=== PATIENT | female | born 1960 | race Caucasian/White ===

== ENCOUNTER 2024-02-25 01:12 | Emergency (ER) | payer OTHER, SELFPAY ==
[2024-02-25 01:13] VITALS: BP 165/142; PULSE 88; RESP 20; TEMP 36.4; O2SAT 96; BMI 34.3
--- NOTE | 2024-02-25 01:37 | RAD_ITS ---
STUDY: X-RAY CHEST REASON FOR EXAM: Female, 63 years old patient with chest pain. TECHNIQUE: PA and lateral views of the chest. COMPARISON: Prior comparison studies are not available for review at this time. FINDINGS: Cardiac monitoring leads are present. The lungs are clear and expanded. There is no demonstrated pleural abnormality. Normal size heart. There is a masslike area within the middle mediastinum with air-fluid level consistent with hiatal hernia. Both hilar areas are within normal limits in appearance. Normal visualized pulmonary arteries. Normal visualized aortic arch and descending thoracic aorta. There is demineralization of the osseous structures. There appears to be mild compression fracture of a midthoracic vertebral body. Normal visualized ribs, clavicles, and shoulders. There is no demonstrated abnormality of the visualized soft tissue structures of the upper abdomen. RAD/Chest PA and Lateral IMPRESSION: 1. No radiographic evidence of acute cardiopulmonary disease. 2. Moderately large hiatal hernia. Electronically Signed: Dinorah Marie MD at 2:26 EST ,
--- NOTE | 2024-02-25 01:37 | EKG12_ITS ---
Test Reason : CP Blood Pressure : */* mmHG Vent. Rate : 85 BPM Atrial Rate : 85 BPM P-R Int : 146 ms QRS Dur : 80 ms QT Int : 370 ms P-R-T Axes : 50 19 22 degrees QTcB Int : 440 ms Normal sinus rhythm Normal ECG Confirmed by SHARYN TRONCOSO, TULIO ([id number]), editor & co founder MARTHA FARMER ([id number]) on 02/26/2024 9:41:38 AM Referred By: DON Confirmed By: TULIO COLES MD
[2024-02-25] MEDS: Ondansetron 4 MG/2 ML Vial IV (01:42)
[2024-02-25] MEDS: HYDROmorphone 0.5 MG/0.5 ML SYRINGE IV (01:42)
[2024-02-25 01:44] LABS: Absolute Lymphocyte Count 1.43 X10^3/uL (0.83-4.51); Absolute Neutrophil Count 5.6 X10^3/uL (2.0-7.7); Basophil# 0.12 X10^3/uL; Basophil% 1.4 % (0-1); Eosinophil# 0.29 X10^3/uL; Eosinophils% 3.5 % (0-5); Hematocrit 44.2 % (37-47); Hemoglobin 14.3 g/dL (12.0-15.0); Lymphocyte # 1.43 X10^3/ul (0.83-4.51); Lymphocyte % 17.2 % (19-41); Mean Corp Hgb Conc 32.4 g/dL (32-36); Mean Corpuscular Hgb 29.9 pg (27.0-32.0); Mean Corpuscular Volume 92.3 fL (81-99); Monocyte% 9.7 % (0-10); NRBC Flagged by Analyzer 0 % (0-5); Neutrophil # 5.58 X10^3/uL (2.7-7.7); Neutrophil % 67.4 % (47-70); Platelet Count 297 K/mm3 (150-450); RBC Distribution Width CV 13.4 % (11.6-14.6); Red Blood Count 4.79 M/mm3 (4.2-5.4); White Blood Count 8.3 K/mm3 (4.4-11.0)
[2024-02-25 02:05] LABS: D-Dimer Quantitative (DVT/PE) 0.37 FEU/ug/m (0.27-0.49)
[2024-02-25 02:06] LABS: AST(SGOT) 22 U/L (15-37); Alanine Aminotransfer ALT/SGPT 39 U/L (13-56); Albumin, Serum 3.6 g/dL (3.2-5.0); Alkaline Phosphatase 119 U/L (45-117); Anion Gap 4 (5-15); BUN 12 mg/dL (7-18); BUN/Creat Ratio 15.2 RATIO (10-20); Bilirubin, Direct 0.11 mg/dL (0.00-0.30); Calcium,Total 9.2 mg/dL (8.5-10.1); Chloride 105 mmol/L (98-107); Creatinine, Serum 0.79 mg/dL (0.55-1.02); EST Glomerular Filtration Rate 78 mL/min (>60); Est Glom Filt Rate - Afr Amer 94 mL/min (>60); Estimated Creatinine Clearance 78.52 ml/min; Globulin 3.3 g/dL (2.2-4.2); Glucose 113 mg/dL (74-106); Lipase 79 U/L (13-75); Magnesium 2.2 mg/dL (1.6-2.6); Potassium 3.9 mmol/L (3.5-5.1); Protein, Total 6.9 g/dL (6.4-8.2); Sodium Level 142 mmol/L (136-145); Troponin-I HS 5 pg/mL (3.0-54.0)
[2024-02-25 02:13] VITALS: BP 161/88; PULSE 85; RESP 16; O2SAT 98
--- NOTE | 2024-02-25 02:34 | CT_ITS ---
STUDY: CTA CHEST REASON FOR EXAM: Female, 63 years old patient with chest and back pain. RADIATION DOSAGE (If Supplied By Facility): CTDIvol = ( 15.42 ) mGy, DLP = ( 780.99 ) mGycm TECHNIQUE: The examination was performed with the intravenous administration of 100 mL of IV Isovue-370. Post-processing of the angiographic images was performed, with multiplanar reformation and 3D reconstruction. Individualized dose optimization techniques were used for this CT. COMPARISON: Prior comparison studies are not available for review at this time. FINDINGS: Normal enhancement of the main pulmonary artery and right and left pulmonary arteries. Normal enhancement of the bilateral peripheral pulmonary arteries. There is no demonstrated pulmonary embolism. Normal thoracic aorta and visualized great vessels. There is no demonstrated aortic dissection. Normal heart and pericardium. There is moderately large hiatal hernia. Normal hilar regions. Normal visualized trachea and bronchi. The lungs are well expanded. There is a minimal left basilar dependent atelectasis. There is patchy right lower lobe ground glass attenuation that could represent early pneumonia. Lungs are otherwise clear. Normal pleura. Normal chest wall structures. There are mild degenerative changes of thoracic spine. There is a curvature of the thoracic spine with convexity towards the right. There are gallstones. CT/CTA Chest W/WO Contrast IMPRESSION: 1. No CTA demonstrated pulmonary embolism or arterial dissection. 2. Right lower lobe airspace disease could represent early pneumonia. 3. Minimal left-sided dependent atelectasis. 4. Moderately large hiatal hernia. 5. Cholelithiasis. Electronically Signed: Dinorah Marie MD at 3:50 EST ,
--- NOTE | 2024-02-25 02:34 | CT_ITS ---
STUDY: CT ABDOMEN AND PELVIS WITH CONTRAST REASON FOR EXAM: Female, 63 years old patient with right upper quadrant (RUQ) abdominal pain. RADIATION DOSAGE (If Supplied By Facility): CTDIvol = ( 23.67 ) mGy, DLP = ( 1175.11 ) mGycm TECHNIQUE: Transaxial images were obtained from the dome of the diaphragm to the symphysis pubis without oral contrast. 100 mL of IV Isovue-370 was administered. Sagittal and coronal images were reconstructed. Individualized dose optimization techniques were used for this CT. COMPARISON: None. FINDINGS: The visualized lung bases are unremarkable. The visualized portions of the heart are within normal limits. There is decreased attenuation of the liver consistent with steatosis. There are multiple gallstones. There appears to some thickening of the gallbladder wall. Normal spleen. Normal pancreas. Normal bilateral adrenal glands. Normal right kidney. Normal left kidney. There is a moderately large hiatal hernia composed mostly of the fundus of the stomach. There is no obvious dilated bowel, ascites or pneumoperitoneum. There is some thickening of the moon of the proximal small bowel. Descending colon is nondistended with mild thickening of the moon. Distal gas is visible in the ascending and transverse colon. Scattered diverticula are visible. There is non-visualization of the appendix. Normal abdominal aorta. Normal inferior vena cava. Normal retroperitoneum. Normal urinary bladder. There are uterine calcifications that are probably secondary to leiomyomata. Normal abdominal wall. There are multilevel degenerative changes of the visualized lumbar spine. There is mild anterolisthesis at L5-S1. CT/Abdomen/Pelvis W IV Cont ONLY IMPRESSION: 1. Cholelithiasis with mild thickening of the gallbladder wall suggests possible cholecystitis. 2. Mild abnormal thickening of the moon of the proximal small bowel in the left upper quadrant suggests possible sequela of infectious or inflammatory enteritis. 3. Hepatic steatosis. 4. Hiatal hernia. Electronically Signed: Dinorah Marie MD at 4:04 EST ,
[2024-02-25 03:00] VITALS: BP 145/86; PULSE 85; RESP 16; O2SAT 98
[2024-02-25 04:00] VITALS: BP 141/88; PULSE 78; RESP 18; TEMP 36.6; O2SAT 94
[2024-02-25 04:15] LABS: Troponin-I HS 10 pg/mL (3.0-54.0)
--- NOTE | 2024-02-25 04:31 | EDS_ITS ---
HPI History of Present Illness Chief Complaint: Chest Pain Informant: patient and family Narrative Narrative: Patient is a 63-year-old female with history of migraine headache and GERD. She states that this evening she began developing both anterior chest pain and upper back pain. She states there was no trauma or excessive activity. She states there is been nausea associated with the pain but no vomiting. She denies any diaphoresis or shortness of breath. She denies any previous history of cardiac disease. She denies any recent travel surgery or history of DVT/PE. She reports that her blood pressure is typically low and she has been checking it because of her symptoms and it is now elevated. Therefore because of the new hypertension and symptoms of chest and back pain she had concerned this may be cardiac in nature and was brought to the hospital for evaluation [facility] Home Medications ?Medication ?Instructions ?Recorded ?Last Taken ?Type rizatriptan 5 mg tablet 5 mg PO PRN PRN Headache 02/28/17 02/27/17 History lansoprazole 30 mg capsule,delayed 30 mg PO DAILY 02/25/24 Unknown History release ondansetron 4 mg disintegrating 4 mg PO TID PRN nausea and 02/25/24 Unknown Rx tablet vomiting #21 tabs oxycodone-acetaminophen 5 mg-325 1 tab PO Q6H PRN pain 3 days #12 02/25/24 Unknown Rx mg tablet (Percocet) tabs Allergy/AdvReac Type Severity Reaction Status Date / Time topiramate (From Topamax) Allergy Intermediate Rash Verified 02/25/24 01:13 Social History Smoking Status: Never smoker [facility] ED Constitutional Constitutional ED: Denies chills or fever(s) Eyes Eyes: Denies change in vision ENT ENT ED: Denies sore throat Cardiovascular Cardiovascular: Reports chest pain; Denies palpitations or racing heartbeat Respiratory/Chest Respiratory/Chest: Denies cough or dyspnea Gastrointestinal Gastrointestinal: Reports nausea; Denies abdominal pain, diarrhea or vomiting Genitourinary Genitourinary ED: Denies dysuria Musculoskeletal Musculoskeletal: Reports back pain Integumentary Denies rash Neurologic Neurologic: Denies headache(s), paresthesias or weakness Hematologic/Lymphatic Hematologic/Lymphatic: Denies easy bleeding or easy bruising EXAM Physical Exam Const Vital Signs: 02/25/24 01:13 02/25/24 02:13 02/25/24 03:00 Temperature 97.5 F L Temperature Source Temporal Pulse Rate 88 85 85 Respiratory Rate 20 H 16 16 Blood Pressure 165/142 H 161/88 H 145/86 H Blood Pressure Mean 149 112 105 Pulse Ox 96 98 98 Oxygen Delivery Method Room Air Room Air Room Air 02/25/24 04:00 02/25/24 04:00 Temperature 97.8 F Temperature Source Pulse Rate 78 78 Respiratory Rate 18 18 Blood Pressure 141/88 H 141/88 H Blood Pressure Mean 105 105 Pulse Ox 94 94 Oxygen Delivery Method Positive well nourished, well developed and obese General Appearance ED: well developed; Negative for pallor Nutritional Appearance: obese HEENT HEENT Narrative: Normocephalic atraumatic Eyes PERRL and EOMs intact bilaterally General Eye ED: Negative for scleral icterus Neck supple and no JVD Neck Narrative: No nuchal rigidity or meningeal signs Chest Wall palpation of chest normal Chest Narrative: No bony deformity or crepitance noted Resp normal respiratory effort and clear to auscultation bilaterally Resp Narrative: No nasal flaring retractions tachypnea or accessory muscle use Cardio regular rate and regular rhythm Rate: other Other Details: Heart is regular rate and rhythm without murmurs rubs or gallops Radial and carotid pulses are equal and symmetric GI non-distended and no masses GI Narrative: Abdomen is soft and nondistended with normal active bowel sounds. Patient has mild pain with palpation in the right upper quadrant and midepigastric region without voluntary guarding or rigidity. Negative Miller sign No pulsatile mass or fluid wave Auscultation: normoactive bowel sounds Palpation: soft Back/Spine no CVA tenderness Extremity normal to inspection Extremity Narrative: No asymmetric edema no pitting edema negative Homans' sign bilaterally Neuro oriented x3, CN's II-XII intact bilaterally and no sensory deficits noted Sensorium / Orientation: alert Motor Exam: strength 5/5 throughout Psych mental status grossly normal Skin no rashes or lesions noted General Skin Exam: Negative for jaundice or pallor MDM MDM MDM Narrative Medical decision making narrative: Patient arrived to the ER hypertensive otherwise with stable vitals. She reported pain in the anterior chest and upper back but more along the midline of the sternum and thoracic spine. General diagnosis is for acute coronary syndrome versus cardiac dysrhythmia versus pneumonia versus pneumothorax versus GERD versus pancreatitis versus biliary colic or acute cholecystitis. There is also concern for potential dissection and/or PE. Secondary to this basic blood work was obtained as well as a chest x-ray. Chest x-ray revealed no pneumonia or pneumothorax or widening of the mediastinum. The patient's D-dimer is negative going against PE or dissection. Her EKG is sinus without ischemic changes and while on the monitor there is no cardiac dysrhythmia noted. After receiving medication the patient reported the chest discomfort has resolved but she still has some back pain. Therefore elected to perform a CTA of the chest but as my physical exam is more concerning for biliary colic a CT with IV contrast of the abdomen pelvis was obtained to check for gallbladder dysfunction. CTA revealed no PE or dissection. CT of the abdomen pelvis did show gallstones. The image questioned thickening and possibly cholecystitis. Secondary to this I discussed with patient the need to be evaluated in the hospital and have ultrasound to obtain a better image. The patient states she has not been completely pain-free for the last hour. She states that as I have ruled out a heart attack or blood clot or dissection and her symptoms have resolved she does not want to sit in the hospital for more hours in order to obtain a better study of her gallbladder. She understands that if infection is truly present that it could worsen over the next few hours to few days leading to systemic infection and more invasive surgery. Patient states she understands this but does not believe that will happen and she agrees to have an outpatient ultrasound and follow-up with general surgery for repeat evaluation. History & Record Review Discussion w/independent historian: Patient and Family Lab Data Attestation: I reviewed the patient's lab results. Labs: Laboratory Results - last 24 hr 02/25/24 02/25/24 01:27 03:48 WBC 8.3 RBC 4.79 Hgb 14.3 Hct 44.2 MCV 92.3 MCH 29.9 MCHC 32.4 RDW Std Deviation 46.0 H RDW Coeff of Wolf 13.4 Plt Count 297 MPV 10.0 Immature Gran % (Auto) 0.800 Neut % (Auto) 67.4 Lymph % (Auto) 17.2 L Mora % (Auto) 9.7 Eos % (Auto) 3.5 Baso % (Auto) 1.4 H Absolute Neuts (auto) 5.6 Absolute Lymphs (auto) 1.43 Nucleated RBC % 0 D-Dimer Quant (PE/DVT) 0.37 Sodium 142 Potassium 3.9 Chloride 105 Carbon Dioxide 32.0 Anion Gap 4 L BUN 12 Creatinine 0.79 Estim Creat Clear Calc 78.52 Est GFR (MDRD) Af Amer 94 Est GFR (MDRD) Non-Af 78 BUN/Creatinine Ratio 15.2 Glucose 113 H Calcium 9.2 Magnesium 2.2 Total Bilirubin 0.40 Direct Bilirubin 0.11 AST 22 ALT 39 Alkaline Phosphatase 119 H Troponin I High Sens 5 10 Total Protein 6.9 Albumin 3.6 Globulin 3.3 Lipase 79 H Radiography Diagnostic Testing: Clinical Impression(s) from Imaging Studies Chest X-Ray 02/25/24 01:37 IMPRESSION: 1. No radiographic evidence of acute cardiopulmonary disease. 2. Moderately large hiatal hernia. Electronically Signed: Dinorah Marie MD at 2:26 EST , Abdomen/Pelvis CT 02/25/24 02:34 IMPRESSION: 1. Cholelithiasis with mild thickening of the gallbladder wall suggests possible cholecystitis. 2. Mild abnormal thickening of the moon of the proximal small bowel in the left upper quadrant suggests possible sequela of infectious or inflammatory enteritis. 3. Hepatic steatosis. 4. Hiatal hernia. Electronically Signed: Dinorah Marie MD at 4:04 EST , Chest CTA 02/25/24 02:34 IMPRESSION: 1. No CTA demonstrated pulmonary embolism or arterial dissection. 2. Right lower lobe airspace disease could represent early pneumonia. 3. Minimal left-sided dependent atelectasis. 4. Moderately large hiatal hernia. 5. Cholelithiasis. Electronically Signed: Dinorah Marie MD at 3:50 EST , 2 view chest x-ray as interpreted by the emergency medicine physician reveals no acute infiltrate pneumothorax or pleural effusion or widening of the mediastinum Discharge Plan Triage Chief Complaint: Chest Pain ED Provider: Sean Garber Dx/Rx/DC Orders Clinical Impression: Cholelithiasis, Biliary colic, Hypertension, History of migraine headaches, GERD (gastroesophageal reflux disease) Instructions: Gallstones Dc, ED Gallstones with Biliary Colic Prescriptions: New ondansetron 4 mg tablet,disintegrating 4 mg PO TID PRN (Reason: nausea and vomiting) Qty: 21 0RF oxycodone-acetaminophen [Percocet] 5-325 mg tablet 1 tab PO Q6H PRN (Reason: pain) 3 Days Qty: 12 0RF No Action rizatriptan 5 MG tablet 5 mg PO PRN PRN (Reason: Headache) lansoprazole 30 mg capsule,delayed release(DR/EC) 30 mg PO DAILY Other Ambulatory Orders: Gallbladder (Routine) Facility: [facility] - Location: [facility] Ordered By: Dr. Sean Garber Primary Care Provider: Lee Chiang Referrals: Sunny Tan MD [Med Staff - Active Staff] - Lee Chiang MD [Primary Care Provider] - Activity Restrictions/Additional Instructions: Your workup today showed gallstones and your symptoms are most consistent with a gallbladder spasm. Obtain your outpatient ultrasound to better characterize you r gallbladder dysfunction. Follow-up with general surgery to discuss potential removal of your gallbladder. If you develop a fever or have intractable pain or any further concerns return to the ER for repeat evaluation Print Language: Thai Disposition Disposition: Home, Self Care Discharge Date/Time: 02/25/24 04:40
== END 2024-02-25 04:40 | disposition home or self-care (01) ==
PROVIDERS: Emergency Provider Emergency Medicine; PCP Family Medicine; Visit Provider Emergency Medicine
DX: K80.70 Calculus of gallbladder and bile duct without cholecystitis without obstruction (principal); M54.6 Pain in thoracic spine; I10 Essential (primary) hypertension; K21.9 Gastro-esophageal reflux disease without esophagitis
CPT/HCPCS: 71046; 71275; 74177; 80048; 80076; 83690; 83735; 84484; 85025; 85379; 93005; 96374; 96375; 99283; Q9967; A4216; J2405

== ENCOUNTER → 2024-03-01 | Outpatient (CLI) | payer OTHER, SELFPAY ==
--- NOTE | 2024-03-01 10:26 | US_ITS ---
STUDY: ULTRASOUND GALLBLADDER REASON FOR VISIT: Female, 63 years old. Abdominal pain TECHNIQUE: Ultrasound evaluation of the gallbladder was performed with real-time and static mitchell-scale imaging. TECHNICAL QUALITY: Adequate. COMPARISON: None. FINDINGS: Gallbladder: Normal distended gallbladder. The gallbladder wall measures 2 mm. There is a negative sonographic Miller''s sign. There is no pericholecystic fluid. There are multiple echogenic structures within the gallbladder, consistent with multiple gallstones. Common Bile Duct (C.B.D.): The common bile duct measures 4 mm. US/Gallbladder IMPRESSION: Cholelithiasis. Electronically Signed: Rafiq Downing MD at 23:49 EST ,
== END | disposition home or self-care (01) ==
PROVIDERS: PCP Family Medicine; Referring Provider Emergency Medicine; Visit Provider Emergency Medicine
DX: K80.20 Calculus of gallbladder without cholecystitis without obstruction (principal)
CPT/HCPCS: 76705

== ENCOUNTER 2024-10-28 14:34 | Inpatient (IN) | payer MEDICARE, BC, SELFPAY ==
[2024-10-28] VITALS (15 sets, daily range): BP systolic 120–146; BP diastolic 75–106; PULSE 63–84; RESP 13–20; TEMP 36.3–36.7; O2SAT 96–100; BMI 32.4; BMI 32.5
--- OUTSIDE RECORDS SUMMARY | 2024-10-28 07:24 | XMS RPT_ITS | CCD ---
Author Organization [facility] Care Team Providers Care Station Engineer Main Line Name Role Phone BALAJI, FARHAD Unavailable Unavailable EMANUEL, CLAUDIA Unavailable Unavailable EMANUEL, CLAUDIA Unavailable Unavailable BALAJI, FARHAD Unavailable Unavailable Tao Mahajan MD Primary Care Provider Tao Mahajan MD Primary Care Provider Erendira Chiang MD Primary Care Provider Erendira Chiang MD Primary Care Provider Erendira Chiang MD Primary Care Provider Tannhof EMT DRIVER.ALEMITE OPERATORDisha Unavailable Ankit EMT DRIVER.Derek ARAGONsse Unavailable ERENDIRA CHIANG Primary Care Unavailable ANKIT, JAN Referring Unavailable MALATHI LEONOR L Referring Unavailable ERENDIRA CHIANG Primary Care Unavailable MALATHI LEONOR L Referring Unavailable MALATHI LEONOR L Attending Unavailable ERENDIRA CHIANG Primary Care Unavailable ANKIT, JAN Attending Unavailable ERENDIRA CHIANG Primary Care Unavailable Ankit PECAN CLEANER, Jan Attending Unavailable Ankit PECAN CLEANER, Jan Referring Unavailable Erendira Chiang Primary Care Unavailable AndJonathan beyin Attending Unavailable Andsotero Sean Referring Unavailable Erendira Chiang Primary Care Unavailable AndesJonathanin Attending Unavailable Erendira Chiang Primary Care Unavailable Allergies Allergy Classification Reported Allergen(s) Allergy Type Date of Onset Reaction(s) Facility (20 sources) topiramate; Translations: [TOPIRAMATE] Drug Allergy 03-26-2006 Hives [facility] Other [facility] (14 sources) atorvastatin; Translations: [ATORVASTATIN] Drug Allergy 03-22-2022 Myalgia [facility] Work Phone: (14 sources) Simvastatin; Translations: [SIMVASTATIN] Drug Allergy 03-22-2022 Myalgia [facility] Work Phone: Medications Current Medications Medication Drug Class(es) Dates Sig (Normalized) Sig (Original) biotin 2.5 mg oral capsule (17 sources) Start: 02-03-2011 Biotin 2,500 mcg ORAL Cap Take by mouth. 0 02/03/2011 Active Comment on above: Take by mouth. CHOLECALCIFEROL, VITAMIN D3, (VITAMIN D3 ORAL) (17 sources) CHOLECALCIFEROL, VITAMIN D3, (VITAMIN D3 ORAL) Take by mouth. Active CHOLECALCIFEROL, VITAMIN D3, (VITAMIN D3 ORAL) Take by mouth. 0 Active Comment on above: Take by mouth. lansoprazole 30 mg delayed release oral capsule (20 sources) Proton Pump Inhibitor Start: End: take 1 capsule by mouth once daily lansoprazole (PREVACID) 30 mg capsule Indications: GERD without esophagitis Take 1 capsule by mouth once daily. 30 capsule 2 07/26/2024 10/24/2024 Active Start: 03-22-2022 End: 09-16-2022 take 1 capsule by mouth once daily lansoprazole (PREVACID) 30 mg capsule Indications: GERD without esophagitis Take 1 capsule by mouth once daily. 90 capsule 1 09/16/2022 Active Start: 12-31-2021 take 1 capsule by mo [facility] once daily lansoprazole (PREVACID) 30 mg capsule Indications: GERD without esophagitis Take 1 capsule by mouth once daily. 90 capsule 0 12/31/2021 Active Start: 01-21-2021 End: 12-28-2021 take 1 capsule by mouth once daily lansoprazole (PREVACID) 30 mg capsule Indications: GERD without esophagitis TAKE 1 CAPSULE BY MOUTH EVERY DAY 90 capsule 3 01/21/2021 12/28/2021 Discontinued Comment on above: TAKE 1 CAPSULE BY MO UT EVERY DAY Take 1 capsule by mo [facility] once daily. magnesium oxide 400 mg oral tablet (17 sources) Start: 09-20-2018 take 1 tablet by mouth once daily magnesium oxide 400 mg magnesium tab Take 1 tablet by mouth once daily. 09/20/2018 Active Comment on above: Take 1 tablet by heron th once daily. rizatriptan 10 mg oral tablet (19 sources) Serotonin-1b and Serotonin-1d Receptor Agonist Start: 03-28-2023 End: 10-24-2024 take 1 tablet by mouth every two hours as needed rizatriptan (MAXALT) 10 mg tablet Indications: Migraine without aura, not intractable, with status migrainosus Take 1 tablet by mouth as needed. May repeat in 2 hours if needed 12 tablet 3 04/27/2024 10/24/2024 Active Start: 10-25-2021 End: 09-16-2022 take 1 tablet by mouth every two hours as needed rizatriptan (MAXALT) 10 mg tablet Indications: Migraine without aura, not intractable, with status migrainosus Take 1 tablet by mouth as needed. May repeat in 2 hours if needed 12 tablet 5 09/16/2022 Active Start: 04-16-2020 End: 04-03-2021 take 1 tablet by mouth every two hours as needed rizatriptan (MAXALT) 10 mg tablet Indications: Migraine without aura, not intractable, with status migrainosus TAKE 1 TABLET BY MOUTH NEEDED. MAY REPEAT IN 2 HOURS IF NEEDED 12 tablet 5 04/16/2020 04/03/2021 Discontinued Comment on above: TAKE 1 TABLET BY HERON TH NEEDED. MAY REPEAT IN 2 HOURS IF NEEDED Take 1 tablet (10 mg ) by mouth as needed. May repeat in 2 hours if needed Problems Active Problems Problem Classification Problem Date Documented Date Episodic/Chronic Disorders of lipid metabolism (17 sources) Hyperlipidemia; Translations: [Hyperlipidemia, unspecified] Onset: 02-20-2011 05-13-2016 Chronic Esophageal disorders (20 sources) Gastroesophageal reflux disease; Translations: [Gastro-esophageal reflux disease without esophagitis] Onset: 10-06-2005 10-06-2005 Chronic Headache; including migraine (5 sources) Migraine without aura, not refractory ; Translations: [Migraine without aura, not intractable, with status migrainosus] Onset: 09-05-2024 Chronic Immunizations and screening for infectious disease (3 sources) Patient encounter status; Translations: [Encounter for screening for human papillomavirus (HPV)] 04-17-2023 Episodic Menopausal disorders (17 sources) Menopausal symptom; Translations: [Menopausal and female climacteric states] Onset: 04-16-2012 04-16-2012 Chronic Nonmalignant breast conditions (2 sources) Breast finding ; Translations: [Dense breast tissue] 04-17-2023 Episodic Nonspecific chest pain (4 sources) Chest discomfort; Translations: [Other chest pain] Onset: 03-20-2024 09-05-2024 Episodic Other injuries and conditions due to external causes (1 source) Unspecified foreign body in esophagus causing other injury, initial encounter; Translations: [Unspecified foreign body in esophagus causing other injury, initial encounter] Onset: 02-28-2017 Other lower respiratory disease (2 sources) Dyspnea on exertion; Translations: [Other forms of dyspnea] 09-05-2024 Episodic Other lower respiratory disease (1 source) Other forms of dyspnea; Translations: [TREVINO (dyspnea on exertion)] Onset: 09-05-2024 Episodic Other non-traumatic joint disorders (1 source) Pain in left shoulder; Translations: [Pain in joint, shoulder region] 02-06-2021 Episodic Other nutritional; endocrine; and metabolic disorders (13 sources) Obesity; Translations: [Obesity, unspecified] Onset: 03-22-2022 03-22-2022 Chronic Other upper respiratory disease (17 sources) Allergic rhinitis; Translations: [Allergic rhinitis, unspecified] Onset: 10-06-2005 10-06-2005 Chronic Residual codes; unclassified (17 sources) Obstructive sleep apnea syndrome; Translations: [Obstructive sleep apnea (adult) (pediatric)] Onset: 04-16-2012 04-16-2012 Chronic Screening and history of mental health and substance abuse codes (2 sources) Encounter for screening for depression; Translations: [Encounter for screening examination for other mental health and behavioral disorders] Onset: 09-05-2024 Episodic Unclassified (1 source) Unknown / UNK(Unknown) Onset: 02-28-2017 Unclassified (1 source) Dense breast tissue; Translations: [Dense breast tissue] Onset: 04-19-2024 Past or Other Problems Problem Classification Problem Date Documented Da te Episodic/Chronic Biliary tract disease (3 sources) Cholelithiasis without obstruction; Translations: [Calculus of gallbladder without cholecystitis without obstruction] Onset: 03-24-2024 09-05-2024 Episodic Diabetes mellitus without complication (9 sources) Impaired fasting glycemia; Translations: [Impaired fasting glucose] Onset: 02-20-2011 Resolved: 05-25-2017 05-25-2017 Episodic Gastritis and duodenitis (9 sources) Acute gastritis; Translations: [Acute gastritis without bleeding] Onset: 05-12-2008 Resolved: 05-20-2016 05-20-2016 Episodic Malaise and fatigue (9 sources) Fatigue; Translations: [Other fatigue] Onset: 05-27-2010 Resolved: 05-25-2017 05-25-2017 Episodic Other and unspecified benign neoplasm (17 sources) Benign neoplasm of stomach; Translations: [Benign neoplasm of stomach] Onset: 05-12-2008 05-12-2008 Episodic Other gastrointestinal disorders (2 sources) Dysphagia, unspecified; Translations: [Dysphagia, unspecified] Onset: 02-28-2017 Episodic Other gastrointestinal disorders (17 sources) Dysphagia; Translations: [Dysphagia, unspecified] Onset: 02-28-2017 02-28-2017 Episodic Other screening for suspected conditions (not mental disorders or infectious disease) (20 sources) Liver function tests abnormal; Translations: [Abnormal results of liver function studies] Onset: 03-26-2006 03-26-2006 Episodic Residual codes; unclassified (17 sources) Family history of osteoporosis; Translations: [Family history of osteoporosis] Onset: 06-09-2013 06-09-2013 Episodic Residual codes; unclassified (13 sources) Other specified health status; Translations: [Other drug allergy] Onset: 03-22-2022 03-22-2022 Episodic Unclassified (3 sources) Patient encounter status 04-19-2024 Unclassified (1 source) Breast finding 04-19-2024 Results Test Name Value Interpretation Reference Range Facility CBC W Auto Differential pane l (Bld)on 09-05-2024 Basophils (Bld) [#/Vol] 0.1 10*3/uL [facility] Basophils/100 WBC (Bld) 1.7 % [facility] Differential cell count method Nom (Bld) Auto [facility] Eosinophils (Bld) [#/Vol] 0.17 10*3/uL [facility] Eosinophils/100 WBC (Bld) 2.9 % [facility] Erythrocyte distribution width (RBC) [Ratio] 13.4 % 11.5 - 15.0 % [facility] Hematocrit (Bld) [Volume fraction] 46.3 % High 36.0 - 46.0 % [facility] Hemoglobin (Bld) [Mass/Vol] 14.9 g/dL 11.5 - 15.5 g/dL [facility] Immature granulocytes (Bld) [#/Vol] 0.03 10*3/uL [facility] Immature granulocytes/100 WBC (Bld) 0.5 % [facility] Interpretation and review of laboratory results Abnormal [facility] Lymphocytes (Bld) [#/Vol] 1.31 10*3/uL [facility] Lymphocytes/100 WBC (Bld) 22.7 % [facility] MCH (RBC) [Entitic mass] 29.7 pg 26.0 - 34.0 pg [facility] MCHC (RBC) [Mass/Vol] 32.2 g/dL 30.5 - 36.0 g/dL [facility] MCV (RBC) [Entitic vol] 92.2 fL 80.0 - 100.0 fL [facility] Monocytes (Bld) [#/Vol] 0.59 10*3/uL [facility] Monocytes/100 WBC (Bld) 10.2 % [facility] Neutrophils (Bld) [#/Vol] 3.58 10*3/uL [facility] Neutrophils/100 WBC (Bld) 62 % [facility] Nucleated RBC (Bld) [#/Vol] [facility] Nucleated RBC/100 WBC (Bld) [Ratio] 0 % /100 WBC [facility] Platelet mean volume (Bld) [Entitic vol] 10.9 fL 9.0 - 12.7 fL [facility] Platelets (Bld) [#/Vol] 327 10*3/uL [facility] RBC (Bld) [#/Vol] 5.02 10*6/uL 3.90 - 5.2 0 m/uL [facility] WBC (Bld) [#/Vol] 5.78 10*3/uL [facility] Basophils (Bld) [#/Vol] 0.10 10*3/uL Normal <0.11 [facility] Comment on above: Order Comment: Speci men Type: BLOOD SPECIMEN Ordering Facility: [facility] Address: [address] [place], [place] [address] Performed By: #### 5 7021-8 #### [facility] CLIA [id number] [address] [place] [address] [place] Basophils/100 WBC (Bld) 1.7 % Normal [facility] Comment on above: Order Comment: Speci men Type: BLOOD SPECIMEN Ordering Facility: [facility] Address: [address] [place] [address] Performed By: #### 5 7021-8 #### [facility] CLIA [id number] [address] [place] [address] [place] Differential cell count method Nom (Bld) Auto Normal [facility] Comment on above: Order Comment: Speci men Type: BLOOD SPECIMEN Ordering Facility: [facility] Address: [address] [place] [address] Performed By: #### 5 7021-8 #### [facility] CLIA [id number] [address] [place] [address] [place] Eosinophils (Bld) [#/Vol] 0.17 10*3/uL Normal <0.46 [facility] Comment on above: Order Comment: Speci men Type: BLOOD SPECIMEN Ordering Facility: [facility] Address: [address] [place] [address] Performed By: #### 5 7021-8 #### [facility] CLIA [id number] [address] [place] [address] [place] Eosinophils/100 WBC (Bld) 2.9 % Normal [facility] Comment on above: Order Comment: Speci men Type: BLOOD SPECIMEN Ordering Facility: [facility] Address: [address] [place] [address] Performed By: #### 5 7021-8 #### [facility] CLIA [id number] [address] [place] [address] [place] Erythrocyte distribution width (RBC) [Ratio] 13.4 % Normal 11.5-15.0 [facility] Comment on above: Order Comment: Speci men Type: BLOOD SPECIMEN Ordering Facility: [facility] Address: [address] [place], [place] [address] Performed By: #### 5 7021-8 #### [facility] CLIA [id number] [address] [place] [address] [place] Hematocrit (Bld) [Volume fraction] 46.3 % High 36.0-46.0 [facility] Comment on above: Order Comment: Speci men Type: BLOOD SPECIMEN Ordering Facility: [facility] Address: [address] [place] [address] Performed By: #### 5 7021-8 #### [facility] CLIA [id number] [address] [place] [address] [place] Hemoglobin (Bld) [Mass/Vol] 14.9 g/dL Normal 11.5-15.5 [facility] Comment on above: Order Comment: Speci men Type: BLOOD SPECIMEN Ordering Facility: [facility] Address: [address] [place] [address] Performed By: #### 5 7021-8 #### [facility] CLIA [id number] [address] [place] [address] [place] Immature granulocytes (Bld) [#/Vol] 0.03 10*3/uL Normal <0.10 [facility] Comment on above: Order Comment: Speci men Type: BLOOD SPECIMEN Ordering Facility: [facility] Address: [address] [place] [address] Performed By: #### 5 7021-8 #### [facility] CLIA [id number] [address] [place] [address] [place] Immature granulocytes/100 WBC (Bld) 0.5 % Normal [facility] Comment on above: Order Comment: Speci men Type: BLOOD SPECIMEN Ordering Facility: [facility] Address: [address] [place] [address] Performed By: #### 5 7021-8 #### [facility] CLIA [id number] [address] [place] [address] [place] Lymphocytes (Bld) [#/Vol] 1.31 10*3/uL Normal 1.00-4.00 [facility] Comment on above: Order Comment: Speci men Type: BLOOD SPECIMEN Ordering Facility: [facility] Address: [address] [place] [address] Performed By: #### 5 7021-8 #### [facility] CLIA [id number] [address] [place] [address] [place] Lymphocytes/100 WBC (Bld) 22.7 % Normal [facility] Comment on above: Order Comment: Speci men Type: BLOOD SPECIMEN Ordering Facility: [facility] Address: [address] [place] [address] Performed By: #### 5 7021-8 #### [facility] CLIA [id number] [address] [place] [address] [place] MCH (RBC) [Entitic mass] 29.7 pg Normal 26.0-34.0 [facility] Comment on above: Order Comment: Speci men Type: BLOOD SPECIMEN Ordering Facility: [facility] Address: [address] [place] [address] Performed By: #### 5 7021-8 #### [facility] CLIA [id number] [address] [place] [address] [place] MCHC (RBC) [Mass/Vol] 32.2 g/dL Normal 30.5-36.0 [facility] Comment on above: Order Comment: Speci men Type: BLOOD SPECIMEN Ordering Facility: [facility] Address: [address] [place] [address] Performed By: #### 5 7021-8 #### [facility] CLIA [id number] [address] [place] [address] [place] MCV (RBC) [Entitic vol] 92.2 fL Normal 80.0-100.0 [facility] Comment on above: Order Comment: Speci men Type: BLOOD SPECIMEN Ordering Facility: [facility] Address: [address] [place] [address] Performed By: #### 5 7021-8 #### [facility] CLIA [id number] [address] [place] [address] [place] Monocytes (Bld) [#/Vol] 0.59 10*3/uL Normal <0.87 [facility] Comment on above: Order Comment: Speci men Type: BLOOD SPECIMEN Ordering Facility: [facility] Address: [address] [place] [address] Performed By: #### 5 7021-8 #### [facility] CLIA [id number] [address] [place] [address] [place] Monocytes/100 WBC (Bld) 10.2 % Normal [facility] Comment on above: Order Comment: Speci men Type: BLOOD SPECIMEN Ordering Facility: [facility] Address: [address] [place] [address] Performed By: #### 5 7021-8 #### [facility] CLIA [id number] [address] [place] [address] [place] Neutrophils (Bld) [#/Vol] 3.58 10*3/uL Normal 1.45-7.50 [facility] Comment on above: Order Comment: Speci men Type: BLOOD SPECIMEN Ordering Facility: [facility] Address: [address] [place] [address] Performed By: #### 5 7021-8 #### [facility] CLIA [id number] [address] [place] [address] [place] Neutrophils/100 WBC (Bld) 62.0 % Normal [facility] Comment on above: Order Comment: Speci men Type: BLOOD SPECIMEN Ordering Facility: [facility] Address: [address] [place] [address] Performed By: #### 5 7021-8 #### [facility] CLIA [id number] [address] [place] [address] [place] Nucleated RBC (Bld) [#/Vol] 10*3/uL Normal <0.01 [facility] Comment on above: Order Comment: Speci men Type: BLOOD SPECIMEN Ordering Facility: [facility] Address: [address] [place] [address] Performed By: #### 5 7021-8 #### [facility] CLIA [id number] [address] [place] [address] [place] Nucleated RBC/100 WBC (Bld) [Ratio] 0.0 /100 WBC Normal [facility] Comment on above: Order Comment: Speci men Type: BLOOD SPECIMEN Ordering Facility: [facility] Address: [address] [place] [address] Performed By: #### 5 7021-8 #### [facility] CLIA [id number] [address] [place] [address] [place] Platelet mean volume (Bld) [Entitic vol] 10.9 fL Normal 9.0-12.7 [facility] Comment on above: Order Comment: Speci men Type: BLOOD SPECIMEN Ordering Facility: [facility] Address: [address] [place] [address] Performed By: #### 5 7021-8 #### [facility] CLIA [id number] [address] [place] [address] [place] Platelets (Bld) [#/Vol] 327 10*3/uL Normal 150-400 [facility] Comment on above: Order Comment: Speci men Type: BLOOD SPECIMEN Ordering Facility: [facility] Address: [address] [place] [address] Performed By: #### 5 7021-8 #### [facility] CLIA [id number] [address] [place] [address] [place] RBC (Bld) [#/Vol] 5.02 10*6/uL Normal 3.90-5.20 [facility] Comment on above: Order Comment: Speci men Type: BLOOD SPECIMEN Ordering Facility: [facility] Address: [address] [place] [address] Performed By: #### 5 7021-8 #### [facility] CLIA [id number] [address] [place] [address] [place] WBC (Bld) [#/Vol] 5.78 10*3/uL Normal 3.70-11.00 [facility] Comment on above: Order Comment: Speci men Type: BLOOD SPECIMEN Ordering Facility: [facility] Address: [address] [place] [address] Performed By: #### 5 7021-8 #### [facility] CLIA [id number] [address] [place] [address] OF [place] CNOVon 09-05-2024 CNOV Office Visit (FAMWS ) KAYLEE WONG ([id number]) 1960 F Date Time Provider Department 09/05/24 10:00 [facility] visit today, we recorded the following information about you: Pulse Blood pressure Weight Height 80/minute 124/72 87.1 kg 1.588 m Jan Pham APRN.CNP 09/05/2024 10:57 AM Signed Kaylee Daugherty Elijah is a 64 year old female here for a Medicare wellness visit. Medicare Health Risk Assessment General Health Excellent Exercise: Minutes/Day 60 min Exercise: Days/Week 7 days Alcohol: Daily Use 2-4 times a month Alcohol: Drinks/Day 1 or 2 Alcohol: 6 or more drinks Never Feel off balance No Concerns: Teeth/Dentures No Concerns: Sexual function No Troubled by feelings None of the above Frequency: Eating healthy diet Nearly every day ADLs requiring help None of the above Safety precautions in home/vehicle Yes Smoke, vape, chews tobacco No Difficulty hearing No Difficulty seeing No Current Providers Specialists: I have reviewed specialist-related care of the patient in the medical record. Medical/Family history review Reviewed and updated problem list, medical/surgical/family/socia l history, medications, and allergies. Opioid use review Opioid Medications (last 90 days) No data to display Anxiety/Depression screening PHQ-2 Score: 0 (Lower risk for depression) RADHA-2 Score: 0 (Lower risk for anxiety) Recommendation: no further intervention at this time Cognitive screening Mini Cog Score: 5 Cognitive screening reviewed and No further action needed (score 3-5). Functional Observation Was the patient's Timed Up AND Go test unsteady or >= 12 seconds? No Advance Care Planning Surrogate decision maker and/or advance care plan documented Measurements BP 124/72 Pulse 80 Ht 158.8 cm (5' 2.5) Wt 87.1 kg (192 lb) LMP 03/01/2014 SpO2 99% BMI 34.56 kg/m? Vision Screening: Follows with optometry/ophthalmology Assessment/Plan Medicare annual wellness visit, subsequent (Z00.00) - Counseled on healthy diet and regular exercise - Fall avoidance information provided - Personalized prevention plan provided Additional Concerns The following concerns were also discussed with the patient: Sharmin Wong is a 64-year-old female, with a history of gallstones, presenting for a checkup and evaluation of intermittent dyspnea. Sharmin reports a 3-week onset of intermittent dyspnea, described as a need to take a deep breath, occurring during physical activity such as walking or mowing the lawn. The episodes are brief, resolving by the time she walks a short distance, and are not present at rest. Occasional having mid-sternal discomfort. Stating that at her ER visit in January, she had more persistent mid-sternal chest pain that radiated to her back. She denies associated dizziness, palpitations, nausea, emesis, or changes in stool consistency. She remains very active, engaging in yard work and gardening regularly. Sharmin has a history of gallstones, with a significant episode on Lashay night that led to an ED visit. She experienced RUQ pain and a sensation similar to a contraction in her throat, which was alleviated by deep breathing. Imaging studies revealed gallstones and questionable thickening of the gallbladder wall. She was advised to consider cholecystectomy but has not had any further episodes since then. She has resumed a normal diet, including fatty foods, without recurrence of symptoms. Sharmin is currently taking medication for reflux, and Maxalt for migraines, which are well-controlled. She has a medical power of remnant sorter in place, designated to Leni Beal. PHYSICAL EXAM BP 124/72 Pulse 80 Ht 158.8 cm (5' 2.5) Wt 87.1 kg (192 lb) LMP 03/01/2014 SpO2 99% BMI 34.56 kg/m? GENERAL: well appearing, alert, in no acute distress CARDIOVASCULAR: regular rate and rhythm. No murmur, rubs or gallops. PULMONARY: clear to auscultation, no wheezing, rhonchi, or crackles ABDOMEN: soft, non-tender, non-distended, no masses or organomegaly EXTREMITY: no lower extremity edema. No skin discoloration. 1. Medicare annual wellness visit, initial (Z00.00) Initial Medicare wellness visit. - Reviewed health maintenance; mammogram scheduled for April, bone density scan postponed. - Discussed shingles vaccine; recommended two-dose series available at the pharmacy. - Ordered routine lab work. 2. Screening for depression (Z13.31) Patient denies increased stress or depressive symptoms. 3. Encounter for screening examination for other mental health and behavioral disorders (Z13.39) - denies any ongoing problem 4. Migraine without aura, not intractable, with status migrainosus (G43.001) Well-controlled with Maxalt and magnesium. 5. GERD without esophagitis (K21.9) Managed with current medication regimen. 6. TREVINO (dyspnea on ex (more content not included)... Normal [facility] Comprehensive metabolic 2000 panelon 09-05-2024 Albumin [Mass/Vol] 4.3 g/dL 3.9 - 4.9 g/dL [facility] ALP [Catalytic activity/Vol] 126 U/L High 34 - 123 U/L [facility] ALT [Catalytic activity/Vol] 20 U/L 7 - 38 U/L [facility] Anion gap [Moles/Vol] 10 mmol/L 8 - 15 mmol/L [facility] AST [Catalytic activity/Vol] 26 U/L 13 - 35 U/L [facility] Bilirubin [Mass/Vol] 0.8 mg/dL 0.2 - 1.3 mg/dL [facility] Calcium [Mass/Vol] 9.3 mg/dL 8.5 - 10. 2 mg/dL [facility] Chloride [Moles/Vol] 105 mmol/L 98 - 107 mmol/L [facility] CO2 [Moles/Vol] 25 mmol/L 22 - 30 mmol/L [facility] Creatinine [Mass/Vol] 0.68 mg/dL 0.58 - 0.96 mg/dL [facility] GFR/1.73 sq M.predicted among non-blacks MDRD (S/P/Bld) [Vol rate/Area] 97 mL/min/{1.73_m2} - PINF [facility] Comment on above: Estimated Glomerular Filtration Rate (eGFR) is calculated using the 2020 CKD-EPI creatinine equation. This equation utilizes serum creatinine, sex, and age as parameters. The creatinine assay has traceable calibration to isotope dilution-mass spectrometry. Refer to KDIGO guidelines for clinical interpretation. In patients with unstable renal function, e.g. those with acute kidney injury, the eGFR may not accurately reflect actual GFR. Glucose [Mass/Vol] 101 mg/dL High 74 - 99 mg/dL [facility] Comment on above: The [place] Diabete s Association (ADA) provides guidance for cutoff values for fasting glucose and random glucose. The ADA defines fasting as no caloric intake for at least 8 hours. Fasting plasma glucose results between 100 to 125 mg/dL indicate increased risk for diabetes (prediabetes). Fasting plasma glucose results greater than or equal to 126 mg/dL meet the criteria for diagnosis of diabetes. In the absence of unequivocal hyperglycemia, results should be confirmed by repeat testing. In a patient with classic symptoms of hyperglycemia or hyperglycemic crisis, random plasma glucose results greater than or equal to 200 mg/dL meet the criteria for diagnosis of diabetes. Reference: Standards of Medical Care in Diabetes 2016, [place] Diabetes Association. Diabetes Care. 2016.39(Suppl 1). Interpretation and review of laboratory results Abnormal [facility] Potassium [Moles/Vol] 4.2 mmol/L 3.7 - 5.1 mmol/L [facility] Protein [Mass/Vol] 7.1 g/dL 6.3 - 8.0 g/dL [facility] Sodium [Moles/Vol] 140 mmol/L 136 - 144 mmol/L [facility] Urea nitrogen [Mass/Vol] 7 mg/dL 7 - 21 mg/dL [facility] Albumin [Mass/Vol] 4.3 g/dL Normal 3.9-4.9 [facility] Comment on above: Order Comment: Speci men Type: BLOOD SPECIMEN Ordering Facility: [facility] Address: [address] [place] [address] Performed By: #### 2 4323-8, 3016-3 #### [facility] CLIA [id number] [address] [place] [address] [place] ALP [Catalytic activity/Vol] 126 U/L High 34-123 [facility] Comment on above: Order Comment: Speci men Type: BLOOD SPECIMEN Ordering Facility: [facility] Address: [address] [place] [address] Performed By: #### 2 4323-8, 3016-3 #### [facility] CLIA [id number] [address] [place] [address] [place] ALT [Catalytic activity/Vol] 20 U/L Normal 7-38 [facility] Comment on above: Order Comment: Speci men Type: BLOOD SPECIMEN Ordering Facility: [facility] Address: [address] [place] [address] Performed By: #### 2 4323-8, 3016-3 #### [facility] CLIA [id number] [address] [place] [address] [place] Anion gap [Moles/Vol] 10 mmol/L Normal 8-15 [facility] Comment on above: Order Comment: Speci men Type: BLOOD SPECIMEN Ordering Facility: [facility] Address: [address] [place] [address] Performed By: #### 2 4323-8, 3016-3 #### [facility] CLIA [id number] [address] [place], [place] [address] [place] AST [Catalytic activity/Vol] 26 U/L Normal 13-35 [facility] Comment on above: Order Comment: Speci men Type: BLOOD SPECIMEN Ordering Facility: [facility] Address: [address] [place], [place] [address] Performed By: #### 2 4323-8, 3016-3 #### [facility] CLIA [id number] [address] [place], [place] [id number] [place] Bilirubin [Mass/Vol] 0.8 mg/dL Normal 0.2-1.3 [facility] Comment on above: Order Comment: Speci men Type: BLOOD SPECIMEN Ordering Facility: [facility] Address: [address] [place], [place] [address] Performed By: #### 2 4323-8, 3015-3 #### [facility] CLIA [id number] [address] [place] [address] [place] Calcium [Mass/Vol] 9.3 mg/dL Normal 8.5-10.2 [facility] Comment on above: Order Comment: Speci men Type: BLOOD SPECIMEN Ordering Facility: [facility] Address: [address] [place], [place] [address] Performed By: #### 2 4323-8, 3015-3 #### [facility] CLIA [id number] [address] [place] [address] [place] Chloride [Moles/Vol] 105 mmol/L Normal 98-107 [facility] Comment on above: Order Comment: Speci men Type: BLOOD SPECIMEN Ordering Facility: [facility] Address: [address] [place], [place] [address] Performed By: #### 2 4323-8, 6-3 #### [facility] CLIA [id number] [address] [place], [place] [address] [place] CO2 [Moles/Vol] 25 mmol/L Normal 22-30 [facility] Comment on above: Order Comment: Speci men Type: BLOOD SPECIMEN Ordering Facility: [facility] Address: [address] [place], [place] [address] Performed By: #### 2 4323-8, 3016-3 #### [facility] CLIA [id number] [address] [place] [address] [place] Creatinine [Mass/Vol] 0.68 mg/dL Normal 0.58-0.96 [facility] Comment on above: Order Comment: David sears Type: BLOOD SPECIMEN Ordering Facility: [facility] Address: [address] [place] [address] Performed By: #### 2 4323-8, 3016-3 #### [facility] CLIA [id number] [address] [place] [address] [place] Creatinine and Glomerular filtration rate.predicted panel (S/P/Bld) 97 mL/min/1.73m??? Normal >=60 [facility] Comment on above: Order Comment: David sears Type: BLOOD SPECIMEN Ordering Facility: [facility] Address: [address] [place] [address] Result Comment: Nova mated Glomerular Filtration Rate (eGFR) is calculated using the 2020 CKD-EPI creatinine equation. This equation utilizes serum creatinine, sex, and age as parameters. The creatinine assay has traceable calibration to isotope dilution-mass spectrometry. Refer to KDIGO guidelines for clinical interpretation. In patients with unstable renal function, e.g. those with acute kidney injury, the eGFR may not accurately reflect actual GFR. Performed By: #### 2 4323-8, 6-3 #### [facility] CLIA [id number] [address] [place] [address] [place] Glucose [Mass/Vol] 101 mg/dL High 74-99 [facility] Comment on above: Order Comment: David sears Type: BLOOD SPECIMEN Ordering Facility: [facility] Address: [address] [place] [address] Result Comment: The [place] Diabetes Association (ADA) provides guidance for cutoff values for fasting glucose and random glucose. The ADA defines fasting as no caloric intake for at least 8 hours. Fasting plasma glucose results between 100 to 125 mg/dL indicate increased risk for diabetes (prediabetes). Fasting plasma glucose results greater than or equal to 126 mg/dL meet the criteria for diagnosis of diabetes. In the absence of unequivocal hyperglycemia, results should be confirmed by repeat testing. In a patient with classic symptoms of hyperglycemia or hyperglycemic crisis, random plasma glucose results greater than or equal to 200 mg/dL meet the criteria for diagnosis of diabetes. Reference: Standards of Medical Care in Diabetes 2016, [place] Diabetes Association. Diabetes Care. 2016.39(Suppl 1). Performed By: #### 2 4323-8, 6-3 #### [facility] CLIA [id number] [address] [place] [address] [place] Potassium [Moles/Vol] 4.2 mmol/L Normal 3.7-5.1 [facility] Comment on above: Order Comment: David sears Type: BLOOD SPECIMEN Ordering Facility: [facility] Address: [address] [place] [address] Performed By: #### 2 432-8, 3015-3 #### [facility] CLIA [id number] [address] [place] [address] [place] Protein [Mass/Vol] 7.1 g/dL Normal 6.3-8.0 [facility] Comment on above: Order Comment: David sears Type: BLOOD SPECIMEN Ordering Facility: [facility] Address: [address] [place] [address] Performed By: #### 2 4323-8, 3015-3 #### [facility] CLIA [id number] [address] [place], [place] [address] [place] Sodium [Moles/Vol] 140 mmol/L Normal 136-144 [facility] Comment on above: Order Comment: Apoloniai men Type: BLOOD SPECIMEN Ordering Facility: [facility] Address: [address] [place] [address] Performed By: #### 2 4323-8, 6-3 #### [facility] CLIA [id number] [address] [place], [place] [address] [place] Urea nitrogen [Mass/Vol] 7 mg/dL Normal 7-21 [facility] Comment on above: Order Comment: Speci men Type: BLOOD SPECIMEN Ordering Facility: [facility] Address: [address] [place] [address] Performed By: #### 2 4323-8, 3016-3 #### [facility] CLIA [id number] [address] [place] [address] OF [facility] [id number] 09-05-2024 ECG01 Ventricular Rate : 6 8 BPM Atrial Rate : 68 BPM P-R Interval : 156 ms QRS Duration : 82 ms Q-T Interval : 390 ms QTC Calculation(Bazett) : 414 ms Calculated P [place] : 11 degrees Calculated R [place] : 7 degrees Calculated T [place] : 14 degrees NORMAL SINUS RHYTHM NORMAL ECG Confirmed by MD MARINA QARAB ([id number]) on 09/07/2024 5:45:05 PM NAME : KAYLEE WONG PID : [id number] : 1960 Gender : Female Race : ORD : Procedure Date : Sep 05 2024 10:45:48 Edit Date : Sep 07 2024 17:45:07 Diagnosis: NORMAL SINUS RHYTHM NORMAL ECG Confirmed by MD MARINA QARAB ([id number]) on 09/07/2024 5:45:05 PM Test Reason : Location : 136 : [facility] Overread By : MD MARINA QARAB Edited By : MD MARINA QARAB Referred By : Jan Pham Acquired by : Minor thompson [facility] THYROID STIMULATING HORMONEo n 09-05-2024 TSH Qn 1.03 m[IU]/L [facility] TSH Qnon 09-05-2024 Interpretation and review of laboratory results Normal [facility] TSH SerPl-aCncon 09-05-2024 TSH Qn 1.030 m[IU]/L Normal 0.270-4.200 [facility] Comment on above: Order Comment: Speci men Type: BLOOD SPECIMEN Ordering Facility: [facility] Address: [address] [place] [address] Performed By: #### 2 4323-8, 3015-3 #### [facility] CLIA [id number] [address] [facility] [place] [address] [place] CNOVon 04-19-2024 CNOV Office Visit (OBGYWM ) KAYLEE WONG ([id number]) 1960 F Date Time Provider Department 04/19/24 9:00 AM LEONOR SERVIN OBGYWM During your visit today, we recorded the following information about you: Blood pressure Weight Height Last Period 126/82 87.1 kg 1.613 m 03/01/14 Leonor Servin MD 04/19/2024 9:29 AM Signed Sharmin is a 63 year old who presents for an annual gynecologic exam with complaints, feels tired often . Postmenopausal: yes HRT use: No. Still get period: No Menopause symptoms: None Number of lifetime partners: 2 control frequency: Never HPV vaccine: No; Last pap smear: 04/19/2023 History of abnormal pap: No, all prior PAP smears have been normal Bothersome pelvic pain: No Last mammogram: 2024 pending History of abnormal mammogram: No OB History Gravida1 Para1 Term1 Preterm0 AB0 Living1 SAB0 IAB0 Ectopic0 Multiple0 Live Births0 Virtual Reality Specialist History LMP: 03/01/2014, Postmenopausal Age at Menarche: 12 Age at First : Age at Menopause: Virtual Reality Specialist History Comments: Sexual Activity: Not Currently; Male; TUBAL LIGATION Contraception: Tubal Ligation PAST MEDICAL HISTORY Diagnosis Date Benign neoplasm of stomach EGD 2008 Dysphagia 2019 Required esophageal dilation at [facility] Esophageal reflux Hernia of other specified sites of abdominal cavity without mention of obstruction or gangrene HIATAL Hyperlipidemia LDL goal < 100 02/20/2011 Impaired fasting glucose 02/20/2011 Obesity Obstructive sleep apnea on CPAP 04/16/2012 Has not used CPAP since about 2014 Other and unspecified hyperlipidemia Other forms of migraine Statin intolerance PAST SURGICAL HISTORY Procedure Laterality Date COLONOSCOPY SCREENING 1982 EGD W/O [facility] SPEC VARICIES INJ 2019 ESOPHAGOGASTRODUODENOSCOPY TRANSORAL DIAGNOSTIC 05/12/2008 EGD LIG/TRNSXJ FLP TUBE ABDL/VAG APPR UNI/BI tubal ligation UNSPECIFIED ORAL SURGERY PROCEDURE, BY REPORT 05/12/2007 [place] teeth and cyst removed from jaw FAMILY HISTORY Problem Relation Age of Onset Osteoporosis Mother Lipids Mother Thyroid Mother Hypertension Mother Cancer Mother 73 pancreatic Stroke Father age 49 Lipids Father Hypertension Father Osteoporosis Maternal Grandmother Lipids Maternal Grandmother Emphysema Maternal Grandfather Cancer Paternal Grandmother Lung cancer other (ETOH) Paternal Grandfather Cancer Paternal Aunt Brain cancer - uterine cancer?? Cancer Paternal Uncle Great uncle - Colon cancer SOCIAL HISTORY Social History Tobacco Use Smoking status: Never Smokeless tobacco: Never Vaping Use Vaping status: Never Used Substance Use Topics Alcohol use: Yes Alcohol/week: 2.0 standard drinks of alcohol Types: 2 Glasses of wine per week Drug use: No REVIEW OF SYSTEMS Abdomen: No abdominal pain, nausea, vomiting, diarrhea, or constipation. No bloating, early satiety, indigestion, or increased flatulence. Bladder: No dysuria, gross hematuria, urinary frequency, urinary urgency, or incontinence Breast: No breast lumps, nipple d/c, overlying skin changes, redness or skin retraction Allergies and current medication updated:Yes SENSITIVE EXAM: The sensitive examination was discussed with the Patient or Patient's Authorized Motion Study Engineer. As applicable, any other physician, advance practice provider, medical student, or other health professional student that will be observing or involved in the sensitive examination for educational or training purposes was discussed with the Patient or Authorized Motion Study Engineer. The Patient or Authorized Motion Study Engineer has agreed to proceed with the sensitive examination. (Sensitive examination includes inspection and/or palpation of the breasts, pelvis, prostate and anorectal regions). EXAM: BP 126/82 Ht 5' 3.5 (1.61m) Wt 192 lb (87.1kg) LMP 03/01/2014 BMI 33.47 kg/(m2). GENERAL: pleasant, female in no apparent distress HEENT: Normocephalic, atraumatic, mucus membranes moist, and no lesions NECK: Supple, full range of motion, no adenopathy, and thyroid normal DERMATOLOGY: Normal, without lesions, non-icteric, and non-hirsute BREAST: soft, non-tender, symmetric, no dominant mass, normal nipple-areolar complex, no lymphadenopathy, and no nipple discharge CHEST: Normal inspiratory effort ABDOMEN: soft, non-tender, and no masses PELVIC: external genitalia normal, normal Bartholin's glands, urethra, Briar's glands, no vulvar lesions, no cervical lesions, good vaginal support, physiologic discharge present, normal appearing perineal body and perianal region BIMANUAL: uterus normal size, shape and consistency, no adnexal masses, and non-tender RECTOVAGINAL: deferred. NEURO: alert and oriented x3,exam grossly non-focal EXTREMITIES: normal ASSESSMENT/PLAN: 1) Health maintenance: Pap done with refl (more content not included)... Normal [facility] DBT Breast - bilateral scree tyler 04-19-2024 * * *Final Report* * * DATE OF EXAM: Apr 19 2024 8:29AM [id number] - ANGELI SCREENING W BOGDAN / PROCEDURE REASON: multiple diagnoses * * * * Physician Interpretation * * * * RESULT: [place] [address] #[id number] - ANGELI SCREENING W BOGDAN HISTORY: 63 year-old patient seen for screening and is asymptomatic in both breasts. Patient states no personal history of breast cancer. Patient states no personal history of ovarian cancer. COMPARISON STUDIES: The present examination has been compared to prior imaging studies dated 05/20/2016 (mammogram), 10/20/2017 (ultrasound), 10/20/2017 (mammogram), 04/27/2018 (mammogram), 04/27/2018 (ultrasound) and 04/17/2023 (mammogram). MAMMOGRAM TECHNIQUE: The study was acquired using full field digital technology and interpreted from soft copy. Digital Breast Tomosynthesis (DBT) images were obtained and used to assist in the interpretation of this examination. MAMMOGRAM FINDINGS: There are scattered areas of fibroglandular density. There is an asymmetry with associated architectural distortion in the lateral left breast. No suspicious masses, calcifications or other abnormalities are seen in the right breast. DIVISION OF RADIOLOGY Provider, [facility] - 04/19/2024 * * *Final Report* * * DATE OF EXAM: Apr 19 2024 8:29AM [id number] - ANGELI SCREENING W BOGDAN / PROCEDURE REASON: multiple diagnoses * * * * Physician Interpretation * * * * RESULT: [place] [id number] #[id number] - ANGELI SCREENING W BOGDAN HISTORY: 63 year-old patient seen for screening and is asymptomatic in both breasts. Patient states no personal history of breast cancer. Patient states no personal history of ovarian cancer. COMPARISON STUDIES: The present examination has been compared to prior imaging studies dated 05/20/2016 (mammogram), 10/20/2017 (ultrasound), 10/20/2017 (mammogram), 04/27/2018 (mammogram), 04/27/2018 (ultrasound) and 04/17/2023 (mammogram). MAMMOGRAM TECHNIQUE: The study was acquired using full field digital technology and interpreted from soft copy. Digital Breast Tomosynthesis (DBT) images were obtained and used to assist in the interpretation of this examination. MAMMOGRAM FINDINGS: There are scattered areas of fibroglandular density. There is an asymmetry with associated architectural distortion in the lateral left breast. No suspicious masses, calcifications or other abnormalities are seen in the right breast. IMPRESSION IMPRESSION: The asymmetry in the left breast requires additional evaluation. Diagnostic mammogram is recommended. BI-RADS Category 0: Incomplete: Needs Additional Imaging Evaluation RISK: Based on the Tyrer-Cuzick (TC) risk assessment model, this patient has a 4.4% lifetime risk of developing breast cancer, meaning they are at average risk for developing breast cancer. However, this is only an estimate based on available history provided on the patient's questionnaire. We encourage all patients to talk with their providers about these results, further recommendations for managing breast health, and appropriate supplemental screening options if the patient has dense breast tissue. Interpreting Radiologist: Bette Kelly M.D. Electronically signed on: 04/19/2024 After School Program Director: GEORGETTE Transcribelem Date/Time: Apr 19 2024 8:10A Dictated by: BETTE KELLY MD This examination was interpreted and the report reviewed and electronically signed by: BETTE KELLY MD on Apr 19 2024 12:42PM [facility] Radiology Study observation (narrative) [facility] DBT Breast - bilateral scree ningOrdered By: [facility] Provider on 04-19-2024 [facility] ANGELI SCREENING W TOMOon 04-19 ANGELI SCREENING W BOGDAN * * *Final Report* * * DATE OF EXAM: Apr 19 2024 8:29AM [id number] - ANGELI SCREENING W BOGDAN / PROCEDURE REASON: multiple diagnoses * * * * Physician Interpretation * * * * RESULT: [place] [address] [place] [address] #[id number] - ANGELI SCREENING W BOGDAN HISTORY: 63 year-old patient seen for screening and is asymptomatic in both breasts. Patient states no personal history of breast cancer. Patient states no personal history of ovarian cancer. COMPARISON STUDIES: The present examination has been compared to prior imaging studies dated 05/20/2016 (mammogram), 10/20/2017 (ultrasound), 10/20/2017 (mammogram), 04/27/2018 (mammogram), 04/27/2018 (ultrasound) and 04/17/2023 (mammogram). MAMMOGRAM TECHNIQUE: The study was acquired using full field digital technology and interpreted from soft copy. Digital Breast Tomosynthesis (DBT) images were obtained and used to assist in the interpretation of this examination. MAMMOGRAM FINDINGS: There are scattered areas of fibroglandular density. There is an asymmetry with associated architectural distortion in the lateral left breast. No suspicious masses, calcifications or other abnormalities are seen in the right breast. IMPRESSION: The asymmetry in the left breast requires additional evaluation. Diagnostic mammogram is recommended. BI-RADS Category 0: Incomplete: Needs Additional Imaging Evaluation RISK: Based on the Tyrer-Cuzick (TC) risk assessment model, this patient has a 4.4% lifetime risk of developing breast cancer, meaning they are at average risk for developing breast cancer. However, this is only an estimate based on available history provided on the patient's questionnaire. We encourage all patients to talk with their providers about these results, further recommendations for managing breast health, and appropriate supplemental screening options if the patient has dense breast tissue. Interpreting Radiologist: Bette Kelly M.D. Electronically signed on: 04/19/2024 After School Program Director: MAGVIW Transcribe Date/Time: Apr 19 2024 8:10A Dictated by: BETTE EKLLY MD This examination was interpreted and the report reviewed and electronically signed by: BETTE KELLY MD on Apr 19 2024 12:42PM EST [id number] Normal [facility] Gallbladderon 03-01-2024 Gallbladder [facility] Imaging Services [address] [place] [address] Gallbladder MR#: [id number] Acct: [id number] Name: KAYLEE WONG Rep #: [id number] : 1960 F 63 From: Rafiq Downing MD PCP: Dr. Erendira Chiang MD Status: REG CLI Study: Gallbladder Date of Exam: 03/01/24 Exam# [id number] Ordering Dr: Sean Garber DO [id number] STUDY: ULTRASOUND GALLBLADDER REASON FOR VISIT: Female, 63 years old. Abdominal pain TECHNIQUE: Ultrasound evaluation of the gallbladder was performed with real-time and static mitchell-scale imaging. TECHNICAL QUALITY: Adequate. COMPARISON: None. FINDINGS: Gallbladder: Normal distended gallbladder. The gallbladder wall measures 2 mm. There is a negative sonographic Miller''s sign. There is no pericholecystic fluid. There are multiple echogenic structures within the gallbladder, consistent with multiple gallstones. Common Bile Duct (C.B.D.): The common bile duct measures 4 mm. ____ US/Gallbladder IMPRESSION: Cholelithiasis. Electronically Signed: Rafiq Downing MD at 23:49 EST , CC: Dr. Erendira Chiang MD; Sean Garber DO After School Program Director: Signed Normal [facility] 12 Lead EKGon 02-25-2024 12 Lead EKG [facility] Cardiovascular Services [address] [address] 12 Lead EKG 02/25/24 0121 MR#: [id number] Acct: [id number] Name: KAYLEE WONG Rep #: [id number] : 1960 63 From: Jonathan Macario MD Attending Dr: Status: DEP ER Ordering Dr: Sean Garber DO Date: 02/25/24 Location: ED Sex: F C Admitted: Test Reason : CP Blood Pressure : */* mmHG Vent. Rate : 85 BPM Atrial Rate : 85 BPM P-R Int : 146 ms QRS Dur : 80 ms QT Int : 370 ms P-R-T Axes : 50 19 22 degrees QTcB Int : 440 ms Normal sinus rhythm Normal ECG Confirmed by SHARYN TRONCOSO, JONATHAN ([id number]), school photograph editor MARTHA FARMER ([id number]) on 02/26/2024 9:41:38 AM Referred By: DON Confirmed By: JONATHAN MACARIO MD 02/26/24 0941 Date Jonathan Macario MD CC: Dr. Erendira Chiang MD; Sean Garber DO Signed [facility] Abdomen/Pelvis W IV Cont ONL Yon 02-25-2024 Abdomen/Pelvis W IV Cont ONLY [facility] Imaging Services [address] [facility] [place] [address] Abdomen/Pelvis W IV Cont ONLY MR#: [id number] Acct: [id number] Name: KAYLEE WONG SHARMIN Rep #: [id number] : 1960 F 63 From: Dinorah Marie MD PCP: Dr. Erendira Chiang MD Status: REG ER Study: Abdomen/Pelvis W IV Cont ONLY Date of Exam: Exam# [id number] Ordering Dr: Sean Garber DO [id number] STUDY: CT ABDOMEN AND PELVIS WITH CONTRAST REASON FOR EXAM: Female, 63 years old patient with right upper quadrant (RUQ) abdominal pain. RADIATION DOSAGE (If Supplied By Facility): CTDIvol = ( 23.67 ) mGy, DLP = ( 1175.11 ) mGycm TECHNIQUE: Transaxial images were obtained from the dome of the diaphragm to the symphysis pubis without oral contrast. 100 mL of IV Isovue-370 was administered. Sagittal and coronal images were reconstructed. Individualized dose optimization techniques were used for this CT. COMPARISON: None. FINDINGS: The visualized lung bases are unremarkable. The visualized portions of the heart are within normal limits. There is decreased attenuation of the liver consistent with steatosis. There are multiple gallstones. There appears to some thickening of the gallbladder wall. Normal spleen. Normal pancreas. Normal bilateral adrenal glands. Normal right kidney. Normal left kidney. There is a moderately large hiatal hernia composed mostly of the fundus of the stomach. There is no obvious dilated bowel, ascites or pneumoperitoneum. There is some thickening of the moon of the proximal small bowel. Descending colon is nondistended with mild thickening of the moon. Distal gas is visible in the ascending and transverse colon. Scattered diverticula are visible. There is non-visualization of the appendix. Normal abdominal aorta. Normal inferior vena cava. Normal retroperitoneum. Normal urinary bladder. There are uterine calcifications that are probably secondary to leiomyomata. Normal abdominal wall. There are multilevel degenerative changes of the visualized lumbar spine. There is mild anterolisthesis at L5-S1. CT/Abdomen/Pelvis W IV Cont ONLY IMPRESSION: 1. Cholelithiasis with mild thickening of the gallbladder wall suggests possible cholecystitis. 2. Mild abnormal thickening of the moon of the proximal small bowel in the left upper quadrant suggests possible sequela of infectious or inflammatory enteritis. 3. Hepatic steatosis. 4. Hiatal hernia. Electronically Signed: Dinorah Marie MD at 4:04 EST Reading Location ID and State: [facility] , Service support , CC: Dr. Erendira Chiang MD; Sean Garber DO After School Program Director: Signed Normal [facility] Basic Metabolic Profile (BMP )on 02-25-2024 BUN/CRE 15.2 RATIO Normal 10-20 [facility] Comment on above: Order Comment: 'TROP ' Serial specimen #1, #2 or #3: 1 Performed By: #### L 501.4020, L501.5200, L100.0100, L500.3400, L500.2500, L501.2450, L300.8000 #### [facility] Laboratory [address] [place], [address] CA,Total 9.2 mg/dL Normal 8.5-10.1 [facility] Comment on above: Order Comment: 'TROP ' Serial specimen #1, #2 or #3: 1 Performed By: #### L 501.4020, L501.5200, L100.0100, L500.3400, L500.2500, L501.2450, L300.8000 #### [facility] [address] [place], [address] Chloride [Moles/Vol] 105 mmol/L Normal 98-107 [facility] Comment on above: Order Comment: 'TROP ' Serial specimen #1, #2 or #3: 1 Performed By: #### L 501.4020, L501.5200, L100.0100, L500.3400, L500.2500, L501.2450, L300.8000 #### [facility] [address] [place], [address] CO2 [Moles/Vol] 32.0 mmol/L Normal 21.0-32.0 [facility] Comment on above: Order Comment: 'TROP ' Serial specimen #1, #2 or #3: 1 Performed By: #### L 501.4020, L501.5200, L100.0100, L500.3400, L500.2500, L501.2450, L300.8000 #### [facility] [address], [address] Creatinine [Mass/Vol] 0.79 mg/dL Normal 0.55-1.02 [facility] Comment on above: Order Comment: 'TROP ' Serial specimen #1, #2 or #3: 1 Result Comment: The validity of the calculated GFR GFRAA in patients over 70 years has not been determined. Clinical correlation is essential. Performed By: #### L 501.4020, L501.5200, L100.0100, L500.3400, L500.2500, L501.2450, L300.8000 #### [facility] [address] [place], [address] ECRCL 78.52 ml/min Normal [facility] Comment on above: Order Comment: 'TROP ' Serial specimen #1, #2 or #3: 1 Performed By: #### L 501.4020, L501.5200, L100.0100, L500.3400, L500.2500, L501.2450, L300.8000 #### [facility] [address] [place], [address] EST GFR - AA 94 mL/min Normal >60 [facility] Comment on above: Order Comment: 'TROP ' Serial specimen #1, #2 or #3: 1 Result Comment: Afri can Citizen Of [place] GFR Calc Performed By: #### L 501.4020, L501.5200, L100.0100, L500.3400, L500.2500, L501.2450, L300.8000 #### [facility] [address] [place], [address] GAP 4 Low 5-15 [facility] Comment on above: Order Comment: 'TROP ' Serial specimen #1, #2 or #3: 1 Performed By: #### L 501.4020, L501.5200, L100.0100, L500.3400, L500.2500, L501.2450, L300.8000 #### [facility] [address] [place], [address] GFR/1.73 sq M.predicted among non-blacks MDRD (S/P/Bld) [Vol rate/Area] 78 mL/min/{1.73_m2} Normal >60 [facility] Comment on above: Order Comment: 'TROP ' Serial specimen #1, #2 or #3: 1 Result Comment: Non- GFR Calc Performed By: #### L 501.4020, L501.5200, L100.0100, L500.3400, L500.2500, L501.2450, L300.8000 #### [facility] [address] [place], [address] Glucose [Mass/Vol] 113 mg/dL High 74-106 [facility] Comment on above: Order Comment: 'TROP ' Serial specimen #1, #2 or #3: 1 Result Comment: Fast ing Glucose result from 100 to 125 mg/dL suggests IMPAIRED HOMEOSTASIS per A.D.A. criteria. Performed By: #### L 501.4020, L501.5200, L100.0100, L500.3400, L500.2500, L501.2450, L300.8000 #### [facility] [address] [place], [address] Potassium [Moles/Vol] 3.9 mmol/L Normal 3.5-5.1 [facility] Comment on above: Order Comment: 'TROP ' Serial specimen #1, #2 or #3: 1 Performed By: #### L 501.4020, L501.5200, L100.0100, L500.3400, L500.2500, L501.2450, L300.8000 #### [facility] [address] [place], [address] Sodium [Moles/Vol] 142 mmol/L Normal 136-145 [facility] Comment on above: Order Comment: 'TROP ' Serial specimen #1, #2 or #3: 1 Performed By: #### L 501.4020, L501.5200, L100.0100, L500.3400, L500.2500, L501.2450, L300.8000 #### [facility] [address] [place], [address] Urea nitrogen [Mass/Vol] 12 mg/dL Normal 7-18 [facility] Comment on above: Order Comment: 'TROP ' Serial specimen #1, #2 or #3: 1 Performed By: #### L 501.4020, L501.5200, L100.0100, L500.3400, L500.2500, L501.2450, L300.8000 #### [facility] [address] [place], [address] CBC W/Diff, Automatedon 12-2 Absolute Lymph 1.43 X10 3/uL Normal 0.83-4.51 [facility] Comment on above: Performed By: #### L 501.4020, L501.5200, L100.0100, L500.3400, L500.2500, L501.2450, L300.8000 #### [facility] [address] [place], [address] Absolute Neut 5.6 X10 3/uL Normal 2.0-7.7 [facility] Comment on above: Performed By: #### L 501.4020, L501.5200, L100.0100, L500.3400, L500.2500, L501.2450, L300.8000 #### [facility] [address] [place], [address] Basophils/100 WBC (Bld) 1.4 % High 0-1 [facility] Comment on above: Performed By: #### L 501.4020, L501.5200, L100.0100, L500.3400, L500.2500, L501.2450, L300.8000 #### [facility] [address] [facility] [place], [address] Eosinophils/100 WBC (Bld) 3.5 % Normal 0-5 [facility] Comment on above: Performed By: #### L 501.4020, L501.5200, L100.0100, L500.3400, L500.2500, L501.2450, L300.8000 #### [facility] [address] [place], [address] Erythrocyte distribution width (RBC) [Ratio] 13.4 % Normal 11.6-14.6 [facility] Comment on above: Performed By: #### L 501.4020, L501.5200, L100.0100, L500.3400, L500.2500, L501.2450, L300.8000 #### [facility] [address] [place], [address] Hematocrit (Bld) [Volume fraction] 44.2 % Normal 37-47 [facility] Comment on above: Performed By: #### L 501.4020, L501.5200, L100.0100, L500.3400, L500.2500, L501.2450, L300.8000 #### [facility] [address] [place], [address] Hemoglobin (Bld) [Mass/Vol] 14.3 g/dL Normal 12.0-15.0 [facility] Comment on above: Performed By: #### L 501.4020, L501.5200, L100.0100, L500.3400, L500.2500, L501.2450, L300.8000 #### [facility] [address] [place], [address] IG% 0.800 Normal 0.0-0.9 [facility] Comment on above: Result Comment: IG% - Immature Granulocytes (promyelocytes, myelocytes and metamyelocytes) > 1% indicates that a LEFT SHIFT is Present. Performed By: #### L 501.4020, L501.5200, L100.0100, L500.3400, L500.2500, L501.2450, L300.8000 #### [facility] [address] [place], [address] Lymphocytes/100 WBC (Bld) 17.2 % Low 19-41 [facility] Comment on above: Performed By: #### L 501.4020, L501.5200, L100.0100, L500.3400, L500.2500, L501.2450, L300.8000 #### [facility] [address] [place], [address] MCH (RBC) [Entitic mass] 29.9 pg Normal 27.0-32.0 [facility] Comment on above: Performed By: #### L 501.4020, L501.5200, L100.0100, L500.3400, L500.2500, L501.2450, L300.8000 #### [facility] [address] [place], [address] MCHC (RBC) [Mass/Vol] 32.4 g/dL Normal 32-36 [facility] Comment on above: Performed By: #### L 501.4020, L501.5200, L100.0100, L500.3400, L500.2500, L501.2450, L300.8000 #### [facility] [address] [place], [address] MCV (RBC) [Entitic vol] 92.3 fL Normal 81-99 [facility] Comment on above: Performed By: #### L 501.4020, L501.5200, L100.0100, L500.3400, L500.2500, L501.2450, L300.8000 #### [facility] [address] [place], [address] Monocytes/100 WBC (Bld) 9.7 % Normal 0-10 [facility] Comment on above: Performed By: #### L 501.4020, L501.5200, L100.0100, L500.3400, L500.2500, L501.2450, L300.8000 #### [facility] [address] [place], [address] Neutrophils/100 WBC (Bld) 67.4 % Normal 47-70 [facility] Comment on above: Performed By: #### L 501.4020, L501.5200, L100.0100, L500.3400, L500.2500, L501.2450, L300.8000 #### [facility] [address] [place], [address] Nucleated RBC (Bld) [#/Vol] 0 10*3/uL Normal 0-5 [facility] Comment on above: Performed By: #### L 501.4020, L501.5200, L100.0100, L500.3400, L500.2500, L501.2450, L300.8000 #### [facility] [address] [place], [address] Platelet mean volume (Bld) [Entitic vol] 10.0 fL Normal 6.2-12.0 [facility] Comment on above: Performed By: #### L 501.4020, L501.5200, L100.0100, L500.3400, L500.2500, L501.2450, L300.8000 #### [facility] [address] [place], [address] Platelets (Bld) [#/Vol] 297 10*3/uL Normal 150-450 [facility] Comment on above: Performed By: #### L 501.4020, L501.5200, L100.0100, L500.3400, L500.2500, L501.2450, L300.8000 #### [facility] [address], [address] RBC (Bld) [#/Vol] 4.79 10*6/uL Normal 4.2-5.4 [facility] Comment on above: Performed By: #### L 501.4020, L501.5200, L100.0100, L500.3400, L500.2500, L501.2450, L300.8000 #### [facility] [address] [place], [address] RDW SD 46.0 fl High 35.1-43.9 [facility] Comment on above: Performed By: #### L 501.4020, L501.5200, L100.0100, L500.3400, L500.2500, L501.2450, L300.8000 #### [facility] [address] [place], [address] WBC (Bld) [#/Vol] 8.3 10*3/uL Normal 4.4-11.0 [facility] Comment on above: Performed By: #### L 501.4020, L501.5200, L100.0100, L500.3400, L500.2500, L501.2450, L300.8000 #### [facility] [address] [place], [address] CTA Chest W/WO Contraston CTA Chest W/WO Contrast [facility] Imaging Services [address] [place] [address] CTA Chest W/WO Contrast MR#: [id number] Acct: [id number] Name: KAYLEE WONG Rep #: [id number] : 1960 F 63 From: Dinorah Marie MD PCP: Dr. Erendira Chiang MD Status: [facility] ER Study: CTA Chest W/WO Contrast Date of Exam: 02/25/24 Exam# [id number] Ordering Dr: Sean Garber DO [id number] STUDY: CTA CHEST REASON FOR EXAM: Female, 63 years old patient with chest and back pain. RADIATION DOSAGE (If Supplied By Facility): CTDIvol = ( 15.42 ) mGy, DLP = ( 780.99 ) mGycm TECHNIQUE: The examination was performed with the intravenous administration of 100 mL of IV Isovue-370. Post-processing of the angiographic images was performed, with multiplanar reformation and 3D reconstruction. Individualized dose optimization techniques were used for this CT. COMPARISON: Prior comparison studies are not available for review at this time. FINDINGS: Normal enhancement of the main pulmonary artery and right and left pulmonary arteries. Normal enhancement of the bilateral peripheral pulmonary arteries. There is no demonstrated pulmonary embolism. Normal thoracic aorta and visualized great vessels. There is no demonstrated aortic dissection. Normal heart and pericardium. There is moderately large hiatal hernia. Normal hilar regions. Normal visualized trachea and bronchi. The lungs are well expanded. There is a minimal left basilar dependent atelectasis. There is patchy right lower lobe ground glass attenuation that could represent early pneumonia. Lungs are otherwise clear. Normal pleura. Normal chest wall structures. There are mild degenerative changes of thoracic spine. There is a curvature of the thoracic spine with convexity towards the right. There are gallstones. CT/CTA Chest W/WO Contrast IMPRESSION: 1. No CTA demonstrated pulmonary embolism or arterial dissection. 2. Right lower lobe airspace disease could represent early pneumonia. 3. Minimal left-sided dependent atelectasis. 4. Moderately large hiatal hernia. 5. Cholelithiasis. Electronically Signed: Dinorah Marie MD at 3:50 EST Reading Location ID and State: [address] [facility] , Service support , CC: Dr. Erendira Chiang MD; Sean Garber DO After School Program Director: Signed Normal [facility] Chest PA and Lateralon 02-24 Chest PA and Lateral [facility] Imaging [place] [address] Chest PA and Lateral MR#: [id number] Acct: [id number] Name: KAYLEE WONG Rep #: [id number] : 1960 F 63 From: Dinorah Marie MD PCP: Dr. Erendira Chiang MD Status: REG ER Study: Chest PA and Lateral Date of Exam: 02/25/24 Exam# [id number] Ordering Dr: Sean Garber DO [id number] STUDY: X-RAY CHEST REASON FOR EXAM: Female, 63 years old patient with chest pain. TECHNIQUE: PA and lateral views of the chest. COMPARISON: Prior comparison studies are not available for review at this time. FINDINGS: Cardiac monitoring leads are present. The lungs are clear and expanded. There is no demonstrated pleural abnormality. Normal size heart. There is a masslike area within the middle mediastinum with air-fluid level consistent with hiatal hernia. Both hilar areas are within normal limits in appearance. Normal visualized pulmonary arteries. Normal visualized aortic arch and descending thoracic aorta. There is demineralization of the osseous structures. There appears to be mild compression fracture of a midthoracic vertebral body. Normal visualized ribs, clavicles, and shoulders. There is no demonstrated abnormality of the visualized soft tissue structures of the upper abdomen. RAD/Chest PA and Lateral IMPRESSION: 1. No radiographic evidence of acute cardiopulmonary disease. 2. Moderately large hiatal hernia. Electronically Signed: Dinorah Marie MD at 2:26 EST Reading Location ID and State: [facility] / [place] , Service support , CC: Dr. Erendira Chiang MD; Sean Garber DO After School Program Director: Signed Normal [facility] D-Dimer Quantitative (DVT/PE )on 02-25-2024 D-DIMER QUANT 0.37 FEU/ug/m Normal 0.27-0.49 [facility] Comment on above: Result Comment: NORM AL D-Dimer level (<0.50) indicates no DVT or PE. Performed By: #### L 501.4020, L501.5200, L100.0100, L500.3400, L500.2500, L501.2450, L300.8000 #### [facility] [address] [facility] [place], [address] Emergency Department Summary on 02-25-2024 Emergency Department Summary [facility] Medical Records Department [address] [facility] [place] [address] Emergency Department Summary 02/25/24 MR#: [id number] Acct: [id number] Name: KAYLEE WONG Rep #: [id number] : 1960 63 From: Sean Garber DO PCP: Dr. Erendira Chiang MD Status:DEP ER Location: ED HPI History of Present Illness Chief Complaint: Chest Pain Informant: patient and family Narrative Narrative: Patient is a 63-year-old female with history of migraine headache and GERD. She states that this evening she began developing both anterior chest pain and upper back pain. She states there was no trauma or excessive activity. She states there is been nausea associated with the pain but no vomiting. She denies any diaphoresis or shortness of breath. She denies any previous history of cardiac disease. She denies any recent travel surgery or history of DVT/PE. She reports that her blood pressure is typically low and she has been checking it because of her symptoms and it is now elevated. Therefore because of the new hypertension and symptoms of chest and back pain she had concerned this may be cardiac in nature and was brought to the hospital for evaluation [facility] Home Medications ???Medication ???Instructions ???Recorded ???Last Taken ???Type rizatriptan 5 mg tablet 5 mg PO PRN PRN Headache 02/28/17 02/27/17 History lansoprazole 30 mg capsule,delayed 30 mg PO DAILY 02/25/24 Unknown History release ondansetron 4 mg disintegrating 4 mg PO TID PRN nausea and 02/25/24 Unknown Rx tablet vomiting #21 tabs oxycodone-acetaminophen 5 mg-325 1 tab PO Q6H PRN pain 3 days #12 02/25/24 Unknown Rx mg tablet (Percocet) tabs Allergy/AdvReac Type Severity Reaction Status Date / Time topiramate (From Topamax) Allergy Intermediate Rash Verified 02/25/24 01:13 Social History Smoking Status: Never smoker ROS ROS ED Constitutional Constitutional ED: Denies chills or fever(s) Eyes Eyes: Denies change in vision ENT ENT ED: Denies sore throat Cardiovascular Cardiovascular: Reports chest pain; Denies palpitations or racing heartbeat Respiratory/Chest Respiratory/Chest: Denies cough or dyspnea Gastrointestinal Gastrointestinal: Reports nausea; Denies abdominal pain, diarrhea or vomiting Genitourinary Genitourinary ED: Denies dysuria Musculoskeletal Musculoskeletal: Reports back pain Integumentary Denies rash Neurologic Neurologic: Denies headache(s), paresthesias or weakness Hematologic/Lymphatic Hematologic/Lymphatic: Denies easy bleeding or easy bruising EXAM Physical Exam Const Vital Signs: 02/25/24 01:13 02/25/24 02:13 02/25/24 03:00 Temperature 97.5 F L Temperature Source Temporal Pulse Rate 88 85 85 Respiratory Rate 20 H 16 16 Blood Pressure 165/142 H 161/88 H 145/86 H Blood Pressure Mean 149 112 105 Pulse Ox 96 98 98 Oxygen Delivery Method Room Air Room Air Room Air 02/25/24 04:00 02/25/24 04:00 Temperature 97.8 F Temperature Source Pulse Rate 78 78 Respiratory Rate 18 18 Blood Pressure 141/88 H 141/88 H Blood Pressure Mean 105 105 Pulse Ox 94 94 Oxygen Delivery Method Positive well nourished, well developed and obese General Appearance ED: well developed; Negative for pallor Nutritional Appearance: obese HEENT HEENT Narrative: Normocephalic atraumatic Eyes PERRL and EOMs intact bilaterally General Eye ED: Negative for scleral icterus Neck supple and no JVD Neck Narrative: No nuchal rigidity or meningeal signs Chest Wall palpation of chest normal Chest Narrative: No bony deformity or crepitance noted Resp normal respiratory effort and clear to auscultation bilaterally Resp Narrative: No nasal flaring retractions tachypnea or accessory muscle use Cardio regular rate and regular rhythm Rate: other Other Details: Heart is regular rate and rhythm without murmurs rubs or gallops Radial and carotid pulses are equal and symmetric GI non-distended and no masses GI Narrative: Abdomen is soft and nondistended with normal active bowel sounds. Patient has mild pain with palpation in the right upper quadrant and midepigastric region without voluntary guarding or rigidity. Negative Miller sign No pulsatile mass or fluid wave Auscultation: normoactive bowel sounds Palpation: soft Back/Spine no CVA tenderness Extremity normal to inspection Extremity Narrative: No asymmetric edema no pitting edema negative Homans' sign bilaterally Neuro oriented x3, CN's II-XII intact bilaterally and no sensory deficits noted Sensorium / Orientation: alert Motor Exam: strength 5/5 throughout Psych mental status grossly normal Skin no rashes or lesions noted General Skin Exam: Negative for jaundice or pallor MDM MDM MDM Narrative Medical (more content not included)... Normal [facility] L501.4020on 02-25-2024 TROPONIN-I HS 10 pg/mL Normal 3.0-54.0 [facility] Comment on above: Order Comment: 'TROP ' Serial specimen #1, #2 or #3: 2 Result Comment: Plea se Note: New Test Units and Gender Specific Reference Ranges. For more information see Policy Stat Procedure Healy High Sensitivity Troponin (TNIH) and attachments. Performed By: #### L 501.4020, L501.5200, L100.0100, L500.3400, L500.2500, L501.2450, L300.8000 #### [facility] [address] [place], [place], [address] TROPONIN-I HS 5 pg/mL Normal 3.0-54.0 [facility] Comment on above: Order Comment: 'TROP ' Serial specimen #1, #2 or #3: 1 Result Comment: Plea se Note: New Test Units and Gender Specific Reference Ranges. For more information see Policy Stat Procedure Healy High Sensitivity Troponin (TNIH) and attachments. Performed By: #### L 501.4020, L501.5200, L100.0100, L500.3400, L500.2500, L501.2450, L300.8000 #### [facility] [address] [place], [address] Lipaseon 02-25-2024 Lipase [Catalytic activity/Vol] 79 U/L High 13-75 [facility] Comment on above: Order Comment: 'TROP ' Serial specimen #1, #2 or #3: 1 Result Comment: Kerrie gtz note: LIPASE revised reference range effective 22. New Lipase methodology. Expected to produce lower values than the previous assay method. NEW Reference Range: 13 - 75 U/L Performed By: #### L 501.4020, L501.5200, L100.0100, L500.3400, L500.2500, L501.2450, L300.8000 #### [facility] [address] [place], [address] Liver Profileon 02-25-2024 Albumin [Mass/Vol] 3.6 g/dL Normal 3.2-5.0 [facility] Comment on above: Order Comment: 'TROP ' Serial specimen #1, #2 or #3: 1 Performed By: #### L 501.4020, L501.5200, L100.0100, L500.3400, L500.2500, L501.2450, L300.8000 #### [facility] [address] [place], [address] ALK P 119 U/L High 45-117 [facility] Comment on above: Order Comment: 'TROP ' Serial specimen #1, #2 or #3: 1 Performed By: #### L 501.4020, L501.5200, L100.0100, L500.3400, L500.2500, L501.2450, L300.8000 #### [facility] [address] [place], [address] ALT [Catalytic activity/Vol] 39 U/L Normal 13-56 [facility] Comment on above: Order Comment: 'TROP ' Serial specimen #1, #2 or #3: 1 Performed By: #### L 501.4020, L501.5200, L100.0100, L500.3400, L500.2500, L501.2450, L300.8000 #### [facility] [address] [place], [address] AST [Catalytic activity/Vol] 22 U/L Normal 15-37 [facility] Comment on above: Order Comment: 'TROP ' Serial specimen #1, #2 or #3: 1 Performed By: #### L 501.4020, L501.5200, L100.0100, L500.3400, L500.2500, L501.2450, L300.8000 #### [facility] [address] [place], [address] Bilirubin [Mass/Vol] 0.40 mg/dL Normal 0.20-1.00 [facility] Comment on above: Order Comment: 'TROP ' Serial specimen #1, #2 or #3: 1 Result Comment: For patients on eltrombopag therapy, use of Dimension Healy TBIL is not recommended. Performed By: #### L 501.4020, L501.5200, L100.0100, L500.3400, L500.2500, L501.2450, L300.8000 #### [facility] [address] [place], [address] Bilirubin.direct [Mass/Vol] 0.11 mg/dL Normal 0.00-0.30 [facility] Comment on above: Order Comment: 'TROP ' Serial specimen #1, #2 or #3: 1 Performed By: #### L 501.4020, L501.5200, L100.0100, L500.3400, L500.2500, L501.2450, L300.8000 #### [facility] [address] [place], [address] Globulin (S) [Mass/Vol] 3.3 g/dL Normal 2.2-4.2 [facility] Comment on above: Order Comment: 'TROP ' Serial specimen #1, #2 or #3: 1 Performed By: #### L 501.4020, L501.5200, L100.0100, L500.3400, L500.2500, L501.2450, L300.8000 #### [facility] [address] [place], [address] T PROT 6.9 g/dL Normal 6.4-8.2 [facility] Comment on above: Order Comment: 'TROP ' Serial specimen #1, #2 or #3: 1 Performed By: #### L 501.4020, L501.5200, L100.0100, L500.3400, L500.2500, L501.2450, L300.8000 #### [facility] [address] [place], [address] Magnesiumon 02-25-2024 Magnesium [Mass/Vol] 2.2 mg/dL Normal 1.6-2.6 [facility] Comment on above: Order Comment: 'TROP ' Serial specimen #1, #2 or #3: 1 Performed By: #### L 501.4020, L501.5200, L100.0100, L500.3400, L500.2500, L501.2450, L300.8000 #### [facility] [address] [place], [address] XR Shoulder - left 3 Viewson 02-06-2021 IMPRESSION: Acromioclavicular osteoarthrosis. After [facility] Transcribe Date/Time: Feb 06 2021 6:36P Dictated by : JUAN PLAZA MD This examination was interpreted and the report reviewed and electronically signed by: JUAN PLAZA MD on Feb 06 2021 6:38PM [facility] DIVISION OF RADIOLOGY * * *Final Report* * * DATE OF EXAM: Feb 06 2021 6:30PM WOX 5252 - XR SHLDR >/=3V AP/JANETTE AP/OTHR LT / PROCEDURE REASON: Acute pain of left shoulder * * * * Physician Interpretation * * * * Left shoulder radiographs HISTORY: 60 years old Clinical information: Acute pain of left shoulder Pt. states top of Lt shoulder pain for a couple of weeks. Pain now radiating down Lt arm. No injuay. TECHNIQUE: Images: XR SHLDR >/=3V AP/JANETTE AP/OTHR LT Comparison: None. RESULT: Findings: Glenohumeral and acromioclavicular joint spaces are maintained. Osteophyte formation subjacent to the acromioclavicular joint. No fracture or dislocation. No soft tissue abnormality identified. DIVISION OF RADIOLOGY Provider, [facility] - 02/06/2021 * * *Final Report* * * DATE OF EXAM: Feb 06 2021 6:30PM WOX 5252 - XR SHLDR >/=3V AP/JANETTE AP/OTHR LT / PROCEDURE REASON: Acute pain of left shoulder * * * * Physician Interpretation * * * * Left shoulder radiographs HISTORY: 60 years old Clinical information: Acute pain of left shoulder Pt. states top of Lt shoulder pain for a couple of weeks. Pain now radiating down Lt arm. No injuay. TECHNIQUE: Images: XR SHLDR >/=3V AP/JANETTE AP/OTHR LT Comparison: None. RESULT: Findings: Glenohumeral and acromioclavicular joint spaces are maintained. Osteophyte formation subjacent to the acromioclavicular joint. No fracture or dislocation. No soft tissue abnormality identified. IMPRESSION IMPRESSION: Acromioclavicular osteoarthrosis. After School Program Director: [facility] Transcribe Date/Time: Feb 06 2021 6:36P Dictated by : JUAN PLAZA MD This examination was interpreted and the report reviewed and electronically signed by: JUAN PLAZA MD on Feb 06 2021 6:38PM EST [facility] Radiology Study observation (narrative) [facility] XR Shoulder - left 3 ViewsOr dered By: [facility] Provider on 02-06-2021 [facility] ED NOTEon 03-01-2017 ED NOTE HNO ID: [id number] Author: Leonor (Rn) VEE Damon Service: Emergency Medicine Author Type: Registered Nurse Type: ED Notes Filed: 02/28/2017 10:11 PM Note Text: Also see Sedation record Normal [facility] CHEST 2 VIEWSon 02-28-2017 CHEST 2 VIEWS Performed at [facility] APPROVED BY: Raghavendra Chavez MD EXAMINATION: CHEST RADIOGRAPH (2 VIEW FRONTAL & LATERAL) Clinical History: Foreign body aspiration.M: XC2_3Comparison: Prior available. RESULT: Lines, tubes, and devices: None. Lungs and pleura: No consolidation. No lung mass. No pleural effusion or pneumothorax. Cardiomediastinal silhouette: Normal cardiomediastinal silhouette. Other: No evidence retained radiopaque foreign body in the visualized airway or lungs. No evidence of acute osseous abnormality. IMPRESSION: No acute radiographic abnormality. Normal [facility] ED NOTEon 02-28-2017 ED NOTE HNO ID: [id number] Author: Gale Melgar) VEE Andrea Service: Emergency Medicine Author Type: Registered Nurse Type: ED Notes Filed: 02/28/2017 9:56 PM Note Text: See moderate sedation record. Dr. Carpio from GI here to endoscope pt. Normal [facility] ED NOTE HNO ID: [id number] thor: Gale Melgar) SUZY Andreaervice: Emergency MedicineAuthor Type: Registered NurseType: ED NotesFiled: 02/28/2017 8:20 PMNote Text: Dr. Russell to BS to talk to pt about risks related to sedation and GIscope procedure. Pt states understanding. Family at BS. [facility] ED NOTE HNO ID: [id number] Author: Gale Melgar) VEE Andrea Service: Emergency Medicine Author Type: Registered Nurse Type: ED Notes Filed: 02/28/2017 8:16 PM Note Text: Pt states no change in FB feeling in throat. Pt states she just wants something done. [facility] ED NOTE HNO ID: [id number] Author: Leonor Damon RN Service: Emergency Medicine Author Type: Registered Nurse Type: ED Notes Filed: 02/28/2017 7:35 PM Note Text: Pt stated still unable to keep down PO fluids; Normal [facility] ED NOTE HNO ID: [id number] thor: Leonor LomeliRn) USZY Damonervice: Emergency MedicineAuthor Type: Registered NurseType: ED NotesFiled: 02/28/2017 7:35 PMNote Text: Pt stated still no change following 3rd nitro; Dr. Russell notified andat bedside to give pt PO challenge; Normal [facility] ED NOTE HNO ID: [id number] Author: Leonor LomeliRn) VEE Damon Service: Emergency Medicine Author Type: Registered Nurse Type: ED Notes Filed: 02/28/2017 7:30 PM Note Text: BP 117/ 68; Pt stated no change after 2nd nitro; Pt given 3rd nitro tab Normal [facility] ED NOTE HNO ID: [id number] Author: Leonor LomeliRn) VEE Damon Service: Emergency Medicine Author Type: Registered Nurse Type: ED Notes Filed: 02/28/2017 7:26 PM Note Text: BP 126/77; Pt stated still feels the same, 2nd nitro given [facility] ED NOTE HNO ID: [id number] Author: Leonor LomeliRn) VEE Damon Service: Emergency Medicine Author Type: Registered Nurse Type: ED Notes Filed: 02/28/2017 7:20 PM Note Text: IVF started; Pt to x-ray and back; No acute distress noted; BP 124/77, 1st nitro tab given; Normal [facility] ED NOTE HNO ID: [id number] thor: Nighat (Medic) Arpan, MedicSer: (none)Author Type: Science Intern and TechnicianType: ED NotesFiled: 02/28/2017 5:33 PMNote Text:Bed: ED-02Expected date: 02/28/17Expected time: 5:24 PMMeans of arrival: Samaritian CareComments:fb Normal [facility] ED NOTE HNO ID: [id number] thor: Leonor Melgar) SUZY Damonervice: Emergency MedicineAuthor Type: Registered NurseType: ED NotesFiled: 02/28/2017 5:33 PMNote Text:Pt stated was eating soup with roast beef yesterday around noon whennoticed roast beef had become lodged in throat; Pt went to [place] [facility] andsent here for GI consult; Pt speaking full sentences upon ED Arrival;Stated majority of secretions come back out; Has had this happen in pastbut was able to get it out before; Normal [facility] ED PROV NOTEon 02-28-2017 ED PROV NOTE HNO ID: [id number] thor: Abdias Alford: Emergency MedicineAuthor Type: PhysicianType: ED Provider NotesFiled: 02/28/2017 7:48 PMNote Text:56-year-old female who was transferred up to our emergency departmentbecause of an esophageal foreign body. The patient went to [facility] emergency Department after she had a piece of meat stuck in herthroat starting yesterday afternoon. 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 Patient was givenglucagon IV there and when she arrived here she was given nitroglycerinsublingual. She was also given Ativan at the previous hospital. Nothingis helping. We have spoken to gastric urology and they will be coming into help remove this foreign body.This patient had a normal cardiac exam.The patient has a normal S1-S2, a regular rate and rhythm, and nomurmurs, rubs or gallops. Lungs were clear bilaterally, no rales, rhonchi,crackles, or wheezes.Abdomen is soft. Nondistended. No abdominaltenderness to palpation. Normal bowel sounds in all 4 quadrants. Norebound tenderness or guarding. No hepatosplenomegaly appreciated ormasses, or pulsatile masses.Claudia Mccloud MD02/28/171947 Normal [facility] ED PROV NOTE HNO ID: [id number] thor: Abdias Landeros Res: Emergency MedicineAuthor Type: ResidentType: ED Provider NotesFiled: 02/28/2017 11:06 PMNote Text: At testation signed by Claudia Mccloud MD at 03/01/2017 12:39 AMAttending NoteI evaluated the patient and personally participated in the lawler components. Iagree with the resident's findings and plan as documented and have discussedthe case and management of the patient's care with the resident. I was presentfor the lawler portions of the procedure.SHU Alfordignature: Claudia Mccloud, MDDate: 03/01/2017Time: 12:37 AM ED Provider NotePatient Name: Kaylee AhumadaRN: [id number] DATE: 02/28/17HistoryPatient presents with:Body, ForeignHPI Comments: Patient is a 56 year old female with a past medical historysignificant for esophageal reflux and hyperlipidemia Obstructive Sleepapnea who presents with a 30 hour history of esophageal foreign bodysensation. Round 1300 yesterday patient was eating beets today when shefelt so one of her pieces of food is lodged in the upper esophagus.Patient states that since that time has not been able to drink fluids orsolid foods. Patient has complained of an ability to handle secretions.She states that she had an esophageal stricture noted by GI specialist 4-5years prior. Patient denies chest pain. Patient has had priorexperience with these symptoms, noting esophageal foreign body 4- 5 yearsprior. Patient given 1 mg glucagon at a hospital today and thentransferred here for GI consult.History provided by: PatientPAST MEDICAL HISTORYDiagnosis Date- Benign neoplasm of stomach- Esophageal reflux- Hernia of other specified sites of abdominal cavity without mention ofobstruction or gangrene HIATAL- Hyperlipidemia LDL goal < 100 02/20/2011- Impaired fasting glucose 02/20/2011- Obstructive sleep apnea on CPAP 04/16/2012- Other and unspecified hyperlipidemia- Other forms of migrainePAST SURGICAL HISTORYProcedure Laterality Date- EGD W/O OR W/BRUSH/WASH 05/12/2008 EGD- LIGATE FALLOPIAN TUBE- ORAL SURGERY PROCEDURE 05/12/2007 [place] teeth and cyst removed from jawFAMILY HISTORYProblem Relation Age of Onset- Osteoporosis Mother- Lipids Mother- Thyroid Mother- Hypertension Mother- Cancer Mother 73 pancreatic- Stroke Father age 49- Lipids Father- Hypertension Father- Osteoporosis Maternal Grandmother- Lipids Maternal Grandmother- Cancer Paternal Grandmother Lung cancer- Cancer Paternal Aunt Brain cancer - uterine cancer??- Cancer Paternal Uncle Great uncle - Colon cancerSocial HistorySocial History Main Topics- Smoking status: Never Smoker- Smokeless tobacco: Never Used- Alcohol use Yes Comment: Occasionally- Drug use: No- Sexual activity: Yes Partners: Male control/ protection: Surgical Comment: TUBAL LIGATIONALLERGIESAllergen Reactions- Topamax [Topiramate] HivesReview of SystemsConstitutional: Negative for chills and fever.HENT: Positive for trouble swallowing. Negative for congestion, rhinorrheaand sore throat.Eyes: Negative for visual disturbance.Respiratory: Positive for cough and choking. Negative for shortness ofbreath.Cardiovascular: Negative for chest pain.Gastrointestinal: Negative for abdominal pain, constipation, diarrhea,nausea and vomiting.Endocrine: Negative for polyuria.Genitourinary: Negative for dysuria and hematuria.Musculoskeletal: Negative for arthralgias and myalgias.Skin: Negative for rash.Neurological: Negative for weakness and numbness.Psychiatric/Behavior al: Negative for suicidal ideas.All other systems reviewed and are negative.Physical ExamBP 124/77 Pulse 79 Temp (Src) 97.7 (Temporal Artery) Resp 18 Ht 5'4 (1.63m) Wt 193 lb (87.5kg) SpO2 96% LMP 02/11/2010 BMI 33.11kg/(m2).Physical ExamConstitutional: She is oriented to person, place, and time. She appearswell-developed and well-nourished.HENT:Head: Normocephalic and atraumatic.Eyes: Conjunctivae and EOM are normal. Pupils are equal, round, andreactive to light. Right eye exhibits no discharge. Left eye exhibits nodischarge.Neck: Normal range of motion. No tracheal deviation present.Cardiovascular: Normal rate and regular rhythm. Exam reveals no frictionrub.No murmur heard.Pulmonary/Chest: Effort normal and breath sounds normal. No respiratorydistress. She has no wheezes. She has no rales.Abdominal: Soft. She exhibits no distension and no mass. There is notenderness. There is no rebound and no guarding.Musculoskeletal: Normal range of motion.Neurological: She is alert and oriented to person, place, and time.Skin: Skin is warm and dry. No rash noted.Psychiatric: She has a normal mood and affect. Judgment normal.Nursing note and vitals reviewed.Diagnostic TestingED Labs Ordered and Reviewed - No data to displayResults for orders placed or performed during the hospital encounter of02/28/17XR CHEST 2V FRONTAL/LATResult Value Ref Range Resource Recovery Engineer EXAMINATION: CHEST RADIOGRAPH (2 VIEW FRONTAL AND LATERAL)Clinical History: Foreign body aspiration.M: XC2_3Comparison: Prior available.RESULT:Lines, tubes, and devices: None.Lungs and pleura: No consolidation. No lung mass. No pleural effusion orpneumothorax.Cardiomediasti nal silhouette: Normal cardiomediastinal silhouette.Other: No evidence retained radiopaque foreign body in the visualizedairway orlungs. No evidence of acute osseous abnormality.IMPRESSION:No acute radiographic abnormality.XR NECK SOFT TISSUE 2V AP/LATResult Value Ref Range Resource Recovery Engineer EXAM TITLE: SOFT TISSUE NECK 2 VIEWSDATE: 02/28/2017 19:04COMPARISON: No prior available.CLINICAL INDICATION/HISTORY: Foreign body aspiration, initial encounter.TECHNIQUE: AP and lateral views were obtained of the soft tissue neck.FINDINGS:Visualized airways patent. Epiglottis is normal thickness. No definitiveretained radiopaque foreign body in the visualized airway. Moderatedegenerativedisc disease of the cervical spine at the C5-C6 and C6-C7 levels.Multilevelcervical facet joint cirrhosis is noted.IMPRESSION:No evidence of retained radiopaque foreign body in the visualized airway.Multilevel degenerative changes of the cervical spine.SEDATIONDate/Time: 02/28/2017 9:47 PMPerformed by: GEENA RUSSELL (RES)Authorized by: Vadim MCCLOUD: Consent obtained: Written Consent given by: Patient Risks discussed: Allergic reaction, prolonged hypoxia resulting inorgan damage, prolonged sedation necessitating reversal, respiratorycompromise necessitating ventilatory assistance and intubation, vomiting,nausea, inadequate sedation and dysrhythmia Alternatives discussed: Analgesia without sedation and anxiolysisUniversal protocol: Procedure explained and questions answered to patient or proxy'ssatisfaction: yes Relevant documents present and verified: yes Test results available and properly labeled: yes Imaging studies available: yes Required blood products, implants, devices, and special equipmentavailable: yes Site/side marked: yes Immediately prior to procedure a time out was called: yes Patient identity confirmation method: Verbally with patient and armbandIndications: Procedure performed: Endoscopy Procedure necessitating sedation performed by: Different physician Intended level of sedation: Moderate (conscious sedation)Pre-sedation assessment: NPO status caution: unable to specify NPO status ASA classification: class 1 - normal, healthy patient Neck mobility: normal Mouth openin or more finger widths Thyromental distance: 3 finger widths Mallampati score: I - soft palate, uvula, fauces, pillars visible Pre-sedation assessments completed and reviewed: airway patency,cardiovascular function, hydration status, mental status, nausea/vomiting,pain level, respiratory function and temperature History of difficult intubation: noProcedure details (see MAR for exact dosages): Preoxygenation: Nasal cannula Sedation: Midazolam Analgesia: Fentanyl Intra-procedure monitoring: Continuous capnometry, blood pressuremonitoring, site monitor, frequent LOC assessments, frequent vital signchecks and continuous pulse oximetry Intra-procedure events: hypoxia Intra-procedure management: BVM ventilationPost-procedure details: Attendance: Constant attendance by certified staff until patientrecovered Recovery: Patient returned to pre-procedure baseline Estimated blood loss (see I/O flowsheets): no Complications: None Post-sedation assessments completed and reviewed: airway patency,cardiovascular function, hydration status, mental status, nausea/vomiting,pain level, respiratory function and temperature Specimens recovered: None Patient is stable for discharge or admission: yes Patient tolerance: Tolerated well, no immediate complicationsMedical Decision Making / ED CourseED CoursePatient is a 56 year old female with a past medical history significantfor dysphagia with esophageal foreign body food bolus, who presents with a29 hour history of esophageal foreign body. Patient describes symptoms asdifficulties swallowing solid foods as well as liquids as well aspatient's saliva . Patient denies chest pain difficult to breathing.Physical exam significant for no obvious foreign body or lesion in theupper airway with known putting of 1, lower lung hussein clear with nostridor. Differential diagnosis includes esophageal stricture, foreignbody with esophageal rupture . Initial work up will include a chest x-rayincluding lateral films to evaluate these possible etiologies. Initialtherapeutic interventions to include 1 mg IV glucagon, 0.4 mg sublingualnitroglycerin glycerin ?3, IV fluids. GI consulted for evaluation patientwas unable to swallow soda after 1 mg IV glucagon. Patient givenadditional 1 mg IV glucagon. After 20 minutes GI consults in and statedthey would be in to evaluate patient and performing EGD under conscioussedation. EGD performed under conscious sedation with your physician atbedside noting slight desaturation after 150 mg fentanyl and 5 mg Versedgiven, bag valve mask applied the patient's saturations increased. DuringEGD Dr. Carpio noted patient with esophageal stricture and no obviousforeign body noted hypothesis is that patient's past esophageal foreignbody sometime to initial and subsequent symptoms and now . Dr. Quijanoommended follow-up within 2 weeks with GI as an outpatient anddischarge after 45 minutes 1 hour post-conscious sedation. Dispositionpatient to be discharged to follow up with GI.Encounter Diagnosis ICD-10-CM1. Esophageal foreign body, initial encounter T18.108A2. Dysphagia R13.10 Added automatically from request for surgery [id number] Patient was dischargedCondition at time of disposition: stableSIGNATURE: YFN Landerosrocedural SedationPerformed by: SHU Landerosupervised by: Kenia Alfordpose/Procedure being performed: Esophageal FBMedications used: fentanyl and lorazepamI was present for and supervised the procedure detailed above.Negra Alford (Res) Sirisha Russellt1 2306Pajohn Mccloud MD03/01/17 0039 [facility] HOSPon 02-28-2017 HOSP Patient:Kaylee Wong CMRN: Height:5' 4(1.626 m)Weight:193 lb (87.544 kg)Outpatient Medications as of 02/28/17:amoxicillin-clavulan ic acid (AUGMENTIN) 875-125 mg per tabletrizatriptan (MAXALT) 10 mg tabletfluticasone (FLONASE) 50 mcg/actuation nasal spraycodeine-guaiFENesin (ROBITUSSIN AC) 10-100 mg/5 mL syrupEstradiol-Norethindrone Acet (MIMVEY) 1-0.5 mg per tabletlansoprazole (PREVACID) 30 mg capsuleCHOLECALCIFEROL, VITAMIN D3, (VITAMIN D3 ORAL)Biotin 2,500 mcg ORAL CapOmega-3 Fatty Acids (FISH OIL) 500 mg ORAL CapAdmission/Clinic Administered Medications as of 02/28/17:nitroglycerin sublingual 0.4 mg tab(s) (NITROQUICK)fentaNYL 50 mcg/mL 200 mcg injection (SUBLIMAZE)midazolam (PF) 6 mg injection (VERSED)NaCl 0.9% 1,000 mL iv bolusProblem List:Esophageal reflux [K21.9]Allergic rhinitis, cause unspecified [J30.9]Nonspecific abnormal results of liver function study [R94.5]Other and unspecified hyperlipidemia [E78.5]Benign neoplasm of stomach [D13.1]Fatigue [R53.83]Impaired fasting glucose [R73.01]Hyperlipidemia with target low density lipoprotein (LDL) cholesterol less lbkd170 mg/dL [E78.5]Obstructive sleep apnea on CPAP [G47.33, Z99.89]Symptomatic menopausal or female climacteric states [N95.1]Family history of osteoporosis [Z82.62]Dysphagia [R13.10]Allergies:Topamax [Topiramate]Date Verified: 02/28/17Lab ValuesNo results within the last 30 days for the following basenames: K,HCTProgress Notes ():Leonor Damon RN, RN 02/28/2017 5:33 PM SignedPt stated was eating soup with roast beef yesterday around noon when noticedroast beef had become lodged in throat; [place] [facility] and sent here forGI consult; Pt speaking full sentences upon ED Arrival; Stated majority ofsecretions come back out; Has had this happen in past but was able to get it outbefore;Nighat Antony Medic, Medic 02/28/2017 5:33 PM SignedBed: ED-02Expected date: 02/28/17Expected time: 5:24 PMMeans of arrival: [facility] CareComments:Minda Damon RN, RN 02/28/2017 7:20 PM Signed IVF started; Pt to x-ray and back; No acute distress noted; BP 124/77, 1stnitro tab given;Leonor Damon RN, RN 02/28/2017 7:26 PM Signed BP 126/77; Pt stated still feels the same, 2nd nitro givenLeonor Damon RN, RN 02/28/2017 7:30 PM Signed BP 117/ 68; Pt stated no change after 2nd nitro; Pt given 3rd nitro tabLeonor Damon RN, RN 02/28/2017 7:35 PM Signed Pt stated still no change following 3rd nitro; Dr. Russell notified and atbedside to give pt PO challenge;Leonor Damon RN, RN 02/28/2017 7:35 PM Signed Pt stated still unable to keep down PO fluids;Claudia Mccloud MD, 02/28/2017 7:48 PM [id number] female who was transferred up to our emergency department because ofan esophageal foreign body. [facility] after she had a piece of meat stuck in her throat starting yesterdayafternoon. The patient was transferred to us because they do not have agastroenterologist on-call. Patient was given glucagon IV there and when shearrived here she was given nitroglycerin sublingual. She was also given Ativanat the previous hospital. Nothing is helping. We have spoken to gastricurology and they will be coming in to help remove this foreign body.This patienthad a normal cardiac exam. The patient has a normal S1-S2, a regular rate andrhythm, and no murmurs, rubs or gallops. Lungs were clear bilaterally, no rales,rhonchi, crackles, or wheezes.Abdomen is soft. Nondistended. No abdominaltenderness to palpation. Normal bowel sounds in all 4 quadrants. No reboundtenderness or guarding. No hepatosplenomegaly appreciated or masses, orpulsatile masses.Claudia Mccloud MD02/28/17 194Clmarily Andrea, VEE, RN 02/28/2017 8:16 PM Signed Pt states no change in FB feeling in throat. Pt states she just wants somethingdone.Gale Andrea, RN, RN 02/28/2017 8:[address] Russell to to talk to pt about risks related to sedation and GI scopeprocedure. Pt states understanding. Family at BS.Gale Andrea, RN, RN 02/28/2017 9:56 PM Signed See moderate sedation record. Dr. Carpio from GI here to endoscope pt.Farhad Carpio MD 02/28/2017 9:15 PM SignedHISTORY AND PHYSICAL Kaylee Wong, 56 year old femaleCurrent history and physical on file: NoIs a new History and Physical required for today's visit? YesIndication for procedure: DysphagiaPROCEDURE(S) SCHEDULED FOR: EGD (Esophagogastroduodenoscopy) with or without biopsies, removal of polypsor lesions, dilation ( any means), treatment of bleeding ( any means), Barrxtreatment of López's Esophagus, image tube placement or cryo therapy treatmentbased on clinical findings.BASELINE BEHAVIOR: CalmBASELINE ORIENTATION: A AND O x3All medications and allergies reviewed: YesSkin Assessment: Warm dry muscus membranes pinkAirway/Respiratory Assessment:Airway: visualization of the uvula- YesMouth: opening greater than 2 fingerbreadths- YesNeck: full range of motion- YesBreath sounds clear/equal- YesCardiac Assessment: Regular rate and rhythm without murmurAbdominal Assessment: Abdomen soft, non-tender, no masses or organomegaly.Sedation Plan: MACAdditional Comments: Alanna Pittman MD 02/28/2017 9:45 PM SignedBRIEF OP NOTELOG ID: [id number]/Procedure Date: 02/28/2017Incision/Procedure Start Time:Incision Close/Procedure End Time:Surgeon(s)/Proceduralist (s) and Forensic Examiner(s):Surgeon(s) and Role: * Farhad Carpio - PrimaryProcedure(s): EGD for FB removalAnesthesia: Monitored Anesthesia CareFindings: Stricture GE junction, hiatal hernia, gastric polyplsEstimated Blood Loss: 0 mlSpecimens: NoneComplications: NonePre-Op/Pre-Procedure Diagnosis: Esophageal Meat impactionPost-Op/Post-Procedu re Diagnosis: see findingsContinue Prevacid 30 mg dailyFU GI 3-4 weeks for EGD with dilationSIGNATURE: Farhad Carpio MD PATIENT NAME: Kaylee WongDATE: February 28, 2017 : 9:42 PM PAGER/CONTACT #: [phone] Notes ([facility]):Mariama Sorto PA-C 02/28/2017 9:30 AM [id number]/28/2017Patient presents with:Nasal Congestion: X 2 weeksSUBJECTIVE: This is a 56 year old that is here today for Complaint(s) of sinuspain and pressure x 2 weeks, overall worsening. + purulent drainage. + cough.Intermittent wheezing per patient. Denies fever/chills.She also mentions that she has a piece of roast beef stuck in her throat xyesterday. Unable to keep any liquids or solids down. Unable to vomit. Thishas happened previously.Feels like it is effecting her breathing some and her swallowing at noted above.PAST MEDICAL HISTORYDiagnosis Date- Benign neoplasm of stomach- Esophageal reflux- Hernia of other specified sites of abdominal cavity without mention ofobstruction or gangrene HIATAL- Hyperlipidemia LDL goal < 100 02/20/2011- Impaired fasting glucose 02/20/2011- Obstructive sleep apnea on CPAP 04/16/2012- Other and unspecified hyperlipidemia- Other forms of migraineALLERGIES Topamax [Topiramate]MEDICATIONSCurren t Outpatient Prescriptions:rizatriptan (MAXALT) 10 mg tablet TAKE 1 TABLET BY MOUTH AT ONSET OF HEADACHEMAY REPEAT AFTER 2 HOURS DO NOT EXCEED 3/DAYfluticasone (FLONASE) 50 mcg/actuation nasal spray Use 2 Sprays in each nostrilonce daily. Rinse mouth after use.codeine-guaiFENesin (ROBITUSSIN AC) 10-100 mg/5 mL syrup Take 5-10 mL by mouthfour times daily as needed for Cough. 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 TMs normal BILNOSE/SINUS Nares normal. Septum midline. Mucosa erythematous. + purulentdrainage. + OXANA maxillary sinus tenderness.THROAT normal, no erythemaNECK Supple, no adenopathy;HEART RRR with normal S1 and S2LUNG clear to auscultation, No wheezing, rhonchi, rales.ASSESSMENT/PLAN:1. Maxillary sinusitis, unspecified chronicity - ICD9: 473.0, ICD10: J32.0(primary diagnosis)- Will begin treatment with as per antibiotic as written, see orders- The patient should also be given OTC cough and cold meds as needed, behind thecounter Pseudoephedrine, warm salt water gargles, throat lozenges and/or OTCthroat spray as needed and nasal saline gtts and suction prn for the first 5-7days of treatment.- Supportive care with plenty of fluids, rest, and analgesia prn.- Follow up in 3-5 days if symptoms persist or worsen.- AMOXICILLIN 875 MG-POTASSIUM CLAVULANATE 125 MG TABLET2. Foreign body in esophagus, initial encounter - ICD9: 935.1, E915, ICD10:T18.108AReferral to ER as GI/gen surg are not available today.The patient indicates understanding of these issues and agrees with the plan.Mariama Sorto PA-C Normal [facility] NECK SOFT TISSUE STUDYon NECK SOFT TISSUE STUDY Performed at [facility] APPROVED BY: Raghavendra Chavez MD EXAM TITLE: SOFT TISSUE NECK 2 VIEWS DATE: 02/28/2017 19:04 COMPARISON: No prior available. CLINICAL INDICATION/HISTORY: Foreign body aspiration, initial encounter. TECHNIQUE: AP and lateral views were obtained of the soft tissue neck. FINDINGS: Visualized airways patent. Epiglottis is normal thickness. No definitive retained radiopaque foreign body in the visualized airway. Moderate degenerative disc disease of the cervical spine at the C5-C6 and C6-C7 levels. Multilevel cervical facet joint cirrhosis is noted. IMPRESSION: No evidence of retained radiopaque foreign body in the visualized airway.Multilevel degenerative changes of the cervical spine. Normal [facility] OPERATIVE NOon 02-28-2017 OPERATIVE NO HNO ID: [id number] thor: Farhad Mcgowanervice: GastroenterologyAuthor Type: PhysicianType: Operative ReportFiled: 03/02/2017 9:29 AMNote Text:[facility] - Operative ReportSURGEON: YFN ClaytonATIENT NAME: KAYLEE WONG CMRN: [id number] CSN: [id number] OF SURGERY: 02/28/2017DATE OF : 1960 SEX/AGE: F/56PATIENT TYPE: E HOSP SVC: [facility]ISON LOCATION: [id number] OF SURGERY: 02/28/2017SURGEON: YFN ClaytonROCEDURE: Esophagogastroduodenoscopy for removal of foreign body fromtheesophagus.PREOPERATIVE DIAGNOSIS: Meat impaction of the esophagus.POSTOPERATIVE DIAGNOSES:1. 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 Hiatal hernia.3. Benign looking gastric polyps.MEDICATIONS: Medication used, fentanyl 150 mcg intravenous, Versed 5 mgintravenous were given.PROCEDURE AND FINDINGS: The patient was laid in the left lateraldecubitusposition. A standard Olympus video endoscope passed through the oralcavity into the esophagus and through the GE junction into the stomachand through the pyloric opening into the second portion of duodenum.Distal esophagus was tortuous. It seems like meat, which was likelyimpacted at the GE junction where a stricture was seen. Had alreadypassed into the stomach. Partially digested food was noted in thegastric fundus. The stricture at the GE junction has friable margins vitor small single tear about 4-5 millimeter in length, which was likelyrelated to recent meat impaction. Not much bleeding was noted from thestricture at this point. Stricture was not dilated. It already showssigns of dilation of the recent meat impaction. A moderate-sized hiatalhernia was noted between 38 and 40 cm. Multiple small benign lookinggastric polyps were noted in the body of the fundus of the stomach.These were not biopsied at this time. These are likely to be benignfundic gland polyps related to her Prevacid use. Duodenum part 1 and 2are unremarkable. The patient tolerated the procedure well and there wereno complications.PLAN:1. Advance diet.2. EGD with dilation will be done as outpatient.Farhad Carpio MDGastroenterologyMQ:modlD: 02/28/2017 21:49:41T: 02/28/2017 22:57:49Job #: [id number]:* Lamont So MD [facility] PROGRESSon 02-28-2017 PROGRESS HNO ID: [id number] thor: Farhad Mcgowanervice: GastroenterologyAuthor Type: PhysicianType: Progress NotesFiled: 02/28/2017 9:45 PMNote Text:BRIEF OP NOTELOG ID: [id number]/Procedure Date: 02/28/2017Incision/Procedure Start Time:Incision Close/Procedure End Time:Surgeon(s)/Proceduralist (s) and Forensic Examiner(s):Surgeon(s) and Role: * Farhad Carpio - PrimaryProcedure(s): EGD for FB removalAnesthesia: Monitored Anesthesia CareFindings: Stricture GE junction, hiatal hernia, gastric polyplsEstimated Blood Loss: 0 mlSpecimens: NoneComplications: NonePre-Op/Pre-Procedure Diagnosis: Esophageal Meat impactionPost-Op/Post-Procedu re Diagnosis: see findingsContinue Prevacid 30 mg dailyFU GI 3-4 weeks for EGD with dilationSIGNATURE: Farhad Carpio MD PATIENT NAME: Kaylee AdamsonerDATE: February 28, 2017 : 9:42 PM PAGER/CONTACT #: [phone] [facility] PROGRESS HNO ID: [id number] thor: Farhad Eppsice: GastroenterologyAuthor Type: PhysicianType: Progress NotesFiled: 02/28/2017 9:15 PMNote Text:HISTORY AND PHYSICAL Kaylee Wong, 56 year old femaleCurrent history and physical on file: NoIs a new History and Physical required for today's visit? YesIndication for procedure: DysphagiaPROCEDURE(S) SCHEDULED FOR: EGD (Esophagogastroduodenoscopy) with or without biopsies, removal ofpolyps or lesions, dilation ( any means), treatment of bleeding ( anymeans), Barrx treatment of López's Esophagus, image tube placement orcryo therapy treatment based on clinical findings.BASELINE BEHAVIOR: CalmBASELINE ORIENTATION: A AND O x3All medications and allergies reviewed: YesSkin Assessment: Warm dry muscus membranes pinkAirway/Respiratory Assessment:Airway: visualization of the uvula- YesMouth: opening greater than 2 fingerbreadths- YesNeck: full range of motion- YesBreath sounds clear/equal- YesCardiac Assessment: Regular rate and rhythm without murmurAbdominal Assessment: Abdomen soft, non-tender, no masses or organomegaly.Sedation Plan: MACAdditional Comments: Kirsty Carpio MD [facility] Vital Signs Date Time Vital Sign Value Performing Clinician Indy patrick 09-05-2024 09:58-0400 Body height 158.8 cm Jan Pham APRN.CNP Work Phone: [facility] 09-05-2024 09:58-0400 Body mass index (BMI) [Ratio] 34.56 kg/m2 Jan Pham APRN.CNP Work Phone: [facility] 09-05-2024 09:58-0400 Body weight 87.09 kg Jan Pham APRN.CNP Work Phone: [facility] 09-05-2024 09:58-0400 Diastolic blood pressure 72 mm[Hg] Jan Pham APRN.CNP Work Phone: [facility] 09-05-2024 09:58-0400 Heart rate 80 /min Jan Pham EMT DRIVER.ALEMITE OPERATOR Work Phone: [facility] 09-05-2024 09:58-0400 SaO2% (BldA) [Mass fraction] 99 % Jan Pham EMT DRIVER.ALEMITE OPERATOR Work Phone: [facility] 09-05-2024 09:58-0400 Systolic blood pressure 124 mm[Hg] Jan Pham EMT DRIVER.ALEMITE OPERATOR Work Phone: [facility] 04-19-2024 09:09-0500 Body height 161.3 cm Leonor Servin MD Work Phone: [facility] 04-19-2024 09:09-0500 Body mass index (BMI) [Ratio] 33.48 kg/m2 Leonor Servin MD Work Phone: [facility] 04-19-2024 09:09-0500 Body weight 87.09 kg Leonor Servin MD Work Phone: [facility] 04-19-2024 09:09-0500 Diastolic blood pressure 82 mm[Hg] Leonor Servin MD Work Phone: [facility] 04-19-2024 09:09-0500 Systolic blood pressure 126 mm[Hg] Leonor Servin MD Work Phone: [facility] 04-17-2023 09:17-0500 Body height 160.9 cm Leonor Servin MD Work Phone: [facility] 04-17-2023 09:17-0500 Body weight 88.45 kg Leonor Servin MD Work Phone: [facility] 04-17-2023 09:17-0500 Diastolic blood pressure 76 mm[Hg] Leonor Servin MD Work Phone: [facility] 04-17-2023 09:17-0500 Systolic blood pressure 128 mm[Hg] Leonor Servin MD Work Phone: [facility] Encounters Encounter Date Encounter Type Care Provider Facility Start: 10-28-2024 ambulatory Jan Pham NP Facility :[facility] Start: 09-06-2024 End: 09-06-2024 Follow-up encounter Jan Pham APRN.ALEMITE OPERATOR Work Phone: [facility] Start: 09-05-2024 End: 09-05-2024 ambulatory ERENDIRA CHIANG Facility:[facility] Start: 09-05-2024 End: 09-05-2024 Patient encounter procedure Jan Pham APRN.ALEMITE OPERATOR Work Phone: [facility] Comment on above: Medicare annual well ness visit, initial (Primary Dx); Screening for depression; Encounter for screening examination for other mental health and behavioral disorders; Migraine without aura, not intractable, with status migrainosus; GERD without esophagitis; TREVINO (dyspnea on exertion); Chest discomfort; Calculus of gallbladder without cholecystitis without obstruction Start: 09-05-2024 End: 09-05-2024 ambulatory JAN PHAM Facility:[facility] Start: 07-26-2024 End: 07-26-2024 Refill Erendira Chiang MD Work Phone: [address] [place] [address] Comment on above: Refill Request Start: 04-27-2024 End: 04-27-2024 Refill Jan Pham APRN.ALEMITE OPERATOR Work Phone: [facility] Comment on above: Refill Request Start: 04-19-2024 End: 04-19-2024 Patient encounter procedure Leonor Servin MD Work Phone: OB/Gynecology Comment on above: Encounter for gyneco logical examination (general) (routine) without abnormal findings (Primary Dx); Encounter for screening mammogram for breast cancer Start: 04-19-2024 End: 04-19-2024 Patient encounter status Leonor Servin MD Work Phone: [facility] Start: 04-19-2024 End: 04-19-2024 ambulatory LEONOR SERVIN Facility:[facility] Start: 04-19-2024 End: 04-19-2024 Subsequent hospital visit by physician Screen Mammo [facility] Comment on above: Encounter for screen ing mammogram for breast cancer [Z12.31] Start: 03-01-2024 End: 03-01-2024 ambulatory [facility] Facility:[facility] Start: 02-25-2024 End: 02-25-2024 Emergency department patient visit [facility] Facility:[facility] Start: 08-25-2023 Refill rEendira villalobos MD Work Phone: [facility] Comment on above: Refill Request Start: 04-20-2023 Documentation procedure Mammog melita Coordinator [facility] Start: 04-20-2023 Letter encounter Mammography Coordinator [facility] Department Start: 04-17-2023 End: 04-17-2023 Patient encounter procedure Leonor Servin MD Work Phone: OB/Gynecology Comment on above: Encounter for gyneco logical examination (general) (routine) without abnormal findings (Primary Dx); Encounter for screening for human papillomavirus (HPV); Pap smear for cervical cancer screening; Encounter for screening mammogram for breast cancer; Dense breast tissue Start: 04-17-2023 End: 04-17-2023 Patient encounter status Leonor Servin MD Work Phone: [facility] Work Phone: Start: 04-17-2023 End: 04-17-2023 Subsequent hospital visit by physician Screen Mammo [facility] Start: 12-24-2022 ambulatory Tao Mahajan MD Work Phone: Internal [facility] Start: 09-16-2022 Refill Tao Mahajan MD Work Phone: [facility] Comment on above: Refill Request Start: 01-08-2022 ambulatory Tao Mahajan MD Work Phone: Internal [facility] Start: 12-28-2021 Refill Charly CLEARY RN.ALEMITE OPERATOR, DNP Work Phone: [facility] Comment on above: Refill Request Start: 12-18-2021 Refill Jan CLEARY RN.ALEMITE OPERATOR Work Phone: [facility] Comment on above: Refill Request Start: 02-06-2021 End: 02-06-2021 Subsequent hospital visit by physician Xr [facility] Work Phone: Radiology Comment on above: Acute pain of left s lindaulder [M25.512] Start: 02-28-2017 End: 03-01-2017 Emergency department patient visit FARHAD CARPIO [facility] Procedures Date Procedure Procedure Detail Performing Clinician Start: 09-05-2024 Ecg routine ecg w/le ast 12 lds i&r only [facility] Provider Start: 09-05-2024 Adult depression scr eening assessment Jan Pham EMT DRIVER.ALEMITE OPERATOR Work Phone: Start: 04-19-2024 Screening digital br [place] tomos[facility] bi Leonor Servin MD Work Phone: Start: 03-28-2023 Lipid 1996 panel - S nolan or Plasma Leonor Servin MD Work Phone: Start: 02-06-2021 Radex shoulder compl ete minimum 2 views Lisette Podlogar EMT DRIVER.ALEMITE OPERATOR Work Phone: Start: 01-08-2019 Lipid 1996 panel - S nolan or Plasma Tao Mahajan MD Work Phone: Start: 05-20-2016 Mammography Jan craven EMT DRIVER.ALEMITE OPERATOR Work Phone: Plan of Treatment Date Care Activity Detail Author Start: 06-29-2034 RSV Vaccine (1 - 1-d ose 75+ series) RSV Vaccine (1 - 1-dose 75+ series) [facility] Start: 04-17-2028 Screening for malign ant neoplasm of cervix Cervical Cancer Screening [facility] Start: 03-28-2028 Lipid panel Lipid Screening [facility] Start: 09-06-2027 Diabetes Screening Diabetes Screenin g [facility] Start: 03-28-2026 Diabetes Screening Diabetes Screenin g [facility] Start: 09-05-2025 Anxiety Screening Anxiety Screening [facility] Start: 09-05-2025 Covid-19 Vaccine () Covid-19 Vaccine () [facility] Comment on above: Postponed from 10/31 (Declined at this time) Start: 09-05-2025 Depression Screening Depression Scre ening [facility] Start: 09-05-2025 HIV screening HIV Screening [facility] Comment on above: Postponed from 06/29 (Declined at this time) Start: 09-05-2025 Pneumococcal Vaccine : 50+ (1 of 1 - PCV) Pneumococcal Vaccine: 50+ (1 of 1 - PCV) [facility] Comment on above: Postponed from 06/29 (Declined at this time) Start: 09-05-2025 Screening for osteoporosis Bone Density Screening [facility] Comment on above: Postponed from 06/29 (Declined at this time) Start: 04-20-2025 End: 04-20-2025 Patient encounter procedure Mammogram Comment on above: ANGELI SCREENING W BOGDAN annual/mammo Start: 04-19-2025 Screening for malign ant neoplasm of breast Mammogram Screening [facility] Start: 10-31-2024 Influenza vaccination [facility] Start: 10-06-2024 Screening for malign ant neoplasm of colon Colorectal Cancer Screening [facility] Comment on above: Postponed from 06/29 (Declined at this time) Start: 09-05-2024 End: 09-05-2024 Patient encounter procedure 09/05/2024 10:00 AM EDT Office Visit [facility] [address] [place], [place] [id number] Jan Pham, EMT DRIVER.ALEMITE OPERATOR [address] [place], [place] [id number] physical [facility] [place] Comment on above: physical Start: 06-29-2024 Advance Directive Discussion Advance Directive Discussion [facility] Start: 06-29-2024 Screening for osteoporosis Bone Density Screening [facility] Start: 04-19-2024 End: 04-19-2024 Patient encounter procedure Mammogram Comment on above: Encounter for screen ing mammogram for breast cancer [Z12.31]; Dense breast tissue [R92.30] Annual- mamm w/ bogdan Start: 04-17-2024 End: 05-16-2024 DBT Breast - bilateral screening ANGELI SCREENING W [facility] Radiology Routine Encounter for screening mammogram for breast cancer Dense breast tissue Expected: 04/17/2024, Expires: 05/16/2024 [facility] Work Phone: Comment on above: Expected: 04/17/2024 , Expires: 05/16/2024 Start: 04-17-2024 Screening for malign ant neoplasm of breast Mammogram Screening [facility] Start: 03-30-2024 Urine microalbumin profile [facility] Start: 03-28-2024 Covid-19 Vaccine (#1) Covid-19 Vacci ne (#1) [facility] Comment on above: Postponed from 12/29 (Declined at this time) Start: 03-28-2024 Covid-19 Vaccine ( season) Covid-19 Vaccine ( season) [facility] Comment on above: Postponed from 10/31 (Declined at this time) Start: 01-09-2024 Lipid 1996 panel - Serum or Plasma Lipid Screening [facility] Start: 01-09-2024 LIPID SCREEN LIPID SCREEN [facility] Start: 11-01-2023 Covid-19 Vaccine ( season) Covid-19 Vaccine ( season) [facility] Start: 11-01-2023 Influenza vaccination C [facility] Start: 08-30-2023 Influenza vaccination Influenza Vacc ine (#1) [facility] Comment on above: Postponed from 10/31 (Declined at this time) Start: 03-22-2023 COVID-19 VACCINE (#1) COVID-19 VACCI NE (#1) [facility] Comment on above: Postponed from 12/29 (Declined at this time) Start: 03-22-2023 HIV SCREENING HIV SCREENING [facility] Comment on above: Postponed from 06/29 (Declined at this time) Start: 03-22-2023 HPV TESTING HPV TESTING [facility] Comment on above: Postponed from 05/20 (Declined at this time) Start: 03-22-2023 PAP TESTING PAP TESTING [facility] Comment on above: Postponed from 05/20 (Declined at this time) Start: 03-22-2023 SHINGRIX VACCINE (1 of 2) SHINGRIX VACCINE (1 of 2) [facility] Comment on above: Postponed from 06/29 (Declined at this time) Start: 03-02-2023 Behavioral Health Screening Behavioral Health Screening [facility] Start: 10-31-2022 Influenza vaccination C [facility] Start: 02-06-2022 COVID-19 VACCINE (#1) COVID-19 VACCI NE (#1) [facility] Comment on above: Postponed from 12/29 (Declined at this time) Start: 01-08-2022 DIABETES SCREEN DIABETES SCREEN [facility] Start: 01-08-2022 Diabetes Screening Diabetes Screenin g [facility] Start: 10-31-2021 Influenza vaccination INFLUENZA (#1) [facility] Start: 05-20-2021 HPV TESTING HPV TESTING [facility] Start: 05-20-2021 PAP TESTING PAP TESTING [facility] Start: 05-20-2021 Screening for malign ant neoplasm of cervix [facility] Start: 03-02-2021 DEPRESSION ASSESSMENT DEPRESSION ASS ESSMENT [facility] Start: 2019 RSV Vaccine (1 - 1-d ose 60+ series) RSV Vaccine (1 - 1-dose 60+ series) [facility] Start: 05-20-2017 Mammography [facility] Start: 05-20-2017 Screening for malign ant neoplasm of breast Mammogram Screening [facility] Start: 06-29-2009 Pneumococcal Vaccine : 50+ (1 of 1 - PCV) Pneumococcal Vaccine: 50+ (1 of 1 - PCV) [facility] Start: 06-29-2009 SHINGRIX VACCINE (1 of 2) SHINGRIX VACCINE (1 of 2) [facility] Start: 06-29-2004 COLOGUARD (FIT-DNA) COLOGUARD (FIT-D NA) [facility] Start: 06-29-2004 Colonoscopy COLONOSCOPY [facility] Start: 06-29-2004 COLORECTAL CANCER SCREENING COLORECTAL CANCER SCREENING [facility] Start: 06-29-[address] COLONOGRAPHY [facility] Start: 06-29-2004 FECAL OCCULT BLOOD FECAL OCCULT BLOO D [facility] Start: 06-29-2004 Screening for malign ant neoplasm of colon [facility] Start: 06-29-2004 SIGMOIDOSCOPY SIGMOIDOSCOPY [facility] Start: 06-29-1977 Anxiety Screening Anxiety Screening [facility] Start: 06-29-1977 Depression Screening Depression Scre ening [facility] Start: 06-29-1977 HIV SCREENING HIV SCREENING [facility] Start: 06-29-1977 HIV screening HIV Screening [facility] End: 04-17-2023 DBT Breast - bilateral screening [facility] Work Phone: Comment on above: ONCE for 1 Occurrenc es starting 04/17/2023 until 04/17/2023 End: 05-19-2025 DBT Breast - bilateral screening ANGELI SCREENING [facility] Radiology Routine Encounter for gynecological examination (general) (routine) without abnormal findings Encounter for screening mammogram for breast cancer 1 Occurrences starting 04/19/2024 until 05/19/2025 [facility] Work Phone: Comment on above: 1 Occurrences starti ng 04/19/2024 until 05/19/2025 ECG COMPLETE [facility] Work Phone: Comment on above: Ordered: 09/05/2024 End: 01-23-2024 ANGELI SCREENING ANGELI SCREENING Radiology Routine Encounter for screening mammogram for breast cancer 1 Occurrences starting 12/24/2022 until 01/23/2024 [facility] Work Phone: Comment on above: 1 Occurrences starti ng 12/24/2022 until 01/23/2024 PAP TEST PAP TEST Lab Rou jennifer Encounter for screening for human papillomavirus (HPV) Pap smear for cervical cancer screening 04/17/2023 9:53 AM EST [facility] Work Phone: End: 02-07-2023 Screening mammography bi 2-view breast inc cad ANGELI SCREENING Radiology Routine Encounter for screening mammogram for breast cancer 1 Occurrences starting 01/08/2022 until 02/07/2023 [facility] Work Phone: Comment on above: 1 Occurrences starti ng 01/08/2022 until 02/07/2023 [facility] Immunizations Immunization Date Immunization Notes Care Provider Jacquie vegas 03-13-2018 influenza virus vaccine, unspecified formulation Tao Mahajan MD Work Phone: [facility] 03-30-2014 tetanus toxoid, redu stella diphtheria toxoid, and acellular pertussis vaccine, adsorbed Jan Ankit EMT DRIVER.ALEMITE OPERATOR Work Phone: [facility] Payers Date Payer Category Payer Medicare MEDICARE [id number] 2024 Medicare [id number] 2024 [facility] PPO [id number] 2024 Unknown [id number] 2024 Self-pay 2022 Private Health Insurance [id number] 2022 Private Health Insurance [id number] 2018 Unknown [id number] Unknown [id number] Unknown [id number] Unknown [id number] Unknown [id number] Social History Date Type Detail Facility Start: 02-03-2011 Tobacco smoking stat us NHIS Never smoked tobacco [facility] Work Phone: Start: 02-03-2011 Tobacco use and exposure Smoke less tobacco non-user [facility] Work Phone: Start: 02-06-2021 End: 09-05-2024 Alcohol intake Current drinker of alcohol (finding) [facility] Start: 1960 Sex Assigned At Not on file C [facility] Start: 02-04-2020 End: 03-22-2022 Alcohol intake [facility] Start: 02-04-2020 End: 03-21-2022 Social connection and isolation panel [facility] Start: 01-07-2021 End: 02-06-2021 Do you belong to any clubs or organizations such as mu-ism groups, unions, fraternal or athletic groups, or school groups? Yes [facility] Are you now , , , , never or living with a partner? [facility] How often to you hav e a drink containing alcohol? 2-4 times a month [facility] How many standard dr inks containing alcohol do you have on a typical day? 1 or 2 [facility] How often do you hav e 6 or more drinks on 1 occasion? Never [facility] How hard is it for y ou to pay for the very basics like food, housing, medical care, and heating Not hard at all [facility] Do you feel stress - tense, restless, nervous, or anxious, or unable to sleep at night because your mind is troubled all the time - these days [OSQ] Not at all [facility] (I/We) worried lorie er (my/our) food would run out before (I/we) got money to buy more. Never true [facility] In the past 12 month s, was there a time when you were not able to pay the mortgage or rent on time? No [facility] How often to you hav e a drink containing alcohol? Monthly or less [facility] How often do you hav e 6 or more drinks on 1 occasion? Less than monthly [facility] Functional Status Date Assessment Result Facility 09-05-2024 Total score [AUDIT-C] 2 09/06/19 25 10:01 AM EDT Kalee Subramanian MA [facility] 09-26-2014 Are you deaf, or do you have serious difficulty hearing No 09/26/2014 9:07 AM EDT Angelito ParkHarleen [facility] 09-26-2014 Are you blind, or do you have serious difficulty seeing, even when wearing glasses No 09/26/2014 9:07 AM EDT Harleen Eaton Ma [facility] 09-26-2014 Do you have serious difficulty walking or climbing stairs No 09/26/2014 9:07 AM EDT Harleen Eaton Ma [facility] 09-26-2014 Do you have difficul ty dressing or bathing No 09/26/2014 9:07 AM EDT Harleen Eaton Ma [facility] 09-26-2014 Because of a physica l, mental, or emotional condition, do you have difficulty doing errands alone such as visiting a physician's office or shopping No 09/26/2014 9:07 AM EDT [place] Park Harleen Myriam [facility] Mental Status Date Assessment Result Facility 09-26-2014 Because of a physica l, mental, or emotional condition, do you have serious difficulty concentrating, remembering, or making decisions No 09/26/2014 9:07 AM DIPAKT [place] Park Harleen [facility] Clinical Notes 02-20-2011 to 09-05-2024 Patient InstructionsJan Pham APRN.[facility] - 09/05/2024 10:04 AM EDTTelephone Encounter - Jan Pham APRN.[facility] - 07/26/2024 12:36 PM EDTTelephone Encounter - Harleen Echevarria - 07/26/2024 12:16 PM EDT Note Date & Type Note Facility 09-05-2024 Instructions Jan Pham APRN.[facility] - 09/05/2024 10:06 AM EDT We discussed your shortness of breath: - You described experiencing shortness of breath during physical activity, such as walking or mowing the lawn, but not at rest. These episodes are brief and resolve on their own. - I do not believe your symptoms are related to your gallbladder, as you have not had any significant gallbladder-related symptoms since your episode in January. - To further evaluate your shortness of breath, I recommend: - Completing an updated EKG today in the office. - Scheduling a stress test to assess for any underlying cardiac issues. This will involve walking on a treadmill while monitoring your heart activity. - Routine lab work will also be done today to check for any abnormalities. - If you experience shortness of breath that does not resolve on its own, chest pain, or other concerning symptoms, please go to the emergency room immediately. We discussed your gallbladder: - You have a history of gallstones and a prior episode of gallbladder-related pain in January, but you have not had any significant symptoms since then. - At this time, I do not believe your current symptoms are related to your gallbladder. However, if you develop nausea, vomiting, changes in your stools (such as pale or floating stools), or right upper abdominal pain, please let us know. We discussed your health maintenance: - You have a mammogram scheduled for April. - You have postponed your bone density scan for now, which is fine. - The shingles vaccine is recommended for you. It is a two-dose series available at your pharmacy. The second dose is given 2-6 months after the first, and the vaccine provides over 90% protection against shingles. Please consider scheduling this at your convenience. We discussed your current medications: - Continue taking your current medications, including your reflux medication and Maxalt for migraines, as they are well-controlled. - You also take magnesium as a supplement, which is fine to continue. Follow-up: - We will schedule a stress test for you. Please complete the EKG and lab work today. - If you have a copy of your medical power of remnant sorter, please bring it to your next visit so we can scan it into your chart. - If you have any new or worsening symptoms, please contact our office or seek immediate medical attention. Screening schedule The following prevention plan is recommended: Shingrix Vaccine(1 of 2) Never done DTaP,Tdap,Td Vaccine(2 - Td or Tdap) due on 03/30/2024 WHAT YOU CAN DO TO PREVENT FALLS Many falls can be prevented. By making some changes, you can lower your chances of falling. Four things YOU can do to prevent falls for you* and your caregiver 1. Begin a regular exercise program Exercise is one of the most important ways to lower your chances of falling. It makes you stronger and helps you feel better. Exercises that improve balance and coordination (like Polo Chi) are the most helpful. Lack of exercise leads to weakness and increases your chances of falling. Ask your doctor or health care provider about the best type of exercise program for you. 2. Have your health care provider review your medicines Have your doctor or pharmacist review all the medicines you take, even umga-vkk-[id number] medicines. As you get older, the way medicines work in your body can change. Some medicines, or combinations of medicines, can make you sleepy or dizzy and can cause you to fall. 3. Have your vision checked Have your eyes checked by an eye doctor at least once a year. You may be wearing the wrong glasses or have a condition like glaucoma or cataracts that limits your vision. Poor vision can increase your chances of falling. 4. Make your home safer About half of all falls happen at home. To make your home safer: Remove things you can trip over (like papers, books, clothes, and shoes) from stairs and places where you walk. Remove small throw rugs or use double-sided tape to keep the rugs from slipping. Keep items you use often in cabinets you can reach easily without using a step stool. Have grab bars put in next to your toilet and in the tub or shower. Use non-slip mats in the bathtub and on shower floors. Improve the lighting in your home. As you get older, you need brighter lights to see well. Hang light-weight curtains or shades to reduce glare. Have handrails and lights put in on all staircases. Wear shoes both inside and outside the house. Avoid going barefoot or wearing slippers. For more information, contact: Centers for Disease Control and Prevention www.cdc.gov/injury * This information may not apply if you have certain medical conditions. documented in this encounter [facility] 09-05-2024 Note HNO ID: [id number] Author: JAN PHAM APRN.MAHESH Service: ? Author Type: Nurse Practitioner Type: Progress Notes Filed: 09/05/2024 10:57 Note Text: Kayele Wong is a 64 year old female here for a Medicare wellness visit. Medicare Health Risk Assessment General Health Excellent Exercise: Minutes/Day 60 min Exercise: Days/Week 7 days Alcohol: Daily Use 2-4 times a month Alcohol: Drinks/Day 1 or 2 Alcohol: 6 or more drinks Never Feel off balance No Concerns: Teeth/Dentures No Concerns: Sexual function No Troubled by feelings None of the above Frequency: Eating healthy diet Nearly every day ADLs requiring help None of the above Safety precautions in home/vehicle Yes Smoke, vape, chews tobacco No Difficulty hearing No Difficulty seeing No Current Providers Specialists: I have reviewed specialist-related care of the patient in the medical record. Medical/Family history review Reviewed and updated problem list, medical/surgical/family/social history, medications, and allergies. Opioid use review Opioid Medications (last 90 days) No data to display Anxiety/Depression screening PHQ-2 Score: 0 (Lower risk for depression) RADHA-2 Score: 0 (Lower risk for anxiety) Recommendation: no further intervention at this time Cognitive screening Mini Cog Score: 5 Cognitive screening reviewed and No further action needed (score 3-5). Functional Observation Was the patient's Timed Up AND Go test unsteady or >= 12 seconds? No Advance Care Planning Surrogate decision maker and/or advance care plan documented Measurements BP 124/72 Pulse 80 Ht 158.8 cm (5' 2.5) Wt 87.1 kg (192 lb) LMP 03/01/2014 SpO2 99% BMI 34.56 kg/m? Vision Screening: Follows with optometry/ophthalmology Assessment/Plan Medicare annual wellness visit, subsequent (Z00.00) - Counseled on healthy diet and regular exercise - Fall avoidance information provided - Personalized prevention plan provided Additional Concerns The following concerns were also discussed with the patient: Sharmin Wong is a 64-year-old female, with a history of gallstones, presenting for a checkup and evaluation of intermittent dyspnea. Sharmin reports a 3-week onset of intermittent dyspnea, described as a need to take a deep breath, occurring during physical activity such as walking or mowing the lawn. The episodes are brief, resolving by the time she walks a short distance, and are not present at rest. Occasional having mid-sternal discomfort. Stating that at her ER visit in January, she had more persistent mid-sternal chest pain that radiated to her back. She denies associated dizziness, palpitations, nausea, emesis, or changes in stool consistency. She remains very active, engaging in yard work and gardening regularly. Sharmin has a history of gallstones, with a significant episode on night that led to an ED visit. She experienced RUQ pain and a sensation similar to a contraction in her throat, which was alleviated by deep breathing. Imaging studies revealed gallstones and questionable thickening of the gallbladder wall. She was advised to consider cholecystectomy but has not had any further episodes since then. She has resumed a normal diet, including fatty foods, without recurrence of symptoms. Sharmin is currently taking medication for reflux, and Maxalt for migraines, which are well-controlled. She has a medical power of remnant sorter in place, designated to Leni Beal. PHYSICAL EXAM BP 124/72 Pulse 80 Ht 158.8 cm (5' 2.5) Wt 87.1 kg (192 lb) LMP 03/01/2014 SpO2 99% BMI 34.56 kg/m? GENERAL: well appearing, alert, in no acute distress CARDIOVASCULAR: regular rate and rhythm. No murmur, rubs or gallops. PULMONARY: clear to auscultation, no wheezing, rhonchi, or crackles ABDOMEN: soft, non-tender, non-distended, no masses or organomegaly EXTREMITY: no lower extremity edema. No skin discoloration. 1. Medicare annual wellness visit, initial (Z00.00) Initial Medicare wellness visit. - Reviewed health maintenance; mammogram scheduled for April, bone density scan postponed. - Discussed shingles vaccine; recommended two-dose series available at the pharmacy. - Ordered routine lab work. 2. Screening for depression (Z13.31) Patient denies increased stress or depressive symptoms. 3. Encounter for screening examination for other mental health and behavioral disorders (Z13.39) - denies any ongoing problem 4. Migraine without aura, not intractable, with status migrainosus (G43.001) Well-controlled with Maxalt and magnesium. 5. GERD without esophagitis (K21.9) Managed with current medication regimen. 6. TREVINO (dyspnea on exertion) (R06.09) Chest discomfort (R07.89) Intermittent dyspnea on exertion and chest discomfort, not present at rest. Symptoms began approximately three weeks ago, following an episode of right upper quadrant pain in January. Previous ER visi (more content not included)... [facility] 09-05-2024 History of Presen t illness Narrative Images from the original note were not included. Kaylee Wong is a 64 year old female here for a Medicare wellness visit. Medicare Health Risk Assessment General Health Excellent Exercise: Minutes/Day 60 min Exercise: Days/Week 7 days Alcohol: Daily Use 2-4 times a month Alcohol: Drinks/Day 1 or 2 Alcohol: 6 or more drinks Never Feel off balance No Concerns: Teeth/Dentures No Concerns: Sexual function No Troubled by feelings None of the above Frequency: Eating healthy diet Nearly every day ADLs requiring help None of the above Safety precautions in home/vehicle Yes Smoke, vape, chews tobacco No Difficulty hearing No Difficulty seeing No Current Providers Specialists: I have reviewed specialist-related care of the patient in the medical record. Medical/Family history review Reviewed and updated problem list, medical/surgical/family/social history, medications, and allergies. Opioid use review Opioid Medications (last 90 days) No data to display Anxiety/Depression screening PHQ-2 Score: 0 (Lower risk for depression) RADHA-2 Score: 0 (Lower risk for anxiety) Recommendation: no further intervention at this time Cognitive screening Mini Cog Score: 5 Cognitive screening reviewed and No further action needed (score 3-5). Functional Observation Was the patient's Timed Up & Go test unsteady or >= 12 seconds? No Advance Care Planning Surrogate decision maker and/or advance care plan documented Measurements BP 124/72 Pulse 80 Ht 158.8 cm (5' 2.5) Wt 87.1 kg (192 lb) LMP 03/01/2014 SpO2 99% BMI 34.56 kg/m Vision Screening: Follows with optometry/ophthalmology Assessment/Plan Medicare annual wellness visit, subsequent (Z00.00) - Counseled on healthy diet and regular exercise - Fall avoidance information provided - Personalized prevention plan provided Additional Concerns The following concerns were also discussed with the patient: Sharmin Wong is a 64-year-old female, with a history of gallstones, presenting for a checkup and evaluation of intermittent dyspnea. Sharmin reports a 3-week onset of intermittent dyspnea, described as a need to take a deep breath, occurring during physical activity such as walking or mowing the lawn. The episodes are brief, resolving by the time she walks a short distance, and are not present at rest. Occasional having mid-sternal discomfort. Stating that at her ER visit in January, she had more persistent mid-sternal chest pain that radiated to her back. She denies associated dizziness, palpitations, nausea, emesis, or changes in stool consistency. She remains very active, engaging in yard work and gardening regularly. Sharmin has a history of gallstones, with a significant episode on night that led to an ED visit. She experienced RUQ pain and a sensation similar to a contraction in her throat, which was alleviated by deep breathing. Imaging studies revealed gallstones and questionable thickening of the gallbladder wall. She was advised to consider cholecystectomy but has not had any further episodes since then. She has resumed a normal diet, including fatty foods, without recurrence of symptoms. Sharmin is currently taking medication for reflux, and Maxalt for migraines, which are well-controlled. She has a medical power of remnant sorter in place, designated to Leni Beal. PHYSICAL EXAM BP 124/72 Pulse 80 Ht 158.8 cm (5' 2.5) Wt 87.1 kg (192 lb) LMP 03/01/2014 SpO2 99% BMI 34.56 kg/m GENERAL: well appearing, alert, in no acute distress CARDIOVASCULAR: regular rate and rhythm. No murmur, rubs or gallops. PULMONARY: clear to auscultation, no wheezing, rhonchi, or crackles ABDOMEN: soft, non-tender, non-distended, no masses or organomegaly EXTREMITY: no lower extremity edema. No skin discoloration. 1. Medicare annual wellness visit, initial (Z00.00) Initial Medicare wellness visit. - Reviewed health maintenance; mammogram scheduled for April, bone density scan postponed. - Discussed shingles vaccine; recommended two-dose series available at the pharmacy. - Ordered routine lab work. 2. Screening for depression (Z13.31) Patient denies increased stress or depressive symptoms. 3. Encounter for screening examination for other mental health and behavioral disorders (Z13.39) - denies any ongoing problem 4. Migraine without aura, not intractable, with status migrainosus (G43.001) Well-controlled with Maxalt and magnesium. 5. GERD without esophagitis (K21.9) Managed with current medication regimen. 6. TREVINO (dyspnea on exertion) (R06.09) Chest discomfort (R07.89) Intermittent dyspnea on exertion and chest discomfort, not present at rest. Symptoms began approximately three weeks ago, following an episode of right upper quadrant pain in January. Previous ER visit included normal chest X-ray and D-dimer; CTA showed gallstones and questionable thickening. Differential diagnosis includes coronary artery disease. Less likely gallbladder with normal exam. - Performed EKG in office. ECG shows NSR, 68 bpm, no ectopy, No ST changes. AK interval normal. No ECG to compare - Ordered stress test to evaluate for coronary artery disease. - Advised patient to seek immediate medical attention if experiencing persistent dyspnea or chest pain. 7. Calculus of gallbladder without cholecystitis without obstruction (K80.20) Gallstones identified on CTA; no current symptoms of nausea, vomiting, or steatorrhea. Patient has been consuming a regular diet without issues. - Referral to general surgery for evaluation of potential cholecystectomy if stress testing is normal Follow up based on results of testing. Stress testing sent to [facility]. Jan Pham APRN.CNP documented in this encounter [facility] 07-26-2024 Telephone encounter Note Upcoming appt 09/05/24 The following approved medication requests have been transmitted electronically. Requested Prescriptions Pending Prescriptions Disp Refills lansoprazole (PREVACID) 30 mg capsule 30 capsule 2 Sig: Take 1 capsule by mouth once daily. Jan Pham APRN.CNP [facility] 07-26-2024 Miscellaneous Notes Upcoming appt 09/05/24 The following approved medication requests have been transmitted electronically. Requested Prescriptions Pending Prescriptions Disp Refills lansoprazole (PREVACID) 30 mg capsule 30 capsule 2 Sig: Take 1 capsule by mouth once daily. Jan Pham APRN.CNP Prescription Refill Information The patient has been identified by name and date of : Yes Caregiver verified no other encounters exist for this prescription request: Yes Caregiver confirmed with patient/requestor that no other refills are due, in the near future, with this provider at this time: Yes The last office visit in the department: 03/28/23 Does the patient have a future office visit with this provider/department: Yes Requested Prescriptions Pending Prescriptions Disp Refills lansoprazole (PREVACID) 30 mg capsule 30 capsule 0 Sig: Take 1 capsule by mouth once daily. Harleen Echevarria July 26, 2024 12:17 PM documented in this encounter [facility] 07-26-2024 Telephone encounter Note Prescription Refill Information The patient has been identified by name and date of : Yes Caregiver verified no other encounters exist for this prescription request: Yes Caregiver confirmed with patient/requestor that no other refills are due, in the near future, with this provider at this time: Yes The last office visit in the department: 03/28/23 Does the patient have a future office visit with this provider/department: Yes Requested Prescriptions Pending Prescriptions Disp Refills lansoprazole (PREVACID) 30 mg capsule 30 capsule 0 Sig: Take 1 capsule by mouth once daily. Harleen Echevarria July 26, 2024 12:17 PM [facility] 04-27-2024 Telephone encounter Note Prescription Refill Information The patient has been identified by name and date of : Yes Caregiver verified no other encounters exist for this prescription request: Yes Caregiver confirmed with patient/requestor that no other refills are due, in the near future, with this provider at this time: Yes The last office visit in the department: 03/28/23 Does the patient have a future office visit with this provider/department: No, pt is overdue for Annual appt. See previous rx request, pt notified of need for appt. Requested Prescriptions Pending Prescriptions Disp Refills lansoprazole (PREVACID) 30 mg capsule 90 capsule 3 Sig: Take 1 capsule by mouth once daily. Guzman Francis LPN April 27, 2024 2:41 PM [facility] 04-27-2024 Miscellaneous Notes Prescription Refill Information The patient has been identified by name and date of : Yes Caregiver verified no other encounters exist for this prescription request: Yes Caregiver confirmed with patient/requestor that no other refills are due, in the near future, with this provider at this time: Yes The last office visit in the department: 03/28/23 Does the patient have a future office visit with this provider/department: No, pt is overdue for Annual appt. See previous rx request, pt notified of need for appt. Requested Prescriptions Pending Prescriptions Disp Refills lansoprazole (PREVACID) 30 mg capsule 90 capsule 3 Sig: Take 1 capsule by mouth once daily. Guzman Francis LPN April 27, 2024 2:41 PM documented in this encounter [facility] 04-27-2024 Telephone encounter Note Prescription Refill Information The patient has been identified by name and date of : Yes Caregiver verified no other encounters exist for this prescription request: Yes Caregiver confirmed with patient/requestor that no other refills are due, in the near future, with this provider at this time: Yes The last office visit in the department: 03/28/23 Does the patient have a future office visit with this provider/department: No, pt is due for Annual appt. message to pt advising of the same. Requested Prescriptions Pending Prescriptions Disp Refills rizatriptan (MAXALT) 10 mg tablet 12 tablet 11 Sig: Take 1 tablet by mouth as needed. May repeat in 2 hours if needed Guzman Francis LPN April 27, 2024 2:38 PM [facility] 04-27-2024 Miscellaneous Notes Prescription Refill Information The patient has been identified by name and date of : Yes Caregiver verified no other encounters exist for this prescription request: Yes Caregiver confirmed with patient/requestor that no other refills are due, in the near future, with this provider at this time: Yes The last office visit in the department: 03/28/23 Does the patient have a future office visit with this provider/department: No, pt is due for Annual appt. message to pt advising of the same. Requested Prescriptions Pending Prescriptions Disp Refills rizatriptan (MAXALT) 10 mg tablet 12 tablet 11 Sig: Take 1 tablet by mouth as needed. May repeat in 2 hours if needed Guzman Francis LPN April 27, 2024 2:38 PM documented in this encounter [facility] 04-19-2024 Note IMPRESSION: The asymmetry in the left breast requires additional evaluation. Diagnostic mammogram is recommended. BI-RADS Category 0: Incomplete: Needs Additional Imaging Evaluation RISK: Based on the Tyrer-Cuzick (TC) risk assessment model, this patient has a 4.4% lifetime risk of developing breast cancer, meaning they are at average risk for developing breast cancer. However, this is only an estimate based on available history provided on the patient's questionnaire. We encourage all patients to talk with their providers about these results, further recommendations for managing breast health, and appropriate supplemental screening options if the patient has dense breast tissue. Interpreting Radiologist: Bette Kelly M.D. Electronically signed on: 04/19/2024 After School Program Director: GEORGETTE Transcribe Date/Time: Apr 19 2024 8:10A Dictated by: BETTE KELLY MD This examination was interpreted and the report reviewed and electronically signed by: BETTE KELLY MD on Apr 19 2024 12:42PM EST DIVISION OF RADIOLOGY 04-19-2024 History of Presen t illness Narrative Radiology Service Progress Note PATIENT NAME: Kaylee Wong DATE OF SERVICE: April 19, 2024 TIME: 8:37 AM PATIENT IDENTITY VERIFICATION COMPLETED USING TWO (2) IDENTIFIERS: Name and Date of confirmed by patient verbally. FALL SCREENING: Has the patient had 2 falls in the last year or 1 fall with injury or currently using an Ambulatory Assistive Device (Walker, Cane, Wheelchair, Crutches, etc.)? No PATIENT GENDER DATA: Assigned female at . status: : No status: NO. PATIENT RELEVANT IMPLANT DATA REVIEWED: Not Applicable PATIENT PRESENTS WITH AN IMPLANTABLE OR ATTACHED ZANJERO: No RADIOLOGY DEPARTMENT: Mammography PERIPHERAL IV DATA: Not applicable SIGNED BY: RT Caetrina(R) April 19, 2024 8:37 AM documented in this encounter [facility] 04-19-2024 Note HNO ID: [id number] Author: ROSALINA DE JESUS RT(R) Service: ? Author Type: Technologist Type: Progress Notes Filed: 04/19/2024 08:38 Note Text: Radiology Service Progress Note PATIENT NAME: Kaylee Wong DATE OF SERVICE: April 19, 2024 TIME: 8:37 AM PATIENT IDENTITY VERIFICATION COMPLETED USING TWO (2) IDENTIFIERS: Name and Date of confirmed by patient verbally. FALL SCREENING: Has the patient had 2 falls in the last year or 1 fall with injury or currently using an Ambulatory Assistive Device (Walker, Cane, Wheelchair, Crutches, etc.)? No PATIENT GENDER DATA: Assigned female at . status: : No status: NO. PATIENT RELEVANT IMPLANT DATA REVIEWED: Not Applicable PATIENT PRESENTS WITH AN IMPLANTABLE OR ATTACHED ZANJERO: No RADIOLOGY DEPARTMENT: Mammography PERIPHERAL IV DATA: Not applicable SIGNED BY: RT Caterina(R) April 19, 2024 8:37 AM [facility] 04-19-2024 Note HNO ID: [id number] Author: LEONOR SERVIN MD Service: ? Author Type: Physician Type: Progress Notes Filed: 04/19/2024 09:29 Note Text: Sharmin is a 63 year old who presents for an annual gynecologic exam with complaints, feels tired often . Postmenopausal: yes HRT use: No. Still get period: No Menopause symptoms: None Number of lifetime partners: 2 control frequency: Never HPV vaccine: No; Last pap smear: 04/19/2023 History of abnormal pap: No, all prior PAP smears have been normal Bothersome pelvic pain: No Last mammogram: 2024 pending History of abnormal mammogram: No OB History Gravida1 Para1 Term1 Preterm0 AB0 Living1 SAB0 IAB0 Ectopic0 Multiple0 Live Births0 Virtual Reality Specialist History LMP: 03/01/2014, Postmenopausal Age at Menarche: 12 Age at First : Age at Menopause: Virtual Reality Specialist History Comments: Sexual Activity: Not Currently; Male; TUBAL LIGATION Contraception: Tubal Ligation PAST MEDICAL HISTORY Diagnosis Date Benign neoplasm of stomach EGD 2008 Dysphagia 2019 Required esophageal dilation at [facility] Esophageal reflux Hernia of other specified sites of abdominal cavity without mention of obstruction or gangrene HIATAL Hyperlipidemia LDL goal < 100 02/20/2011 Impaired fasting glucose 02/20/2011 Obesity Obstructive sleep apnea on CPAP 04/16/2012 Has not used CPAP since about 2014 Other and unspecified hyperlipidemia Other forms of migraine Statin intolerance PAST SURGICAL HISTORY Procedure Laterality Date COLONOSCOPY SCREENING 1982 EGD W/O [facility] SPEC VARICIES INJ 2019 ESOPHAGOGASTRODUODENOSCOPY TRANSORAL DIAGNOSTIC 05/12/2008 EGD LIG/TRNSXJ FLP TUBE ABDL/VAG APPR UNI/BI tubal ligation UNSPECIFIED ORAL SURGERY PROCEDURE, BY REPORT 05/12/2007 [place] teeth and cyst removed from jaw FAMILY HISTORY Problem Relation Age of Onset Osteoporosis Mother Lipids Mother Thyroid Mother Hypertension Mother Cancer Mother 73 pancreatic Stroke Father age 49 Lipids Father Hypertension Father Osteoporosis Maternal Grandmother Lipids Maternal Grandmother Emphysema Maternal Grandfather Cancer Paternal Grandmother Lung cancer other (ETOH) Paternal Grandfather Cancer Paternal Aunt Brain cancer - uterine cancer?? Cancer Paternal Uncle Great uncle - Colon cancer SOCIAL HISTORY Social History Tobacco Use Smoking status: Never Smokeless tobacco: Never Vaping Use Vaping status: Never Used Substance Use Topics Alcohol use: Yes Alcohol/week: 2.0 standard drinks of alcohol Types: 2 Glasses of wine per week Drug use: No REVIEW OF SYSTEMS Abdomen: No abdominal pain, nausea, vomiting, diarrhea, or constipation. No bloating, early satiety, indigestion, or increased flatulence. Bladder: No dysuria, gross hematuria, urinary frequency, urinary urgency, or incontinence Breast: No breast lumps, nipple d/c, overlying skin changes, redness or skin retraction Allergies and current medication updated:Yes SENSITIVE EXAM: The sensitive examination was discussed with the Patient or Patient's Authorized Motion Study Engineer. As applicable, any other physician, advance practice provider, medical student, or other health professional student that will be observing or involved in the sensitive examination for educational or training purposes was discussed with the Patient or Authorized Motion Study Engineer. The Patient or Authorized Motion Study Engineer has agreed to proceed with the sensitive examination. (Sensitive examination includes inspection and/or palpation of the breasts, pelvis, prostate and anorectal regions). EXAM: BP 126/82 Ht 5' 3.5 (1.61m) Wt 192 lb (87.1kg) LMP 03/01/2014 BMI 33.47 kg/(m2). GENERAL: pleasant, female in no apparent distress HEENT: Normocephalic, atraumatic, mucus membranes moist, and no lesions NECK: Supple, full range of motion, no adenopathy, and thyroid normal DERMATOLOGY: Normal, without lesions, non-icteric, and non-hirsute BREAST: soft, non-tender, symmetric, no dominant mass, normal nipple-areolar complex, no lymphadenopathy, and no nipple discharge CHEST: Normal inspiratory effort ABDOMEN: soft, non-tender, and no masses PELVIC: external genitalia normal, normal Bartholin's glands, urethra, Briar's glands, no vulvar lesions, no cervical lesions, good vaginal support, physiologic discharge present, normal appearing perineal body and perianal region BIMANUAL: uterus normal size, shape and consistency, no adnexal masses, and non-tender RECTOVAGINAL: deferred. NEURO: alert and oriented x3,exam grossly non-focal EXTREMITIES: normal ASSESSMENT/PLAN: 1) Health maintenance: Pap done with reflex HPV Mammogram ordered 2) Follow up one year or sooner as needed Leonor Servin MD [facility] 04-19-2024 History of Presen t illness Narrative Sharmin is a 63 year old who presents for an annual gynecologic exam with complaints, feels tired often . Postmenopausal: yes HRT use: No. Still get period: No Menopause symptoms: None Number of lifetime partners: 2 control frequency: Never HPV vaccine: No; Last pap smear: 04/19/2023 History of abnormal pap: No, all prior PAP smears have been normal Bothersome pelvic pain: No Last mammogram: 2024 pending History of abnormal mammogram: No OB History Gravida1 Para1 Term1 Preterm0 AB0 Living1 SAB0 IAB0 Ectopic0 Multiple0 Live Births0 Virtual Reality Specialist History LMP: 03/01/2014, Postmenopausal Age at Menarche: 12 Age at First : Age at Menopause: Virtual Reality Specialist History Comments: Sexual Activity: Not Currently; Male; TUBAL LIGATION Contraception: Tubal Ligation PAST MEDICAL HISTORY Diagnosis Date Benign neoplasm of stomach EGD 2008 Dysphagia 2019 Required esophageal dilation at [facility] Esophageal reflux Hernia of other specified sites of abdominal cavity without mention of obstruction or gangrene HIATAL Hyperlipidemia LDL goal < 100 02/20/2011 Impaired fasting glucose 02/20/2011 Obesity Obstructive sleep apnea on CPAP 04/16/2012 Has not used CPAP since about 2014 Other and unspecified hyperlipidemia Other forms of migraine Statin intolerance PAST SURGICAL HISTORY Procedure Laterality Date COLONOSCOPY SCREENING 1982 EGD W/O [facility] SPEC VARICIES INJ 2019 ESOPHAGOGASTRODUODENOSCOPY TRANSORAL DIAGNOSTIC 05/12/2008 EGD LIG/TRNSXJ FLP TUBE ABDL/VAG APPR UNI/BI tubal ligation UNSPECIFIED ORAL SURGERY PROCEDURE, BY REPORT 05/12/2007 [place] teeth and cyst removed from jaw FAMILY HISTORY Problem Relation Age of Onset Osteoporosis Mother Lipids Mother Thyroid Mother Hypertension Mother Cancer Mother 73 pancreatic Stroke Father age 49 Lipids Father Hypertension Father Osteoporosis Maternal Grandmother Lipids Maternal Grandmother Emphysema Maternal Grandfather Cancer Paternal Grandmother Lung cancer other (ETOH) Paternal Grandfather Cancer Paternal Aunt Brain cancer - uterine cancer?? Cancer Paternal Uncle Great uncle - Colon cancer SOCIAL HISTORY Social History Tobacco Use Smoking status: Never Smokeless tobacco: Never Vaping Use Vaping status: Never Used Substance Use Topics Alcohol use: Yes Alcohol/week: 2.0 standard drinks of alcohol Types: 2 Glasses of wine per week Drug use: No REVIEW OF SYSTEMS Abdomen: No abdominal pain, nausea, vomiting, diarrhea, or constipation. No bloating, early satiety, indigestion, or increased flatulence. Bladder: No dysuria, gross hematuria, urinary frequency, urinary urgency, or incontinence Breast: No breast lumps, nipple d/c, overlying skin changes, redness or skin retraction Allergies and current medication updated:Yes SENSITIVE EXAM: The sensitive examination was discussed with the Patient or Patient's Authorized Motion Study Engineer. As applicable, any other physician, advance practice provider, medical student, or other health professional student that will be observing or involved in the sensitive examination for educational or training purposes was discussed with the Patient or Authorized Motion Study Engineer. The Patient or Authorized Motion Study Engineer has agreed to proceed with the sensitive examination. (Sensitive examination includes inspection and/or palpation of the breasts, pelvis, prostate and anorectal regions). EXAM: BP 126/82 Ht 5' 3.5 (1.61m) Wt 192 lb (87.1kg) LMP 03/01/2014 BMI 33.47 kg/(m^2). GENERAL: pleasant, female in no apparent distress HEENT: Normocephalic, atraumatic, mucus membranes moist, and no lesions NECK: Supple, full range of motion, no adenopathy, and thyroid normal DERMATOLOGY: Normal, without lesions, non-icteric, and non-hirsute BREAST: soft, non-tender, symmetric, no dominant mass, normal nipple-areolar complex, no lymphadenopathy, and no nipple discharge CHEST: Normal inspiratory effort ABDOMEN: soft, non-tender, and no masses PELVIC: external genitalia normal, normal Bartholin's glands, urethra, Briar's glands, no vulvar lesions, no cervical lesions, good vaginal support, physiologic discharge present, normal appearing perineal body and perianal region BIMANUAL: uterus normal size, shape and consistency, no adnexal masses, and non-tender RECTOVAGINAL: deferred. NEURO: alert and oriented x3,exam grossly non-focal EXTREMITIES: normal ASSESSMENT/PLAN: 1) Health maintenance: Pap done with reflex HPV Mammogram ordered 2) Follow up one year or sooner as needed Leonor Servin MD documented in this encounter [facility] 08-25-2023 Telephone encounter Note The following approved medication requests have been transmitted electronically. Requested Prescriptions Pending Prescriptions Disp Refills lansoprazole (PREVACID) 30 mg capsule 90 capsule 3 Sig: Take 1 capsule by mouth once daily. Jan Pham APRN.CNP [facility] 08-25-2023 Miscellaneous Notes The following approved medication requests have been transmitted electronically. Requested Prescriptions Pending Prescriptions Disp Refills lansoprazole (PREVACID) 30 mg capsule 90 capsule 3 Sig: Take 1 capsule by mouth once daily. Jan Pham APRN.CNP Patient has been identified by name and date of : Patient phones for refill(s): Requested Prescriptions Pending Prescriptions Disp Refills lansoprazole (PREVACID) 30 mg capsule 90 capsule 1 Sig: Take 1 capsule by mouth once daily. Date of last office visit in primary care: 03/28/2023 Date of next office visit in primary care: Visit date not found Please advise. Thank you. Thelam Root. documented in this encounter [facility] 08-25-2023 Telephone encounter Note Patient has been identified by name and date of : Patient phones for refill(s): Requested Prescriptions Pending Prescriptions Disp Refills lansoprazole (PREVACID) 30 mg capsule 90 capsule 1 Sig: Take 1 capsule by mouth once daily. Date of last office visit in primary care: 03/28/2023 Date of next office visit in primary care: Visit date not found Please advise. Thank you. Thelma Root. [facility] 04-20-2023 Miscellaneous Notes April 20, 2023 PID: [id number] Kaylee Wong [address] [place] [address] Dear Ms. Wong, We are pleased to inform you that the results of your recent breast imaging exam on 04/17/2023 are normal. Early detection of cancer is very important. We also understand recommendations regarding breast cancer screening are controversial. Please discuss with your primary care provider which strategy is best for you and whether a mammogram is right for you. Your imaging studies and report will be kept on file at [facility] as part of your permanent medical record and are available for your continuing care. Thank you for allowing us to help in meeting your health care needs. Sincerely, Dr. Galindo Interpreting Radiologist [facility] (Normal over 40) documented in this encounter [facility] 04-17-2023 History of Presen t illness Narrative Consulting Manager offered: Patient declines. Sharmin is a 62 year old who presents for an annual gynecologic exam without complaints. Has been off estrogen. Postmenopausal: yes, no vaginal bleeding HRT use: No. Last Pap: 05/27/2016 normal HPV: 05/24/2016 negative History of abnormal pap: No Last mammogram: 2023 pending OB History T1 L1 SAB0 IAB0 Ectopic0 Multiple0 Live Births0 Virtual Reality Specialist History LMP: 02/11/2010, Postmenopausal Age at Menarche: Age at First : Age at Menopause: Virtual Reality Specialist History Comments: Sexual Activity: Yes; Male; TUBAL LIGATION Contraception: Surgical PAST MEDICAL HISTORY Diagnosis Date Benign neoplasm of stomach EGD 2008 Dysphagia 2019 Required esophageal dilation at [facility] Esophageal reflux Hernia of other specified sites of abdominal cavity without mention of obstruction or gangrene HIATAL Hyperlipidemia LDL goal < 100 02/20/2011 Impaired fasting glucose 02/20/2011 Obesity Obstructive sleep apnea on CPAP 04/16/2012 Has not used CPAP since about 2014 Other and unspecified hyperlipidemia Other forms of migraine Statin intolerance PAST SURGICAL HISTORY Procedure Laterality Date COLONOSCOPY SCREENING 1982 EGD W/O [facility] SPEC VARICIES INJ 2019 ESOPHAGOGASTRODUODENOSCOPY TRANSORAL DIAGNOSTIC 05/12/2008 EGD LIG/TRNSXJ FLP TUBE ABDL/VAG APPR UNI/BI tubal ligation UNSPECIFIED ORAL SURGERY PROCEDURE, BY REPORT 05/12/2007 [place] teeth and cyst removed from jaw FAMILY HISTORY Problem Relation Age of Onset Osteoporosis Mother Lipids Mother Thyroid Mother Hypertension Mother Cancer Mother 73 pancreatic Stroke Father age 49 Lipids Father Hypertension Father Osteoporosis Maternal Grandmother Lipids Maternal Grandmother Emphysema Maternal Grandfather Cancer Paternal Grandmother Lung cancer other (ETOH) Paternal Grandfather Cancer Paternal Aunt Brain cancer - uterine cancer?? Cancer Paternal Uncle Great uncle - Colon cancer SOCIAL HISTORY Social History Tobacco Use Smoking status: Never Smokeless tobacco: Never Vaping Use Vaping Use: Never used Substance Use Topics Alcohol use: Yes Alcohol/week: 2.0 standard drinks of alcohol Types: 2 Glasses of wine per week Drug use: No REVIEW OF SYSTEMS Abdomen: No abdominal pain, nausea, vomiting, diarrhea, or constipation. No bloating, early satiety, indigestion, or increased flatulence. Bladder: No dysuria, gross hematuria, urinary frequency, urinary urgency, or incontinence Breast: No breast lumps, nipple d/c, overlying skin changes, redness or skin retraction Allergies and current medication updated:Yes EXAM: LMP 02/11/2010 GENERAL: pleasant, female in no apparent distress HEENT: Normocephalic, atraumatic, mucus membranes moist, and no lesions NECK: Supple, full range of motion, no adenopathy, and thyroid normal DERMATOLOGY: Normal, without lesions, non-icteric, and non-hirsute BREAST: soft, non-tender, symmetric, no dominant mass, normal nipple-areolar complex, no lymphadenopathy, and no nipple discharge CHEST: Normal inspiratory effort ABDOMEN: soft, non-tender, and no masses PELVIC: external genitalia normal, normal Bartholin's glands, urethra, Briar's glands, no vulvar lesions, no cervical lesions, physiologic discharge present, normal appearing perineal body and perianal region, cystocele 1st degree, rectocele 1st degree BIMANUAL: uterus normal size, shape and consistency, no adnexal masses, and non-tender RECTOVAGINAL: deferred. NEURO: alert and oriented x3,exam grossly non-focal EXTREMITIES: normal ASSESSMENT/PLAN: 1) Health maintenance: Pap done with HPV. Mammogram ordered Colon cancer screening: ordered by PCP 2) Follow up one year or sooner as needed Leonor Servin MD documented in this encounter [facility] 04-17-2023 History of Presen t illness Narrative Radiology Service Progress Note PATIENT NAME: Kaylee Wnog DATE OF SERVICE: April 17, 2023 TIME: 10:10 AM PATIENT IDENTITY VERIFICATION COMPLETED USING TWO (2) IDENTIFIERS: Name and Date of confirmed by patient verbally. FALL SCREENING: Has the patient had 2 falls in the last year or 1 fall with injury or currently using an Ambulatory Assistive Device (Walker, Cane, Wheelchair, Crutches, etc.)? No PATIENT GENDER DATA: Female. status: : No status: NO. PATIENT RELEVANT IMPLANT DATA REVIEWED: Not Applicable PATIENT PRESENTS WITH AN IMPLANTABLE OR ATTACHED ZANJERO: No RADIOLOGY DEPARTMENT: Mammography PERIPHERAL IV DATA: Not applicable SIGNED BY: Nat RodgersStream Yaya April 17, 2023 10:10 AM documented in this encounter [facility] 09-16-2022 Miscellaneous Notes Due for six month follow-up. Please assist in scheduling. Lisette Verdugo APRN.CNP NOV none scheduled Rocio Colon MA Patient has been identified by name and date of : Yes, Provider Zaina Date 09-16-2022 Time 10:50 am Last office visit in this department: 03/22/2022 RX INSTRUCTIONS: Patient aware RX will be sent to pharmacy. No need to notify patient. Patient phones requesting refills as follows: Requested Prescriptions Pending Prescriptions Disp Refills lansoprazole (PREVACID) 30 mg capsule 90 capsule 1 Sig: Take 1 capsule by mouth once daily. rizatriptan (MAXALT) 10 mg tablet 12 tablet 5 Sig: Take 1 tablet by mouth as needed. May repeat in 2 hours if needed Please review and advise. Melba Araya documented in this encounter [facility] 12-31-2021 Miscellaneous Notes Patient is due for yearly follow-up in January, please assist is scheduling. Lisette Verdugo APRN.ALEMITE OPERATOR Patient phones requesting refills as follows: Requested Prescriptions Pending Prescriptions Disp Refills lansoprazole (PREVACID) 30 mg capsule 90 capsule 3 Sig: Take 1 capsule by mouth once daily. GERMAN 02/06/21 No upcoming appointment scheduled. Please review and advise. Geovanna Leon LPN Patient Sharmin called checking on status of prescriptions Lansoprazole 30 mg caps, she is completely out since 12/27. Please advise when ready, . documented in this encounter [facility] 12-18-2021 Miscellaneous Notes Patient has been identified by name and date of : Yes Pharmacy phones for refill(s): Requested Prescriptions Pending Prescriptions Disp Refills rizatriptan (MAXALT) 10 mg tablet [Pharmacy Med Name: RIZATRIPTAN 10 MG TABLET] 12 tablet 5 Sig: TAKE 1 TABLET BY MOUTH NEEDED. MAY REPEAT IN 2 HOURS IF NEEDED Date of last office visit in primary care: [facility] 02/06/2021 No appointment scheduled Last 2 Encounter Wt Readings: Date: Wt: 02/06/2021 87.6 kg (193 lb 1.9 oz) 02/04/2020 90.3 kg (199 lb) Please advise. Thank you. DIMITRI Wilkerson documented in this encounter [facility] 02-06-2021 History of Presen t illness Narrative Radiology Service Progress Note PATIENT NAME: Kaylee Wong DATE OF SERVICE: February 06, 2021 TIME: 6:21 PM PATIENT IDENTITY VERIFICATION COMPLETED USING TWO (2) IDENTIFIERS: Name and Date of confirmed by patient verbally. FALL SCREENING: Has the patient had 2 falls in the last year or 1 fall with injury or currently using an Ambulatory Assistive Device (Walker, Cane, Wheelchair, Crutches, etc.)? No PATIENT GENDER DATA: Female. status: : No status: NO. PATIENT RELEVANT IMPLANT DATA REVIEWED: Not Applicable RADIOLOGY DEPARTMENT: General X-ray: Exam(s) Completed: Upper Extremity X-Ray(s): Shoulder, AP / TRUE AP / AXILLARY left PERIPHERAL IV DATA: Not applicable SIGNED BY: RT Jaqueline(R) February 06, 2021 6:21 PM documented in this encounter [facility] 02-20-2011 History of Past i llness Narrative Problem Noted Date Resolved Date Impaired fasting glucose 02/20/2011 018 Fatigue 05/27/2010 05/25/2017 Acute gastritis without mention of hemorrhage 05/20/2016 documented as of this encounter (statuses as of 12/18/2021) [facility] History of Past illness Narrative* Problem Noted Date Resolved Date Impaired fasting glucose 02/20/2011 018 Fatigue 05/27/2010 05/25/2017 Acute gastritis without mention of hemorrhage 05/20/2016 documented as of this encounter (statuses as of 12/31/2021) [facility] History of Past illness Narrative* Problem Noted Date Resolved Date Impaired fasting glucose 02/20/2011 018 Fatigue 05/27/2010 05/25/2017 Acute gastritis without mention of hemorrhage 05/20/2016 documented as of this encounter (statuses as of 01/13/2022) [facility] History of Past illness Narrative* Problem Noted Date Diagnosed Date Resolved Date Impaired fasting glucose 02/20/2011 Fatigue 05/27/2010 05/25/2017 Acute gastritis without mention of hemorrhage 05/13/1905/20/2016 documented as of this encounter (statuses as of 09/16/2022) [facility] History of Past illness Narrative* Problem Noted Date Diagnosed Date Resolved Date Impaired fasting glucose 02/20/2011 Fatigue 05/27/2010 05/25/2017 Acute gastritis without mention of hemorrhage 05/13/19 09 05/20/2016 documented as of this encounter (statuses as of 12/29/2022) [facility] of Past illness Narrative* Problem Noted Date Diagnosed Date Resolved Date Impaired fasting glucose 02/20/2011 Fatigue 05/27/2010 05/25/2017 Acute gastritis without mention of hemorrhage 05/13/19 09 05/20/2016 documented as of this encounter (statuses as of 04/17/2023) [facility] of Past illness Narrative* Problem Noted Date Diagnosed Date Resolved Date Impaired fasting glucose 02/20/2011 Fatigue 05/27/2010 05/25/2017 Acute gastritis without mention of hemorrhage 05/13/19 09 05/20/2016 documented as of this encounter (statuses as of 04/18/2023) [facility] History of Past illness Narrative* Problem Noted Date Diagnosed Date Resolved Date Impaired fasting glucose 02/20/2011 Fatigue 05/27/2010 05/25/2017 Acute gastritis without mention of hemorrhage 05/13/19 09 05/20/2016 documented as of this encounter (statuses as of 04/22/2023) [facility] Diagnosis Migraine without aura, not intractable, with status migrainosus [facility] GERD without esophagitis Esophageal reflux [facility] Diagnosis Encounter for screening mammogram for breast cancer [facility] Diagnosis GERD without esophagitis Esophageal reflux Migraine without aura, not intractable, with status migrainosus [facility] Diagnosis Encounter for screening [facility] for breast cancer [facility] Diagnosis Encounter for gynecological examination (general) (routine) without abnormal findings- Primary Encounter for screening for human papillomavirus (HPV) Special screening examination for human papillomavirus (HPV) Pap smear for cervical cancer screening Screening for malignant neoplasm of the cervix Encounter for screening mammogram for breast cancer Dense breast tissue [facility] Diagnosis Encounter for screening [facility]ogram for [facility] cancer [facility] Diagnosis GERD without esophagitis Esophageal reflux [facility] Diagnosis Acute pain of left shoulder documented in this encounter [facility] note* Diagnosis Encounter for gynecological examination (general) (routine) without abnormal findings- Primary Encounter for screening mammogram for breast cancer documented in this encounter [facility] note* Diagnosis Encounter for screening mammogram for breast cancer Dense breast tissue documented in this encounter [facility] note* Diagnosis GERD without esophagitis Esophageal reflux documented in this encounter [facility] note* Diagnosis Migraine without aura, not intractable, with status migrainosus documented in this encounter [facility] note* Diagnosis GERD without esophagitis Esophageal reflux documented in this encounter [facility] note* Diagnosis Medicare annual wellness visit, initial- Primary Routine general medical examination at a health care facility Screening for depression Encounter for screening examination for other mental health and behavioral disorders Migraine without aura, not intractable, with status migrainosus GERD without esophagitis Esophageal reflux TREVINO (dyspnea on exertion) Other dyspnea and respiratory abnormality Chest discomfort Other chest pain Calculus of gallbladder without cholecystitis without obstruction Calculus of gallbladder without mention of cholecystitis or obstruction [facility] Diagnostic Procedure Only (Routine) - Pending Review Specialty Diagnoses / Procedures Referred By Beni blanca Referred To Contact [facility] Diagnoses Encounter for screening mammogram for breast cancer Procedures ANGELI SCREENING SCREENING MAMMOGRAPHY BI 2-VIEW BREAST INC Tao Choi MD [facility] [place] [address] [facility] [address] [place] [address] Referral ID Status Reason Start Date Expiration Date Visits Requested Visits Authorized [id number] Pending Review Auto-Generat ed Referral 01/08/2022 02/07/2023 1 1 [facility] (n[facility]ative)* Diagnostic Procedure Only (Routine) - Pending Review Specialty Diagnoses / Procedures Referred By Beni blanca Referred To Contact [facility] Diagnoses Encounter for screening mammogram for breast cancer Procedures ANGELI SCREENING SCREENING MAMMOGRAPHY BI 2-VIEW BREAST INC Tao Choi MD [address] [place] [address] [facility] [address] [place] [address] Referral ID Status Reason Start Date Expiration Date Visits Requested Visits Authorized [id number] Pending Review Auto-Generat ed Referral 3 01/23/2024 1 1 [facility] for referral (narrative)* Diagnostic Procedure Only (Routine) - Authorized Specialty Diagnoses / Procedures Referred By Contac t Referred To Contact [facility] Diagnoses Encounter for screening mammogram for breast cancer Dense breast tissue Procedures ANGELI SCREENING W BOGDAN SCREENING DIGITAL BREAST TOMOSYNTHESIS BI SCREENING MAMMOGRAPHY BI 2-VIEW BREAST INC Leonor Ayala MD [facility] [place] [address] [facility] [address] [place] [address] Referral ID Status Reason Start Date Expiration Date Visits Requested Visits Authorized [id number] Authorized Auto-Generat ed Referral 04/17/2024 05/16/2024 1 1 [facility] for referral (narrative)* Diagnostic Procedure Only (Routine) - Closed Specialty Diagnoses / Procedures Referred By Migdaliaac t Referred To Contact [facility] Diagnoses Acute pain of left shoulder Procedures XR SHOULDER GENERAL 3V OR MORE AP/TRUE AP/OTHER LEFT X-RAY SHOULDER COMPLET MIN 2 VIEWS Lisette Verdugo APRN.CNP [address] [place] [address] [place] [id number] Referral ID Status Reason Start Date Expiration Date V isits Requested Visits Authorized [id number] Closed Auto-Generate d Referral 02/06/2021 03/01/2021 1 1 [facility] for visit Narrative* Diagnostic Procedure Only (Routine) - Closed Specialty Diagnoses / Procedures Referred By Contannmarie t Referred To Contact [facility] Diagnoses Encounter for screening mammogram for breast cancer Procedures ANGELI SCREENING SCREENING MAMMOGRAPHY BI 2-VIEW BREAST INC Tao Choi MD [address] [place] [address] [facility] [address] [place] [address] Referral ID Status Reason Start Date Expiration Date V isits Requested Visits Authorized [id number] Closed Auto-Generate d Referral 12/24/2022 01/23/2024 1 1 [facility] for visit Narrative* Diagnostic Procedure Only (Routine) - Closed Specialty Diagnoses / Procedures Referred By Contac t Referred To Contact X[facility] IMAGING Diagnoses Acute pain of left shoulder Procedures XR SHOULDER GENERAL 3V OR MORE AP/TRUE AP/OTHER LEFT X-RAY SHOULDER COMPLET MIN 2 VIEWS PodlogarLisette APRN.CNP [address] [place] [address] [place] [id number] Referral ID Status Reason Start Date Expiration Date V isits Requested Visits Authorized [id number] Closed Auto-Generate d Referral 02/06/2021 03/01/2021 1 1 [facility] for visit Narrative* Diagnostic Procedure Only (Routine) - Closed Specialty Diagnoses / Procedures Referred By Beni t Referred To Contact [facility] Diagnoses Encounter for screening mammogram for breast cancer Dense breast tissue Procedures ANGELI SCREENING W BOGDAN SCREENING DIGITAL BREAST TOMOSYNTHESIS BI SCREENING MAMMOGRAPHY BI 2-VIEW BREAST INC Leonor Ayala MD [address] [place] [address] Phone: tel: fax: [facility] [address] [place] [address] Referral ID Status Reason Start Date Expiration Date V isits Requested Visits Authorized [id number] Closed Auto-Generate d Referral 04/17/2024 05/16/2024 1 1 [facility] Summary Purpose Family History No Family History Records FoundNo Family History Records FoundNo Family History Records FoundNo Family History Records Found Advance Directives No Advanced Directives Records FoundNo Advanced Directives Records FoundNo Advanced Directives Records FoundNo Advanced Directives Records Found Additional Source Comments INFORMATION SOURCE (unrecogn ized section and content) DATE CREATED AUTHOR 08/25/2017 [facility] DATE CREATED AUTHOR AUTHOR'S ORGANIZ ATION 08/25/2017 [facility] DATE CREATED AUTHOR AUTHOR'S ORGANIZ ATION 09/08/2024 [facility] DATE CREATED AUTHOR AUTHOR'S ORGANIZ ATION 10/18/2024 [facility] Source Comments (unrecognize d section and content) In the event this informatio n is protected by the Federal Confidentiality of Alcohol and Drug Abuse Patient Records regulations: The Federal rules restrict any use of the information to criminally investigate or prosecute any alcohol or drug abuse patient.[facility] the event this information is protected by the Federal Confidentiality of Alcohol and Drug Abuse Patient Records regulations: The Federal rules restrict any use of the information to criminally investigate or prosecute any alcohol or drug abuse patient.[facility] the event this information is protected by the Federal Confidentiality of Alcohol and Drug Abuse Patient Records regulations: The Federal rules restrict any use of the information to criminally investigate or prosecute any alcohol or drug abuse patient.[facility] the event this information is protected by the Federal Confidentiality of Alcohol and Drug Abuse Patient Records regulations: The Federal rules restrict any use of the information to criminally investigate or prosecute any alcohol or drug abuse patient.[facility] the event this information is protected by the Federal Confidentiality of Alcohol and Drug Abuse Patient Records regulations: The Federal rules restrict any use of the information to criminally investigate or prosecute any alcohol or drug abuse patient.[facility] the event this information is protected by the Federal Confidentiality of Alcohol and Drug Abuse Patient Records regulations: The Federal rules restrict any use of the information to criminally investigate or prosecute any alcohol or drug abuse patient.[facility] the event this information is protected by the Federal Confidentiality of Alcohol and Drug Abuse Patient Records regulations: The Federal rules restrict any use of the information to criminally investigate or prosecute any alcohol or drug abuse patient.[facility] the event this information is protected by the Federal Confidentiality of Alcohol and Drug Abuse Patient Records regulations: The Federal rules restrict any use of the information to criminally investigate or prosecute any alcohol or drug abuse patient.[facility] the event this information is protected by the Federal Confidentiality of Alcohol and Drug Abuse Patient Records regulations: The Federal rules restrict any use of the information to criminally investigate or prosecute any alcohol or drug abuse patient.[facility] the event this information is protected by the Federal Confidentiality of Alcohol and Drug Abuse Patient Records regulations: The Federal rules restrict any use of the information to criminally investigate or prosecute any alcohol or drug abuse patient.[facility] the event this information is protected by the Federal Confidentiality of Alcohol and Drug Abuse Patient Records regulations: The Federal rules restrict any use of the information to criminally investigate or prosecute any alcohol or drug abuse patient.[facility] the event this information is protected by the Federal Confidentiality of Alcohol and Drug Abuse Patient Records regulations: The Federal rules restrict any use of the information to criminally investigate or prosecute any alcohol or drug abuse patient.[facility] the event this information is protected by the Federal Confidentiality of Alcohol and Drug Abuse Patient Records regulations: The Federal rules restrict any use of the information to criminally investigate or prosecute any alcohol or drug abuse patient.[facility] the event this information is protected by the Federal Confidentiality of Alcohol and Drug Abuse Patient Records regulations: The Federal rules restrict any use of the information to criminally investigate or prosecute any alcohol or drug abuse patient.[facility] the event this information is protected by the Federal Confidentiality of Alcohol and Drug Abuse Patient Records regulations: The Federal rules restrict any use of the information to criminally investigate or prosecute any alcohol or drug abuse patient.[facility] the event this information is protected by the Federal Confidentiality of Alcohol and Drug Abuse Patient Records regulations: The Federal rules restrict any use of the information to criminally investigate or prosecute any alcohol or drug abuse patient.[facility] the event this information is protected by the Federal Confidentiality of Alcohol and Drug Abuse Patient Records regulations: The Federal rules restrict any use of the information to criminally investigate or prosecute any alcohol or drug abuse patient.[facility] Reason for Visit (unrecogniz ed section and content) Reason Comments Refill Request Reason Onset Date Comments Refill Request 12/28/2021 Reason Onset Date Comments Refill Request 09/16/2022 Reason Comments Yearly Exam Reason Onset Date Comments Refill Request 08/25/2023 Reason Comments Yearly Exam With Mammogram Reason Onset Date Comments Refill Request 04/27/2024 Reason Onset Date Comments Refill Request 07/26/2024 Reason Comments Medicare Wellness Exam Care Teams (unrecognized sec tion and content) Station Engineer Main Line Relationship Specialty Start Date End Date Tao Mahajan MD [address] [place] [address] PCP - General Family Medicine 10/25/21 Station Engineer Main Line Relationship Specialty Start Date End Date Tao Mahajan MD [address] [place] [address] PCP - General Family Medicine 10/25/21 Station Engineer Main Line Relationship Specialty Start Date End Date Tao Mahajan MD [address] [place] [address] PCP - General Family Medicine 10/25/21 Station Engineer Main Line Relationship Specialty Start Date End Date Tao Mahajan MD [address] [place] [address] PCP - General Family Medicine 10/25/21 Station Engineer Main Line Relationship Specialty Start Date End Date Tao Mahajan MD [address] [place] [address] PCP - General Family Medicine 10/25/21 Station Engineer Main Line Relationship Specialty Start Date End Date Erendira Chiang MD [address] [place] [address] PCP - General Family Medicine 03/28/23 Station Engineer Main Line Relationship Specialty Start Date End Date Erendira Chiang MD [address] [place] [address] PCP - General Family Medicine 03/28/23 Station Engineer Main Line Relationship Specialty Start Date End Date Erendira Chiang MD [address] [place] [address] PCP - General Family Medicine 03/28/23 Station Engineer Main Line Relationship Specialty Start Date End Date Erendira Chiang MD [address] [place] [address] PCP - General Family Medicine 03/28/23 Station Engineer Main Line Relationship Specialty Start Date End Date Erendira Chiang MD [address] [place] [address] PCP - General Family Medicine 01/19/21 10/24/21 Station Engineer Main Line Relationship Specialty Start Date End Date Erendira Chiang MD [address] [place] [address] PCP - General Family Medicine 03/28/23 Disha Estrella APRN.ALEMITE OPERATOR [address] [place] [address] [facility] Room Associate Family Medicine 02/07/24 Jan Pham APRN.ALEMITE OPERATOR [address] [place] [address] [facility] Family Medicine 02/16/24 Station Engineer Main Line Relationship Specialty Start Date End Date Erendira Chiang MD [address] [place] [address] PCP - General Family Medicine 03/28/23 Disha Estrella APRN.ALEMITE OPERATOR [address] [place] [address] [facility] Room Associate Family Medicine 02/07/24 Jan Pham APRN.ALEMITE OPERATOR [address] [place] [address] [facility] Room Associate Family Medicine 02/16/24 Station Engineer Main Line Relationship Specialty Start Date End Date Erendira Chiang MD [address] [place] [address] PCP - General Family Medicine 03/28/23 Disha Estrella APRN.ALEMITE OPERATOR [address] [place] [address] [facility] Room [facility] Family Medicine 02/07/24 Jan Pham APRN.ALEMITE OPERATOR [address] [place] [address] [facility] Room Associate Family Medicine 02/16/24 Station Engineer Main Line Relationship Specialty Start Date End Date Erendira Chiang MD [address] [place] [address] PCP - General Family Medicine 03/28/23 Disha Estrella APRN.ALEMITE OPERATOR [address] [place] [address] [facility] Room [facility] Family Medicine 02/07/24 Jan Pham APRN.ALEMITE OPERATOR [address] [place] [address] [facility] 02/16/24 Station Engineer Main Line Relationship Specialty Start Date End Date Erendira Chiang MD [address] [place] [address] PCP - General Family Medicine 03/28/23 Jan Pham APRN.ALEMITE OPERATOR [address] [place] [address] Parts Room Associate Family Medicine 02/16/24 Station Engineer Main Line Relationship Specialty Start Date End Date Erendira Chiang MD [address] [place] [address] PCP - General Family Medicine 03/28/23 Jan Pham APRN.ALEMITE OPERATOR [address] [place] [address] [employer] Room Associate Family Medicine 02/16/24 Station Engineer Main Line Relationship Specialty Start Date End Date Erendira Chiang MD [address] [place], [place] [address] PCP - General Family Medicine 03/28/23 Jan Pham APRN.MAHESH [address] [place], [place] [id number] Parts Room Associate Family [facility] 02/16/24 FOR RECORDS PERTAINING TO PATIENTS WHO ARE OR HAVE BEEN ENROLLED IN A CHEMICAL DEPENDENCY/SUBSTANCEABUSE PROGRAM, SOME INFORMATION MAY BE OMITTED. This clinical summary was aggregated from multiple sources. Caution should be exercised in using it in the provision of clinical care. This summary normalizes information from multiple sources, and as a consequence, information in this document may materially change the coding, format and clinical context of patient data. In addition, data may be omitted in some cases. CLINICAL DECISIONS SHOULD BE BASED ON THE PRIMARY CLINICAL RECORDS. [facility] [employer] provides no warranty or guarantee of the accuracy or completeness of information in this document.
[2024-10-28 11:00] LABS: Hematocrit 45.6 % (37-47); Hemoglobin 15.0 g/dL (12.0-15.0); Mean Corp Hgb Conc 32.9 g/dL (32-36); Mean Corpuscular Volume 89.4 fL (81-99); Mean Platelet Vol. 10.1 fl (6.2-12.0); Platelet Count 285 K/mm3 (150-450); RBC Distribution Width CV 13.1 % (11.6-14.6); RBC Distribution Width SD 43.2 fl (35.1-43.9); Red Blood Count 5.10 M/mm3 (4.2-5.4); White Blood Count 7.3 K/mm3 (4.4-11.0)
--- NOTE | 2024-10-28 11:11 | PCM.HP.CAR ---
HPI - General HPI Narrative KAYLEE WONG, is a 64 F who presents here today for an abnormal stress test. Patient had a stress test due to occasionally having sudden feelings of shortness of breath. This would not be brought on by anything particular. It could be at rest or could be with activity. It would last a few seconds. She did not have any lightheadedness or dizziness. She did undergo a stress test today. EKG did demonstrate nonsustained ventricular tachycardia. She was symptomatic with this with shortness of breath and lightheadedness. At home she has never had any syncopal episodes. She does not have any chest pain, tightness or heaviness. She does have issues with reflux in which she finds it is always attributed to food and is under control if she takes her Prevacid. [facility] Medical History (Updated 10/28/24 @ 11:13 by Geovanna Dial PA, PA) Migraine Heartburn NSVT (nonsustained ventricular tachycardia) Home Medications ?Medication ?Instructions ?Recorded ?Last Taken ?Type rizatriptan 5 mg tablet 5 mg PO PRN PRN Headache 02/28/17 02/27/17 History lansoprazole 30 mg capsule,delayed 30 mg PO DAILY 02/25/24 Unknown History release ondansetron 4 mg disintegrating 4 mg PO TID PRN nausea and 02/25/24 Unknown Rx tablet vomiting #21 tabs oxycodone-acetaminophen 5 mg-325 1 tab PO Q6H PRN pain 3 days #12 02/25/24 Unknown Rx mg tablet (Percocet) tabs Allergy/AdvReac Type Severity Reaction Status Date / Time topiramate (From Topamax) Allergy Intermediate Rash Verified 02/25/24 01:13 Family History (Updated 10/28/24 @ 11:13 by Geovanna ZULETA, PA) Other Cancer Social History Smoking Status: Never smoker ROS Constitutional Constitutional: Denies change in weight, chills, fatigue, frequent falls, headache(s) or lethargy Eyes Eyes: Denies acute decrease in peripheral vision, blurry vision or change in vision ENT HEENT: Denies dizziness, dry mouth, epistaxis, headache(s), tinnitus or vertigo Cardiovascular Cardiovascular: Denies chest pain at rest, chest pain with activity, claudication, dyspnea at rest, dyspnea on exertion, edema, irregular heart rhythm, lightheadedness, orthopnea, orthostatic symptoms, palpitations or pedal edema Respiratory/Chest Respiratory/Chest: Reports dyspnea on exertion; Denies cough, dyspnea, tachypnea or wheezing Gastrointestinal Gastrointestinal: Denies abdominal pain, bloating, coffee ground emesis, diarrhea, heartburn, hematemesis, hematochezia, melena or nausea Genitourinary Genitourinary: Denies hematuria Musculoskeletal Musculoskeletal: Denies myalgias, numbness or tingling Neurologic Neurologic: Denies abnormal gait, abnormal speech, memory loss, paresthesias or weakness Vital Signs Vital Signs Vital Signs: Weight Weight: 190 lb Body Mass Index (BMI) 32.4 Physical Exam Const alert, oriented x3, no apparent distress and healthy appearing HEENT normocephalic, head/scalp atraumatic, hearing grossly normal bilaterally, external ears normal, external nose normal and moist oral mucous membranes Eyes PERRL, EOMs intact bilaterally, conjunctivae normal and no scleral icterus Neck no lymphadenopathy, supple and no JVD Cardio regular rate, regular rhythm, S1 normal heart sound, S2 normal heart sound, no murmurs, no rub, no gallops, no clicks, no JVD and peripheral pulses 2+ throughout GI normal to inspection, nondistended, normoactive bowel sounds, soft to palpation, non-tender and non-distended Extremity normal to inspection, normal capillary refill, no clubbing, cyanosis or edema and no pedal edema Neuro oriented x3, CN's II-XII intact bilaterally, moves all extremities and no focal motor deficits Psych cooperative and affect normal Cardiology Labs/Tests Cardiology Labs/Tests: 10/28/24 10:54: WBC 7.3, RBC 5.10, Hgb 15.0, Hct 45.6, MCV 89.4, MCH 29.4, MCHC 32.9, Plt Count 285, MPV 10.1 Rhythm: EKG: ECHO: Stress Test: Cardiac Cath: PCI: CT Surgery: Holter monitor: EPS: PPM: CXR: Chest CT Scan: Assessment & Plan Assessment/Plan (1) NSVT (nonsustained ventricular tachycardia): PLAN: With patient's nonsustained ventricular tachycardia that was noted on her stress test she will undergo a diagnostic heart catheterization today. Follow-up will be based upon findings.
--- NOTE | 2024-10-28 11:19 | STRESSREP ---
Stress Test Report Pharmacologic myocardial perfusion stress test. Indication; 64-year-old patient with symptoms of shortness of breath on exertion Was referred for outpatient regular stress test And also had symptoms of chest pain with massive RI at home Abnormal EKG portion of nuclear stress test with nonsustained V. tach and frequent PVC. Stress protocol: Resting EKG demonstrates. Normal sinus rhythm. 0.4 mg of regadenoson was infused per usual protocol followed by rapid intravenous saline flush injection continuous EKG monitoring was performed. The maximum heart rate attained was 137 bpm which was 88% of maximum predicted heart . Stress EKG showed[, no significant change from the resting EKG, with maximum heart rate of 137 bpm. Arrhythmia: Patient has nonsustained V. tach with frequent PVCs Symptoms: Patient has symptoms of lightheadedness dizziness and shortness of breath. Blood pressure at rest: [122/78 blood pressure at the end of stress: 124/82] Myocardial perfusion protocol. [12 mCi ]of Technetium 99m Sestamibi was injected at rest. [ 0.4 mg ]of Regadenoson was infused per usual protocol peak infusion[36 mCi ]of Technetium 99m sestamibi was injected. Stress images were obtained stress and rest images were reconstructed and compared in the short axis vertical and horizontal long axis. Gated images were also obtained Perfusion SPECT analysis: Review of the images demonstrate reversible myocardial ischemia involving the anterior and septal region Gated SPECT analysis: The gated ejection fraction is 79% LV wall motion showed hyperdynamic left ventricle. Conclusion: Abnormal Lexiscan sestamibi with reversible myocardial ischemia in the LAD distribution/anterior and septal Episodes of nonsustained ventricular tachycardia with frequent PVCs Patient symptomatic with shortness of breath lightheadedness and dizziness Recommendation; Left heart cath Faustino Torres MD,FACC,[facility] [employer] french teacher
[2024-10-28 11:22] LABS: Anion Gap 11 (5-15); BUN 10 mg/dL (4-19); BUN/Creat Ratio 15.3 RATIO (10-20); Calcium,Total 9.5 mg/dL (7.6-11.0); Carbon Dioxide 24.3 mmol/L (21.0-32.0); Chloride 104 mmol/L (98-108); Estimated Creatinine Clearance 74.48 ml/min (50-250); Glucose 110 mg/dL (70-99); Potassium 4.3 mmol/L (3.3-5.1)
[2024-10-28 12:44] LABS: ACT Activated Clotting Time 262 sec (74-137)
--- NOTE | 2024-10-28 12:54 | CRPHASE1_ITS ---
Patient Communication Patient Information Former Patient:: Phase I PHII Cardiac Rehab Discussed with Patient:: Yes Guide to Cardiac Rehab Given to Patient:: Yes Cardiac Rehab Facility Choice List Given to Patient:: Yes Communication to Cardiac Rehab Choice Program [facility] CR PHII:: Communication Given to CR Choice Program Other:: Communication Given to CR Cardiopulmonary Technician And Eeg Tech:: Faustino Torres Sessions:: 36 sessions - 3 days/wk, 12 weeks Cardiac Rehabilitation Info Program Information Cardiac Rehabilitation Program Information: Cardiac Rehab The cardiac rehab team at [facility] consists of highly skilled exercise physiologists, nurses, respiratory therapists and physicians working together with you. Our purpose is to help you have a full recovery and achieve the goals you set for yourself. Over the years many of our patients have returned to activities they assumed they would never do again! We can help restore your confidence and motivation to make lifestyle changes that can have a significant impact on your health and quality of life! We can help answer questions and concerns you may have about exercise, lifestyle, medications, diet, stress and anxiety which are common following a hospitalization. WE monitor ECG and vital signs during exercise and discuss your progress with you and report to your physician(s). Cardiac Rehab is proven to help reduce readmissions, improve functional capacity and lower recurrence of problems with your heart. Our Cardiac Rehab program is Certified by the [place] [employer]io-Vascular and Pulmonary Rehabilitation (AACVPR) and Accredited by the [place] [employer] through our [facility]. You can contact us at . We invite you to call us with your questions or to get started in our program. If you have other questions or concerns be sure to ask your physician/provider during your follow-up visit. WE look forward to seeing you!
--- NOTE | 2024-10-28 12:57 | CRPH1.INSTRU ---
General Education Discussed with Patient CAD and cardiac anatomy and function:: Patient communicates acknowledgment Explanation of diagnoses and procedures:: Patient communicates acknowledgment Sign/Symptoms of AL:: Patient communicates acknowledgment Antiplatelet therapy: Patient communicates acknowledgment Proper use of NTG-SL: Patient communicates acknowledgment Emergency procedures and activation of EMS: Patient communicates acknowledgment Compliance of all prescribed medications: Patient communicates acknowledgment Smoking Recommendations Recommendations Include:: Second-hand smoke recommendation Response Code Nicotine/Smoking Response Code:: Patient communicates acknowledgment Dyslipidemia Risk Factors Patient Dyslipidemia Risk Factors Are:: Total Cholesterol, Triglycerides, HDL and LDL Recommendations Recommendations Include:: Lipid profile not available, Reviewed NCEP/ATP guidelines and Therapeutic Lifestyle Change dietary guidelines Response Code Dyslipidemia Response Code:: Patient communicates acknowledgment Overweight/Obesity Risk Factors Patient Overweight/Obesity Risk Factors Are:: BMI Normal [24-29 & > 65 years old], Overweight = 26-29 and Obesity - > or = 30 Recommendations Recommendations Include:: Weight loss of 5-10%, Reduced calorie diet and Exercise 5-7 times/week Response Code Overweight/Obesity:: Patient communicates acknowledgment Hypertension Recommendations Recommendations Include:: Maintain BP <130/85, BP <130/80 if diabetic, DASH dietary guidelines, Decrease/maintain normal body weight and Moderation of ETOH Response Code Hypertension:: Patient communicates acknowledgment Heart Disease Risk Factors Patient Heart Disease Risk Factors Are:: Family history of heart disease < 65 years old Recommendations Recommendations Include:: Educated family members of their risk and Educated family members of importance of prevention of heart disease Response Code Heart Disease Response Code:: Patient communicates acknowledgment Diabetes Risk Factors Patient Diabetes Risk Factors Are:: No documented hx of diabetes, Elevated blood sugars and Post-op hyperglycemia Recommendations Recommendations Include:: Maintain fasting blood sugars 70-110 md/dL, Maintain HgbA1c of 6% or less, Monitor blood sugar as prescribed, Diabetic dietary guidelines and Decrease/maintain body weight Response Code Diabetes:: Patient communicates acknowledgment Metabolic Syndrome Risk Factors Patient Metabolic Syndrome Risk Factors Are [3 of 5]:: Fasting blood sugar > 100 mg/dL, Waist circumference > 35 [female] or 40 [male], High triglyceride >150, Hypertension and Low HDL <40 [male] or < 50 [female] Recommendations Recommendations Include:: Reinforce compliance to risk factor modifications and Encouraged follow-up with Primary Care Physician Response Code Metabolic Syndrome Response Code:: Patient communicates acknowledgment Sedentary Risk Factors Patient Sedentary Risk Factors Are:: Lack of regular exercise Recommendations Recommendations Include:: Aerobic exercise 5-7 times/week for 20-30 minutes continuously, Benefits of regular exercise, Discussed home walking program and Monitored Outpatient Cardiac Rehab Response Code Sedentary Response Code:: Patient communicates acknowledgment Stress Risk Factors Patient Stress Risk Factors Are:: Patient denies stress as a risk factor Recommendations Recommendations Include:: Identification of stressors, and assessment of coping skills and Stress management techniques Response Code Stress Response Code:: Patient communicates acknowledgment
--- NOTE | 2024-10-28 14:35 | PCI.CARDCATH ---
PCI Cardiac Cath Report PCI Report: PCI cardiac cath report 1. Moderate sedation 2. 6 Albanian sheath in right radial artery 3. Successful PCI of high-grade 90% stenosis of mid LAD, with predilatation using 2 x 12 mm balloon Followed by placement of drug-eluting stent 3.5 x 18 mm, with reduction of stenosis to 0% Preprocedure LEILA-3 flow postprocedure LEILA-3 flow. 4. Placement of TR band to close the right radial artery arteriotomy site. Consent; Risks and benefits of procedure explained detail patient reacted to proceed informed consent obtained. Preprocedure diagnosis 64-year-old patient seen and evaluated in the stress lab Patient was referred by primary care physician for stress test Noted patient has symptoms of shortness of breath lightheaded and dizziness in addition had the significant abnormality in the EKG with With nonsustained V. tach. And the nuclear images showed evidence of reversible myocardial ischemia overall LV systolic function is preserved Ejection fraction within normal 79%/hyperdynamic left ventricle. Her with massive ID at home. Patient has been on pantoprazole for GERD. Diagnostic and interventional catheter used; 1. 5 Albanian JL 3.5 2. 5 Albanian JR4. #3 6 Albanian JL 3.5 guide catheter 4. 2 x 12 mm balloon 5. 3.5 x 80 mm [place] frontier drug-eluting stent 6. 0.14 180 cm run-through extra floppy straight guidewire. Medication used in the Communications Systems Engineer; 1. Heparin with ACT level acceptable more than 250 2. Brilinta 180 mg in the Communications Systems Engineer 3. Patient was given 325 mg of aspirin. Procedure in detail. Patient brought from the stress lab to the cardiac Communications Systems Engineer Right radial artery area prepped and draped in the usual sterile fashion. Access obtained from the right radial artery and 6 Albanian sheath placed. Proceed with a 6 Albanian sheath placed in the right radial artery then we will proceed with a diagnostic catheter 5 Albanian JL 3.5 advancing the quarter cannulated the left main without difficulty Following this catheter exchanged for 5 Albanian JR4 catheter advanced to the ascending aorta and selective angiographic view of the RCA obtained. Following this we proceeded with interventional plan after reviewing all the angiographic findings and identifying the culprit lesion at the mid LAD high-grade lesion 90%. We proceeded with the guidewire run-through crossed the lesion followed by balloon dilatation using 2 x 12 mm up to 12 SWEETIE this is followed by placement of drug-eluting stent 3.5 x 18 mm Up to 16 SWEETIE and achieved an excellent result. Patient tolerated procedure very well with no complication. Coronary angiography; 1. Left main coronary arteries normal angiographically bifurcating into LAD and left circumflex 2. Left anterior descending artery has a mid 90% stenosis Following the PCI we reduce the stenosis to 0% and achieve LEILA pre and post 3 3. The left circumflex artery is moderate to large in size and angiographically had no significant atherosclerosis 4. RCA small nondominant. Conclusion recommendation; This patient has significantly abnormal nuclear stress test as well as the EKG showing nonsustained ventricular tachycardia. She had symptoms with shortness of breath and her with massive ID. Based on the clinical presentation and abnormal stress test she underwent cardiac catheterization identified the lesion as a high-grade lesion 90% involving the mid LAD with successful PCI Patient will require #1 dual antiplatelet therapy with Brilinta 90 mg twice daily in addition to low-dose aspirin for 1 year. And low-dose aspirin indefinitely 2. Patient will be scheduled to follow-up with the cardiology team here at [facility] 3. Will schedule for cardiac rehab/post PCI Patient tolerated procedure very well with no complication in the Communications Systems Engineer. Faustino Torres MD,[facility] administrative library assistant
--- NOTE | 2024-10-28 15:06 | ECHOCS_ITS ---
Reason For Study Reason For Study: ARRYTHMIA Procedure This was a 2D Doppler, Color Flow transthoracic echocardiogram. The study was technically difficult. Limited views were obtained. Exam performed portable in patient room. Left Ventricle Normal left ventricle. The estimated ejection fraction is 55-60 %. Right Ventricle Normal right ventricle. Normal systolic function. Atria Normal left atrium. Normal right atrium. Mitral Valve The mitral valve is structurally normal. No prolapse or stenosis seen. Tricuspid Valve Normal tricuspid valve. Aortic Valve Trisinus/trileaflet aortic valve. Pulmonic Valve The pulmonic valve is not well visualized. Great Vessels The aortic root is not well visualized. Pericardium/Pleural No pericardial effusion. Medication Diluted definity 1ml given slow IV push to enhance endocardial definition. MMode/2D Measurements & Calculations LVIDd: 4.9 cm IVSd: 0.99 cm CO(Teich): 5.4 l/min LVIDs: 3.3 cm LVPWd: 1.2 cm FS: 32.7 % Ao root diam: 2.9 cm LAV(MOD-bp): 43.3 ml LVAd ap4: 31.6 cm2 LAV(MOD-bp) Indexed: 22.7 ml/m2 LVLd ap4: 8.0 cm LAV(MOD-sp2): 37.4 ml EDV(MOD-sp4): 101.4 ml LAV(MOD-sp4): 45.7 ml EDV(sp4-el): 105.1 ml LVAs ap4: 16.1 cm2 LVLs ap4: 6.8 cm ESV(MOD-sp4): 33.0 ml ESV(sp4-el): 32.3 ml EF(MOD-sp4): 67.4 % EF(sp4-el): 69.3 % CO(MOD-sp4): 5.3 l/min SV(sp4-el): 72.8 ml LA A4 area: 17.6 cm2 SV(MOD-sp4): 68.4 ml SI(MOD-sp4): 35.8 ml/m2 LA dimension(2D): 3.9 cm RA A4 area: 13.0 cm2 Time Measurements MV dec time: 0.22 sec Doppler Measurements & Calculations MV E max jeff: 77.2 cm/sec Lat Peak E' Jeff: 9.1 cm/sec Med Peak E' Jeff: 8.2 cm/sec MV A max jeff: 90.6 cm/sec E/E' lat: 8.5 E/E' med: 9.4 MV E/A: 0.85 MV V2 max: 86.5 cm/sec MV dec slope: 361.3 cm/sec2 Ao V2 max: 161.4 cm/sec MV max P.0 mmHg Ao max P.4 mmHg MV V2 mean: 54.9 cm/sec Ao V2 mean: 107.3 cm/sec MV mean P.3 mmHg Ao mean P.3 mmHg MV V2 VTI: 30.5 cm Ao V2 VTI: 31.5 cm AV (velocity ratio): 0.89 LV V1 max: 135.5 cm/sec PA V2 max: 124.7 cm/sec LV V1 max P.3 mmHg PA V2 mean: 84.5 cm/sec LV V1 mean P.4 mmHg LV V1 mean: 99.7 cm/sec LV V1 VTI: 28.1 cm ECHO/Echo Complete W/ Contrast Interpretation Summary The estimated ejection fraction is 55-60 %. Normal LV systolic function No previous echo to compare Ordering Physician: Puma Morrison Referring Physician: Faustino Torres Performed By: eLeann Paniagua RCS
--- NOTE | 2024-10-28 15:16 | EKG12_ITS ---
Test Reason : AM Blood Pressure : */* mmHG Vent. Rate : 62 BPM Atrial Rate : 62 BPM P-R Int : 184 ms QRS Dur : 82 ms QT Int : 414 ms P-R-T Axes : 47 16 33 degrees QTcB Int : 420 ms Normal sinus rhythm Normal ECG When compared with ECG of 28-Oct-2024 15:20, MANUAL COMPARISON REQUIRED DATA IS UNCONFIRMED Confirmed by Donnie Hall ([id number]), multimedia editor MARTHA FARMER ([id number]) on 11/01/2024 11:13:50 AM Referred By: Faustino Torres Confirmed By: Donnie Hall
--- NOTE | 2024-10-28 15:31 | PCM.HP.STD ---
[facility] - General General Date of Admission: 10/28/24 Date of Service: 10/28/24 Chief Complaint: Abnormal stress test HPI Narrative KAYLEE WONG, is a 64 F with no cardiac history is directly admitted after abnormal stress diabetes and then subsequent cardiac cath which found high-grade 90% stenosis of mid LAD which required PCI. Patient denies persistent cardiac symptoms prior to stress test but she had occasional about 2-3 times shortness of breath on mild activities/house chores. Denies chest pain/pressure. Resting EKG was NSR before the stress test. While undergoing stress test today, patient was mildly dizzy, shortness of breath lightheadedness. 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 Cardiac cath showed above findings as mentioned. Twelve-lead EKG after catheter showed NSR 76 bpm, QTc 425 ms, normal EKG. [facility] Medical History (Updated 10/28/24 @ 15:[address] Puma Morrison MD) Migraine Heartburn NSVT (nonsustained ventricular tachycardia) Home Medications ?Medication ?Instructions ?Recorded ?Last Taken ?Type rizatriptan 5 mg tablet 5 mg PO Q2H PRN Headache 02/28/17 10/24/24 History lansoprazole 30 mg capsule,delayed 30 mg PO DAILY 02/25/24 10/27/24 History release Allergy/AdvReac Type Severity Reaction Status Date / Time topiramate (From Topamax) Allergy Intermediate Rash Verified 02/25/24 01:13 Family History (Updated 10/28/24 @ 13:31 by Ana Luisa Grimes) Grandmother Cancer Mother Cancer Aunt Cancer Aunt Cancer Surgical History (Updated 10/28/24 @ 15:43 by Geovanna ZULETA, PA) H/O heart artery stent History of tubal ligation [place] teeth extracted Social History Smoking Status: Never smoker ROS ROS Narrative Constitutional: Denies acute onset of fatigue and weakness. No fever. HEENT: Reports systems reviewed and no addt'l complaints, except as documented Respiratory/Chest: As described in HPI. No chronic lung disease CVS: As described in HPI Gastrointestinal: Mild heartburn on PPI. Denies coffee ground emesis, hematemesis or vomiting Genitourinary: Denies burning urination or new urinary tract symptoms Musculoskeletal: Denies acute joint pain or limited range of motion. No acute injury Neurologic: History of chronic migraine on Maxalt. Follows neurologist. Denies seizure-like symptoms. skin: No ulcer. No rash Endocrinology: Reports systems reviewed and no addt'l complaints, except as documented Hematologic/Lymphatic: Reports systems reviewed and no addt'l complaints, except as documented Rest 14 ROS are negative except as mentioned in HPI Vital Signs Vital Signs Vital Signs: 10/28/24 13:13 Respiratory Effort Normal Non-Labored Respiratory Depth Normal Respiratory Pattern Normal Oxygen Delivery Method Room Air Weight Weight: 190 lb Body Mass Index (BMI) 32.5 Physical Exam Narrative General: Alert, Oriented x3, Cooperative. BMI 32.6 kg/m?, mild obesity grade 1. HEENT: Atraumatic, PERRLA, EOMI, Normocephalic. Oral: No Gingival or Mucosal Lesions/ Ulcerations Neck: Supple, No JVD, Negative Carotid Bruits Chest wall/Lungs: Air entry diminished in bilateral lung bases. No crepitation/rhonchi Cardiovascular: Regular rate and rhythm, Normal S1,S2, No M/G/R Abdomen: Bowel Sounds Present, Soft, Non Tender, Non-Distended : No dysuria. No renal angle tenderness. No suprapubic tenderness. Extremities: No edema, Capillary Refill Less than 3 Seconds Skin: Mild bruise over right radial artery wristband after cath. No appreciable hematoma. Musculoskeletal: No Tenderness to Palpation of Joints or Extremities. ROM full and intact Neurological: Cranial nerves II-XII grossly intact, DTR 2+/4. No acute focal neurological deficit. Psych/Mental Status: Normal Affect, Appropriate. Results Lab / Micro Data 10/28/24 10:54 10/28/24 10:54 Labs: Laboratory Results - last 24 hr 10/28/24 10:54: WBC 7.3, RBC 5.10, Hgb 15.0, Hct 45.6, MCV 89.4, MCH 29.4, MCHC 32.9, RDW Std Deviation 43.2, RDW Coeff of Wolf 13.1, Plt Count 285, MPV 10.1, Sodium 140, Potassium 4.3, Chloride 104, Carbon Dioxide 24.3, Anion Gap 11, BUN 10, Creatinine 0.63 L, Estim Creat Clear Calc 74.48, Est GFR (MDRD) Non-Af 98, BUN/Creatinine Ratio 15.3, Glucose 110 H, Calcium 9.5 10/28/24 11:22: Activated Clotting Time 262 H Assessment & Plan Assessment/Plan (1) NSVT (nonsustained ventricular tachycardia): (2) Unstable angina: PLAN: Plan This is a 64-year-old female had abnormal outpatient elective stress test and then found high-grade single-vessel disease 1. Abnormal stress test, high-grade 90% mid LAD, single CAD: Patient is being admitted in PCU. Repeat EKG NSR after PCI. Discussed with receiver and no indication of troponin as patient is symptomatic and already had cardiac cath. Cardiac cath showed high-grade 90% stenosis mid LAD, ANNIE and postprocedure LEILA-3 flow. Patient on baby aspirin, Brilinta, low-dose metoprolol succinate, and high intensity statin. 2D echo is ordered. LEILA risk is not applicable as patient cardiac catheter abnormal stress test but calculated 1 (troponin, NA). Identity Management Developer consulted and discussed with him. Fasting profile and TSH tomorrow a.m. 2. Arrhythmia: Patient had NSVT and frequent PVCs during stress test: Most likely due to high-grade LAD lesion. 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 3. Mild GERD: On PPI continued 4. Chronic migraine: Patient follows outside neurologist in [place]. On Maxalt as needed. Tylenol as needed. 5. Obesity grade 1: Weight loss reduction advised. Automobile Mechanic Helper consult. 6. DVT prophylaxis: Lovenox 40 mg subcu daily from tomorrow a.m. after 24 hours of cardiac cath Living will/advanced directive/end of life care: Patient does have living will or advanced directive. Her daughter is POA of her health. After discussion of benefits/risks procedures involved with full code, DNR CC arrest and DNR CC, the patient opted for full code. Patient does want artificial life support including intubation, tube feed, ventilator and/chest compression, central venous catheter, vasopressor and DC shock if needed Total time spent in [id number] encounter in discussion of advanced directive 17 minutes. Charges/Coding Visit Charges Inpatient E&M: 73880 Init Hosp L3 Procedures Hospitalists Procedures: 89245 Advncd Care Plan 30 Min LEILA Risk Score for UA/STEMI Assesmment (YES = 1) Age > or = 65: Yes > or = 3 CAD risk factors (HTN, Hypercholesterolemia, Diabetes, family hx, current smoker): No Known CAD (Stenosis > or = 50%): No ASA used in past 7 days: No Severe angina (> or = 2 episodes in 24 hrs): No EKG ST change > or = 0.5mm: No Positive cardiac markers: No Score LEILA Risk Score of mortality/ recurrent ischemic event over the next 14 days: 0-1 = 4.7% - Low Risk
[2024-10-28] MEDS: 0.9% Normal Saline (1000mL) 1,000 ML 50 ML IV (15:51)
[2024-10-28] MEDS: Metoprolol(XL)Succ 25 MG Tablet 12.5 MG PO (15:51)
--- NOTE | 2024-10-29 00:53 | NURSING ---
Verbal report received from Saúl Kunz RN. This RN assuming care at this time.
[2024-10-29 03:45] VITALS: BP 111/72; PULSE 60; RESP 18; TEMP 35.8; O2SAT 95
[2024-10-29 05:53] LABS: Hematocrit 39.1 % (37-47); Hemoglobin 13.3 g/dL (12.0-15.0); Immature Granulocytes Count 0.040 X10^3/uL (0.0-0.0); Mean Corp Hgb Conc 34.0 g/dL (32-36); Mean Corpuscular Volume 89.3 fL (81-99); Mean Platelet Vol. 10.2 fl (6.2-12.0); NRBC Flagged by Analyzer 0 % (0-5); Platelet Count 243 K/mm3 (150-450); RBC Distribution Width CV 13.3 % (11.6-14.6); RBC Distribution Width SD 43.8 fl (35.1-43.9); Red Blood Count 4.38 M/mm3 (4.2-5.4); White Blood Count 7.3 K/mm3 (4.4-11.0)
[2024-10-29 07:02] LABS: Anion Gap 8 (5-15); BUN 9 mg/dL (4-19); BUN/Creat Ratio 14.9 RATIO (10-20); Calcium,Total 8.7 mg/dL (7.6-11.0); Carbon Dioxide 23.1 mmol/L (21.0-32.0); Chloride 108 mmol/L (98-108); Estimated Creatinine Clearance 74.48 ml/min (50-250); Glucose 100 mg/dL (70-99); Potassium 3.9 mmol/L (3.3-5.1)
[2024-10-29 07:29] LABS: Cholesterol 254 mg/dL (<=200); Low Density Lipoprotein Calc. 168 mg/dL; Triglycerides 139 mg/dL; Very Low Density Lipoprotein 28 mg/dL (5-40); cholesterol:hdl ratio screen 4.39
--- NOTE | 2024-10-29 09:50 | DS.PCM_ITS ---
Providers Date of Admission: 10/28/24 Date of Discharge: 10/29/24 Primary Care Physician: Dr. Lee Chiang MD Consultations 10/28/24 14:28 Consult: Cardiology Routine Consulting Provider: Faustino Torres Reason for Consult: cardiac cath/stents EMERGENT Consult: No MD Notified: Yes Date Notified: 10/28/24 Time Notified: 14:28 Method of Notification: Verbal Reason For Visit: CHEST PAIN ABN STRESS Diagnosis Discharge Diagnosis (1) NSVT (nonsustained ventricular tachycardia): Status: Acute Code(s): I47.29 - Other ventricular tachycardia (2) Unstable angina: Status: Acute Code(s): I20.0 - Unstable angina Medications at Discharge Home Medications rizatriptan 5 mg tablet 5 mg PO Q2H PRN Headache 02/28/17 lansoprazole 30 mg capsule,delayed release 30 mg PO DAILY 02/25/24 aspirin 81 mg tablet,delayed release 81 mg PO BREAKFAST 90 days #90 tabs 10/29/24 atorvastatin 40 mg tablet 40 mg PO QHS 90 days #90 tabs 10/29/24 metoprolol succinate 25 mg tablet,extended release 24 hr 12.5 mg (1/2 x 25 mg) PO DAILY 90 days #45 tabs 10/29/24 ticagrelor 90 mg tablet (Brilinta) 90 mg PO BID 90 days #180 tabs 10/29/24 Hospital Course Operations None Procedures Cardiac catheterization, EKG and Transthoracic echo Summary of Care Provided Minutes Spent on Discharge: 35 Hospital Course: Patient is a 64-year-old female who presented to [facility] on 10/28/2024 per cardiology after an abnormal stress test. Short hospital course as noted below. Patient discharged home in stable condition on 10/29. 1. CAD s/p stenting, nonsustained SVT with frequent PVCs ? Cardiology followed. Admitted after abnormal stress test on the morning of 10/28; had abnormal EKG with nonsustained VT and frequent PVCs. Left heart cath on afternoon of 10/28 showed 90% lesion in the mid LAD s/p drug-eluting stent placement x 1; left circumflex and RCA with no significant atherosclerosis noted. Telemetry post cath with no episodes of SVT and few PVCs noted. EKG on 10/29 with normal sinus rhythm and no PVCs noted. Lipid panel with total cholesterol 254, LDL 168, HDL 58. Per cardiology, stable for discharge home on 10/29. Will start aspirin, Brilinta, high intensity statin and low-dose Toprol on discharge. Will plan for close outpatient follow-up with cardiology. 2. GERD ? Continue home PPI. 3. Chronic migraines ? Continue rizatriptan as needed on discharge and continue outpatient follow-up with neurology. 4. Class I obesity ? BMI 32 on admit. Complicated hospital course and care. *Patient notably was admitted under inpatient status but improved more quickly than anticipated and was able to be discharged home on hospital day 2. Total clinical time spent by myself addressing the patient's medical issues, reviewing all the data, and collaborating with patient's care team: 35 minutes. Physical Exam Const alert, oriented x3 and no apparent distress Constitutional Narrative: Pleasant upper middle-aged female, class I obesity, sitting back comfortably in bed, conversing normally, in no acute distress. General Appearance: cooperative and comfortable HEENT normocephalic, head/scalp atraumatic, hearing grossly normal bilaterally, nasal mucous membranes and turbinates normal and moist oral mucous membranes Eyes PERRL, EOMs intact bilaterally and conjunctivae normal Neck full ROM Chest inspection of chest normal Resp normal respiratory effort, normal air movement, no use of accessory muscles and clear to auscultation bilaterally Cardio regular rate, regular rhythm, no murmurs and peripheral pulses 2+ throughout GI normal to inspection, nondistended, normoactive bowel sounds, soft to palpation, non-tender and non-distended Back/Spine normal ROM Extremity normal to inspection, full ROM and no pedal edema Skin no rashes or lesions noted Psych mental status grossly normal Weight / BMI Weight Weight: 86.183 kg Body Mass Index (BMI) 32.5 ABG / Lab / Microbiology Data 10/29/24 05:33 10/29/24 05:33 Laboratory: Laboratory Results - last 24 hr 10/29/24 05:33: WBC 7.3, RBC 4.38, Hgb 13.3, Hct 39.1, MCV 89.3, MCH 30.4, MCHC 34.0, RDW Std Deviation 43.8, RDW Coeff of Wolf 13.3, Plt Count 243, MPV 10.2, Immature Gran % (Auto) 0.600, Neut % (Auto) 70.2 H, Lymph % (Auto) 14.3 L, Lyon % (Auto) 10.3 H, Eos % (Auto) 3.6, Baso % (Auto) 1.0, Absolute Neuts (auto) 5.1, Absolute Lymphs (auto) 1.04, Nucleated RBC % 0, Sodium 139, Potassium 3.9, Chloride 108, Carbon Dioxide 23.1, Anion Gap 8, BUN 9, Creatinine 0.64 L, Estim Creat Clear Calc 74.48, Est GFR (MDRD) Non-Af 98, BUN/Creatinine Ratio 14.9, G lucose 100 H, Calcium 8.7, Triglycerides 139, Cholesterol 254 H, LDL Cholesterol, Calc 168, VLDL Cholesterol 28, HDL Cholesterol 58, Cholesterol/HDL Ratio 4.39, TSH 1.770 Radiography Diagnostic Testing: Radiology Impression Echocardiogram 10/28/24 15:06 Interpretation Summary The estimated ejection fraction is 55-60 %. Normal LV systolic function No previous echo to compare Ordering Physician: Puma Morrison Referring Physician: Faustino Torres Performed By: Leeann Paniagua RCS D/C Instructions DC O2, CPAP, BIPAP Needs Home O2 Discharge instructions: No Meaningful Use Info Meaningful Use Meaningful Use Diagnoses (Choose all that apply): None applicable Discharge Plan Admission Admit Date/Time: 10/28/24 14:34 Primary Reason for Your Visit: shortness of breath Attending Provider: Mathieu Santos Primary Care Provider: Lee Chiang Consulting Providers: Jan Velázquez NP; Faustino Torres; Puma Morrison Instructions Additional Instructions / Restrictions: Start taking your 4 new medications as noted below. Please call the cardiology office on Thursday to schedule a follow-up appointment in the next 1 to 2 weeks. Discharge Orders/Prescriptions Prescriptions: New atorvastatin 40 mg Tablet 40 mg PO QHS 90 Days Qty: 90 0RF aspirin 81 mg Tablet,Delayed Release (Dr/Ec) 81 mg PO BREAKFAST 90 Days Qty: 90 0RF metoprolol succinate 25 mg Tablet Extended Release 24 Hr 12.5 mg PO DAILY 90 Days Qty: 45 0RF ticagrelor [Brilinta] 90 mg Tablet 90 mg PO BID 90 Days Qty: 180 0RF Continued rizatriptan 5 MG tablet 5 mg PO Q2H PRN (Reason: Headache) Rx Instructions: up to 3 tablets per day lansoprazole 30 mg capsule,delayed release(DR/EC) 30 mg PO DAILY Referrals / Follow Up: Faustino Torres MD [Med Staff - Active Staff] - Lee Chiang MD [Primary Care Provider] - Disposition Disposition (needs filled in before D/C Order can be placed): Home, Self Care Charges/Coding Visit Charges Inpatient E&M: 08407 Disch Hosp >30min
--- NOTE | 2024-10-29 09:50 | DCINST_ITS ---
Discharge Instructions DC O2, CPAP, BIPAP needs Home O2 Discharge instructions: No Dressing / Incision Lifting Restrictions: Avoid lifting more than 5 to 10 pounds with your right arm for 5 to 7 days Follow Up Care Please Follow Up With: Donnie Hall MD Test Results: Test results from this visit will be discussed in further detail at your follow- up appointment, if applicable. Discharge Plan Admission Admit Date/Time: 10/28/24 14:34 Primary Reason for Your Visit: shortness of breath Attending Provider: Mathieu Santos Primary Care Provider: Lee Chiang Consulting Providers: Jan Velázquez NP; Faustino Torres; Puma Morrison Instructions Additional Instructions / Restrictions: Start taking your 4 new medications as noted below. Please call the cardiology office on Thursday to schedule a follow-up appointment in the next 1 to 2 weeks. Discharge Orders/Prescriptions Prescriptions: New atorvastatin 40 mg Tablet 40 mg PO QHS 90 Days Qty: 90 0RF aspirin 81 mg Tablet,Delayed Release (Dr/Ec) 81 mg PO BREAKFAST 90 Days Qty: 90 0RF metoprolol succinate 25 mg Tablet Extended Release 24 Hr 12.5 mg PO DAILY 90 Days Qty: 45 0RF ticagrelor [Brilinta] 90 mg Tablet 90 mg PO BID 90 Days Qty: 180 0RF Continued rizatriptan 5 MG tablet 5 mg PO Q2H PRN (Reason: Headache) Rx Instructions: up to 3 tablets per day lansoprazole 30 mg capsule,delayed release(DR/EC) 30 mg PO DAILY Referrals / Follow Up: Faustino Torres MD [Med Staff - Active Staff] - Lee Chiang MD [Primary Care Provider] - Disposition Disposition (needs filled in before D/C Order can be placed): Home, Self Care
--- NOTE | 2024-10-29 10:00 | EKG12_ITS ---
Test Reason : POST-PCI Blood Pressure : */* mmHG Vent. Rate : 76 BPM Atrial Rate : 76 BPM P-R Int : 188 ms QRS Dur : 84 ms QT Int : 378 ms P-R-T Axes : 37 7 11 degrees QTcB Int : 425 ms Normal sinus rhythm Normal ECG When compared with ECG of 25-Feb-2024 01:21, Nonspecific T wave abnormality, worse in Anterior leads Confirmed by Donnie Hall ([id number]), visual effects editor MARTHA FARMER ([id number]) on 11/01/2024 11:13:58 AM Referred By: Faustino Torres Confirmed By: Donnie Hall
[2024-10-29 10:40] VITALS: BP 128/83; PULSE 70; RESP 16; TEMP 36.7; O2SAT 96
[2024-10-29 10:48] VITALS: PULSE 70
[2024-10-29] MEDS: Metoprolol(XL)Succ 25 MG Tablet 12.5 MG PO (10:48)
[2024-10-29] MEDS: Aspirin E.C. 81 MG Tablet PO (10:48)
[2024-10-29] MEDS: TICAGRELOR 90 MG TABLET PO (10:48)
--- NOTE | 2024-10-29 10:48 | CASEMGMT ---
Dx:CP abn stress test LACE:1 6-Clicks:24 Medical record reviewed and patient evaluated for identification of discharge planning needs. Based on this review, at this time criteria are not present to indicate a need for discharge planning. Will remain available to assist with discharge planning needs as identified or requested. TC to [facility], spoke with Philip, cost of Brilinta is $20.35.
== END 2024-10-29 12:08 | disposition home or self-care (01) | DRG 322 ==
LOC: CVS 14:41 → PCU 14:42
PROVIDERS: Admitting Provider Internal Medicine; PCP Family Medicine; Referring Provider Internal Medicine Interventional Cardiology; Visit Provider Hospitalist
DX: I47.29 Other ventricular tachycardia (principal); I25.110 Atherosclerotic heart disease of native coronary artery with unstable angina pectoris; Z66 Do not resuscitate; E66.811 Obesity, class 1; G43.709 Chronic migraine without aura, not intractable, without status migrainosus; K21.9 Gastro-esophageal reflux disease without esophagitis; Z68.32 Body mass index [BMI] 32.0-32.9, adult; I49.3 Ventricular premature depolarization; R94.39 Abnormal result of other cardiovascular function study
CPT/HCPCS: 36415; 78452; 80048; 80061; 84443; 85025; 85027; 85347; 92928; 93005; 93017; 93225; 93226; 93306; 93454; 99152; 99153; A9500; Q9957; Q9967; A4216; C1725; C1769; C1874; C1887; C1894; C8929; C9600; J2785

== ENCOUNTER → 2025-02-18 | Outpatient (CLI) | payer MEDICARE, BC, SELFPAY ==
--- OUTSIDE RECORDS SUMMARY | 2025-02-18 08:41 | XMS RPT_ITS | CCD ---
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 Erendira Chiang MD Primary Care Provider [phone] Ankit SPED TEACHER-C, Jan Other Provider Dr. Faustino Torres MD Referring Provider Dr. Faustino Torres MD Other Provider Geovanna Mueller Attending Provider Dr. Puma Morrison MD Admit Provider Prince TRONCOSO, Dr. Bartholomew Other Provider Dr. Mathieu Santos DO Attending Provider Dr. Faustino Torres MD Attending Provider Dr. Puma Morrison MD Attending Provider Dr. Mathieu Santos DO Other Provider MALATHI, LEONOR L Referring Unavailable ELDERBROCK, ERENDIRA D Primary Care Unavailable ANKIT, JAN Attending Unavailable ELDERBROCK, ERENDIRA D Primary Care Unavailable ANKIT, JAN Referring Unavailable ELDERBROCK, ERENDIRA D Primary Care Unavailable ANKIT, JAN Attending Unavailable ELDERBROCK, ERENDIRA D Primary Care Unavailable MALATHI, LEONOR L Referring Unavailable MALATHIYENNYCA L Attending Unavailable ELDERBROCK, ERENDIRA D Primary Care Unavailable Donnie Hall Attending Unavailable Belal, Farouk Referring Unavailable Elderbrock, Erendira Primary Care Unavailable Belal, Farouk Attending Unavailable Elderbrock, Erendira Primary Care Unavailable Mathieu Santos Attending Unavailable Ankit SPED TEACHER, Jan Consulting Unavailable Belal, Farouk Referring Unavailable Elderbrock, Erendira Primary Care Unavailable Prince, Puma Admitting Unavailable Prince, Puma Consulting Unavailable Belal, Farouk Consulting Unavailable Mathieu Santos Consulting Unavailable Ankit SPED TEACHER, Jan Consulting Unavailable Belal, Farouk Referring Unavailable Elderbrock, Erendira Primary Care Unavailable Geovanna Mueller Attending Unavail able Belal, Farouk Consulting Unavailable Prince, Puma Attending Unavailable Geovanna Mueller Attending Unavail able Elderbrock, Erendira Primary Care Unavailable Elderbrock, Erendira Referring Unavailable Belal, Farouk Attending Unavailable Elderbrock, Erendira Primary Care Unavailable Mathieu Santos Attending Unavailable Ankit SPED TEACHER, Jan Consulting Unavailable Belal, Farouk Referring Unavailable Elderbrock, Erendira Primary Care Unavailable Prince, Puma Admitting Unavailable Pirnce, Puma Consulting Unavailable Belal, Farouk Consulting Unavailable Elderbrock, Erendira Primary Care Unavailable Sean Garber Attending Unavailable Elderbrock, Erendira Primary Care Unavailable Sean Garber Referring Unavailable Sean Garber Attending Unavailable Mariia TRONCOSO, Dr. Howard Primary Care Physician Ankit SPED TEACHER-C, Jan Nurse Practitioner Melissa TRONCOSO, Dr. Harmon Nurse Practitioner Geovanna Mueller Attending Physician Dr. Puma Morrison MD Admitting Physician Dr. Puma Morrison MD Nurse Practitioner Dr. Mathieu Santos DO Attending Physician Melissa TRONCOSO, Dr. Harmon Attending Physician Dr. Puma Morrison MD Attending Physician Dr. Donnie Hall MD Attending Physician Dr. Mathieu Santos DO Nurse Practitioner Mariia TRONCOSO, Dr. Howard Referring Provider Allergies Allergy Classification Reported Allergen(s) Allergy Type Date of Onset Reaction(s) Facility (20 sources) topiramate; Translations: [TOPIRAMATE] Drug Allergy 03-26-2006 Hives [facility] Other [place] [facility] (16 sources) atorvastatin; Translations: [ATORVASTATIN] Drug Allergy 03-22-2022 Myalgia [facility] Work Phone: (16 sources) Simvastatin; Translations: [SIMVASTATIN] Drug Allergy 03-22-2022 Myalgia [facility] Work Phone: Medications Current Medications Medication Drug Class(es) Dates Sig (Normalized) Sig (Original) aspirin 81 mg delayed release oral tablet (6 sources) Platelet Aggregation Inhibitor, Nonsteroidal Anti-inflammatory Drug Start: 10-29-2024 End: 11-18-2024 take 1 tablet by mouth at breakfast Aspirin 81 mg tablet,delayed release (DR/EC) Active 81 mg PO WITH BREAKFAST 90 3 November 18, 2024 1:25pm Complies with drug therapy biotin 2.5 mg oral capsule (19 sources) Start: 02-03-2011 Biotin 2,500 mcg ORAL Cap Take by mouth. 0 02/03/2011 Active Comment on above: Take by mouth. CHOLECALCIFEROL, VITAMIN D3, (VITAMIN D3 ORAL) (19 sources) CHOLECALCIFEROL, VITAMIN D3, (VITAMIN D3 ORAL) Take by mouth. Active CHOLECALCIFEROL, VITAMIN D3, (VITAMIN D3 ORAL) Take by mouth. 0 Active Comment on above: Take by mouth. lansoprazole 30 mg delayed release oral capsule (20 sources) Proton Pump Inhibitor Start: 4 End: 6 take 1 capsule by mouth once daily Lansoprazole 30 mg capsule,delayed release(DR/EC) Active 30 mg PO DAILY February 25, 2024 1:00am Complies with drug therapy Start: 03-22-2022 End: 09-16-2022 take 1 capsule by mouth once daily lansoprazole (PREVACID) 30 mg capsule Indications: GERD without esophagitis Take 1 capsule by mouth once daily. 90 capsule 1 09/16/2022 Active Start: 12-31-2021 take 1 capsule by mo uth once daily lansoprazole (PREVACID) 30 mg capsule [...] on above: TAKE 1 CAPSULE BY MO UTH EVERY DAY Take 1 capsule by mo [facility] once daily. magnesium oxide 400 mg oral tablet (19 sources) Start: 09-20-2018 take 1 tablet by mouth once daily magnesium oxide 400 mg magnesium tab Take 1 tablet by mouth once daily. 09/20/2018 Active Comment on above: Take 1 tablet by [facility] once daily. 24 hr metoprolol succinate 25 mg extended release oral tablet (6 sources) beta-Adrenergic Demarcus Start: 11-18-2024 take 2 tablets by mouth once daily Metoprolol Succinate 25 mg tablet extended release 24 hr Active 12.5 mg PO DAILY 45 3 November 18, 2024 1:24pm Complies with drug therapy Start: 10-29-2024 End: 11-18-2024 take 0.5 tablet by mouth once daily metoprolol succinate ER (TOPROL XL) 25 mg 24 hr tablet Take 0.5 tablets by mouth once daily. 45 tablet 11/07/2024 Active Start: 10-28-2024 End: 11-07-2024 take 1 tablet by mouth once daily metoprolol succinate ER (TOPROL XL) 25 mg 24 hr tablet Take 12.5 mg by mouth once daily. 10/28/2024 11/07/2024 Discontinued rizatriptan 5 mg oral tablet (20 sources) Serotonin-1b and Serotonin-1d Receptor Agonist Start: [...] NEEDED 12 tablet 5 04/16/2020 04/03/2021 Discontinued Start: 02-28-2017 End: 11-07-2024 rizatriptan (MAXALT) 5 mg ta blet Indications: Migraine without aura, not intractable, with status migrainosus Take 1 tablet by mouth as needed. 12 tablet 5 11/07/2024 Active Start: 02-28-2017 take 3 tablets by mo uth every two hours as needed for headache Rizatriptan 5 MG tablet Active 5 mg PO Q2H as needed for Headache February 28, 2017 1:00am up to 3 tablets per day Complies with drug therapy Comment on above: TAKE 1 TABLET BY HERON TH NEEDED. MAY REPEAT IN 2 HOURS IF NEEDED Take 1 tablet (10 mg ) by mouth as needed. May repeat in 2 hours if needed rosuvastatin calcium 10 mg oral tablet (1 source) HMG-CoA Reductase Inhibitor Start: take 1 tablet by mouth once daily Rosuvastatin 10 mg tablet Active 10 mg PO daily 30 November 18, 2024 12:00am Complies with drug therapy ticagrelor 90 mg oral tablet (6 sources) Start: End: 5 take 1 tablet by mouth twice daily Ticagrelor (Brilinta) 90 mg tablet Active 90 mg PO TWICE A DAY November 18, 2024 1:24pm Complies with drug therapy Completed/Discontinued Medications Medication Drug Class(es) Dates Sig (Normalized) Sig (Original) acetaminophen 325 mg / oxyCODONE hydrochloride 5 mg oral tablet (3 sources) Opioid Agonist Start: 02-25-2024 End: 10-28-2024 Oxycodone-Acetamino phen (Percocet) 5-325 mg tablet Discontinued 1 {tbl} PO EVERY 6 HOURS as needed for pain 12 3 0 February 25, 2024 October 28, 2024 1:28pm Biliary colic Calculus of bile duct without cholangitis or cholecystitis without obstruction atorvastatin 40 mg oral tablet (5 sources) HMG-CoA Reductase Inhibitor Start: 10-29-2024 End: 11-18-2024 take 1 tablet by mouth at bedtime Atorvastatin 40 mg Tablet Discontinued 40 mg PO AT BEDTIME 90 90 0 October 29, 2024 12:00am November 18, 2024 1:23pm omeprazole 20 mg delayed release oral capsule (3 sources) Proton Pump Inhibitor Start: 02-28-2017 End: 02-25-2024 take 1 capsule by mouth once daily Omeprazole 20 MG capsule Discontinued 20 mg PO DAILY February 28, 2017 1:00am February 25, 2024 2:45am ondansetron 4 mg disintegrating oral tablet (3 sources) Serotonin-3 Receptor Antagonist Start: 02-25-2024 End: 10-28-2024 take 1 tablet by mouth three times daily as needed for nausea and vomiting Ondansetron 4 mg tablet,disintegrati ng Discontinued 4 mg PO THREE TIMES A DAY as needed for nausea and vomiting 21 0 February 25, 2024 5:33am October 28, 2024 1:29pm Problems Active Problems Problem Classification Problem Date Documented Da te Episodic/Chronic Cardiac dysrhythmias (10 sources) Nonsustained ventricular tachycardia ; Translations: [Nonsustained ventricular tachycardia] Onset: 5 10-28-2024 Chronic Coronary atherosclerosis and other heart disease (14 sources) Coronary arteriosclerosis; Translations: [Atherosclerotic heart disease of [place] coronary artery without angina pectoris] Onset: 5 10-28-2024 Chronic Coronary atherosclerosis and other heart disease (1 source) Presence of coronary angioplasty implant and graft; Translations: [History of heart artery stent] Onset: Episodic Disorders of lipid metabolism (20 sources) Hyperlipidemia; Translations: [Hyperlipidemia, unspecified] Onset: 1 05-13-2016 Chronic Esophageal disorders (20 sources) Gastroesophageal reflux disease; Translations: [Gastro-esophageal reflux disease without esophagitis] Onset: 6 10-06-2005 Chronic Essential hypertension (3 sources) Hypertensive disorder; Translations: [Essential (primary) hypertension] 03-04-2024 Chronic Headache; including migraine (6 sources) Migraine without aura, not refractory ; Translations: [Migraine without aura, not intractable, with status migrainosus] Onset: Chronic Immunizations and screening for infectious disease (3 sources) Patient encounter status; Translations: [Encounter for screening for human papillomavirus (HPV)] 04-17-2023 Episodic Menopausal disorders (19 sources) Menopausal symptom; Translations: [Menopausal and female climacteric states] Onset: 3 04-16-2012 Chronic Nonmalignant breast conditions (2 sources) Breast finding ; Translations: [Dense breast tissue] 04-17-2023 Episodic Nonspecific chest pain (4 sources) Chest discomfort; Translations: [Other chest pain] Onset: 5 09-05-2024 Episodic Other circulatory disease (2 sources) Elevated blood-pressure reading without diagnosis of hypertension; Translations: [Elevated blood-pressure reading, without diagnosis of hypertension] 11-18-2024 Episodic Other gastrointestinal disorders (3 sources) Heartburn; Translations: [Heartburn] 10-28-2024 Episodic Other injuries and conditions due to external causes (1 source) Unspecified foreign body in esophagus causing other injury, initial encounter; Translations: [Unspecified foreign body in esophagus causing other injury, initial encounter] Onset: 7 Other lower respiratory disease (2 sources) Dyspnea on exertion; Translations: [Other forms of dyspnea] 09-05-2024 Episodic Other lower respiratory disease (1 source) Other forms of dyspnea; Translations: [TREVINO (dyspnea on exertion)] Onset: 5 Episodic Other nervous system disorders (3 sources) H/O: migraine; Translations: [Personal history of other diseases of the nervous system and sense organs] 03-04-2024 Episodic Other non-traumatic joint disorders (1 source) Pain in left shoulder; Translations: [Pain in joint, shoulder region] 02-06-2021 Episodic Other nutritional; endocrine; and metabolic disorders (15 sources) Obesity; Translations: [Obesity, unspecified] Onset: 3 03-22-2022 Chronic Other screening for suspected conditions (not mental disorders or infectious disease) (20 sources) Liver function tests abnormal; Translations: [Abnormal results of liver function studies] Onset: 7 03-26-2006 Episodic Other upper respiratory disease (19 sources) Allergic rhinitis; Translations: [Allergic rhinitis, unspecified] Onset: 6 10-06-2005 Chronic Otitis media and related conditions (2 sources) Disorder of left Eustachian tube; Translations: [Unspecified Eustachian tube disorder, left ear] Onset: 5 11-07-2024 Episodic Residual codes; unclassified (19 sources) Obstructive sleep apnea syndrome; Translations: [Obstructive sleep apnea (adult) (pediatric)] Onset: 3 04-16-2012 Chronic Screening and history of mental health and substance abuse codes (2 sources) Encounter for screening for depression; Translations: [Encounter for screening examination for other mental health and behavioral disorders] Onset: 5 Episodic Unclassified (1 source) Unknown / UNK(Unknown) Onset: 7 Unclassified (1 source) History of coronary artery stent placement Unclassified (2 sources) Z95.5 - Presence of coronary angioplasty implant and graft,I25.10 - Atherosclerotic heart disease of [place] coronary artery without angina pectoris,I47.29 - Other ventricular tachycardia Unclassified (1 source) Dense breast tissue; Translations: [Dense breast tissue] Onset: 5 Unclassified (1 source) Other ventricular tachycardia; Translations: [Other ventricular tachycardia] Onset: 5 Past or Other Problems Problem Classification Problem Date Documented Da te Episodic/Chronic Biliary tract disease (9 sources) Cholelithiasis without obstruction; Translations: [Calculus of gallbladder without cholecystitis without obstruction] Onset: 03-24-2024 09-05-2024 Episodic Diabetes mellitus without complication (11 sources) Impaired fasting glycemia; Translations: [Impaired fasting glucose] Onset: 02-20-2011 Resolved: 05-25-2017 05-25-2017 Episodic Gastritis and duodenitis (11 sources) Acute gastritis; Translations: [Acute gastritis without bleeding] Onset: 05-12-2008 Resolved: 05-20-2016 05-20-2016 Episodic Malaise and fatigue (11 sources) Fatigue; Translations: [Other fatigue] Onset: 05-27-2010 Resolved: 05-25-2017 05-25-2017 Episodic Other and unspecified benign neoplasm (19 sources) Benign neoplasm of stomach; Translations: [Benign neoplasm of stomach] Onset: 05-12-2008 05-12-2008 Episodic Other gastrointestinal disorders (2 sources) Dysphagia, unspecified; Translations: [Dysphagia, unspecified] Onset: 02-28-2017 Episodic Other gastrointestinal disorders (19 sources) Dysphagia; Translations: [Dysphagia, unspecified] Onset: 02-28-2017 02-28-2017 Episodic Residual codes; unclassified (19 sources) Family history of osteoporosis; Translations: [Family history of osteoporosis] Onset: 06-09-2013 06-09-2013 Episodic Residual codes; unclassified (15 sources) Other specified health status; Translations: [Other drug allergy] Onset: 03-22-2022 03-22-2022 Episodic Unclassified (3 sources) Patient encounter status 04-19-2024 Unclassified (1 source) Breast finding 04-19-2024 Results Test Name Value Interpretation Reference Range Facility Cardiology Visit Reporton Cardiology Visit Report [facility] [address] [place] [address] OFFICE VISIT Date of Service: 11/18/24 MR#: [id number] Acct: [id number] Name: KAYLEE WONG Rep #: [id number] 2 : 1960 Provider: SONG Ortega Age/Sex: 64/F Location: [facility] Status: Signed HPI HPI History of Present Illness Details: KAYLEE WONG, is a 64 F who presented to [facility] for a stress test on 10/28/24. Stress test was abnormal. She had NSVT and images r demonstrated reversible myocardial ischemia in the LAD distribution/anterior and septal area. She did under a subsequent cardiac cath which found high- grade 90% stenosis of mid LAD which required PCI. She was d/c h ome on . Symptoms that lead to a stress test were: occasionally having sudden feelings of shortness of breath. This would not be brought on by anything particular. It could be at rest or could be with activity. It would last a few seconds. She did not have any lightheadedness or dizziness. During her stress test she was also shortness of breath and lightheadedness. At home she has never had any syncopal episodes. She does not have any chest pain, tightness or heaviness. She does have issues with reflux in which she finds it is always attributed to food and is under control if she takes her Prevacid. Pt has not had any symptoms since having her PCI. She is not interested in cardiac rehab. She is trying to work out more at home. 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 Prior to her stenting she did not have high BP. It was typically on the low side. In the past she has not tolerated some statins. Intake Vital Signs 10/28/24 13:23 11/18/24 12:58 11/18/24 13:00 Height 5 ft 4 in 5 ft 4 in 5 ft 4 in Weight: 190 lb BMI 32.5 BP 129/83 H Blood Pressure Location Lt brachial Position Sitting Respiration 18 Pulse 66 Pulse Source Monitor Pulse Oximetry (%) 94 Intake Visit Reasons: S/P [facility] 11/29 PER MMM Clothes Ironer Required: No Is patient in pain?: No Allergies topiramate (From Topamax) Allergy (Intermediate, Verified 11/18/24 12:57) Rash Medications ???Medication ???Instructions ???Recorded ???Confirmed ???Type rizatriptan 5 mg tablet 5 mg PO Q2H PRN Headache 02/28/17 11/18/24 History lansoprazole 30 mg capsule,delayed 30 mg PO DAILY 02/25/24 11/18/24 History release aspirin 81 mg tablet,delayed 81 mg PO BREAKFAST #90 tabs 11/18/24 Rx release metoprolol succinate 25 mg 12.5 mg (1/2 x 25 mg) PO DAILY #45 11/18/24 11/18/24 Rx tablet,extended release 24 hr tabs rosuvastatin 10 mg tablet 10 mg PO QDAY #30 tabs 11/18/24 Rx ticagrelor 90 mg tablet (Brilinta) 90 mg PO BID #180 tabs 11/18/24 11/18/24 Rx Have you fallen in the past year?: No PFSH Medical History (Updated 11/18/24 @ 13:28 by Geovanna ZULETA, PA) NSVT (nonsustained ventricular tachycardia) Hyperlipidemia Migraine Heartburn Surgical History (Updated 11/06/24 @ 00:01 by Cherelle Valladares) H/O heart artery stent (10/28/24) History of tubal ligation [place] teeth extracted Family History (Updated 10/28/24 @ 13:31 by Ana Luisa Grimes) Grandmother Cancer Mother Cancer Aunt Cancer Aunt Cancer Social History Smoking Status: Never smoker ROS Const Const: Positive for fatigue; Negative for weakness, headache(s) or frequent falls Eyes Eyes: Negative for blurry vision ENT ENT: Negative for headache(s), dizziness or Nosebleed/epistaxis Cardio Chest Pain: No Palpitations: No Edema: None Muscle aches with walking: None Resp Respiratory: Negative for SOB with activity, SOB at rest or SOB orthopnea SOB lying down GI GI: Negative nausea, vomiting, heartburn, bright, red blood in stools or black,tarry stools : Negative for hematuria Neuro Neuro: Negative for dizziness, lightheadedness, near syncope, syncope, frequent falls, headache(s), weakness or blurry vision Endo Endo: Positive for fatigue Cardiology Exam Const Appearance: cooperative, no acute distress and well developed Orientation: alert, awake and oriented x3 Head Head: normocephalic and atraumatic Mouth: moist mucous membranes Eyes General: appearance normal, both eyes and all related structures Conjunctivae: conjunctivae normal Pupils: PERRL EOM: EOM intact bilaterally Neck Neck: normal visual inspection, no lymphadenopathy and no JVD Carotids: Negative bruit Neck Mass: Negative Neck mass Chest Chest inspection: normal inspection of the chest and symmetric chest movement Auscultation: Bilateral: Clear to Auscultation Cardio Palpation: normal PMI Rate: regular rate Rhythm: regular rhythm Heart sounds: S1 normal and S2 normal; Negative rub, gallop or murmur GI GI: normal to inspection, soft, n (more content not included)... Normal [facility] CNOVon 11-07-2024 CNOV Office Visit (FAMPWS ) KAYLEE WONG ([id number]) 1960 F Date Time Provider Department 11/07/24 9:00 AM JAN PHAM During your visit today, we recorded the following information about you: Pulse Respiration Blood pressure Weight 75/minute 16/minute 112/71 87 kg Jan Pham APRN.BINGO CLERK 11/07/2024 9:29 AM Signed Chief Complaint Patient presents with: Hospital F/U Ear Problem: Left ear-plugged HPI Kaylee Wong is a 64 year old female who presents here today for above reason. Sharmin Wong is a 64-year-old female with a history of CAD, presenting for follow-up after a recent stress test and subsequent stent placement. Sharmin underwent a stress test on 10/28, during which she experienced severe lightheadedness and dizziness. The test revealed sustained ventricular tachycardia, leading to an immediate cardiac catheterization. During the procedure, a 90-95% mild LAD coronary artery blockage was identified, and a drug-eluting stent was placed. She is currently under the care of [facility]. Since the procedure, Sharmin reports feeling slightly better but continues to experience fatigue. She notes a reduction in dyspnea compared to before the stent placement. She is currently taking Lipitor, aspirin, metoprolol, and Brilinta. She inquires about potential interactions between these medications and her current supplements, which include vitamin D, biotin, and magnesium. She also requests refills for Prevacid and Maxalt. Additionally, Sharmin reports a sensation of her left ear feeling plugged without associated otalgia. Past medical history, appointments, medications, allergies reviewed. EXAM: BP 112/71 Pulse 75 Resp 16 Wt 87 kg (191 lb 12.8 oz) LMP 03/01/2014 SpO2 95% BMI 34.52 kg/m? General Appearance: Well appearing, alert, in no acute distress, well-hydrated, well nourished.. Head: Normocephalic, no masses, lesions, tenderness or abnormalities. Eyes: Anicteric sclera. Pupils are equally round and reactive to light. Extraocular movements are intact. . Ears: External ears normal, canals clear. Lungs: Lungs clear to auscultation. No wheezing, rhonchi, rales.. Heart: RRR without murmur, gallop, or rubs. No ectopy. Assessment and Plan 1. Coronary artery disease involving [place] coronary artery of [place] heart with angina pectoris (I25.119) 2. History of heart artery stent (Z95.5) Recent stress test revealed sustained ventricular tachycardia and severe coronary artery stenosis (90-95%) requiring urgent cardiac catheterization and placement of a drug-eluting stent. Patient is under ongoing management with [facility] and is currently on Lipitor, aspirin, metoprolol, and Brilinta. - Continue current medications as prescribed by cardiology. - Educated patient on increased bleeding risk due to dual antiplatelet therapy (aspirin and Brilinta). - Advised patient to discuss any medication side effects or concerns with cardiology, including potential switch to Crestor if statin intolerance persists. - Follow-up with cardiology as scheduled. - Return to clinic in 6 months. 3. GERD without esophagitis (K21.9) Patient requests refill of Prevacid. - Refill Prevacid 90 tablets. 4. Migraine without aura, not intractable, with status migrainosus (G43.001) Patient requests refill of Maxalt. - Refill Maxalt 12 tablets. 5. Eustachian tube disorder, left (H69.92) Left ear fullness without pain or infection, likely due to Eustachian tube dysfunction. - Recommended 2 puffs of generic Flonase in each nostril daily to reduce inflammation and promote drainage. Jan Pham APRN.BINGO CLERK RTO in 6 months, sooner if needed. This note was partly generated using [employer] voice recognition dictation and may contain some misspelled or inaccurate words missed on review. Recording using [employer] software for draft documentation of the visit was discussed with the patient/authorized call center support representative; all questions welcomed and answered. Patient/authorized call center support representative agreed to proceed Jan Pham APRN.CNP 11/07/2024 9:24 AM Signed We discussed your recent cardiac care and follow-up: - You underwent a stress test on October 28, which revealed an abnormal heart rhythm (sustained ventricular tachycardia). This led to a heart catheterization, where a 90-95% blockage was identified, and a drug-eluting stent was placed to restore blood flow. - You are now following up with [facility] for ongoing cardiac care. Please continue to follow their recommendations regarding your medications and any additional testing or monitoring. - You are currently taking Lipitor (atorvastatin), aspirin, metoprolol, and Brilinta (ticagrelor). These medications are important for maintaining your heart health and preventing further blockages. - Brilinta helps keep the stent open by (more content not included)... Normal [facility] 12 Lead EKGon 10-29-2024 12 Lead EKG [facility] [address] [place] [address] 12 Lead EKG 10/28/24 1520 MR#: [id number] Acct: [id number] Name: KAYLEE WONG Rep #: [id number] : 1960 64 From: Donnie Hall MD Attending Dr: Dr. Mathieu Santos DO Status : DIS IN Ordering Dr: Faustino Torres MD Date: 10/29/24 Location: [facility] Sex: F C Admitted: 10/28/24 Test Reason : POST-PCI Blood Pressure : */* mmHG Vent. Rate : 76 BPM Atrial Rate : 76 BPM P-R Int : 188 ms QRS Dur : 84 ms QT Int : 378 ms P-R-T Axes : 37 7 11 degrees QTcB Int : 425 ms Normal sinus rhythm Normal ECG When compared with ECG of 25-Feb-2024 01:21, Nonspecific T wave abnormality, worse in Anterior leads Confirmed by Donnie Hall ([id number]), web editor MARTHA FARMER ([id number]) on 11/01/2024 11:13:58 AM Referred By: Faustino Torres Confirmed By: Donnie Hall 11/01/24 1113 Date Donnie Hall MD CC: Dr. Mathieu Santos DO; Dr. Faustino Torres MD; Dr. Erendira Chiang MD Signed Normal [facility] Absolute lymphocyte countOrd ered By: Puma Morrison on 10-29-2024 Lymphocytes Auto (Unsp spec) [#/Vol] 1.04 10*3/uL 0.83-4.51 [facility] Absolute neutrophil countOrd ered By: Pumatanesha Morrison on 10-29-2024 Neutrophils (Bld) [#/Vol] 5.1 10*3/uL 2.0-7.7 [facility] Anion gap in Serum or Plasma Ordered By: Puma Morrison on 10-29-2024 Anion gap [Moles/Vol] 8 mmol/L 07-14 [facility] Automated lymphocyte count a s percentage of total leukocytesOrdered By: Puma Morrison on 10-29-2024 Lymphocytes/100 WBC Auto (Unsp spec) 14.3 % Low [facility] BUN/creatinine ratioOrdered By: Pumatanesha Morrison on 10-29-2024 Urea nitrogen/Creatinine [Mass ratio] 14.9 mg/mg 12-19 [facility] Basic Metabolic Profile (BMP )on 10-29-2024 BUN/CRE 14.9 RATIO Normal 12-19 [facility] Comment on above: Performed By: #### L 100.0100, L500.4100, L501.9520, L500.2500 ####[facility] [address] [place], [address] Calcium [Mass/Vol] 8.7 mg/dL Normal 7.6-11.0 [facility] Comment on above: Performed By: #### L 100.0100, L500.4100, L501.9520, L500.2500 ####[facility] [address] [place], [address] Chloride [Moles/Vol] 108 mmol/L Normal 98-108 [facility] Comment on above: Performed By: #### L 100.0100, L500.4100, L501.9520, L500.2500 ####[facility] [address] [place], [address] CO2 [Moles/Vol] 23.1 mmol/L Normal 21.0-32.0 [facility] Comment on above: Performed By: #### L 100.0100, L500.4100, L501.9520, L500.2500 ####[facility] [address] [place], [address] Creatinine [Mass/Vol] 0.64 mg/dL Low 0.70-1.20 [facility] Comment on above: Performed By: #### L 100.0100, L500.4100, L501.9520, L500.2500 ####[facility] [address] [place], [address] ECRCL 74.48 ml/min Normal 50-250 [facility] Comment on above: Performed By: #### L 100.0100, L500.4100, L501.9520, L500.2500 ####[facility] [address] [place], [address] GAP 8 Normal 5-15 [facility] Comment on above: Performed By: #### L 100.0100, L500.4100, L501.9520, L500.2500 ####[facility] [address] [place], [address] GFR/1.73 sq M.predicted among non-blacks MDRD (S/P/Bld) [Vol rate/Area] 98 mL/min/{1.73_m2} Normal >60 [facility] Comment on above: Result Comment: mL/m in/1.73m2 CKD-EPI Creatinine Equation (2020) Performed By: #### L 100.0100, L500.4100, L501.9520, L500.2500 ####[facility] [address] [place], [address] Glucose [Mass/Vol] 100 mg/dL High 70-99 [facility] Comment on above: Performed By: #### L 100.0100, L500.4100, L501.9520, L500.2500 ####[facility] [address] [place], [address] Potassium [Moles/Vol] 3.9 mmol/L Normal 3.3-5.1 [facility] Comment on above: Performed By: #### L 100.0100, L500.4100, L501.9520, L500.2500 ####[facility] [address] [place], [address] Sodium [Moles/Vol] 139 mmol/L Normal 133-145 [facility] Comment on above: Performed By: #### L 100.0100, L500.4100, L501.9520, L500.2500 ####[facility] [address] [place], [address] Urea nitrogen [Mass/Vol] 9 mg/dL Normal 4-19 [facility] Comment on above: Performed By: #### L 100.0100, L500.4100, L501.9520, L500.2500 ####[facility] [address] [place], [address] Basophil percentageOrdered B y: Puma Morrison on 10-29-2024 Basophils/100 WBC (Bld) 1.0 % 0-1 [facility] CBC W/Diff, Automatedon 10-02 Absolute Lymph 1.04 X10 3/uL Normal 0.83-4.51 [facility] Comment on above: Performed By: #### L 100.0100, L500.4100, L501.9520, L500.2500 #### [facility] [address] [place], [address] Absolute Neut 5.1 X10 3/uL Normal 2.0-7.7 [facility] Comment on above: Performed By: #### L 100.0100, L500.4100, L501.9520, L500.2500 #### [facility] [address] [place], [address] Basophils/100 WBC (Bld) 1.0 % Normal 0-1 [facility] Comment on above: Performed By: #### L 100.0100, L500.4100, L501.9520, L500.2500 #### [facility] [address] [place], [address] Eosinophils/100 WBC (Bld) 3.6 % Normal 0-5 [facility] Comment on above: Performed By: #### L 100.0100, L500.4100, L501.9520, L500.2500 #### [facility] [address] [place], [address] Erythrocyte distribution width (RBC) [Ratio] 13.3 % Normal 11.6-14.6 [facility] Comment on above: Performed By: #### L 100.0100, L500.4100, L501.9520, L500.2500 #### [facility] [address] [place], [address] Hematocrit (Bld) [Volume fraction] 39.1 % Normal 37-47 [facility] Comment on above: Performed By: #### L 100.0100, L500.4100, L501.9520, L500.2500 #### [facility] [address] [place], [address] Hemoglobin (Bld) [Mass/Vol] 13.3 g/dL Normal 12.0-15.0 [facility] Comment on above: Performed By: #### L 100.0100, L500.4100, L501.9520, L500.2500 #### [facility] [address] [place], [address] IG% 0.600 Normal 0.0-0.9 [facility] Comment on above: Result Comment: IG% - Immature Granulocytes (promyelocytes, myelocytes and metamyelocytes) > 1% indicates that a LEFT SHIFT is Present. Performed By: #### L 100.0100, L500.4100, L501.9520, L500.2500 #### [facility] [address] [place], [address] Lymphocytes/100 WBC (Bld) 14.3 % Low 19-41 [facility] Comment on above: Performed By: #### L 100.0100, L500.4100, L501.9520, L500.2500 #### [facility] [address] [place], [address] MCH (RBC) [Entitic mass] 30.4 pg Normal 27.0-32.0 [facility] Comment on above: Performed By: #### L 100.0100, L500.4100, L501.9520, L500.2500 #### [facility] [address] [place], [address] MCHC (RBC) [Mass/Vol] 34.0 g/dL Normal 32-36 [facility] Comment on above: Performed By: #### L 100.0100, L500.4100, L501.9520, L500.2500 #### [facility] [address] [place], [address] MCV (RBC) [Entitic vol] 89.3 fL Normal 81-99 [facility] Comment on above: Performed By: #### L 100.0100, L500.4100, L501.9520, L500.2500 #### [facility] [address] [place], [address] Monocytes/100 WBC (Bld) 10.3 % High 0-10 [facility] Comment on above: Performed By: #### L 100.0100, L500.4100, L501.9520, L500.2500 #### [facility] [address] [place], [address] Neutrophils/100 WBC (Bld) 70.2 % High 47-70 [facility] Comment on above: Performed By: #### L 100.0100, L500.4100, L501.9520, L500.2500 #### [facility] [address] [place], [address] Nucleated RBC (Bld) [#/Vol] 0 10*3/uL Normal 0-5 [facility] Comment on above: Performed By: #### L 100.0100, L500.4100, L501.9520, L500.2500 #### [facility] [address] [place], [address] Platelet mean volume (Bld) [Entitic vol] 10.2 fL Normal 6.2-12.0 [facility] Comment on above: Performed By: #### L 100.0100, L500.4100, L501.9520, L500.2500 #### [facility] [address] [place], [address] Platelets (Bld) [#/Vol] 243 10*3/uL Normal 150-450 [facility] Comment on above: Performed By: #### L 100.0100, L500.4100, L501.9520, L500.2500 #### [facility] [address] [place], [address] RBC (Bld) [#/Vol] 4.38 10*6/uL Normal 4.2-5.4 [facility] Comment on above: Performed By: #### L 100.0100, L500.4100, L501.9520, L500.2500 #### [facility] [address] [place], [address] RDW SD 43.8 fl Normal 35.1-43.9 [facility] Comment on above: Performed By: #### L 100.0100, L500.4100, L501.9520, L500.2500 #### [facility] [address] [place], [address] WBC (Bld) [#/Vol] 7.3 10*3/uL Normal 4.4-11.0 [facility] Comment on above: Performed By: #### L 100.0100, L500.4100, L501.9520, L500.2500 #### [facility] [address] [facility] [place], [address] Calculated very low density lipoprotein (VLDL) cholesterol measurementOrdered By: Puma Morrison on 10-29-2024 Calculated very low density lipoprotein (VLDL) cholesterol measurement 28 mg/dL 5-40 [facility] Carbon dioxide, total [Moles /volume] in Central venous bloodOrdered By: Puma Morrison on 10-29-2024 CO2 [Moles/Vol] 23.1 mmol/L 21.0-32.0 [facility] Chloride assayOrdered By: Quinn Morrison on 10-29-2024 Chloride [Moles/Vol] 108 mmol/L 98-108 [facility] Discharge Instructionon 08 Discharge Instruction [facility] Medical Records Department [address] [place] [address] Instructions for Home/Discharge Instructions 10/29/24 0950 MR#: [id number] Acct: [id number] Name: KAYLEE WONG Rep #: [id number] : 1960 64 From: Mathieu Santos DO PCP: Dr. Erendira Chiang MD Status:ADM IN Discharge Instructions DC O2, CPAP, BIPAP needs Home O2 Discharge instructions: No Dressing / Incision Lifting Restrictions: Avoid lifting more than 5 to 10 pounds with your right arm for 5 to 7 days Follow Up Care Please Follow Up With: Donnie Hall MD Test Results: Test results from this visit will be discussed in further detail at your follow-up appointment, if applicable. Discharge Plan Admission Admit Date/Time: 10/28/24 14:34 Primary Reason for Your Visit: shortness of breath Attending Provider: Mathieu Santos Primary Care Provider: Erendira Chiang Consulting Providers: Jan Pham NP; Faustino Torres; Puma Morrison Instructions Additional Instructions / Restrictions: Start taking your 4 new medications as noted below. Please call the cardiology office on Thursday to schedule a follow-up appointment in the next 1 to 2 weeks. Discharge Orders/Prescriptions Prescriptions: New atorvastatin 40 mg Tablet 40 mg PO QHS 90 Days Qty: 90 0RF aspirin 81 mg Tablet,Delayed Release (Dr/Ec) 81 mg PO BREAKFAST 90 Days Qty: 90 0RF metoprolol succinate 25 mg Tablet Extended Release 24 Hr 12.5 mg PO DAILY 90 Days Qty: 45 0RF ticagrelor [Brilinta] 90 mg Tablet 90 mg PO BID 90 Days Qty: 180 0RF Continued rizatriptan 5 MG tablet 5 mg PO Q2H PRN (Reason: Headache) Rx Instructions: up to 3 tablets per day lansoprazole 30 mg capsule,delayed release(DR/EC) 30 mg PO DAILY Referrals / Follow Up: Faustino Torres MD [Med Staff - Active Staff] - Erendira Chiang MD [Primary Care Provider] - Disposition Disposition (needs filled in before D/C Order can be placed): Home, Self Care 10/29/24 0957 Mathieu Santos DO CC: SPED TEACHER-Willow Pham; Dr. Faustino Torres MD; Dr. rEendira Chiang MD; Dr. Puma Morrison MD Signed Normal [facility] Echocardiogram study reportO rdered By: Faustino Torres on 10-29-2024 Study report [facility] Cardiovascular Services [address] [place] [address] Echo Complete W/ Contrast 10/28/24 1520 MR#: [id number] Acct: [id number] Name: KAYLEE WONG Rep #:[id number] : 1960 64 From: Faustino Torres MD Attending Dr: Dr. Mathieu Santos, Status: ADM IN Ordering Dr: Puma Morrison MD Date: 0 10/28/24 Location: [facility] Sex: F C Admitted: 10/28/24 Reason For Study Reason For Study: ARRYTHMIA Procedure This was a 2D Doppler, Color Flow transthoracic echocardiogram. The study was technically difficult. Limited views were obtained. Exam performed portable in patient room. Left Ventricle Normal left ventricle. The estimated ejection fraction is 55-60 %. Right Ventricle Normal right ventricle. Normal systolic function. Atria Normal left atrium. Normal right atrium. Mitral Valve The mitral valve is structurally normal. No prolapse or stenosis seen. Tricuspid Valve Normal tricuspid valve. Aortic Valve Trisinus/trileaflet aortic valve. Pulmonic Valve The pulmonic valve is not well visualized. Great Vessels The aortic root is not well visualized. Pericardium/Pleural No pericardial effusion. Medication Diluted definity 1ml given slow IV push to enhance endocardial definition. MMode/2D Measurements & Calculations LVIDd: 4.9 cm IVSd: 0.99 cm CO(Teich): 5.4 l/min LVIDs: 3.3 cm LVPWd: 1.2 cm FS: 32.7 % Ao root diam: 2.9 cm LAV(MOD-bp): 43.3 ml LVAd ap4: 31.6 cm2 LAV(MOD-bp) Indexed: 22.7 ml/m2 LVLd ap4: 8.0 cm LAV(MOD-sp2): 37.4 ml EDV(MOD-sp4): 101.4 ml LAV(MOD-sp4): 45.7 ml EDV(sp4-el): 105.1 ml LVAs ap4: 16.1 cm2 LVLs ap4: 6.8 cm ESV(MOD-sp4): 33.0 ml ESV(sp4-el): 32.3 ml EF(MOD-sp4): 67.4 % EF(sp4-el): 69.3 % CO(MOD-sp4): 5.3 l/min SV(sp4-el): 72.8 ml LA A4 area: 17.6 cm2 SV(MOD-sp4): 68.4 ml SI(MOD-sp4): 35.8 ml/m2 LA dimension(2D): 3.9 cm RA A4 area: 13.0 cm2 Time Measurements MV dec time: 0.22 sec Doppler Measurements & Calculations MV E max leila: 77.2 cm/sec Lat Peak E' Leila: 9.1 cm/sec Med Peak E' Leila: 8.2 cm/sec MV A max leila: 90.6 cm/sec E/E' lat: 8.5 E/E' med: 9.4 MV E/A: 0.85 MV V2 max: 86.5 cm/sec MV dec slope: 361.3 cm/sec2 Ao V2 max: 161.4 cm/sec MV max P.0 mmHg Ao max P.4 mmHg MV V2 mean: 54.9 cm/sec Ao V2 mean: 107.3 cm/sec MV mean P.3 mmHg Ao mean P.3 mmHg MV V2 VTI: 30.5 cm Ao V2 VTI: 31.5 cm AV (velocity ratio): 0.89 LV V1 max: 135.5 cm/sec PA V2 max: 124.7 cm/sec LV V1 max P.3 mmHg PA V2 mean: 84.5 cm/sec LV V1 mean P.4 mmHg LV V1 mean: 99.7 cm/sec LV V1 VTI: 28.1 cm ECHO/Echo Complete W/ Contrast Interpretation Summary The estimated ejection fraction is 55-60 %. Normal LV systolic function No previous echo to compare Ordering Physician: Puma Morrison Referring Physician: Faustino Torres Performed By: Leeann Paniagua RCS 10/29/24 1129 Date _ Faustino Torres MD CC: Dr. Mathieu Santos DO; Dr. Faustino Torres MD; Dr. Erendira Chiang MD;Dr. Puma Morrison MD ~ Date Dictated: 10/28/24 1520 Date Transcribed: 10/29/24 1129 Cancer Researcher: Signed [facility] Work Phone: Eosinophil percentageOrdered By: Puma Morrison on 10-29-2024 Eosinophils/100 WBC (Bld) 3.6 % 0-5 [facility] Erythrocyte distribution wid th ratioOrdered By: Puma Morrison on 10-29-2024 Erythrocyte distribution width (RBC) [Ratio] 13.3 % 11.6-14.6 [facility] Erythrocyte distribution wid th standard deviationOrdered By: Puma Morrison on 10-29-2024 Erythrocyte distribution width (RBC) [Ratio] 43.8 fl 35.1-43.9 [facility] Glomerular filtration rate ( GFR) estimation/1.73 sq m using serum, plasma, or whole bOrdered By: Puma Morrison on 10-29-2024 GFR/1.73 sq M.predicted among non-blacks MDRD (S/P/Bld) [Vol rate/Area] 98 mL/min/{1.73_m2} >60 [facility] Comment on above: mL/min/1.73m2 CKD-EP I Creatinine Equation (2020) Hematocrit Auto (Bld) [Volum e fraction]Ordered By: Puma Morrison on 10-29-2024 Hematocrit (Bld) [Volume fraction] 39.1 % 37-47 [facility] Hemoglobin measurementOrdere d By: Puma Morrison on 10-29-2024 Hemoglobin (Bld) [Mass/Vol] 13.3 g/dL 12.0-15.0 [facility] Immature granulocytes/100 WB C Auto (Bld)Ordered By: Puma Morrison on 10-29-2024 Immature granulocytes/100 WBC (Bld) 0.600 % 0.0-0.9 [facility] Comment on above: IG% - Immature Granu locytes (promyelocytes, myelocytes and metamyelocytes) > 1% indicates that a LEFT SHIFT is Present. LDL calc ser/plasOrdered By: Puma Morrison on 10-29-2024 Cholesterol in LDL [Mass/Vol] 168 mg/dL [facility] Comment on above: Aazxuofkbf=709-986 m g/dL & Higher Xamy=018 mg/dL or greaterFriedwald Equation for LDL-C Lipid Profileon 10-29-2024 CHOL:HDL 4.39 Normal [facility] Comment on above: Performed By: #### L 100.0100, L500.4100, L501.9520, L500.2500 ####[facility] [address] [place], [address] Cholesterol [Mass/Vol] 254 mg/dL High <=200 [facility] Comment on above: Result Comment: Chol esterol level, Desirable <200 mg/dL Borderline high cholesterol 200-239 mg/dL High cholesterol >=240 mg/dL Recommendations of the NCEP Adult Treatment Panel for the following risk-cutoff thresholds for the [place] population. Performed By: #### L 100.0100, L500.4100, L501.9520, L500.2500 ####[facility] [address] [place], [address] Cholesterol in HDL [Mass/Vol] 58 mg/dL Normal [facility] Comment on above: Result Comment: Rachelle onal Cholesterol Education Program (NCEP) guidelines: <40 mg/dL: Low HDL-cholesterol (major risk factor for CHD) >= 60 mg/dL: High HDL-cholesterol (negative risk factor for CHD) HDL-cholesterol is affected by a number of factors, e.g. smoking, exercise, hormones, sex and age. Performed By: #### L 100.0100, L500.4100, L501.9520, L500.2500 ####[facility] [address] [place], [address] Cholesterol in LDL [Mass/Vol] 168 mg/dL Normal [facility] Comment on above: Result Comment: Bord ejcigd=936-938 mg/dL Higher Gueo=787 mg/dL or greater Friedwald Equation for LDL-C Performed By: #### L 100.0100, L500.4100, L501.9520, L500.2500 ####[facility] [address] [place], [address] Cholesterol in VLDL [Mass/Vol] 28 mg/dL Normal 5-40 [facility] Comment on above: Performed By: #### L 100.0100, L500.4100, L501.9520, L500.2500 ####[facility] [address] [place], [address] Triglyceride [Mass/Vol] 139 mg/dL Normal [facility] Comment on above: Result Comment: The drugs N-Acetylcysteine and Metamizole may falsely depress this assay. Normal range: <150 mg/dL Borderline High: 150-199 mg/dL High: 200-499 mg/dL Very High: >500 mg/dL Performed By: #### L 100.0100, L500.4100, L501.9520, L500.2500 ####[facility] [address] [place], [address] MCV (mean corpuscular volume ) determinationOrdered By: Puma Morrison on 10-29-2024 MCV (RBC) [Entitic vol] 89.3 fL 81-99 [facility] Mean corpuscular hemoglobin (MCH) determinationOrdered By: Puma Morrison on 10-29-2024 MCH (RBC) [Entitic mass] 30.4 pg 27.0-32.0 [facility] Mean corpuscular hemoglobin concentration (MCHC) determinationOrdered By: Puma Morrison on 10-29-2024 MCHC (RBC) [Mass/Vol] 34.0 g/dL 32-36 [facility] Mean platelet volume determi nationOrdered By: Puma Morrison on 10-29-2024 Platelet mean volume (Bld) [Entitic vol] 10.2 fL 6.2-12.0 [facility] Monocyte percentageOrdered B y: Puma Morrison on 10-29-2024 Monocytes/100 WBC (Bld) 10.3 % High 0-10 [facility] Neutrophil percentageOrdered By: Puma Morrison on 10-29-2024 Neutrophils/100 WBC (Bld) 70.2 % High 47-70 [facility] Nucleated red blood cell per centageOrdered By: Puma Morrison on 10-29-2024 Nucleated RBC/100 WBC (Bld) [Ratio] 0 % 0-5 [facility] Platelet countOrdered By: Quinn Morrison on 10-29-2024 Platelets (Bld) [#/Vol] 243 10*3/uL 150-450 [facility] Potassium measurement (mass/ volume)Ordered By: Puma Morrison on 10-29-2024 Potassium (Unsp spec) [Mass/Vol] 3.9 mmol/L 3.3-5.1 [facility] RBC Auto (Bld) [#/Vol]Ordere d By: Puma Morrison on 10-29-2024 RBC (Bld) [#/Vol] 4.38 10*6/uL 4.2-5.4 [facility] Screening total cholesterol/ high density lipoprotein (HDL) cholesterol ratioOrdered By: Puma Morrison on 10-29-2024 Cholesterol.total/Chol esterol in HDL [Mass ratio] 4.39 {ratio} [facility] Serum creatinine measurement (mass/volume)Ordered By: Puma Morrison on 10-29-2024 Creatinine [Mass/Vol] 0.64 mg/dL Low 0.70-1.20 [facility] Serum glucose measurement (m ass/volume)Ordered By: Puma Morrison on 10-29-2024 Glucose [Mass/Vol] 100 mg/dL High 70-99 [facility] Serum or plasma calcium cuco urement (mass/volume)Ordered By: Puma Morrison on 10-29-2024 Calcium [Mass/Vol] 8.7 mg/dL 7.6-11.0 [facility] Serum or plasma cholesterol in HDL measurement (mass/volume)Ordered By: Puma Morrison on 10-29-2024 Cholesterol in HDL [Mass/Vol] 58 mg/dL >40 [facility] Comment on above: National Cholesterol Education Program (NCEP) guidelines:<40 mg/dL: Low HDL-cholesterol (major risk factor for CHD)>= 60 mg/dL: High HDL-cholesterol (negative risk factor for CHD)HDL-cholesterol is affected by a number of factors, e.g. smoking, exercise, hormones, sex and age. Serum or plasma cholesterol measurement (mass/volume)Ordered By: Puma Morrison on 10-29-2024 Cholesterol [Mass/Vol] 254 mg/dL High <201 [facility] Comment on above: Cholesterol level, D esirable <200 mg/dLBorderline high cholesterol 200-239 mg/dLHigh cholesterol >=240 mg/dLRecommendations of the NCEP Adult Treatment Panel for the following risk-cutoff thresholds for the [place] population. Serum or plasma urea nitroge n measurement (mass/volume)Ordered By: Puma Morrison on 10-29-2024 Urea nitrogen [Mass/Vol] 9 mg/dL 4-19 [facility] Sodium levelOrdered By: Domingo Morrison on 10-29-2024 Sodium [Moles/Vol] 139 mmol/L 133-145 [facility] TSH DL <= 0.005 mIU/L QnOrde red By: Puma Morrison on 10-29-2024 TSH Qn 1.770 uIU/mL 0.300-4.20 0 [facility] Thyroid Stim Hormone (TSH)on 10-29-2024 TSH 1.770 uIU/mL Normal 0.300-4.20 0 [facility] Comment on above: Performed By: #### L 100.0100, L500.4100, L501.9520, L500.2500 ####[facility] [address] [place], [place], [address] Triglycerides measurementOrd ered By: Puma Morrison on 10-29-2024 Triglyceride [Mass/Vol] 139 mg/dL <199 [facility] Comment on above: The drugs N-Acetylcy steine and Metamizole may falsely depress this assay. Normal range: <150 mg/dLBorderline High: 150-199 mg/dLHigh: 200-499 mg/dLVery High: >500 mg/dL White blood cell (WBC) count Ordered By: Puma oMrrison on 10-29-2024 WBC (Bld) [#/Vol] 7.3 10*3/uL 4.4-11.0 [facility] 12 Lead EKGon 10-28-2024 12 Lead EKG [facility] [address] [place] [address] 12 Lead EKG 10/29/24 0543 MR#: [id number] Acct: [id number] Name: KAYLEE WONG Rep #: [id number] : 1960 64 From: Donnie Hall MD Attending Dr: Dr. Mathieu Santos, DO Status : DIS IN Ordering Dr: Puma Morrison MD Date: 10/28/24 Location: [facility] Sex: F C Admitted: 10/28/24 Test Reason : AM Blood Pressure : */* mmHG Vent. Rate : 62 BPM Atrial Rate : 62 BPM P-R Int : 184 ms QRS Dur : 82 ms QT Int : 414 ms P-R-T Axes : 47 16 33 degrees QTcB Int : 420 ms Normal sinus rhythm Normal ECG When compared with ECG of 28-Oct-2024 15:20, MANUAL COMPARISON REQUIRED DATA IS UNCONFIRMED Confirmed by Donnie Hall ([id number]), web editor MARTHA FARMER ([id number]) on 11/01/2024 11:13:50 AM Referred By: Faustino Torres Confirmed By: Donnie Hall 11/01/24 1113 Date Donnie Hall MD CC: Dr. Mathieu Santos DO; Dr. Faustino Torres MD; Dr. Erendira Chiang MD; Dr. Puma Morrison MD Signed Normal [facility] ACT Activated Clotting Timeo n 10-28-2024 ACTk CLOT TIME 262 sec High 74-137 [facility] Comment on above: Performed By: #### L 9100.0100 #### [facility] Laboratory [address] [place], [address] Basic Metabolic Profile (BMP )on 10-28-2024 BUN/CRE 15.3 RATIO Normal 10-20 [facility] Comment on above: Performed By: #### L 500.2500, L100.0500 ####[facility] [address] [place], [address] Calcium [Mass/Vol] 9.5 mg/dL Normal 7.6-11.0 [facility] Comment on above: Performed By: #### L 500.2500, L100.0500 ####[facility] [address] [place], [address] Chloride [Moles/Vol] 104 mmol/L Normal 98-108 [facility] Comment on above: Performed By: #### L 500.2500, L100.0500 ####[facility] [address] [place], [address] CO2 [Moles/Vol] 24.3 mmol/L Normal 21.0-32.0 [facility] Comment on above: Performed By: #### L 500.2500, L100.0500 ####[facility] [address] [place], [address] Creatinine [Mass/Vol] 0.63 mg/dL Low 0.70-1.20 [facility] Comment on above: Performed By: #### L 500.2500, L100.0500 ####[facility] [address] [place], [address] ECRCL 74.48 ml/min Normal 50-250 [facility] Comment on above: Performed By: #### L 500.2500, L100.0500 ####[facility] [address] [place], [address] GAP 11 Normal 5-15 [facility] Comment on above: Performed By: #### L 500.2500, L100.0500 ####[facility] [address] [place], [address] GFR/1.73 sq M.predicted among non-blacks MDRD (S/P/Bld) [Vol rate/Area] 98 mL/min/{1.73_m2} Normal >60 [facility] Comment on above: Result Comment: mL/m in/1.73m2 CKD-EPI Creatinine Equation (2020) Performed By: #### L 500.2500, L100.0500 ####[facility] [address] [place], [address] Glucose [Mass/Vol] 110 mg/dL High 70-99 [facility] Comment on above: Performed By: #### L 500.2500, L100.0500 ####[facility] [address] [place], [address] Potassium [Moles/Vol] 4.3 mmol/L Normal 3.3-5.1 [facility] Comment on above: Performed By: #### L 500.2500, L100.0500 ####[facility] [address] [place], [address] Sodium [Moles/Vol] 140 mmol/L Normal 133-145 [facility] Comment on above: Performed By: #### L 500.2500, L100.0500 ####[facility] [address] [place], [address] Urea nitrogen [Mass/Vol] 10 mg/dL Normal 4-19 [facility] Comment on above: Performed By: #### L 500.2500, L100.0500 ####[facility] [address] [place], [address] CBC-Complete Blood Cnt No Di ffon 10-28-2024 Erythrocyte distribution width (RBC) [Ratio] 13.1 % Normal 11.6-14.6 [facility] Comment on above: Performed By: #### L 500.2500, L100.0500 ####[facility] [address] [place], [address] Hematocrit (Bld) [Volume fraction] 45.6 % Normal 37-47 [facility] Comment on above: Performed By: #### L 500.2500, L100.0500 ####[facility] [address] [place], [address] Hemoglobin (Bld) [Mass/Vol] 15.0 g/dL Normal 12.0-15.0 [facility] Comment on above: Performed By: #### L 500.2500, L100.0500 ####[facility] [address] [place], [address] MCH (RBC) [Entitic mass] 29.4 pg Normal 27.0-32.0 [facility] Comment on above: Performed By: #### L 500.2500, L100.0500 ####[facility] [address] [place], [address] MCHC (RBC) [Mass/Vol] 32.9 g/dL Normal 32-36 [facility] Comment on above: Performed By: #### L 500.2500, L100.0500 ####[facility] [address] [place], [address] MCV (RBC) [Entitic vol] 89.4 fL Normal 81-99 [facility] Comment on above: Performed By: #### L 500.2500, L100.0500 ####[facility] [address] [place], [address] Platelet mean volume (Bld) [Entitic vol] 10.1 fL Normal 6.2-12.0 [facility] Comment on above: Performed By: #### L 500.2500, L100.0500 ####[facility] [address] [place], [address] Platelets (Bld) [#/Vol] 285 10*3/uL Normal 150-450 [facility] Comment on above: Performed By: #### L 500.2500, L100.0500 ####[facility] [address] [place], [address] RBC (Bld) [#/Vol] 5.10 10*6/uL Normal 4.2-5.4 [facility] Comment on above: Performed By: #### L 500.2500, L100.0500 ####[facility] [address] [place], [address] RDW SD 43.2 fl Normal 35.1-43.9 [facility] Comment on above: Performed By: #### L 500.2500, L100.0500 ####[facility] [address] [place], [place], [address] WBC (Bld) [#/Vol] 7.3 10*3/uL Normal 4.4-11.0 [facility] Comment on above: Performed By: #### L 500.2500, L100.0500 ####[facility] [address] [place], [address] CNPNon 10-28-2024 [facility]AYLE[facility] WONG ([id number]) 1960 F Date Time Provider Department 10/28/24 ERENDIRA CHIANG [facility] During your visit today, we recorded the following information about you: Weston Mckinley, RN 10/28/2024 8:57 AM Signed Laverne- [facility]- reports pt just did a stress test that showed V-tach during the test. Pt also had severe lightheadedness and dizzy. Laverne would like to put a Holter Monitor on patient before sending her home. Cardiology is not available right now, so reaching out to pcp for verbal order to place Holter Monitor. Please phone Laverne with vo: [phone] Can also fax order to Erendira Chiang MD 10/28/2024 9:07 AM Signed OK for verbal order to place Holter Monitor as requested MD Porsche Macario Kim E, LPN 10/28/2024 9:32 AM Signed Laverne phoned and notified of verbal order per . Holter monitor will be placed for 48 hours. TIGIST Alarcon Mark D, MD 10/28/2024 10:03 AM Signed Noted and agree Erendira Chiang MD Allergies As of Date: 10/28/2024 Noted Allergy Reaction ATORVASTATIN 03/22/2022 17 - Myalgia SIMVASTATIN 03/22/2022 17 - Myalgia TOPAMAX (TOPIRAMATE) 03/26/2006 4 - Hives Date Reviewed: 09/05/2024 Reviewed by: Kalee Subramanian MA - Fully Assessed Reason for Visit: Verbal order needed for Holter Monitor [Other] Prescriptions as of 10/28/2024 - lansoprazole (PREVACID) 30 mg capsule Take 1 capsule by mouth once daily. - magnesium oxide 400 mg magnesium tab Take 1 tablet by mouth once daily. - CHOLECALCIFEROL, VITAMIN D3, (VITAMIN D3 ORAL) Take by mouth. - Biotin 2,500 mcg ORAL Cap Take by mouth. Problem List As Of Date 10/28/2024 Noted Resolved ESOPHAGEAL REFLUX [K21.9] 10/06/2005 ALLERGIC RHINITIS NOS [J30.9] 10/06/2005 ABNORMAL LIVER FUNCTION STUDY [R94.5] 03/26/2006 Acute gastritis without mention of hemorrhage [*05/12/2008 05/20/2016 BENIGN NEOPLASM STOMACH [D13.1] 05/12/2008 Fatigue [R53.83] 05/27/2010 05/25/2017 Impaired fasting glucose [R73.01] 02/20/2011 05/25/2017 Hyperlipidemia with target low density lipoprot*02/20/2011 Obstructive sleep apnea on CPAP [G47.33] 04/16/2012 Symptomatic menopausal or female climacteric st*04/16/2012 Family history of osteoporosis [Z82.62] 06/09/2013 Dysphagia [R13.10] 02/28/2017 Obesity [E66.9] 03/22/2022 Statin intolerance [Z78.9] 03/22/2022 Encounter Status:Closed by ERENDIRA CHIANG on 10/28/24 [facility] CVS/PCIREPORTon 10-28-2024 CVS/PCIREPORT [facility] Cardiovascular Services [address] [place] [address] MR#: [id number] Acct: [id number] Name: KAYLEE WONG Rep #: [id number] : 1960 64 From: Faustino Torres MD Primary Care: Dr. Erendira Chiang MD Status: ADM IN Referring Dr: Faustino Torres MD Sex: F C PCI Cardiac Cath Report PCI Report: PCI cardiac cath report 1. Moderate sedation 2. 6 Wallisian sheath in right radial artery 3. Successful PCI of high-grade 90% stenosis of mid LAD, with predilatation using 2 x 12 mm balloon Followed by placement of drug-eluting stent 3.5 x 18 mm, with reduction of stenosis to 0% Preprocedure LEILA-3 flow postprocedure LEILA-3 flow. 4. Placement of TR band to close the right radial artery arteriotomy site. Consent; Risks and benefits of procedure explained detail patient reacted to proceed informed consent obtained. Preprocedure diagnosis 64-year-old patient seen and evaluated in the stress lab Patient was referred by primary care physician for stress test Noted patient has symptoms of shortness of breath lightheaded and dizziness in addition had the significant abnormality in the EKG with With nonsustained V. tach. And the nuclear images showed evidence of reversible myocardial ischemia overall LV systolic function is preserved Ejection fraction within normal 79%/hyperdynamic left ventricle. Her with massive WA at home. Patient has been on pantoprazole for GERD. Diagnostic and interventional catheter used; 1. 5 Wallisian JL 3.5 2. 5 Wallisian JR4. #3 6 Wallisian JL 3.5 guide catheter 4. 2 x 12 mm balloon 5. 3.5 x 80 mm [place] frontier drug-eluting stent 6. 0.14 180 cm run-through extra floppy straight guidewire. Medication used in the [place]; 1. Heparin with ACT level acceptable more than 250 2. Brilinta 180 mg in the [place] 3. Patient was given 325 mg of aspirin. Procedure in detail. Patient brought from the stress lab to the cardiac [place] Right radial artery area prepped and draped in the usual sterile fashion. Access obtained from the right radial artery and 6 Wallisian sheath placed. Proceed with a 6 Wallisian sheath placed in the right radial artery then we will proceed with a diagnostic catheter 5 Wallisian JL 3.5 advancing the quarter cannulated the left main without difficulty Following this catheter exchanged for 5 Wallisian JR4 catheter advanced to the ascending aorta and selective angiographic view of the RCA obtained. Following this we proceeded with interventional plan after reviewing all the angiographic findings and identifying the culprit lesion at the mid LAD high-grade lesion 90%. We proceeded with the guidewire run-through crossed the lesion followed by balloon dilatation using 2 x 12 mm up to 12 SWEETIE this is followed by placement of drug-eluting stent 3.5 x 18 mm Up to 16 SWEETIE and achieved an excellent result. Patient tolerated procedure very well with no complication. Coronary angiography; 1. Left main coronary arteries normal angiographically bifurcating into LAD and left circumflex 2. Left anterior descending artery has a mid 90% stenosis Following the PCI we reduce the stenosis to 0% and achieve LEILA pre and post 3 3. The left circumflex artery is moderate to large in size and angiographically had no significant atherosclerosis 4. RCA small nondominant. Conclusion recommendation; This patient has significantly abnormal nuclear stress test as well as the EKG showing nonsustained ventricular tachycardia. She had symptoms with shortness of breath and her with massive WA. Based on the clinical presentation and abnormal stress test she underwent cardiac catheterization identified the lesion as a high-grade lesion 90% involving the mid LAD with successful PCI Patient will require #1 dual antiplatelet therapy with Brilinta 90 mg twice daily in addition to low-dose aspirin for 1 year. And low-dose aspirin indefinitely 2. Patient will be scheduled to follow-up with the cardiology team here at [facility] 3. Will schedule for cardiac rehab/post PCI Patient tolerated procedure very well with no complication in the [place]. Faustino Torres MD,[facility] plant machinist 10/28/24 1449 Date Faustino Torres MD CC: Dr. Faustino Torres MD; Dr. Erendira Chiang MD; Dr. Puma Morrison MD Date Dictated: 10/28/24 143 Date Transcribed: 10/28/24 143 Cancer Researcher: MALIK Signed Normal [facility] Cardiac catheterization repo rtOrdered By: Faustino Torres on 10-28-2024 Cardiac catheterization study [facility] Cardiovascular Services [address] [place] [address] MR#: [id number] Acct: [id number] Name: KAYLEE WONG SHARMIN Rep #: [id number] : 1960 64 From: Faustino Torres MD Primary Care: Dr. Erendira Chiang MD Sta tus: ADM IN Referring Dr: Faustino Torres MD Sex: F C PCI Cardiac Cath Report PCI Report: PCI cardiac cath report 1. Moderate sedation 2. 6 Wallisian sheath in right radial artery 3. Successful PCI of high-grade 90% stenosis of mid LAD, with predilatation using 2 x 12 mm balloon Followed by placement of drug-eluting stent 3.5 x 18 mm, with reduction of stenosis to 0% Preprocedure LEILA-3 flow postprocedure LEILA-3 flow. 4. Placement of TR band to close the right radial artery arteriotomy site. Consent; Risks and benefits of procedure explained detail patient reacted to proceed informed consent obtained. Preprocedure diagnosis 64-year-old patient seen and evaluated in the stress lab Patient was referred by primary care physician for stress test Noted patient has symptoms of shortness of breath lightheaded and dizziness in addition had the significant abnormality in the EKG with With nonsustained V. tach. And the nuclear images showed evidence of reversible myocardial ischemia overallLV systolic function is preserved Ejection fraction within normal 79%/hyperdynamic left ventricle. Her with massive WA at home. Patient has been on pantoprazole for GERD. Diagnostic and interventional catheter used; 1. 5 Wallisian JL 3.5 2. 5 Wallisian JR4. #3 6 Wallisian JL 3.5 guide catheter 4. 2 x 12 mm balloon 5. 3.5 x 80 mm [place] frontier drug-eluting stent 6. 0.14 180 cm run-through extra floppy straight guidewire. Medication used in the [place]; 1. Heparin with ACT level acceptable more than 250 2. Brilinta 180 mg in the [place] 3. Patient was given 325 mg of aspirin. Procedure in detail. Patient brought from the stress lab to the cardiac [place] Right radial artery area prepped and draped in the usual sterile fashion. Access obtained from the right radial artery and 6 Wallisian sheath placed. Proceed with a 6 Wallisian sheath placed in the right radial artery then we will proceed with a diagnostic catheter 5 Wallisian JL 3.5 advancing the quarter cannulated the left main without difficulty Following this catheter exchanged for 5 Wallisian JR4 catheter advanced to the ascending aorta and selective angiographic view of the RCA obtained. Following this we proceeded with interventional plan after reviewing all the angiographic findings and identifying the culprit lesion at the mid LAD high-grade lesion 90%. We proceeded with the guidewire run-through crossed the lesion followed by balloon dilatation using 2 x 12 mm up to 12 SWEETIE this is followed by placement ofdrug-eluting stent 3.5 x 18 mm Up to 16 SWEETIE and achieved an excellent result. Patient tolerated procedure very well with no complication. Coronary angiography; 1. Left main coronary arteries normal angiographically bifurcating into LAD andleft circumflex 2. Left anterior descending artery has a mid 90% stenosis Following the PCI we reduce the stenosis to 0% and achieve LEILA pre and post 3 3. The left circumflex artery is moderate to large in size and angiographicallyhad no significant atherosclerosis 4. RCA small nondominant. Conclusion recommendation; This patient has significantly abnormal nuclear stress test as well as the EKG showing nonsustained ventricular tachycardia. She had symptoms with shortness of breath and her with massive WA. Based on the clinical presentation and abnormal stress test she underwent cardiac catheterization identified the lesion as a high-grade lesion 90% involving the mid LAD with successful PCI Patient will require #1 dual antiplatelet therapy with Brilinta 90 mg twice daily in addition to low-dose aspirin for 1 year. And low-dose aspirin indefinitely 2. Patient will be scheduled to follow-up with the cardiology team here at [facility] 3. Will schedule for cardiac rehab/post PCI Patient tolerated procedure very well with no complication in the [place]. Faustino Torres MD,[facility] plant machinist 10/28/24 1449 Date _ Faustino Torres MD CC: Dr. Faustino Torres MD; Dr. Erendira Chiang MD; Dr. Puma Morrison MD ~ Date Dictated: 10/28/241434 Date Transcribed: 10/28/241434 Cancer Researcher: MALIK Signed [facility] Work Phone: Cardiovascular stress test r eportOrdered By: Faustino Torres on 10-28-2024 Study report [facility] Cardiovascular Services [address] [place] [address] MR#: [id number] Acct: [id number] Name: KAYLEE WONG Rep #: [id number] : 1960 64 From: Faustino Torres MD Primary Care: Dr. Erendira Chiang MD Sta tus: ADM IN Referring Dr: Faustino Torres MD Sex: F C Stress Test Report Pharmacologic myocardial perfusion stress test. Indication; 64-year-old patient with symptoms of shortness of breath on exertion Was referred for outpatient regular stress test And also had symptoms of chest pain with massive WA at home Abnormal EKG portion of nuclear stress test with nonsustained V. tach and frequent PVC. Stress protocol: Resting EKG demonstrates. Normal sinus rhythm. 0.4 mg of regadenoson was infused per usual protocol followed by rapid intravenous saline flush injection continuous EKG monitoring was performed. The maximum heart rate attained was 137 bpm which was 88% of maximum predicted heart. Stress EKG showed[, no significant change from the resting EKG, with maximum heart rate of 137 bpm. Arrhythmia: Patient has nonsustained V. tach with frequent PVCs Symptoms: Patient has symptoms of lightheadedness dizziness and shortness of breath. Blood pressure at rest: [122/78 blood pressure at the end of stress: 124/82] Myocardial perfusion protocol. [12 mCi ]of Technetium 99m Sestamibi was injected at rest. [ 0.4 mg ]of Regadenoson was infused per usual protocol peak infusion[36 mCi ]of Technetium 99m sestamibi was injected. Stress images were obtained stress and rest images were reconstructed and compared in the short axis vertical and horizontal long axis. Gated images were also obtained Perfusion SPECT analysis: Review of the images demonstrate reversible myocardial ischemia involving the anterior and septal region Gated SPECT analysis: The gated ejection fraction is 79% LV wall motion showed hyperdynamic left ventricle. Conclusion: Abnormal Lexiscan sestamibi with reversible myocardial ischemia in the LAD distribution/anterior and septal Episodes of nonsustained ventricular tachycardia with frequent PVCs Patient symptomatic with shortness of breath lightheadedness and dizziness Recommendation; Left heart cath Faustino Torres MD,[facility] plant machinist 10/28/24 1500 Date _ Faustino Torres MD CC: BRUCE Pham; Dr. Faustino Torres MD; Dr. Erendira Chiang MD; Dr. Puma Morrison MD ~ Date Dictated: 10/28/24 111 Date Transcribed: 10/28/241118 Cancer Researcher: FB Signed [facility] Work Phone: Echo Complete W/ Contraston 10-28-2024 Echo Complete W/ Contrast [facility] Cardi[facility] Services [address] [place] [address] Echo Complete W/ Contrast 10/28/24 1520 MR#: [id number] Acct: [id number] Name: KAYLEE WONG Rep #: [id number] : 1960 64 From: Faustino Torres MD Attending Dr: Dr. Mathieu Santos, DO Status : ADM IN Ordering Dr: Puma Morrison MD Date: 10/28/24 Location: [facility] Sex: F C Admitted: 10/28/24 Reason For Study Reason For Study: ARRYTHMIA Procedure This was a 2D Doppler, Color Flow transthoracic echocardiogram. The study was technically difficult. Limited views were obtained. Exam performed portable in patient room. Left Ventricle Normal left ventricle. The estimated ejection fraction is 55-60 %. Right Ventricle Normal right ventricle. Normal systolic function. Atria Normal left atrium. Normal right atrium. Mitral Valve The mitral valve is structurally normal. No prolapse or stenosis seen. Tricuspid Valve Normal tricuspid valve. Aortic Valve Trisinus/trileaflet aortic valve. Pulmonic Valve The pulmonic valve is not well visualized. Great Vessels The aortic root is not well visualized. Pericardium/Pleural No pericardial effusion. Medication Diluted definity 1ml given slow IV push to enhance endocardial definition. MMode/2D Measurements Calculations LVIDd: 4.9 cm IVSd: 0.99 cm CO(Teich): 5.4 l/min LVIDs: 3.3 cm LVPWd: 1.2 cm FS: 32.7 % Ao root diam: 2.9 cm LAV(MOD-bp): 43.3 ml LVAd ap4: 31.6 cm2 LAV(MOD-bp) Indexed: 22.7 ml/m2 LVLd ap4: 8.0 cm LAV(MOD-sp2): 37.4 ml EDV(MOD-sp4): 101.4 ml LAV(MOD-sp4): 45.7 ml EDV(sp4-el): 105.1 ml LVAs ap4: 16.1 cm2 LVLs ap4: 6.8 cm ESV(MOD-sp4): 33.0 ml ESV(sp4-el): 32.3 ml EF(MOD-sp4): 67.4 % EF(sp4-el): 69.3 % CO(MOD-sp4): 5.3 l/min SV(sp4-el): 72.8 ml LA A4 area: 17.6 cm2 SV(MOD-sp4): 68.4 ml SI(MOD-sp4): 35.8 ml/m2 LA dimension(2D): 3.9 cm RA A4 area: 13.0 cm2 Time Measurements MV dec time: 0.22 sec Doppler Measurements Calculations MV E max leila: 77.2 cm/sec Lat Peak E' Leila: 9.1 cm/sec Med Peak E' Leila: 8.2 cm/sec MV A max leila: 90.6 cm/sec E/E' lat: 8.5 E/E' med: 9.4 MV E/A: 0.85 MV V2 max: 86.5 cm/sec MV dec slope: 361.3 cm/sec2 Ao V2 max: 161.4 cm/sec MV max P.0 mmHg Ao max P.4 mmHg MV V2 mean: 54.9 cm/sec Ao V2 mean: 107.3 cm/sec MV mean P.3 mmHg Ao mean P.3 mmHg MV V2 VTI: 30.5 cm Ao V2 VTI: 31.5 cm AV (velocity ratio): 0.89 LV V1 max: 135.5 cm/sec PA V2 max: 124.7 cm/sec LV V1 max P.3 mmHg PA V2 mean: 84.5 cm/sec LV V1 mean P.4 mmHg LV V1 mean: 99.7 cm/sec LV V1 VTI: 28.1 cm ECHO/Echo Complete W/ Contrast Interpretation Summary The estimated ejection fraction is 55-60 %. Normal LV systolic function No previous echo to compare Ordering Physician: Puma Morrison Referring Physician: Faustino Torres Performed By: Leeann Paniagua RCS 10/29/24 1129 Date Faustino Torres MD CC: Dr. Mathieu Santos DO; Dr. Faustino Torres MD; Dr. Erendira Chiang MD; Dr. Puma Morrison MD Date Dictated: 10/28/24 1520 Date Transcribed: 10/29/24 1129 Cancer Researcher: Signed Normal [facility] H AND P Exam - Cardiologyon 10-28-2024 H&P Exam - Cardiology [facility] Medical Records Department [address] [place] [address] H P Exam - Cardiology 10/28/24 1111 MR#: [id number] Acct: [id number] Name: KAYLEE WONG Rep #: [id number] : 1960 64 From: Geovanna ZULETA PA PCP: Dr. Erendira Chiang MD Status:REG CLI Location: [facility] HPI - General HPI Narrative KAYLEE WONG, is a 64 F who presents here today for an abnormal stress test. Patient had a stress test due to occasionally having sudden feelings of shortness of breath. This would not be brought on by anything particular. It could be at rest or could be with activity. It would last a few seconds. She did not have any lightheadedness or dizziness. She did undergo a stress test today. EKG did demonstrate nonsustained ventricular tachycardia. She was symptomatic with this with shortness of breath and lightheadedness. At home she has never had any syncopal episodes. She does not have any chest pain, tightness or heaviness. She does have issues with reflux in which she finds it is always attributed to food and is under control if she takes her Prevacid. [facility] Medical History (Updated 10/28/24 @ 11:13 by Geovanna ZULETA, PA) Migraine Heartburn NSVT (nonsustained ventricular tachycardia) Home Medications ???Medication ???Instructions ???Recorded ???Last Taken ???Type rizatriptan 5 mg tablet 5 mg PO PRN PRN Headache 02/28/17 02/27/17 History lansoprazole 30 mg capsule,delayed 30 mg PO DAILY 02/25/24 Unknown History release ondansetron 4 mg disintegrating 4 mg PO TID PRN nausea and 4 Unknown Rx tablet vomiting #21 tabs oxycodone-acetaminophen 5 mg-325 1 tab PO Q6H PRN pain 3 days #12 1 04/27/23 Unknown Rx mg tablet (Percocet) tabs Allergy/AdvReac Type Severity Reaction Status Date / Time topiramate (From Topamax) Allergy Intermediate Rash Verified 02/25/24 01:13 Family History (Updated 10/28/24 @ 11:13 by Geovanna ZULETA, PA) Other Cancer Social History Smoking Status: Never smoker ROS Constitutional Constitutional: Denies change in weight, chills, fatigue, frequent falls, headache(s) or lethargy Eyes Eyes: Denies acute decrease in peripheral vision, blurry vision or change in vision ENT HEENT: Denies dizziness, dry mouth, epistaxis, headache(s), tinnitus or vertigo Cardiovascular Cardiovascular: Denies chest pain at rest, chest pain with activity, claudication, dyspnea at rest, dyspnea on exertion, edema, irregular heart rhythm, lightheadedness, orthopnea, orthostatic symptoms, palpitations or pedal edema Respiratory/Chest Respiratory/Chest: Reports dyspnea on exertion; Denies cough, dyspnea, tachypnea or wheezing Gastrointestinal Gastrointestinal: Denies abdominal pain, bloating, coffee ground emesis, diarrhea, heartburn, hematemesis, hematochezia, melena or nausea Genitourinary Genitourinary: Denies hematuria Musculoskeletal Musculoskeletal: Denies myalgias, numbness or tingling Neurologic Neurologic: Denies abnormal gait, abnormal speech, memory loss, paresthesias or weakness Vital Signs Vital Signs Vital Signs: Weight Weight: 190 lb Body Mass Index (BMI) 32.4 Physical Exam Const alert, oriented x3, no apparent distress and healthy appearing HEENT normocephalic, head/scalp atraumatic, hearing grossly normal bilaterally, external ears normal, external nose normal and moist oral mucous membranes Eyes PERRL, EOMs intact bilaterally, conjunctivae normal and no scleral icterus Neck no lymphadenopathy, supple and no JVD Cardio regular rate, regular rhythm, S1 normal heart sound, S2 normal heart sound, no murmurs, no rub, no gallops, no clicks, no JVD and peripheral pulses 2+ throughout GI normal to inspection, nondistended, normoactive bowel sounds, soft to palpation, non-tender and non- distended Extremity normal to inspection, normal capillary refill, no clubbing, cyanosis or edema and no pedal edema Neuro oriented x3, CN's II-XII intact bilaterally, moves all extremities and no focal motor deficits Psych cooperative and affect normal Cardiology Labs/Tests Cardiology Labs/Tests: 10/28/24 10:54: WBC 7.3, RBC 5.10, Hgb 15.0, Hct 45.6, MCV 89.4, MCH 29.4, MCHC 32.9, Plt Count 285, MPV 10.1 Rhythm: EKG: ECHO: Stress Test: Cardiac Cath: PCI: CT Surgery: Holter monitor: EPS: PPM: CXR: Chest CT Scan: Assessment Plan Assessment/Plan (1) NSVT (nonsustained ventricular tachycardia): PLAN: With patient's nonsustained ventricular tachycardia that was noted on her stress test she will undergo a diagnostic heart catheterization today. Follow-up will be based upon findings. 10/28/24 1117 Cosigner Signature (if applicable): CC: Dr. Erendira Chiang MD; SONG Arnett (more content not included)... Normal [facility] H AND P Exam - [facility] 10-28-2024 H&P Exam - Hospitalist [facility] Medical Records Department [address] [place] [address] H P Exam - [facility] 10/28/24 1531 MR#: [id number] Acct: [id number] Name: KAYLEE WONG Rep #: [id number] : 1960 64 From: Puma Morrison MD PCP: Dr. Erendira Chiang MD Status:ADM IN Location: [facility] [id number] HPI - General General Date of Admission: 10/28/24 Date of Service: 10/28/24 Chief Complaint: Abnormal stress test HPI Narrative KAYLEE WONG, is a 64 F with no cardiac history is directly admitted after abnormal stress diabetes and then subsequent cardiac cath which found high-grade 90% stenosis of mid LAD which required PCI. Patient denies persistent cardiac symptoms prior to stress test but she had occasional about 2-3 times shortness of breath on mild activities/house chores. Denies chest pain/pressure. Resting EKG was NSR before the stress test. While undergoing stress test today, patient was mildly dizzy, shortness of breath lightheadedness. Stress EKG also shows NSVT with frequent PVCs and images demonstrated reversible myocardial ischemia involving the anterior and septal region therefore was taken for Hammerer Helper. Cardiac cath showed above findings as mentioned. Twelve-lead EKG after catheter showed NSR 76 bpm, QTc 425 ms, normal EKG. [facility] Medical History (Updated 10/28/24 @ 15:[address] Puma Morrison MD) Migraine Heartburn NSVT (nonsustained ventricular tachycardia) Home Medications ???Medication ???Instructions ???Recorded ???Last Taken ???Type rizatriptan 5 mg tablet 5 mg PO Q2H PRN Headache 02/28/17 10/24/24 History lansoprazole 30 mg capsule,delayed 30 mg PO DAILY 02/25/24 10/27/24 History release Allergy/AdvReac Type Severity Reaction Status Date / Time topiramate (From Topamax) Allergy Intermediate Rash Verified 02/25/24 01:13 Family History (Updated 10/28/24 @ 13:31 by Ana Luisa Grimes) Grandmother Cancer Mother Cancer Aunt Cancer Aunt Cancer Surgical History (Updated 10/28/24 @ 15:43 by Geovanna ZULETA, PA) H/O heart artery stent History of tubal ligation [place] teeth extracted Social History Smoking Status: Never smoker ROS ROS Narrative Constitutional: Denies acute onset of fatigue and weakness. No fever. HEENT: Reports systems reviewed and no addt'l complaints, except as documented Respiratory/Chest: As described in HPI. No chronic lung disease CVS: As described in HPI Gastrointestinal: Mild heartburn on PPI. Denies coffee ground emesis, hematemesis or vomiting Genitourinary: Denies burning urination or new urinary tract symptoms Musculoskeletal: Denies acute joint pain or limited range of motion. No acute injury Neurologic: History of chronic migraine on Maxalt. Follows neurologist. Denies seizure-like symptoms. skin: No ulcer. No rash Endocrinology: Reports systems reviewed and no addt'l complaints, except as documented Hematologic/Lymphatic: Reports systems reviewed and no addt'l complaints, except as documented Rest 14 ROS are negative except as mentioned in HPI Vital Signs Vital Signs Vital Signs: 10/28/24 13:13 Respiratory Effort Normal Non-Labored Respiratory Depth Normal Respiratory Pattern Normal Oxygen Delivery Method Room Air Weight Weight: 190 lb Body Mass Index (BMI) 32.5 Physical Exam Narrative General: Alert, Oriented x3, Cooperative. BMI 32.6 kg/m???, mild obesity grade 1. HEENT: Atraumatic, PERRLA, EOMI, Normocephalic. Oral: No Gingival or Mucosal Lesions/ Ulcerations Neck: Supple, No JVD, Negative Carotid Bruits Chest wall/Lungs: Air entry diminished in bilateral lung bases. No crepitation/rhonchi Cardiovascular: Regular rate and rhythm, Normal S1,S2, No M/G/R Abdomen: Bowel Sounds Present, Soft, Non Tender, Non-Distended : No dysuria. No renal angle tenderness. No suprapubic tenderness. Extremities: No edema, Capillary Refill Less than 3 Seconds Skin: Mild bruise over right radial artery wristband after cath. No appreciable hematoma. Musculoskeletal: No Tenderness to Palpation of Joints or Extremities. ROM full and intact Neurological: Cranial nerves II-XII grossly intact, DTR 2+/4. No acute focal neurological deficit. Psych/Mental Status: Normal Affect, Appropriate. Results Lab / Micro Data 10/28/24 10:54 10/28/24 10:54 Labs: Laboratory Results - last 24 hr 10/28/24 10:54: WBC 7.3, RBC 5.10, Hgb 15.0, Hct 45.6, MCV 89.4, MCH 29.4, MCHC 32.9, RDW Std Deviation 43.2, RDW Coeff of Wolf 13.1, Plt Count 285, MPV 10.1, Sodium 140, Potassium 4.3, Chloride 104, Carbon Dioxide 24.3, Anion Gap 11, BUN 10, Creatinine 0.63 L, Estim Creat Clear Calc 74.48, Est GFR (MDRD) Non-Af 98, BUN/Creatinine Ratio 15.3, Glucose 110 H, Calcium 9.5 10/28/24 11:22: Activated Clotting Time 262 H Assessment Plan Assessment/Plan (1) NSVT (no (more content not included)... Normal [facility] Stress Reporton 10-28-2024 Stress Report [facility] Cardiovascular Services [address] [place] [address] MR#: [id number] Acct: [id number] Name: KAYLEE WONG Rep #: [id number] : 1960 64 From: Faustino Torres MD Primary Care: Dr. Erendira Chiang MD Status: ADM IN Referring Dr: Faustino Torres MD Sex: F C Stress Test Report Pharmacologic myocardial perfusion stress test. Indication; 64-year-old patient with symptoms of shortness of breath on exertion Was referred for outpatient regular stress test And also had symptoms of chest pain with massive WA at home Abnormal EKG portion of nuclear stress test with nonsustained V. tach and frequent PVC. Stress protocol: Resting EKG demonstrates. Normal sinus rhythm. 0.4 mg of regadenoson was infused per usual protocol followed by rapid intravenous saline flush injection continuous EKG monitoring was performed. The maximum heart rate attained was 137 bpm which was 88% of maximum predicted heart . Stress EKG showed[, no significant change from the resting EKG, with maximum heart rate of 137 bpm. Arrhythmia: Patient has nonsustained V. tach with frequent PVCs Symptoms: Patient has symptoms of lightheadedness dizziness and shortness of breath. Blood pressure at rest: [122/78 blood pressure at the end of stress: 124/82] Myocardial perfusion protocol. [12 mCi ]of Technetium 99m Sestamibi was injected at rest. [ 0.4 mg ]of Regadenoson was infused per usual protocol peak infusion[36 mCi ]of Technetium 99m sestamibi was injected. Stress images were obtained stress and rest images were reconstructed and compared in the short axis vertical and horizontal long axis. Gated images were also obtained Perfusion SPECT analysis: Review of the images demonstrate reversible myocardial ischemia involving the anterior and septal region Gated SPECT analysis: The gated ejection fraction is 79% LV wall motion showed hyperdynamic left ventricle. Conclusion: Abnormal Lexiscan sestamibi with reversible myocardial ischemia in the LAD distribution/anterior and septal Episodes of nonsustained ventricular tachycardia with frequent PVCs Patient symptomatic with shortness of breath lightheadedness and dizziness Recommendation; Left heart cath Faustino Torres MD,[facility] plant machinist 10/28/24 1500 Date Faustino Torres MD CC: BRUCE Pham; Dr. Faustino Torres MD; Dr. Erendira Chiang MD; Dr. Puma Morrison MD Date Dictated: 10/28/24 1119 Date Transcribed: 10/28/241118 Cancer Researcher: FB Signed Normal [facility] CBC W Auto Differential pane l (Bld)on 09-05-2024 Basophils (Bld) [#/Vol] 0.1 10*3/uL [facility] Basophils/100 WBC (Bld) 1.7 % [facility] Differential cell count method Nom (Bld) Auto [facility] Eosinophils (Bld) [#/Vol] 0.17 10*3/uL [facility] Eosinophils/100 WBC (Bld) 2.9 % [facility] Erythrocyte distribution width (RBC) [Ratio] 13.4 % 11.5 - 15.0 % [facility] Hematocrit (d) [Volume fraction] 46.3 % High 36.0 - 46.0 % [facility] Hemoglobin (Bld) [Mass/Vol] 14.9 g/dL 11.5 - 15.5 g/dL [facility] Immature granulocytes (Bld) [#/Vol] 0.03 10*3/uL [facility] Immature granulocytes/100 WBC (Bld) 0.5 % [facility] Interpretation and review of laboratory results Abnormal [facility] Lymphocytes (Bld) [#/Vol] 1.31 10*3/uL [facility] Lymphocytes/100 WBC (Bld) 22.7 % [facility] MCH (RBC) [Entitic mass] 29.7 pg 26.0 - 34.0 pg [facility] MCHC (RBC) [Mass/Vol] 32.2 g/dL 30.5 - 36.0 g/dL [facility] MCV (RBC) [Entitic vol] 92.2 fL 80.0 - 100.0 fL [facility] Monocytes (Bld) [#/Vol] 0.59 10*3/uL NINF [facility] Monocytes/100 WBC (Bld) 10.2 % [facility] Neutrophils (Bld) [#/Vol] 3.58 10*3/uL [facility] Neutrophils/100 WBC (Bld) 62 % [facility] Nucleated RBC (Bld) [#/Vol] NINF [facility] Nucleated RBC/100 WBC (Bld) [Ratio] 0 % /100 WBC [facility] Platelet mean volume (Bld) [Entitic vol] 10.9 fL 9.0 - 12.7 fL [facility] Platelets (Bld) [#/Vol] 327 10*3/uL [facility] RBC (Bld) [#/Vol] 5.02 10*6/uL 3.90 - 5.20 m/uL [facility] WBC (Bld) [#/Vol] 5.78 10*3/uL [facility] Basophils (Bld) [#/Vol] 0.10 10*3/uL Normal <0.11 [facility] Comment on above: Order Comment: Speci men Type: BLOOD SPECIMEN Ordering Facility: [facility] Address: [address] [place] [address] Performed By: #### 5 7021-8 #### [facility] CLIA [id number] [address] [place] [address] STATES OF [facility] Basophils/100 WBC (Bld) 1.7 % Normal [facility] Comment on above: Order Comment: Speci men Type: BLOOD SPECIMEN Ordering Facility: [facility] Address: [address] [place] [address] Performed By: #### 5 7021-8 #### [facility] CLIA [id number] [address] [place] [address] [place] Differential cell count method Nom (Bld) Auto Normal [facility] Comment on above: Order Comment: Speci men Type: BLOOD SPECIMEN Ordering Facility: [facility] Address: [address] [place] [address] Performed By: #### 5 7021-8 #### [facility] CLIA [id number] [address] [place] [address] [place] Eosinophils (Bld) [#/Vol] 0.17 10*3/uL Normal <0.46 [facility] Comment on above: Order Comment: Speci men Type: BLOOD SPECIMEN Ordering Facility: [facility] Address: [address] [place] [address] Performed By: #### 5 7021-8 #### [facility] CLIA [id number] [address] [place] [address] [place] Eosinophils/100 WBC (Bld) 2.9 % Normal [facility] Comment on above: Order Comment: Speci men Type: BLOOD SPECIMEN Ordering Facility: [facility] Address: [address] [place] [address] Performed By: #### 5 7021-8 #### [facility] CLIA [id number] [address] [place] [address] [place] Erythrocyte distribution width (RBC) [Ratio] 13.4 % Normal 11.5-15.0 [facility] Comment on above: Order Comment: Speci men Type: BLOOD SPECIMEN Ordering Facility: [facility] Address: [address] [place] [address] Performed By: #### 5 7021-8 #### [facility] CLIA [id number] [address] [place] [address] [place] Hematocrit (Bld) [Volume fraction] 46.3 % High 36.0-46.0 [facility] Comment on above: Order Comment: Speci men Type: BLOOD SPECIMEN Ordering Facility: [facility] Address: [address] [place] [address] Performed By: #### 5 7021-8 #### [facility] CLIA [id number] [address] [place] [address] [place] Hemoglobin (Bld) [Mass/Vol] 14.9 g/dL Normal 11.5-15.5 [facility] Comment on above: Order Comment: Speci men Type: BLOOD SPECIMEN Ordering Facility: [facility] Address: [address] [place] [address] Performed By: #### 5 7021-8 #### [facility] CLIA [id number] [address] [place] [address] [place] Immature granulocytes (Bld) [#/Vol] 0.03 10*3/uL Normal <0.10 [facility] Comment on above: Order Comment: Speci men Type: BLOOD SPECIMEN Ordering Facility: [facility] Address: [address] [place] [address] Performed By: #### 5 7021-8 #### [facility] CLIA [id number] [address] [place] [address] [place] Immature granulocytes/100 WBC (Bld) 0.5 % Normal [facility] Comment on above: Order Comment: Speci men Type: BLOOD SPECIMEN Ordering Facility: [facility] Address: [address] [place] [address] Performed By: #### 5 7021-8 #### [facility] CLIA [id number] [address] [place] [address] [place] Lymphocytes (Bld) [#/Vol] 1.31 10*3/uL Normal 1.00-4.00 [facility] Comment on above: Order Comment: Speci men Type: BLOOD SPECIMEN Ordering Facility: [facility] Address: [address] [place] [address] Performed By: #### 5 7021-8 #### [facility] CLIA [id number] [address] [place] [address] [place] Lymphocytes/100 WBC (Bld) 22.7 % Normal [facility] Comment on above: Order Comment: Speci men Type: BLOOD SPECIMEN Ordering Facility: [facility] Address: [address] [place] [address] Performed By: #### 5 7021-8 #### [facility] CLIA [id number] [address] [place] [address] [place] MCH (RBC) [Entitic mass] 29.7 pg Normal 26.0-34.0 [facility] Comment on above: Order Comment: Speci men Type: BLOOD SPECIMEN Ordering Facility: [facility] Address: [address] [place] [address] Performed By: #### 5 7021-8 #### [facility] CLIA [id number] [address] [place] [address] [place] MCHC (RBC) [Mass/Vol] 32.2 g/dL Normal 30.5-36.0 [facility] Comment on above: Order Comment: Speci men Type: BLOOD SPECIMEN Ordering Facility: [facility] Address: [address] [place] [address] Performed By: #### 5 7021-8 #### [facility] CLIA [id number] [address] [place] [address] [place] MCV (RBC) [Entitic vol] 92.2 fL Normal 80.0-100.0 [facility] Comment on above: Order Comment: Speci men Type: BLOOD SPECIMEN Ordering Facility: [facility] Address: [address] [place] [address] Performed By: #### 5 7021-8 #### [facility] CLIA [id number] [address] [place] [address] [place] Monocytes (Bld) [#/Vol] 0.59 10*3/uL Normal <0.87 [facility] Comment on above: Order Comment: Speci men Type: BLOOD SPECIMEN Ordering Facility: [facility] Address: [address] [place] [address] Performed By: #### 5 7021-8 #### [facility] CLIA [id number] [address] [place] [address] [place] Monocytes/100 WBC (Bld) 10.2 % Normal [facility] Comment on above: Order Comment: Speci men Type: BLOOD SPECIMEN Ordering Facility: [facility] Address: [address] [place] [address] Performed By: #### 5 7021-8 #### [facility] CLIA [id number] [address] [place] [address] [place] Neutrophils (Bld) [#/Vol] 3.58 10*3/uL Normal 1.45-7.50 [facility] Comment on above: Order Comment: Speci men Type: BLOOD SPECIMEN Ordering Facility: [facility] Address: [address] [place] [address] Performed By: #### 5 7021-8 #### [facility] CLIA [id number] [address] [place] [address] [place] Neutrophils/100 WBC (Bld) 62.0 % Normal [facility] Comment on above: Order Comment: Speci men Type: BLOOD SPECIMEN Ordering Facility: [facility] Address: [address] [place] [address] Performed By: #### 5 7021-8 #### [facility] CLIA [id number] [address] [place] [address] [place] Nucleated RBC (Bld) [#/Vol] 10*3/uL Normal <0.01 [facility] Comment on above: Order Comment: Speci men Type: BLOOD SPECIMEN Ordering Facility: [facility] Address: [address] [place] [address] Performed By: #### 5 7021-8 #### [facility] CLIA [id number] [address] [place] [address] [place] Nucleated RBC/100 WBC (Bld) [Ratio] 0.0 /100 WBC Normal [facility] Comment on above: Order Comment: Speci men Type: BLOOD SPECIMEN Ordering Facility: [facility] Address: [address] [place] [address] Performed By: #### 5 7021-8 #### [facility] CLIA [id number] [address] [place] [address] [place] Platelet mean volume (Bld) [Entitic vol] 10.9 fL Normal 9.0-12.7 [facility] Comment on above: Order Comment: Speci men Type: BLOOD SPECIMEN Ordering Facility: [facility] Address: [address] [place] [address] Performed By: #### 5 7021-8 #### [facility] CLIA [id number] [address] [place] [address] [place] Platelets (Bld) [#/Vol] 327 10*3/uL Normal 150-400 [facility] Comment on above: Order Comment: Speci men Type: BLOOD SPECIMEN Ordering Facility: [facility] Address: [address] [place] [address] Performed By: #### 5 7021-8 #### [facility] CLIA [id number] [address] [place] [address] [place] RBC (Bld) [#/Vol] 5.02 10*6/uL Normal 3.90-5.20 [facility] Comment on above: Order Comment: Speci men Type: BLOOD SPECIMEN Ordering Facility: [facility] Address: [address] [place] [address] Performed By: #### 5 7021-8 #### [facility] CLIA [id number] [address] [place] [address] [place] WBC (Bld) [#/Vol] 5.78 10*3/uL Normal 3.70-11.00 [facility] Comment on above: Order Comment: Speci men Type: BLOOD SPECIMEN Ordering Facility: [facility] Address: [address] [place] [address] Performed By: #### 5 7021-8 #### [facility] CLIA [id number] [address] [place] [address] [place] CNOVon 09-05-2024 CNOV Office Visit (FAMPWS ) KAYLEE WONG ([id number]) 1960 F Date Time Provider Department 09/05/24 10:00 AM JAN PHAM During your visit today, we recorded the [...] history review Reviewed and updated problem list, medical/surgical/family/soci al history, medications, and allergies. Opioid use review [...] of gallstones, with a significant episode on [place] night that led to an ED visit. [...] well-controlled. She has a medical power of gear and spline grinder in place, designated to Syd Beal. PHYSICAL EXAM BP 124/72 Pulse 80 [...] on ex (more content not included)... Normal [facility] Comprehensive metabolic 2000 panelon 09-05-2024 Albumin [Mass/Vol] 4.3 g/dL 3.9 - 4.9 g/dL [facility] ALP [Catalytic activity/Vol] 126 U/L High 34 - 123 U/L [facility] ALT [Catalytic activity/Vol] 20 U/L 7 - 38 U/L [facility] Anion gap [Moles/Vol] 10 mmol/L 8 - 15 mmol/L [facility] AST [Catalytic activity/Vol] 26 U/L 13 - 35 U/L [facility] Bilirubin [Mass/Vol] 0.8 mg/dL 0.2 - 1 .3 mg/dL [facility] Calcium [Mass/Vol] 9.3 mg/dL 8.5 - 10. 2 mg/dL [facility] Chloride [Moles/Vol] 105 mmol/L 98 - 10 7 mmol/L [facility] CO2 [Moles/Vol] 25 mmol/L 22 - 30 mmol/L [facility] Creatinine [Mass/Vol] 0.68 mg/dL 0.58 - 0.96 mg/dL [facility] GFR/1.73 sq M.predicted among non-blacks MDRD (S/P/Bld) [Vol rate/Area] 97 mL/min/{1.73_m2} - PINF [facility] Comment on above: Estimated Glomerular Filtration Rate [...] 101 mg/dL High 74 - 99 mg/dL [facility] Comment on above: The [place] Diabete s Association (ADA) provides guidance for [...] Standards of Medical Care in Diabetes 2016, [place] Diabetes Association. Diabetes Care. 2016.39(Suppl 1). Interpretation and review of laboratory results Abnormal [facility] Potassium [Moles/Vol] 4.2 mmol/L 3.7 - 5.1 mmol/L [facility] Protein [Mass/Vol] 7.1 g/dL 6.3 - 8.0 g/dL [facility] Sodium [Moles/Vol] 140 mmol/L 136 - 144 mmol/L [facility] Urea nitrogen [Mass/Vol] 7 mg/dL 7 - 21 mg/dL [place] Albumin [Mass/Vol] 4.3 g/dL Normal 3.9-4.9 [facility] Comment on above: Order Comment: Speci men Type: BLOOD SPECIMEN Ordering Facility: [facility] Address: [address] [place], [place] [address] Performed By: #### 2 4323-8, 3016-3 #### [facility] CLIA [id number] [address] [place] [address] [place] ALP [Catalytic activity/Vol] 126 U/L High 34-123 [facility] Comment on above: Order Comment: Speci men Type: BLOOD SPECIMEN Ordering Facility: [facility] Address: [address] [place] [address] Performed By: #### 2 4323-8, 3016-3 #### [facility] CLIA [id number] [address] [place] [address] [place] ALT [Catalytic activity/Vol] 20 U/L Normal 7-38 [facility] Comment on above: Order Comment: Speci men Type: BLOOD SPECIMEN Ordering Facility: [facility] Address: [address] [place] [address] Performed By: #### 2 4323-8, 3016-3 #### [facility] CLIA [id number] [address] [place] [address] [place] Anion gap [Moles/Vol] 10 mmol/L Normal 8-15 [facility] Comment on above: Order Comment: Speci men Type: BLOOD SPECIMEN Ordering Facility: [facility] Address: [address] [place], [place] [address] Performed By: #### 2 4323-8, 3016-3 #### [facility] CLIA [id number] [address] [place], [place] [address] [place] AST [Catalytic activity/Vol] 26 U/L Normal 13-35 [facility] Comment on above: Order Comment: Speci men Type: BLOOD SPECIMEN Ordering Facility: [facility] Address: [address] [place], [place] [address] Performed By: #### 2 4323-8, 3016-3 #### [facility] CLIA [id number] [address] [place], [place] [address] [place] Bilirubin [Mass/Vol] 0.8 mg/dL Normal 0.2-1.3 [facility] Comment on above: Order Comment: Speci men Type: BLOOD SPECIMEN Ordering Facility: [facility] Address: [address] [place], [place] [address] Performed By: #### 2 4323-8, 3016-3 #### [facility] CLIA [id number] [address] [place], [place] [address] [place] Calcium [Mass/Vol] 9.3 mg/dL Normal 8.5-10.2 [facility] Comment on above: Order Comment: Speci men Type: BLOOD SPECIMEN Ordering Facility: [facility] Address: [address] [place] [address] Performed By: #### 2 4323-8, 3016-3 #### [facility] CLIA [id number] [address] [place], [place] [address] [place] Chloride [Moles/Vol] 105 mmol/L Normal 98-107 [facility] Comment on above: Order Comment: Speci men Type: BLOOD SPECIMEN Ordering Facility: [facility] Address: [address] [place] [address] Performed By: #### 2 4323-8, 3016-3 #### [facility] CLIA [id number] [address] [place], [place] [address] [place] CO2 [Moles/Vol] 25 mmol/L Normal 22-30 [facility] Comment on above: Order Comment: Speci men Type: BLOOD SPECIMEN Ordering Facility: [facility] Address: [address] [place], [place] [address] Performed By: #### 2 4323-8, 3016-3 #### [facility] CLIA [id number] [address] [place], [place] [address] [place] Creatinine [Mass/Vol] 0.68 mg/dL Normal 0.58-0.96 [facility] Comment on above: Order Comment: David sears Type: BLOOD SPECIMEN Ordering Facility: [facility] Address: [address] [place] [address] Performed By: #### 2 4323-8, 3016-3 #### [facility] CLIA [id number] [address] [place] [address] [place] Creatinine and Glomerular filtration rate.predicted panel (S/P/Bld) 97 mL/min/1.73m??? Normal >=60 [facility] Comment on above: Order Comment: David sears Type: BLOOD SPECIMEN Ordering Facility: [facility] Address: [address] [place] [address] Result Comment: Nova mated Glomerular Filtration Rate [...] Performed By: #### 2 4323-8, 6-3 #### [facility] CLIA [id number] [address] [place] [address] [place] Glucose [Mass/Vol] 101 mg/dL High 74-99 [facility] Comment on above: Order Comment: David sears Type: BLOOD SPECIMEN Ordering Facility: [facility] Address: [address] [place] [address] Result Comment: The [place] Diabetes Association (ADA) provides guidance for cutoff [...] Standards of Medical Care in Diabetes 2016, [place] Diabetes Association. Diabetes Care. 2016.39(Suppl 1). Performed By: #### 2 4323-8, 3016-3 #### [facility] CLIA [id number] [address] [place], [place] [address] [place] Potassium [Moles/Vol] 4.2 mmol/L Normal 3.7-5.1 [facility] Comment on above: Order Comment: Speci men Type: BLOOD SPECIMEN Ordering Facility: [facility] Address: [address] [place], [place] [address] Performed By: #### 2 4323-8, 6-3 #### [facility] CLIA [id number] [address] [place], [place] [address] [place] Protein [Mass/Vol] 7.1 g/dL Normal 6.3-8.0 [facility] Comment on above: Order Comment: Speci men Type: BLOOD SPECIMEN Ordering Facility: [facility] Address: [address] [place], [place] [address] Performed By: #### 2 4323-8, 6-3 #### [facility] CLIA [id number] [address] [place], [place] [address] [place] Sodium [Moles/Vol] 140 mmol/L Normal 136-144 [facility] Comment on above: Order Comment: Speci men Type: BLOOD SPECIMEN Ordering Facility: [facility] Address: [address] [place] [address] Performed By: #### 2 4323-8, 6-3 #### [facility] CLIA [id number] [address] [place] [address] [place] Urea nitrogen [Mass/Vol] 7 mg/dL Normal 7-21 [facility] Comment on above: Order Comment: Speci men Type: BLOOD SPECIMEN Ordering Facility: [facility] Address: [address] [place], [place] [address] Performed By: #### 2 4323-8, 3016-3 #### [facility] CLIA [id number] [address] [place] [address] [place] [id number] 09-05-2024 ECG01 Ventricular Rate : 6 8 BPM Atrial Rate : 68 BPM P-R Interval : 156 ms QRS Duration : 82 ms Q-T Interval : 390 ms QTC Calculation(Bazett) : 414 ms Calculated P [place] : 11 degrees Calculated R [place] : 7 degrees Calculated T [place] : 14 degrees NORMAL SINUS RHYTHM NORMAL ECG Confirmed by MD MARINA QARAB ([id number]) on 09/07/2024 5:45:05 PM NAME : KAYLEE WONG PID : [id number] : 1960 Gender : Female Race : ORD : Procedure Date : Sep 05 2024 10:45:48 Edit Date : Sep 07 2024 17:45:07 Diagnosis: NORMAL SINUS RHYTHM NORMAL ECG Confirmed by MD MARINA QARAB ([id number]) on 09/07/2024 5:45:05 PM Test Reason : Location : 136 : [facility] Overread By : MD MARINA QARAB Edited By : MD MARINA QARAB Referred By : Jan Pham Acquired by : Minor thompson [facility] THYROID STIMULATING HORMONEo n 09-05-2024 TSH Qn 1.03 m[IU]/L [facility] TSH Qnon 09-05-2024 Interpretation and review of laboratory results Normal [place] TSH SerPl-aCncon 09-05-2024 TSH Qn 1.030 m[IU]/L Normal 0.270-4.20 0 [facility] Comment on above: Order Comment: Speci men Type: BLOOD SPECIMEN Ordering Facility: [facility] Address: [address] [place] [address] Performed By: #### 2 4323-8, 3016-3 #### [facility] CLIA [id number] [address] [place] [address] CNOVon 04-19-2024 CNOV Office Visit (OBGYWM ) WONGKAYLEE GOMEZ ([id number]) 1960 F Date Time Provider Department 04/19/24 [...] Living1 SAB0 IAB0 Ectopic0 Multiple0 Live Births0 [employer] History LMP: 03/01/2014, Postmenopausal Age at Menarche: 12 Age at First : Age at Menopause: [employer] History Comments: Sexual Activity: Not Currently; Male; TUBAL LIGATION Contraception: Tubal Ligation PAST MEDICAL HISTORY Diagnosis Date Benign neoplasm of stomach EGD 2008 Dysphagia 2018 Required esophageal dilation at [facility] Esophageal reflux Hernia of other specified sites of abdominal cavity without mention of obstruction or gangrene HIATAL Hyperlipidemia LDL goal < 100 02/20/2011 Impaired fasting glucose 02/20/2011 Obesity Obstructive sleep apnea on CPAP 04/16/2012 Has not used CPAP since about 2014 Other and unspecified hyperlipidemia Other forms of migraine Statin intolerance PAST SURGICAL HISTORY Procedure Laterality Date COLONOSCOPY SCREENING 1982 EGD W/O [facility] SPEC VARICIES INJ 2019 ESOPHAGOGASTRODUODENOSCOPY TRANSORAL DIAGNOSTIC 05/12/2008 EGD LIG/TRNSXJ FLP TUBE ABDL/VAG APPR UNI/BI tubal ligation UNSPECIFIED ORAL SURGERY PROCEDURE, BY REPORT 05/12/2007 [place] teeth and cyst removed from jaw FAMILY [...] discussed with the Patient or Patient's Authorized Services Rep. As applicable, any other physician, advance practice provider, medical student, or other health professional student that will be observing or involved in the sensitive examination for educational or training purposes was discussed with the Patient or Authorized Services Rep. The Patient or Authorized Services Rep has agreed to proceed with the sensitive [...] external genitalia normal, normal Bartholin's glands, urethra, Epworth's glands, no vulvar lesions, no cervical lesions, good vaginal support, physiologic discharge present, normal appearing perineal body and perianal region BIMANUAL: uterus normal size, shape and consistency, no adnexal masses, and non-tender RECTOVAGINAL: deferred. NEURO: alert and oriented x3,exam grossly non-focal EXTREMITIES: normal ASSESSMENT/PLAN: 1) Health maintenance: Pap done with refl (more content not included)... Normal [facility] DBT Breast - bilateral dasiae tyler 04-19-2024 * * *Final Report* * * DATE OF EXAM: Apr 19 2024 8:29AM [facility] 0582 - [facility] SCREENING W BOGDAN / PROCEDURE REASON: multiple diagnoses * * * * Physician Interpretation * * * * RESULT: [place] [id number] #[id number] - ANGELI SCREENING W BOGDAN HISTORY: 63 [...] DATE OF EXAM: Apr 19 2024 8:29AM [facility] 0582 - [facility] SCREENING W BOGDAN / PROCEDURE REASON: multiple diagnoses * * * * Physician Interpretation * * * * RESULT: [facility] [address] [place] [address] #[id number] - ANGELI SCREENING W BOGDAN HISTORY: 63 [...] Bette Kelly M.D. Electronically signed on: 04/19/2024 Cancer Researcher: GEORGETTE Transcribe Date/Time: Apr 19 2024 8:10A Dictated by: BETTE KELLY MD This examination was interpreted and the report reviewed and electronically signed by: BETTE KELLY MD on Apr 19 2024 12:42PM EST [facility] Radiology Study observation (narrative) [facility] DBT Breast - bilateral scree ningOrdered By: Ccf Provider on 04-19-2024 [facility] SCREENING W TOMOon 04-19 [facility] SCREENING W BOGDAN * * *Final Report* * * DATE OF EXAM: Apr 19 2024 8:29AM [facility] 0582 - ANGELI SCREENING W BOGDAN / PROCEDURE REASON: multiple diagnoses * * * * Physician Interpretation * * * * RESULT: [place] [address] [place] [id number] #[id number] - ANGELI SCREENING W BOGDAN HISTORY: 63 [...] Bette Kelly M.D. Electronically signed on: 04/19/2024 Cancer Researcher: GEORGETTE Transcribe Date/Time: Apr 19 2024 8:10A Dictated by: BETTE KELLY MD This examination was interpreted and the report reviewed and electronically signed by: BETTE KELLY MD on Apr 19 2024 12:42PM EST [id number] Normal [facility] Gallbladderon 03-01-2024 Gallbladder [facility] [address] [place], [place] [address] Gallbladder MR#: [id number] Acct: [id number] Name: KAYLEE WONG Rep #: [id number] : 1960 F 63 From: Rafiq Downing MD PCP: Dr. Erendira Chiang MD Status: REG CLI Study: Gallbladder Date of Exam: 03/01/24 Exam# [id number] Ordering Dr: Sean Garber DO :[id number] STUDY: ULTRASOUND GALLBLADDER REASON FOR VISIT: Female, [...] The common bile duct measures 4 mm. US/Gallbladder IMPRESSION: Cholelithiasis. Electronically Signed: Rafiq Downing MD at 23:49 EST , CC: Dr. Erendira Chiang MD; Sean Garber DO Cancer Researcher: Signed Normal [facility] 12 Lead EKGon 02-25-2024 12 Lead EKG [facility] [address] [place] [address] 12 Lead EKG 02/25/24 0121 MR#: [id number] Acct: [id number] Name: KAYLEE WONG Rep #: [id number] : 1960 63 From: Jonathan Macario MD [...] Normal sinus rhythm Normal ECG Confirmed by JONATHAN MACARIO MD ([id number]), web editor MARTHA FARMER ([id number]) on 02/26/2024 9:41:38 AM Referred By: DON Confirmed By: JONATHAN MACARIO MD 02/26/24 0941 Date Jonathan Macario MD CC: Dr. Erendira Chiang MD; Sean Garber DO Signed Normal [facility] Abdomen/Pelvis W IV Cont ONL Yon 02-25-2024 Abdomen/Pelvis W IV Cont ONLY [facility] [address] [place] [address] Abdomen/Pelvis W IV Cont ONLY MR#: [id number] Acct: [id number] Name: KAYLEE WONG Rep #: [id number] : 1960 F 63 From: Dinorah Marie MD PCP: Dr. Erendira Chiang MD Status: REG ER Study: Abdomen/Pelvis W IV Cont ONLY Date of Exam: Exam# [id number] Ordering Dr: Sean Garber DO :[id number] STUDY: CT ABDOMEN AND PELVIS WITH CONTRAST [...] Signed: Dinorah Marie MD at 4:04 EST , CC: Dr. Erendira Chiang MD; Sean Garber DO Cancer Researcher: Signed Normal [facility] Basic Metabolic Profile (BMP )on 02-25-2024 BUN/CRE 15.2 RATIO Normal 10-20 [facility] Comment on above: Order Comment: 'TROP ' Serial specimen #1, #2 or #3: 1 Performed By: #### L 501.2450, L300.8000, L501.4020, L501.5200, L100.0100, L500.3400, L500.2500 ####[facility] [address] [place], [address] CA,Total 9.2 mg/dL Normal 8.5-10.1 [facility] Comment on above: Order Comment: 'TROP ' Serial specimen #1, #2 or #3: 1 Performed By: #### L 501.2450, L300.8000, L501.4020, L501.5200, L100.0100, L500.3400, L500.2500 ####[facility] [address] [place], [address] Chloride [Moles/Vol] 105 mmol/L Normal 98-107 [facility] Comment on above: Order Comment: 'TROP ' Serial specimen #1, #2 or #3: 1 Performed By: #### L 501.2450, L300.8000, L501.4020, L501.5200, L100.0100, L500.3400, L500.2500 ####[facility] [address] [place], [address] CO2 [Moles/Vol] 32.0 mmol/L Normal 21.0-32.0 [facility] Comment on above: Order Comment: 'TROP ' Serial specimen #1, #2 or #3: 1 Performed By: #### L 501.2450, L300.8000, L501.4020, L501.5200, L100.0100, L500.3400, L500.2500 ####[facility] [address] [place], [address] Creatinine [Mass/Vol] 0.79 mg/dL Normal 0.55-1.02 [facility] Comment on above: Order Comment: 'TROP ' Serial specimen #1, #2 or #3: 1 Result Comment: The validity of the calculated GFR GFRAA in patients over 70 years has not been determined. Clinical correlation is essential. Performed By: #### L 501.2450, L300.8000, L501.4020, L501.5200, L100.0100, L500.3400, L500.2500 ####[facility] [address] [place], [address] ECRCL 78.52 ml/min Normal [facility] Comment on above: Order Comment: 'TROP ' Serial specimen #1, #2 or #3: 1 Performed By: #### L 501.2450, L300.8000, L501.4020, L501.5200, L100.0100, L500.3400, L500.2500 ####[facility] [address] [place], [address] EST GFR - AA 94 mL/min Normal >60 [facility] Comment on above: Order Comment: 'TROP ' Serial specimen #1, #2 or #3: 1 Result Comment: Afri can Portuguese GFR Calc Performed By: #### L 501.2450, L300.8000, L501.4020, L501.5200, L100.0100, L500.3400, L500.2500 ####[facility] [address] [place], [address] GAP 4 Low 5-15 [facility] Comment on above: Order Comment: 'TROP ' Serial specimen #1, #2 or #3: 1 Performed By: #### L 501.2450, L300.8000, L501.4020, L501.5200, L100.0100, L500.3400, L500.2500 ####[facility] [address] [place], [address] GFR/1.73 sq M.predicted among non-blacks MDRD (S/P/Bld) [Vol rate/Area] 78 mL/min/{1.73_m2} Normal >60 [facility] Comment on above: Order Comment: 'TROP ' Serial specimen #1, #2 or #3: 1 Result Comment: Non- GFR Calc Performed By: #### L 501.2450, L300.8000, L501.4020, L501.5200, L100.0100, L500.3400, L500.2500 ####[facility] [address] [place], [address] Glucose [Mass/Vol] 113 mg/dL High 74-106 [facility] Comment on above: Order Comment: 'TROP ' Serial specimen #1, #2 or #3: 1 Result Comment: Fast ing Glucose result from 100 to 125 mg/dL suggests IMPAIRED HOMEOSTASIS per A.D.A. criteria. Performed By: #### L 501.2450, L300.8000, L501.4020, L501.5200, L100.0100, L500.3400, L500.2500 ####[facility] [address] [place], [address] Potassium [Moles/Vol] 3.9 mmol/L Normal 3.5-5.1 [facility] Comment on above: Order Comment: 'TROP ' Serial specimen #1, #2 or #3: 1 Performed By: #### L 501.2450, L300.8000, L501.4020, L501.5200, L100.0100, L500.3400, L500.2500 ####[facility] [address] [place], [address] Sodium [Moles/Vol] 142 mmol/L Normal 136-145 [facility] Comment on above: Order Comment: 'TROP ' Serial specimen #1, #2 or #3: 1 Performed By: #### L 501.2450, L300.8000, L501.4020, L501.5200, L100.0100, L500.3400, L500.2500 ####[facility] [address] [place], [address] Urea nitrogen [Mass/Vol] 12 mg/dL Normal 7-18 [facility] Comment on above: Order Comment: 'TROP ' Serial specimen #1, #2 or #3: 1 Performed By: #### L 501.2450, L300.8000, L501.4020, L501.5200, L100.0100, L500.3400, L500.2500 ####[facility] [address] [place], [address] CBC W/Diff, Automatedon 12-2 Absolute Lymph 1.43 X10 3/uL Normal 0.83-4.51 [facility] Comment on above: Performed By: #### L 501.2450, L300.8000, L501.4020, L501.5200, L100.0100, L500.3400, L500.2500 ####[facility] [address] [place], [address] Absolute Neut 5.6 X10 3/uL Normal 2.0-7.7 [facility] Comment on above: Performed By: #### L 501.2450, L300.8000, L501.4020, L501.5200, L100.0100, L500.3400, L500.2500 ####[facility] [address] [place], [address] Basophils/100 WBC (Bld) 1.4 % High 0-1 [facility] Comment on above: Performed By: #### L 501.2450, L300.8000, L501.4020, L501.5200, L100.0100, L500.3400, L500.2500 ####[facility] [address] [place], [address] Eosinophils/100 WBC (Bld) 3.5 % Normal 0-5 [facility] Comment on above: Performed By: #### L 501.2450, L300.8000, L501.4020, L501.5200, L100.0100, L500.3400, L500.2500 ####[facility] [address] [place], [address] Erythrocyte distribution width (RBC) [Ratio] 13.4 % Normal 11.6-14.6 [facility] Comment on above: Performed By: #### L 501.2450, L300.8000, L501.4020, L501.5200, L100.0100, L500.3400, L500.2500 ####[facility] [address] [place], [address] Hematocrit (Bld) [Volume fraction] 44.2 % Normal 37-47 [facility] Comment on above: Performed By: #### L 501.2450, L300.8000, L501.4020, L501.5200, L100.0100, L500.3400, L500.2500 ####[facility] [address] [place], [address] Hemoglobin (Bld) [Mass/Vol] 14.3 g/dL Normal 12.0-15.0 [facility] Comment on above: Performed By: #### L 501.2450, L300.8000, L501.4020, L501.5200, L100.0100, L500.3400, L500.2500 ####[facility] [address] [place], [address] IG% 0.800 Normal 0.0-0.9 [facility] Comment on above: Result Comment: IG% - Immature Granulocytes (promyelocytes, myelocytes and metamyelocytes) > 1% indicates that a LEFT SHIFT is Present. Performed By: #### L 501.2450, L300.8000, L501.4020, L501.5200, L100.0100, L500.3400, L500.2500 ####[facility] [address] [place], [address] Lymphocytes/100 WBC (Bld) 17.2 % Low 19-41 [facility] Comment on above: Performed By: #### L 501.2450, L300.8000, L501.4020, L501.5200, L100.0100, L500.3400, L500.2500 ####[facility] [address] [place], [address] MCH (RBC) [Entitic mass] 29.9 pg Normal 27.0-32.0 [facility] Comment on above: Performed By: #### L 501.2450, L300.8000, L501.4020, L501.5200, L100.0100, L500.3400, L500.2500 ####[facility] [address] [place], [address] MCHC (RBC) [Mass/Vol] 32.4 g/dL Normal 32-36 [facility] Comment on above: Performed By: #### L 501.2450, L300.8000, L501.4020, L501.5200, L100.0100, L500.3400, L500.2500 ####[facility] [address] [place], [address] MCV (RBC) [Entitic vol] 92.3 fL Normal 81-99 [facility] Comment on above: Performed By: #### L 501.2450, L300.8000, L501.4020, L501.5200, L100.0100, L500.3400, L500.2500 ####[facility] [address] [place], [address] Monocytes/100 WBC (Bld) 9.7 % Normal 0-10 [facility] Comment on above: Performed By: #### L 501.2450, L300.8000, L501.4020, L501.5200, L100.0100, L500.3400, L500.2500 ####[facility] [address] [place], [address] Neutrophils/100 WBC (Bld) 67.4 % Normal 47-70 [facility] Comment on above: Performed By: #### L 501.2450, L300.8000, L501.4020, L501.5200, L100.0100, L500.3400, L500.2500 ####[facility] [address] [place], [address] Nucleated RBC (Bld) [#/Vol] 0 10*3/uL Normal 0-5 [facility] Comment on above: Performed By: #### L 501.2450, L300.8000, L501.4020, L501.5200, L100.0100, L500.3400, L500.2500 ####[facility] [address] [place], [address] Platelet mean volume (Bld) [Entitic vol] 10.0 fL Normal 6.2-12.0 [facility] Comment on above: Performed By: #### L 501.2450, L300.8000, L501.4020, L501.5200, L100.0100, L500.3400, L500.2500 ####[facility] [address] [place], [address] Platelets (Bld) [#/Vol] 297 10*3/uL Normal 150-450 [facility] Comment on above: Performed By: #### L 501.2450, L300.8000, L501.4020, L501.5200, L100.0100, L500.3400, L500.2500 ####[facility] [address] [place], [address] RBC (Bld) [#/Vol] 4.79 10*6/uL Normal 4.2-5.4 [facility] Comment on above: Performed By: #### L 501.2450, L300.8000, L501.4020, L501.5200, L100.0100, L500.3400, L500.2500 ####[facility] [address] [place], [address] RDW SD 46.0 fl High 35.1-43.9 [facility] Comment on above: Performed By: #### L 501.2450, L300.8000, L501.4020, L501.5200, L100.0100, L500.3400, L500.2500 ####[facility] [address] [place], [address] WBC (Bld) [#/Vol] 8.3 10*3/uL Normal 4.4-11.0 [facility] Comment on above: Performed By: #### L 501.2450, L300.8000, L501.4020, L501.5200, L100.0100, L500.3400, L500.2500 ####[facility] [address] [place], [address] CTA Chest W/WO Contraston CTA Chest W/WO Contrast [facility] Imaging Services [address] [place] [address] CTA Chest W/WO Contrast MR#: [id number] Acct: [id number] Name: KAYLEE WONG Rep #: [id number] : 1960 F 63 From: Dinorah Marie MD PCP: Dr. Erendira Chiang MD Status: REG ER Study: CTA Chest W/WO Contrast Date of Exam: 02/25/24 Exam# [id number] Ordering Dr: Sean Garber DO :[id number] STUDY: CTA CHEST REASON FOR EXAM: Female, [...] Signed: Dinorah Marie MD at 3:50 EST , CC: Dr. Erendira Chiang MD; Sean Garber DO Cancer Researcher: Signed Normal [facility] Chest PA and Lateralon 02-24 Chest PA and Lateral [facility] Imaging Services [address] [place] [address] [id number] Chest PA and Lateral MR#: [id number] Acct: [id number] Name: KAYLEE WONG Rep #: [id number] : 1960 F 63 From: Dinorah Marie MD PCP: Dr. Erendira Chiang MD Status: REG ER Study: Chest PA and Lateral Date of Exam: 02/25/24 Exam# [id number] Ordering Dr: Sean Garber DO :[id number] STUDY: X-RAY CHEST REASON FOR EXAM: Female, [...] Signed: Dinorah Marie MD at 2:26 EST , CC: Dr. Erendira Chiang MD; Sean Garber DO Cancer Researcher: Signed Normal [facility] D-Dimer Quantitative (DVT/PE )on 02-25-2024 D-DIMER QUANT 0.37 FEU/ug/m Normal 0.27-0.49 [facility] Comment on above: Result Comment: NORM AL D-Dimer level (<0.50) indicates no DVT or PE. Performed By: #### L 501.2450, L300.8000, L501.4020, L501.5200, L100.0100, L500.3400, L500.2500 ####[facility] [address] [place], [address] Emergency Department Summary on 02-25-2024 Emergency Department Summary [facility] Medical Records Department [address] [place] [address] Emergency Department Summary 02/25/24 MR#: [id number] Acct: [id number] Name: KAYLEE WONG Rep #: [id number] : 1960 63 From: Sean Garber DO [...] was brought to the hospital for evaluation [facility] Home Medications ???Medication ???Instructions ???Recorded ???Last Taken [...] Narrative Medical (more content not included)... Normal [facility] L501.4020on 02-25-2024 TROPONIN-I HS 10 pg/mL Normal 3.0-54.0 [facility] Comment on above: Order Comment: 'TROP ' Serial specimen #1, #2 or #3: 2 Result Comment: Plea se Note: New Test Units and Gender Specific Reference Ranges. For more information see Policy Stat Procedure [place] High Sensitivity Troponin (TNIH) and attachments. Performed By: #### L 501.4020 #### [facility] Laboratory [address] [facility] [place], [address] TROPONIN-I HS 5 pg/mL Normal 3.0-54.0 [facility] Comment on above: Order Comment: 'TROP ' Serial specimen #1, #2 or #3: 1 Result Comment: Plea se Note: New Test Units and Gender Specific Reference Ranges. For more information see Policy Stat Procedure [place] High Sensitivity Troponin (TNIH) and attachments. Performed By: #### L 501.2450, L300.8000, L501.4020, L501.5200, L100.0100, L500.3400, L500.2500 ####[facility] [address] [place], [address] Lipaseon 02-25-2024 Lipase [Catalytic activity/Vol] 79 U/L High 13-75 [facility] Comment on above: Order Comment: 'TROP ' Serial specimen #1, #2 or #3: 1 Result Comment: Kerrie gtz note: LIPASE revised reference range effective 22. New Lipase methodology. Expected to produce lower values than the previous assay method. NEW Reference Range: 13 - 75 U/L Performed By: #### L 501.2450, L300.8000, L501.4020, L501.5200, L100.0100, L500.3400, L500.2500 ####[facility] [address] [place], [address] Liver Profileon 02-25-2024 Albumin [Mass/Vol] 3.6 g/dL Normal 3.2-5.0 [facility] Comment on above: Order Comment: 'TROP ' Serial specimen #1, #2 or #3: 1 Performed By: #### L 501.2450, L300.8000, L501.4020, L501.5200, L100.0100, L500.3400, L500.2500 ####[facility] [address] [place], [address] ALK P 119 U/L High 45-117 [facility] Comment on above: Order Comment: 'TROP ' Serial specimen #1, #2 or #3: 1 Performed By: #### L 501.2450, L300.8000, L501.4020, L501.5200, L100.0100, L500.3400, L500.2500 ####[facility] [address] [place], [address] ALT [Catalytic activity/Vol] 39 U/L Normal 13-56 [facility] Comment on above: Order Comment: 'TROP ' Serial specimen #1, #2 or #3: 1 Performed By: #### L 501.2450, L300.8000, L501.4020, L501.5200, L100.0100, L500.3400, L500.2500 ####[facility] [address] [place], [address] AST [Catalytic activity/Vol] 22 U/L Normal 15-37 [facility] Comment on above: Order Comment: 'TROP ' Serial specimen #1, #2 or #3: 1 Performed By: #### L 501.2450, L300.8000, L501.4020, L501.5200, L100.0100, L500.3400, L500.2500 ####[facility] [address] [place], [address] Bilirubin [Mass/Vol] 0.40 mg/dL Normal 0.20-1.00 [facility] Comment on above: Order Comment: 'TROP ' Serial specimen #1, #2 or #3: 1 Result Comment: For patients on eltrombopag therapy, use of Dimension [place] TBIL is not recommended. Performed By: #### L 501.2450, L300.8000, L501.4020, L501.5200, L100.0100, L500.3400, L500.2500 ####[facility] [address] [place], [address] Bilirubin.direct [Mass/Vol] 0.11 mg/dL Normal 0.00-0.30 [facility] Comment on above: Order Comment: 'TROP ' Serial specimen #1, #2 or #3: 1 Performed By: #### L 501.2450, L300.8000, L501.4020, L501.5200, L100.0100, L500.3400, L500.2500 ####[facility] [address] [place], [address] Globulin (S) [Mass/Vol] 3.3 g/dL Normal 2.2-4.2 [facility] Comment on above: Order Comment: 'TROP ' Serial specimen #1, #2 or #3: 1 Performed By: #### L 501.2450, L300.8000, L501.4020, L501.5200, L100.0100, L500.3400, L500.2500 ####[facility] [address] [place], [address] T PROT 6.9 g/dL Normal 6.4-8.2 [facility] Comment on above: Order Comment: 'TROP ' Serial specimen #1, #2 or #3: 1 Performed By: #### L 501.2450, L300.8000, L501.4020, L501.5200, L100.0100, L500.3400, L500.2500 ####[facility] [address] [place], [address] Magnesiumon 02-25-2024 Magnesium [Mass/Vol] 2.2 mg/dL Normal 1.6-2.6 [facility] Comment on above: Order Comment: 'TROP ' Serial specimen #1, #2 or #3: 1 Performed By: #### L 501.2450, L300.8000, L501.4020, L501.5200, L100.0100, L500.3400, L500.2500 ####[facility] [address] [place], [address] XR Shoulder - left 3 Viewson 02-06-2021 IMPRESSION: Acromioclavicular osteoarthrosis. Cancer Researcher: ELIJAH Transcribe Date/Time: Feb 06 2021 6:36P Dictated by : JUAN PLAZA MD This examination was interpreted and the report reviewed and electronically signed by: JUAN PLAZA MD on Feb 06 2021 6:38PM [facility] DIVISION OF RADIOLOGY * * *Final Report* [...] tissue abnormality identified. DIVISION [facility] RADIOLOGY [facility] * * *Final Report* * [...] tissue abnormality identified. IMPRESSION IMPRESSION: Acromioclavicular osteoarthrosis. [facility] Transcribe Date/Time: Feb 06 2021 6:36P Dictated by : JUAN PLAZA MD This examination was interpreted and the report reviewed and electronically signed by: JUAN PLAZA MD on Feb 06 2021 6:38PM EST [facility] Radiology Study observation (narrative) [facility] XR Shoulder - left 3 ViewsOr dered By: [facility] Provider on 02-06-2021 [facility] ED NOTEon 03-01-2017 ED NOTE HNO ID: [id number] Author: Leonor (Rn) VEE Damon Service: Emergency Medicine Author Type: Registered Nurse Type: ED Notes Filed: 02/28/2017 10:11 PM Note Text: Also see Sedation record Normal [facility] CHEST 2 VIEWSon 02-28-2017 CHEST 2 VIEWS Performed at [facility] APPROVED BY: Raghavendra Chavez MD EXAMINATION: CHEST [...] abnormality. IMPRESSION: No acute radiographic abnormality. Normal [facility] ED NOTEon 02-28-2017 ED NOTE HNO ID: [id number] Author: Gale Melgar) VEE Andrea Service: Emergency Medicine Author Type: Registered Nurse Type: ED Notes Filed: 02/28/2017 9:56 PM Note Text: See moderate sedation record. Dr. Carpio from GI here to endoscope pt. [facility] ED NOTE HNO ID: [id number] thor: SUZY Ngo Rnervice: Emergency MedicineAuthor Type: Registered NurseType: ED NotesFiled: 02/28/2017 8:20 PMNote Text: Dr. Russell to BS to talk to pt about risks related to sedation and GIscope procedure. Pt states understanding. Family at BS. [facility] ED NOTE HNO ID: [id number] Author: Gale Melgar) VEE Andrea Service: Emergency Medicine Author Type: Registered Nurse Type: ED Notes Filed: 02/28/2017 8:16 PM Note Text: Pt states no change in FB feeling in throat. Pt states she just wants something done. [facility] ED NOTE HNO ID: [id number] Author: Leonor Damon, VEE Service: Emergency Medicine Author Type: Registered Nurse Type: ED Notes Filed: 02/28/2017 7:35 PM Note Text: Pt stated still unable to keep down PO fluids; [facility] ED NOTE HNO ID: [id number] thor: SUZY Cisneros Rnervice: Emergency MedicineAuthor Type: Registered NurseType: ED NotesFiled: 02/28/2017 7:35 PMNote Text: Pt stated still no change following 3rd nitro; Dr. Russell notified andat bedside to give pt PO challenge; [facility] ED NOTE HNO ID: [id number] Author: Leonor (Rn) VEE Damon Service: Emergency Medicine Author Type: Registered Nurse Type: ED Notes Filed: 02/28/2017 7:30 PM Note Text: BP 117/ 68; Pt stated no change after 2nd nitro; Pt given 3rd nitro tab [facility] ED NOTE HNO ID: [id number] Author: Leonor LomeliRn) VEE Damon Service: Emergency Medicine Author Type: Registered Nurse Type: ED Notes Filed: 02/28/2017 7:26 PM Note Text: BP 126/77; Pt stated still feels the same, 2nd nitro given [facility] ED NOTE HNO ID: [id number] Author: Leonor (Rn) VEE Damon Service: Emergency Medicine Author Type: Registered Nurse Type: ED Notes Filed: 02/28/2017 7:20 PM Note Text: IVF started; Pt to x-ray and back; No acute distress noted; BP 124/77, 1st nitro tab given; Normal [facility] ED NOTE HNO ID: [id number] thor: Nighat (Medic) Estela Antony: (none)Author Type: Timber Management Technician and TechnicianType: ED NotesFiled: 02/28/2017 5:33 PMNote Text:Bed: ED-02Expected date: 02/28/17Expected time: 5:24 PMMeans of arrival: Samaritian CareComments:fb [facility] ED NOTE HNO ID: [id number] thor: Leonor (Rn) SUZY Damonervice: Emergency MedicineAuthor Type: Registered NurseType: ED NotesFiled: 02/28/2017 5:33 PMNote Text:Pt stated was eating soup with roast beef yesterday around noon whennoticed roast beef had become lodged in throat; Pt went to [place] ED andsent here for GI consult; Pt speaking full sentences upon ED Arrival;Stated majority of secretions come back out; Has had this happen in pastbut was able to get it out before; [facility] ED PROV NOTEon 02-28-2017 ED PROV NOTE HNO ID: [id number] thor: SHU Alfordervice: Emergency MedicineAuthor Type: PhysicianType: ED Provider NotesFiled: 02/28/2017 7:48 PMNote Text:56-year-old female who was transferred up to our emergency departmentbecause of an esophageal foreign body. The patient went to [facility] emergency Department after she had a piece of meat stuck in herthroat starting yesterday afternoon. The patient was transferred to [facility] they do not have a oracle erp developer on-call. Patient was givenglucagon IV there and [...] hepatosplenomegaly appreciated ormasses, or pulsatile masses.Claudia Mccloud MD02/28/[address] [facility] ED PROV NOTE HNO ID: [id number] thor: Geena (Res) SHU Russellervice: Emergency MedicineAuthor Type: ResidentType: ED Provider NotesFiled: 02/28/2017 11:06 PMNote Text: -Attestation signed by Claudia Mccloud MD at 03/01/2017 12:39 AMAttending NoteI evaluated the patient and personally participated in the lawler components. Iagree with the resident's findings and plan as documented and have discussedthe case and management of the patient's care with the resident. I was presentfor the lawler portions of the procedure.SHU Alfordignature: Claudia Mccloud MDDate: 12/31/2017Time: 12:37 AM ED Provider NotePatient Name: Kaylee AhumadaRN: [id number] DATE: 02/28/17HistoryPatient presents with:Body, ForeignHPI Comments: Patient [...] LIGATE FALLOPIAN TUBE- ORAL SURGERY PROCEDURE 05/12/2007 [place] teeth and cyst removed from jawFAMILY HISTORYProblem [...] Negative for rash.Neurological: Negative for weakness and numbness.Psychiatric/Behavio ral: Negative for suicidal ideas.All other systems reviewed [...] of02/28/17XR CHEST 2V FRONTAL/LATResult Value Ref Range Caterers Helper EXAMINATION: CHEST RADIOGRAPH (2 VIEW FRONTAL AND LATERAL)Clinical History: Foreign body aspiration.M: XC2_3Comparison: Prior available.RESULT:Lines, tubes, and devices: None.Lungs and pleura: No consolidation. No lung mass. No pleural effusion orpneumothorax.Cardiomediast inal silhouette: Normal cardiomediastinal silhouette.Other: No evidence retained radiopaque foreign body in the visualizedairway orlungs. No evidence of acute osseous abnormality.IMPRESSION:No acute radiographic abnormality.XR NECK SOFT TISSUE 2V AP/LATResult Value Ref Range Caterers Helper EXAM TITLE: SOFT TISSUE NECK 2 VIEWSDATE: [...] Fentanyl Intra-procedure monitoring: Continuous capnometry, blood pressuremonitoring, monitoring tech, frequent LOC assessments, frequent vital signchecks and [...] and subsequent symptoms and now . Dr. Joemended follow-up within 2 weeks with GI as an outpatient anddischarge after 45 minutes 1 hour post-conscious sedation. Dispositionpatient to be discharged to follow up with GI.Encounter Diagnosis ICD-10-CM1. Esophageal foreign body, initial encounter T18.108A2. Dysphagia R13.10 Added automatically from request for surgery [id number] Patient was dischargedCondition at time of disposition: stableSIGNATURE: YFN Landerosrocedural SedationPerformed by: SHU Landerosupervised by: Kenia Alfordpose/Procedure being performed: Esophageal FBMedications used: fentanyl and lorazepamI was present for and supervised the procedure detailed above.Negra Alford (Res) Sirisha Russellt1 2306Pajohn Mccloud MD03/01/17 0039 [facility] HOSPon 02-28-2017 HOSP Patient:Kaylee Wong CMRN: Height:5' 4(1.626 m)Weight:193 lb (87.544 kg)Outpatient Medications as of 02/28/17:amoxicillin-clavula kajal acid (AUGMENTIN) 875-125 mg per tabletrizatriptan (MAXALT) [...] target low density lipoprotein (LDL) cholesterol less rmlx575 mg/dL [E78.5]Obstructive sleep apnea on CPAP [G47.33, [...] become lodged in throat; Pt went to [place] ED and sent here forGI consult; Pt speaking full sentences upon ED Arrival; Stated majority ofsecretions come back out; Has had this happen in past but was able to get it outbefore;Nighat Antony, Medic, Medic 02/28/2017 5:33 PM SignedBed: ED-02Expected date: 02/28/17Expected time: 5:24 PMMeans of arrival: [facility] CareComments:Minda Damon RN, RN 02/28/2017 7:20 [...] and atbedside to give pt PO challenge;Leonor Damon, VEE, RN 02/28/2017 7:35 PM Signed Pt stated still unable to keep down PO fluids;Claudia Mccloud MD, 02/28/2017 7:48 PM [id number] female who was transferred up to our emergency department because ofan esophageal foreign body. [facility] after she had a piece [...] appreciated or masses, orpulsatile masses.Claudia Mccloud MD02/28/17 1948Clmarily Andrea RN, RN 02/28/2017 8:16 PM Signed Pt states no change in FB feeling in throat. Pt states she just wants somethingdone.Gale Andrea RN, RN 02/28/2017 8:[address] Russell to BS to talk to pt about risks related to sedation and GI scopeprocedure. Pt states understanding. Family at BS.Gale Andrea, RN, RN 02/28/2017 9:56 PM Signed See moderate sedation record. Dr. Carpio from GI here to endoscope pt.Farhad Carpio MD 02/28/2017 9:15 PM SignedHISTORY AND PHYSICAL Kayleejovon Wong, 56 year old femaleCurrent history and [...] 02/28/2017 9:45 PM SignedBRIEF OP NOTELOG ID: [id number]/Procedure Date: 02/28/2017Incision/Procedure Start Time:Incision Close/Procedure End Time:Surgeon(s)/Proceduralis t(s) and Line Assembler(s):Surgeon(s) and Role: * Farhad Carpio - PrimaryProcedure(s): EGD for FB removalAnesthesia: Monitored Anesthesia CareFindings: Stricture GE junction, hiatal hernia, gastric polyplsEstimated Blood Loss: 0 mlSpecimens: NoneComplications: NonePre-Op/Pre-Procedure Diagnosis: Esophageal Meat impactionPost-Op/Post-Proced ure Diagnosis: see findingsContinue Prevacid 30 mg dailyFU GI 3-4 weeks for EGD with dilationSIGNATURE: Farhad Carpio MD PATIENT NAME: Kaylee AdamsonerDATE: February 28, 2017 : 9:42 PM PAGER/CONTACT #: [phone] Notes ([facility]):Mariama Sorto PA-C 02/28/2017 9:30 AM Zgofte8302/28/2017Patient presents with:Nasal Congestion: X 2 weeksSUBJECTIVE: This [...] unspecified hyperlipidemia- Other forms of migraineALLERGIES Topamax [Topiramate]MEDICATIONSCurre nt Outpatient Prescriptions:rizatriptan (MAXALT) 10 mg tablet TAKE 1 TABLET BY MOUTH AT ONSET OF HEADACHEMAY REPEAT AFTER 2 HOURS DO NOT EXCEED 3/DAYfluticasone (FLONASE) 50 mcg/actuation nasal spray Use 2 Sprays in each nostrilonce daily. Rinse mouth after use.codeine-guaiFENesin (ROBITUSSIN AC) 10-100 mg/5 mL syrup Take 5-10 mL by mouthfour times daily as needed for Cough. May cause drowsiness.Estradiol-Norethi ndrone Acet (MIMVEY) 1-0.5 mg per tablet Take 1 tablet by mouthonce daily.lansoprazole (PREVACID) 30 mg capsule Take 1 capsule by mouth once daily.CHOLECALCIFEROL, VITAMIN D3, (VITAMIN D3 ORAL) Take by mouth.Biotin 2,500 mcg ORAL Cap Take by mouth.[place]-3 Fatty Acids (FISH OIL) 500 mg ORAL [...] lb) LMP 02/11/2010 SpO2 95% BMI 33.13 kg/p7JEXWINTPKS Well appearing, alert, in no acute distress, [...] agrees with the plan.Mariama Sorto PA-C Normal [facility] NECK SOFT TISSUE STUDYon NECK SOFT TISSUE STUDY Performed at [facility] APPROVED BY: Raghavendra Chavez MD EXAM [...] degenerative changes of the cervical spine. Normal [facility] OPERATIVE NOon 02-28-2017 OPERATIVE NO HNO ID: [id number] thor: Farhad Mcgowanervice: GastroenterologyAuthor Type: PhysicianType: Operative ReportFiled: 03/02/2017 9:29 AMNote Text:[facility] - Operative ReportSURGEON: YFN ClaytonATIENT NAME: KAYLEE WONG CMRN: [id number] CSN: [id number] OF SURGERY: 02/28/2017DATE OF : 1960 SEX/AGE: F/56PATIENT TYPE: E HOSP SVC: ALLISON LOCATION: SM11GEXR OF SURGERY: 02/28/2017SURGEON: YFN ClaytonROCEDURE: Esophagogastroduodenoscopy for removal of foreign body fromtheesophagus.PREOPERATIV E DIAGNOSIS: Meat impaction of the esophagus.POSTOPERATIVE DIAGNOSES:1. [...] Carpio MDGastroenterologyMQ:modlD: 02/28/2017 21:49:41T: 02/28/2017 22:57:49Job #: [id number]:* Lamont So MD [facility] PROGRESSon 02-28-2017 PROGRESS HNO ID: [id number] thor: Farhad Mcgowanervice: GastroenterologyAuthor Type: PhysicianType: Progress NotesFiled: 02/28/2017 9:45 PMNote Text:BRIEF OP NOTELOG ID: [id number]/Procedure Date: 02/28/2017Incision/Procedure Start Time:Incision Close/Procedure End Time:Surgeon(s)/Proceduralis t(s) and Line Assembler(s):Surgeon(s) and Role: * Farhad Carpio - PrimaryProcedure(s): EGD for FB removalAnesthesia: Monitored Anesthesia CareFindings: Stricture GE junction, hiatal hernia, gastric polyplsEstimated Blood Loss: 0 mlSpecimens: NoneComplications: NonePre-Op/Pre-Procedure Diagnosis: Esophageal Meat impactionPost-Op/Post-Proced ure Diagnosis: see findingsContinue Prevacid 30 mg dailyFU GI 3-4 weeks for EGD with dilationSIGNATURE: Farhad Carpio MD PATIENT NAME: Kaylee WongDATE: February 28, 2017 : 9:42 PM PAGER/CONTACT #: [id number] [facility] PROGRESS HNO ID: [id number] thor: Farhad Eppsice: GastroenterologyAuthor Type: PhysicianType: Progress [...] Vital Sign Value Performing Clinician Indy patrick 11-18-2024 13:00-0400 Body height 162.[address] Erendira Chiang MD Work Phone: [facility] 11-18-2024 12:58-0400 Body mass index (BMI) [Ratio] 32.5 kg/m2 Dr. Erendira Chiang MD Work Phone: [facility] 11-18-2024 12:58-0400 Body weight 86.[address] Erendira Chiang MD Work Phone: [facility] 11-18-2024 12:58-0400 Diastolic blood pressure 83 mm[Hg] Dr. Erendira Chiang MD Work Phone: [facility] 11-18-2024 12:58-0400 Heart rate 66 /min Dr. Erendira Chiang MD Work Phone: [facility] 11-18-2024 12:58-0400 Respiratory rate 18 /min Dr. Erendira Chiang MD Work Phone: [facility] 11-18-2024 12:58-0400 SaO2% (BldA) [Mass fraction] 94 % Dr. Erendira Chiang MD Work Phone: [facility] 11-18-2024 12:58-0400 Systolic blood pressure 129 mm[Hg] Dr. Erendira Chiang MD Work Phone: [facility] 11-07-2024 08:58-0400 Body mass index (BMI) [Ratio] 34.52 kg/m2 Jan Ankit MACHINE STOPPAGE FREQUENCY CHECKER.BINGO CLERK Work Phone: [facility] 11-07-2024 08:58-0400 Body weight 87 kg Jan Ankit MACHINE STOPPAGE FREQUENCY CHECKER.BINGO CLERK Work Phone: [facility] 11-07-2024 08:58-0400 Diastolic blood pressure 71 mm[Hg] Jan Ankit MACHINE STOPPAGE FREQUENCY CHECKER.BINGO CLERK Work Phone: [facility] 11-07-2024 08:58-0400 Heart rate 75 /min Jan Ankit MACHINE STOPPAGE FREQUENCY CHECKER.BINGO CLERK Work Phone: [facility] 11-07-2024 08:58-0400 Respiratory rate 16 /min Jan Ankit MACHINE STOPPAGE FREQUENCY CHECKER.BINGO CLERK Work Phone: [facility] 11-07-2024 08:58-0400 SaO2% (BldA) [Mass fraction] 95 % Jan Ankit MACHINE STOPPAGE FREQUENCY CHECKER.BINGO CLERK Work Phone: [facility] 11-07-2024 08:58-0400 Systolic blood pressure 112 mm[Hg] Jan Ankit MACHINE STOPPAGE FREQUENCY CHECKER.BINGO CLERK Work Phone: [facility] 10-29-2024 10:48-0400 Heart rate 70 /min Dr. Erendira Chiang MD Work Phone: [facility] 10-29-2024 10:40-0400 Body temperature 98.1 [degF] Dr. Erendira Chiang MD Work Phone: [facility] 10-29-2024 10:40-0400 Diastolic blood pressure 83 mm[Hg] Dr. Erendira Chiang MD Work Phone: [facility] 10-29-2024 10:40-0400 Respiratory rate 16 /min Dr. Erendira Chiang MD Work Phone: [facility] 10-29-2024 10:40-0400 SaO2% (BldA) [Mass fraction] 96 % Dr. Erendira Chiang MD Work Phone: [facility] 10-29-2024 10:40-0400 Systolic blood pressure 128 mm[Hg] Dr. Erendira Chiang MD Work Phone: [facility] 10-28-2024 13:23-0400 Body height 162.[address] Erendira Chiang MD Work Phone: [facility] 10-28-2024 13:23-0400 Body mass index (BMI) [Ratio] 32.5 kg/m2 Dr. Erendira Chiang MD Work Phone: [facility] 10-28-2024 13:23-0400 Body weight 86.[address] Erendira Chiang MD Work Phone: [facility] 09-05-2024 09:58-0400 Body height 158.8 cm Jan Pham MACHINE STOPPAGE FREQUENCY CHECKER.BINGO CLERK Work Phone: [facility] 09-05-2024 09:58-0400 Body mass index (BMI) [Ratio] 34.56 kg/m2 Jan Pham MACHINE STOPPAGE FREQUENCY CHECKER.BINGO CLERK Work Phone: [facility] 09-05-2024 09:58-0400 Body weight 87.09 kg Jan Pham MACHINE STOPPAGE FREQUENCY CHECKER.BINGO CLERK Work Phone: [facility] 09-05-2024 09:58-0400 Diastolic blood pressure 72 mm[Hg] Jan Pham MACHINE STOPPAGE FREQUENCY CHECKER.BINGO CLERK Work Phone: [facility] 09-05-2024 09:58-0400 Heart rate 80 /min Jan Pham MACHINE STOPPAGE FREQUENCY CHECKER.BINGO CLERK Work Phone: [facility] 09-05-2024 09:58-0400 SaO2% (BldA) [Mass fraction] 99 % Jan Pham APRN.BINGO CLERK Work Phone: [facility] 09-05-2024 09:58-0400 Systolic blood pressure 124 mm[Hg] Jan Pham APRN.BINGO CLERK Work Phone: [facility] 04-19-2024 09:09-0500 Body height 161.3 cm Leonor Servin MD Work Phone: [facility] 04-19-2024 09:09-0500 Body mass index (BMI) [Ratio] 33.48 kg/m2 Leonor Servin MD Work Phone: [facility] 04-19-2024 09:09-0500 Body weight 87.09 kg Leonor Servin MD Work Phone: [facility] 04-19-2024 09:09-0500 Diastolic blood pressure 82 mm[Hg] Leonor Servin MD Work Phone: [facility] 04-19-2024 09:09-0500 Systolic blood pressure 126 mm[Hg] Leonor Servin MD Work Phone: [facility] 04-17-2023 09:17-0500 Body height 160.9 cm Leonor Servin MD Work Phone: [facility] 04-17-2023 09:17-0500 Body weight 88.45 kg Leonor Servin MD Work Phone: [facility] 04-17-2023 09:17-0500 Diastolic blood pressure 76 mm[Hg] Leonor Servin MD Work Phone: [facility] 04-17-2023 09:17-0500 Systolic blood pressure 128 mm[Hg] Leonor Servin MD Work Phone: [facility] Encounters Encounter Date Encounter Type Care Provider Facility Start: 11-18-2024 End: 11-18-2024 Patient encounter procedure Geovanna ZULETA -[facility] Work Phone: Start: 11-18-2024 End: 11-18-2024 ambulatory Geovanna ZULETA Facility:[facility] Start: 11-07-2024 End: 11-07-2024 Office outpatient visit 25 minutes Jan Pham MACHINE STOPPAGE FREQUENCY CHECKER.BINGO CLERK Work Phone: [facility] Comment on above: 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 Faustino nixon MD -[facility] Start: 11-02-[address] Erendira mckeon MD Work Phone: -[facility] Start: 10-29-2024 Non-patient / Non-visit Dr. Joseph JOLLY [facility] Work Phone: Start: 10-29-2024 ambulatory Donnie Hall Facility [facility] Start: 10-29-2024 Non-patient / Non-visit Dr. Donnie Hall MD -[facility] Work Phone: Start: 10-28-2024 Non-patient / Non-visit Dr. Puma Morrison MD -[facility] Work Phone: Start: 10-28-2024 ambulatory Faustino Torres Facility:[facility] Start: 10-28-2024 End: 10-29-2024 Evaluation and management of inpatient Dr. Mathieu [facility] Work Phone: Start: 10-28-2024 End: 10-28-2024 Telephone encounter Erendira Chiang MD Work Phone: [facility] Comment on above: Verbal order needed for Holter Monitor Start: 10-28-2024 ambulatory Jan Pham SPED TEACHER Facility :[facility] Start: 10-28-2024 Non-patient / Non-visit Alejandro Licea -[facility] Start: 09-06-2024 End: 09-06-2024 Follow-up encounter Jan Pham MACHINE STOPPAGE FREQUENCY CHECKER.BINGO CLERK Work Phone: [facility] Start: 09-05-2024 End: 09-05-2024 ambulatory JAN PHAM Facility:[facility] Start: 09-05-2024 End: 09-05-2024 Patient encounter procedure Jan Pham MACHINE STOPPAGE FREQUENCY CHECKER.BINGO CLERK Work Phone: [facility] Comment on above: Medicare annual well ness visit, initial (Primary Dx); Screening for depression; Encounter for screening examination for other mental health and behavioral disorders; Migraine without aura, not intractable, with status migrainosus; GERD without esophagitis; TREVINO (dyspnea on exertion); Chest discomfort; Calculus of gallbladder without cholecystitis without obstruction Start: 09-05-2024 End: 09-05-2024 ambulatory JAN PHAM Facility:[facility] Start: 07-26-2024 End: 07-26-2024 Refill Erendira Chiang MD Work Phone: [address] [place] [address] Comment on above: Refill Request Start: 04-27-2024 End: 04-27-2024 Refill Jan Pham MACHINE STOPPAGE FREQUENCY CHECKER.BINGO CLERK Work Phone: [facility] Comment on above: Refill Request Start: 04-19-2024 End: 04-19-2024 Patient encounter procedure Leonor Servin MD Work Phone: OB/Gynecology Comment on above: Encounter for gyneco logical examination (general) (routine) without abnormal findings (Primary Dx); Encounter for screening mammogram for breast cancer Start: 04-19-2024 End: 04-19-2024 Patient encounter status Leonor Servin MD Work Phone: [facility] Start: 04-19-2024 End: 04-19-2024 ambulatory LEONOR SERVIN Facility:[facility] Start: 04-19-2024 End: 04-19-2024 Subsequent hospital visit by physician Screen Mammo [facility] Comment on above: Encounter for screen ing mammogram for breast cancer [Z12.31] Start: 03-01-2024 End: 03-01-2024 ambulatory Erendira Chiang Facility:[facility] Start: 02-25-2024 End: 02-25-2024 Emergency department patient visit Erendira Chiang Facility:[facility] Start: 08-25-2023 Refill Erendira villalobos MD Work Phone: [facility] Comment on above: Refill Request Start: 04-20-2023 Documentation procedure Mammog melita Coordinator [facility] Start: 04-20-2023 Letter encounter Mammography Coordinator [facility] Department Start: 04-17-2023 End: 04-17-2023 Patient encounter [...] encounter status Leonor Servin MD Work Phone: [facility] Work Phone: Start: 04-17-2023 End: 04-17-2023 Subsequent hospital visit by physician Screen Mammo [facility] Start: 12-24-2022 ambulatory Tao Maahjan MD Work Phone: [facility] Start: 09-16-2022 Refill Tao Mahajan MD Work Phone: [facility] Comment on above: Refill Request Start: 01-08-2022 ambulatory Tao Mahajan MD Work Phone: [facility] Start: 12-28-2021 Refill Charly CLEARY RN.BINGO CLERK, DNP Work Phone: [facility] Comment on above: Refill Request Start: 12-18-2021 Refill Jan CLEARY RN.BINGO CLERK Work Phone: Internal [facility] Comment on above: Refill Request Start: 02-06-2021 End: 02-06-2021 Subsequent hospital visit by physician Xr [facility] [place] Work Phone: Radiology Comment on above: Acute pain of left s annabel [M25.512] Start: 02-28-2017 End: 03-01-2017 Emergency department patient visit FARHADMADHAV CARPIO [facility] Procedures Date Procedure Procedure Detail Performing Clinician Start: 10-29-[address] Erendira Chiang MD Work Phone: Start: 10-28-2024 History of placement of stent for coronary artery disease H/O heart artery stent Geovanna ZULETA Comment on above: Successful PCI of hi gh-grade 90% stenosis of mid LAD 09/2024 Successful PCI of hi gh-grade 90% stenosis of mid LAD 09/2024 usingOnyx [place] 3.5 X 80 mm ANNIE Start: 10-28-2024 Coagulation time, activated Dr. Erendira Chiang MD Work Phone: Start: 10-28-2024 Cardiovascular stres s test using pharmacologic stress agent Dr. Erendira Chiang MD Work Phone: Start: 09-05-2024 Ecg routine ecg w/le ast 12 lds i&r only [facility] Provider Start: 09-05-2024 Adult depression screening assessment Jan Pham MACHINE STOPPAGE FREQUENCY CHECKER.BINGO CLERK Work Phone: Start: 04-19-2024 Screening digital br east tomosynthesis bi Leonor Servin MD Work Phone: Start: 03-28-2023 Lipid 1996 panel - S nolan or Plasma Leonor Servin MD Work Phone: Start: 02-06-2021 Radex shoulder compl ete minimum 2 views Lisette Podlogchuck MACHINE STOPPAGE FREQUENCY CHECKER.BINGO CLERK Work Phone: Start: 01-08-2019 Lipid 1996 panel - S nolan or Plasma Tao Mahajan MD Work Phone: Start: 05-20-2016 Mammography Jan craven MACHINE STOPPAGE FREQUENCY CHECKER.BINGO CLERK Work Phone: History of placement of stent for coronary artery disease History of heart artery stent Jan Pham MACHINE STOPPAGE FREQUENCY CHECKER.BINGO CLERK Work Phone: History of placement of stent for coronary artery disease History of coronary artery stent placement Dr. Erendira Chiang MD Work Phone: Plan of Treatment Date Care Activity Detail Author Start: 06-29-2034 RSV Vaccine (1 - 1-d ose 75+ series) RSV Vaccine (1 - 1-dose 75+ series) [facility] Start: 04-17-2028 Screening for malign ant neoplasm of cervix Cervical Cancer Screening [facility] Start: 03-28-2028 Lipid panel [facility] Start: 09-06-2027 Diabetes Screening Diabetes Screenin g [facility] Start: 03-28-2026 Diabetes Screening Diabetes Screenin g [facility] Start: 09-05-2025 Anxiety Screening Anxiety Screening [facility] Start: 09-05-2025 Covid-19 Vaccine () Covid-19 Vaccine () [facility] Comment on above: Postponed from 10/31 (Declined at this time) Start: 09-05-2025 Depression Screening Depression Scre ening [facility] Start: 09-05-2025 HIV screening HIV Screening [facility] Comment on above: Postponed from 06/29 (Declined at this time) Start: 09-05-2025 Pneumococcal Vaccine : 50+ (1 of 1 - PCV) Pneumococcal Vaccine: 50+ (1 of 1 - PCV) [facility] Comment on above: Postponed from 06/29 (Declined at this time) Start: 09-05-2025 Screening for osteoporosis Bone Density Screening [facility] Comment on above: Postponed from 06/29 (Declined at this time) Start: 05-12-2025 End: 05-12-2025 Patient encounter procedure 05/12/2025 1:20 PM EDT Office Visit [facility] [address] [place], [place] [id number] Jan Pham, MACHINE STOPPAGE FREQUENCY CHECKER.BINGO CLERK [address] [place], [place] [id number] 6 month follow up [facility] Comment on above: 6 month follow up Start: 04-20-2025 End: 04-20-2025 Patient encounter procedure Mammogram Comment on above: ANGELI SCREENING W BOGDAN annual/mammo Start: 04-19-2025 Screening for malign ant neoplasm of breast Mammogram Screening [facility] Start: 10-31-2024 Influenza vaccination [facility] Start: 10-29-2024 Patient discharge [facility] Start: 10-28-2024 Cardiac monitoring [facility] Start: 10-28-2024 Cardiac rehabilitati on - phase 1 [facility] Start: 10-28-2024 Notification of physician [facility] Start: 10-28-2024 Oxygen therapy [facility] Start: 10-28-2024 Patient discharge [facility] Start: 10-28-2024 Pulse taking [facility] Start: 10-28-2024 End: 10-28-2024 [facility] Start: 10-28-2024 Admission procedure [facility] Start: 10-28-2024 Assessment of risk o f venous thromboembolism [facility] Start: 10-28-2024 Insertion of cathete r into peripheral vein [facility] Start: 10-28-2024 Measuring intake and output [facility] Start: 10-28-2024 Providing care accor ding to standard [facility] Start: 10-28-2024 Referral to machine lay out worker [facility] Start: 10-28-2024 Following clinical pathway protocol [facility] Start: 10-06-2024 Screening for malign ant neoplasm of colon Colorectal Cancer Screening [facility] Comment on above: Postponed from 06/29 (Declined at this time) Start: 09-05-2024 End: 09-05-2024 Patient encounter procedure 09/05/2024 10:00 AM EDT Office Visit [facility] [address] [place] [address] Jan Pham, LICHA.BINGO CLERK [address] [place] [address] physical [facility] [place] Comment on above: physical Start: 06-29-2024 Advance Directive Discussion Advance Directive Discussion [facility] Start: 06-29-2024 Screening for osteoporosis Bone Density Screening [facility] Start: 04-19-2024 End: 04-19-2024 Patient encounter procedure Mammogram Comment on above: Encounter for screen ing mammogram for breast cancer [Z12.31]; Dense breast tissue [R92.30] Annual- mamm w/ bogdan Start: 04-17-2024 End: 05-16-2024 DBT Breast - bilateral screening ANGELI SCREENING W BOGDAN Radiology Routine Encounter for screening mammogram for breast cancer Dense breast tissue Expected: 04/17/2024, Expires: 05/16/2024 [facility] Work Phone: Comment on above: Expected: 04/17/2024 , Expires: 05/16/2024 Start: 04-17-2024 Screening for malign ant neoplasm of breast Mammogram Screening [facility] Start: 03-30-2024 Urine microalbumin profile [facility] Start: 03-28-2024 Covid-19 Vaccine (#1) Covid-19 Vacci ne (#1) [facility] Comment on above: Postponed from 12/29 (Declined at this time) Start: 03-28-2024 Covid-19 Vaccine ( season) Covid-19 Vaccine () [facility] Comment on above: Postponed from 10/31 (Declined at this time) Start: 01-09-2024 Lipid 1996 panel - S nolan or Plasma Lipid Screening [facility] Start: 01-09-2024 LIPID SCREEN LIPID SCREEN [facility] Start: 11-01-2023 Covid-19 Vaccine ( season) Covid-19 Vaccine ( season) [facility] Start: 11-01-2023 Influenza vaccination C [facility] Start: 08-30-2023 Influenza vaccination Influenza Vacc ine (#1) [facility] Comment on above: Postponed from 10/31 (Declined at this time) Start: 03-22-2023 COVID-19 VACCINE (#1) COVID-19 VACCI NE (#1) [facility] Comment on above: Postponed from 12/29 (Declined at this time) Start: 03-22-2023 HIV SCREENING HIV SCREENING [facility] Comment on above: Postponed from 06/29 (Declined at this time) Start: 03-22-2023 HPV TESTING HPV TESTING [facility] Comment on above: Postponed from 05/20 (Declined at this time) Start: 03-22-2023 PAP TESTING PAP TESTING [facility] Comment on above: Postponed from 05/20 (Declined at this time) Start: 03-22-2023 SHINGRIX VACCINE (1 of 2) LEMOS GRIX VACCINE (1 of 2) [facility] Comment on above: Postponed from 06/29 (Declined at this time) Start: 03-02-2023 Behavioral Health Screening Behavioral Health Screening [facility] Start: 10-31-2022 Influenza vaccination C [facility] Start: 02-06-2022 COVID-19 VACCINE (#1) COVID-19 VACCI NE (#1) [facility] Comment on above: Postponed from 12/29 (Declined at this time) Start: 01-08-2022 DIABETES SCREEN DIABETES SCREEN [facility] Start: 01-08-2022 Diabetes Screening Diabetes Screenin g [facility] Start: 10-31-2021 Influenza vaccination INFLUENZA (#1) [facility] Start: 05-20-2021 HPV TESTING HPV TESTING [facility] Start: 05-20-2021 PAP TESTING PAP TESTING [facility] Start: 05-20-2021 Screening for malign ant neoplasm of cervix [facility] Start: 03-02-2021 DEPRESSION ASSESSMENT DEPRESSION ASS ESSMENT [facility] Start: 2019 RSV Vaccine (1 - 1-d ose 60+ series) RSV Vaccine (1 - 1-dose 60+ series) [facility] Start: 05-20-2017 Mammography [facility] Start: 05-20-2017 Screening for malign ant neoplasm of breast Mammogram Screening [facility] Start: 06-29-2009 Pneumococcal Vaccine : 50+ (1 of 1 - PCV) Pneumococcal Vaccine: 50+ (1 of 1 - PCV) [facility] Start: 06-29-2009 SHINGRIX VACCINE (1 of 2) LEMOS GRIX VACCINE (1 of 2) [facility] Start: 06-29-2004 COLOGUARD (FIT-DNA) COLOGUARD (FIT-D NA) [facility] Start: 06-29-2004 Colonoscopy COLONOSCOPY [facility] Start: 06-29-2004 COLORECTAL CANCER SCREENING COLORECTAL CANCER SCREENING [facility] Start: 06-29-[address] COLONOGRAPHY [facility] Start: 06-29-2004 FECAL OCCULT BLOOD FECAL OCCULT BLOO D [facility] Start: 06-29-2004 Screening for malign ant neoplasm of colon [facility] Start: 06-29-2004 SIGMOIDOSCOPY SIGMOIDOSCOPY [facility] Start: 06-29-1977 Anxiety Screening Anxiety Screening [facility] Start: 06-29-1977 Depression Screening Depression Scre ening [facility] Start: 06-29-1977 HIV SCREENING HIV SCREENING [facility] Start: 06-29-1977 HIV screening HIV Screening [facility] End: 04-17-2023 DBT Breast - bilateral screening [facility] Work Phone: Comment on above: ONCE for 1 Occurrenc es starting 04/17/2023 until 04/17/2023 End: 05-19-2025 DBT Breast - bilateral screening ANGELI SCREENING W BOGDAN Radiology Routine Encounter for gynecological examination (general) (routine) without abnormal findings Encounter for screening mammogram for breast cancer 1 Occurrences starting 04/19/2024 until 05/19/2025 [facility] Work Phone: Comment on above: 1 Occurrences starti ng 04/19/2024 until 05/19/2025 ECG COMPLETE [facility] Work Phone: Comment on above: Ordered: 09/05/2024 End: 01-23-2024 ANGELI SCREENING ANGELI SCREENING Radiology Routine Encounter for screening mammogram for breast cancer 1 Occurrences starting 12/24/2022 until 01/23/2024 [facility] Work Phone: Comment on above: 1 Occurrences starti ng 12/24/2022 until 01/23/2024 PAP TEST PAP TEST Lab Aneta rodriguez Encounter for screening for human papillomavirus (HPV) Pap smear for cervical cancer screening 04/17/2023 9:53 AM EST [facility] Work Phone: End: 02-07-2023 Screening mammography bi 2-view breast inc cad ANGELI SCREENING Radiology Routine Encounter for screening mammogram for breast cancer 1 Occurrences starting 01/08/2022 until 02/07/2023 [facility] Work Phone: Comment on above: 1 Occurrences starti ng 01/08/2022 until 02/07/2023 [facility] Immunizations Immunization Date Immunization Notes Care Provider Jacquie vegas 03-13-2018 influenza virus vaccine, unspecified formulation Tao Mahajan MD Work Phone: [facility] 03-30-2014 tetanus toxoid, redu stella diphtheria toxoid, and acellular pertussis vaccine, adsorbed Jan Pham APRN.CNP Work Phone: [facility] Payers Date Payer Category Payer Medicare MEDICARE [id number] 2024 Medicare [id number] 2024 [facility] [place] [facility] PPO [id number] 2024 Unknown [id number] 2024 Self-pay 2022 Private Health Insurance [id number] 2022 Private Health Insurance [id number] 2018 Unknown [id number] Unknown [id number] Unknown [id number] Unknown [id number] Unknown [id number] Unknown [id number] Unknown [id number] .[id number] Unknown [id number] .[id number] Unknown [id number] .2.462 Unknown [id number] .[id number] Unknown [id number] .[id number] Unknown [id number] Social History Date Type Detail Facility Start: 02-03-2011 End: 10-28-2024 Tobacco smoking status NHIS Never smoked tobacco [facility] Work Phone: Start: 02-03-2011 Tobacco use and exposure Smoke less tobacco non-user [facility] Work Phone: Start: 02-06-2021 End: 11-07-2024 Alcohol intake Current drinker of alcohol (finding) [facility] Start: 1960 Sex Assigned At Not on file C [facility] Start: 02-04-2020 End: 03-22-2022 Alcohol intake [facility] Start: 02-04-2020 End: 03-21-2022 Social connection and isolation panel [facility] Start: 01-07-2021 End: 02-06-2021 Do you belong to any clubs or organizations such as pentecostalism groups, unions, fraternal or athletic groups, or school groups? Yes [facility] Are you now , , , , never or living with a partner? [facility] How often to you hav e a drink containing alcohol? 2-4 times a month [facility] How many standard dr inks containing alcohol do you have on a typical day? 1 or 2 [facility] How often do you hav e 6 or more drinks on 1 occasion? Never [facility] Start: 02-01-2012 How hard is it for y ou to pay for the very basics like food, housing, medical care, and heating Not hard at all [facility] Do you feel stress - tense, restless, nervous, or anxious, or unable to sleep at night because your mind is troubled all the time - these days [OSQ] Not at all [facility] (I/We) worried lorie er (my/our) food would run out before (I/we) got money to buy more. Never true [facility] In the past 12 month s, was there a time when you were not able to pay the mortgage or rent on time? No [facility] How often to you hav e a drink containing alcohol? Monthly or less [facility] How often do you hav e 6 or more drinks on 1 occasion? Less than monthly [facility] Start: 1960 Sex Assigned At Female [facility] How often to you hav e a drink containing alcohol? 2-3 time sa week [facility] Medical Equipment Procedure Code Equipment Code Equipment Origin al Text Equipment Identifier Dates Drug-eluting coronary artery stent, [id number]-coated [id number] FDA Start: 10-28-2024 Goals Date Patient Goal Desired Activity /State Functional Status Date Assessment Result Facility 10-29-2024 Functional status Ambulates;Up ad camila [facility] Work Phone: 09-05-2024 Total score [AUDIT-C] 2 09/06/19 10:01 AM DIPAKT Kalee Subramanian MA [facility] 09-26-2014 Are you deaf, or do you have serious difficulty hearing No 09/26/2014 9:07 AM EDT Harleen Eaton Ma [facility] 09-26-2014 Are you blind, or do you have serious difficulty seeing, even when wearing glasses No 09/26/2014 9:07 AM EDT Angelito ParkHarleen [facility] 09-26-2014 Do you have serious difficulty walking or climbing stairs No 09/26/2014 9:07 AM EDT [facility] 09-26-2014 Do you have difficul ty dressing or bathing No 09/26/2014 9:07 AM EDT Angelito [facility] 09-26-2014 Because of a physica l, mental, or emotional condition, do you have difficulty doing errands alone such as visiting a physician's office or shopping No 09/26/2014 9:07 AM EDT Angelito ParkHarleen [facility] Mental Status Date Assessment Result Facility 10-29-2024 Cognitive function Voice/Name [facility] Work Phone: 09-26-2014 Because of a physica l, mental, or emotional condition, do you have serious difficulty concentrating, remembering, or making decisions No 09/26/2014 9:07 AM EDT [facility] Clinical Notes 02-20-2011 to 11-18-2024 Patient InstructionsJan Pham APRN.BINGO CLERK - 11/07/2024 9:00 AM EDT Note Date & Type Note Facility 11-18-2024 Progress note [facility] 11-07-2024 Instructions Jan Pham APRN.BINGO CLERK - 11/07/2024 9:24 AM EDT We discussed your recent cardiac care and follow-up: - You underwent a stress test on October 28, which revealed an abnormal heart rhythm (sustained ventricular tachycardia). This led to a heart catheterization, where a 90-95% blockage was identified, and a drug-eluting stent was placed to restore blood flow. - You are now following up with [facility] for ongoing cardiac care. Please continue to follow their recommendations regarding your medications and any additional testing or monitoring. - You are currently taking Lipitor (atorvastatin), aspirin, metoprolol, and Brilinta (ticagrelor). These medications are important for maintaining your heart health and preventing further blockages. - Brilinta helps keep the stent open by preventing platelets from clumping. You may need to stay on this medication for about a year, but please confirm this with your machine lay out worker. - Be aware that Brilinta and aspirin increase your risk of bleeding. If you cut yourself, apply firm pressure as it may take longer to stop bleeding. You may also notice more bruising. - You mentioned feeling fatigued. This is common after a cardiac event and stent placement. It may take time to regain your energy. If your fatigue persists or worsens, please let us know. - If you experience any new or worsening symptoms, such as chest pain, shortness of breath, or dizziness, please seek immediate medical attention. We discussed your medications and supplements: - Your current medications include Lipitor, aspirin, metoprolol, Brilinta, Maxalt (as needed for migraines), and Prevacid. Refills for Maxalt (12 tablets) and Prevacid (90 tablets) have been sent to your preferred [facility] pharmacy. - You asked about interactions between your medications and supplements (vitamin D, biotin, magnesium). These are safe to continue. Magnesium is beneficial for your overall health. - If you experience side effects from Lipitor, such as fatigue, you may discuss switching to Crestor (rosuvastatin) with your machine lay out worker, as it may be better tolerated. We discussed your ear fullness: - Your left ear feels plugged, likely due to nasal congestion affecting your Eustachian tube. There is no infection or wax buildup. - Use an guvp-rxx-tsoewht nasal spray, such as a generic version of Flonase, and administer 2 puffs in each nostril daily. This will reduce inflammation and help your ear drain. It may take a few days to improve. We discussed follow-up care: - Please follow up with your machine lay out worker as directed for ongoing management of your heart health and medications. - We recommend a follow-up visit with our office in 6 months to monitor your overall health and ensure your recovery is progressing well. - If you need to establish care with another primary care provider due to upcoming changes in our office, we can assist you with this process. You are welcome to continue seeing me for your care. Please let us know if you have any questions or concerns. documented in this encounter [facility] 11-07-2024 History of Present illness Narrative Chief Complaint Patient presents with: Hospital F/U Ear Problem: Left ear-plugged HPI Kaylee Wong is a 64 year old female who presents here today for above reason. Sharmin Wong is a 64-year-old female with a history of CAD, presenting for follow-up after a recent stress test and subsequent stent placement. Sharmin underwent a stress test on 10/28, during which she experienced severe lightheadedness and dizziness. The test revealed sustained ventricular tachycardia, leading to an immediate cardiac catheterization. During the procedure, a 90-95% mild LAD coronary artery blockage was identified, and a drug-eluting stent was placed. She is currently under the care of [facility]. Since the procedure, Sharmin reports feeling slightly better but continues to experience fatigue. She notes a reduction in dyspnea compared to before the stent placement. She is currently taking Lipitor, aspirin, metoprolol, and Brilinta. She inquires about potential interactions between these medications and her current supplements, which include vitamin D, biotin, and magnesium. She also requests refills for Prevacid and Maxalt. Additionally, Sharmin reports a sensation of her left ear feeling plugged without associated otalgia. Past medical history, appointments, medications, allergies reviewed. EXAM: BP 112/71 Pulse 75 Resp 16 Wt 87 kg (191 lb 12.8 oz) LMP 03/01/2014 SpO2 95% BMI 34.52 kg/m General Appearance: Well appearing, alert, in no acute distress, well-hydrated, well nourished.. Head: Normocephalic, no masses, lesions, tenderness or abnormalities. Eyes: Anicteric sclera. Pupils are equally round and reactive to light. Extraocular movements are intact. . Ears: External ears normal, canals clear. Lungs: Lungs clear to auscultation. No wheezing, rhonchi, rales.. Heart: RRR without murmur, gallop, or rubs. No ectopy. Assessment and Plan 1. Coronary artery disease involving [place] coronary artery of [place] heart with angina pectoris (I25.119) 2. History of heart artery stent (Z95.5) Recent stress test revealed sustained ventricular tachycardia and severe coronary artery stenosis (90-95%) requiring urgent cardiac catheterization and placement of a drug-eluting stent. Patient is under ongoing management with [facility] and is currently on Lipitor, aspirin, metoprolol, and Brilinta. - Continue current medications as prescribed by cardiology. - Educated patient on increased bleeding risk due to dual antiplatelet therapy (aspirin and Brilinta). - Advised patient to discuss any medication side effects or concerns with cardiology, including potential switch to Crestor if statin intolerance persists. - Follow-up with cardiology as scheduled. - Return to clinic in 6 months. 3. GERD without esophagitis (K21.9) Patient requests refill of Prevacid. - Refill Prevacid 90 tablets. 4. Migraine without aura, not intractable, with status migrainosus (G43.001) Patient requests refill of Maxalt. - Refill Maxalt 12 tablets. 5. Eustachian tube disorder, left (H69.92) Left ear fullness without pain or infection, likely due to Eustachian tube dysfunction. - Recommended 2 puffs of generic Flonase in each nostril daily to reduce inflammation and promote drainage. Jan Pham APRN.BINGO CLERK RTO in 6 months, sooner if needed. This note was partly generated using [employer] voice recognition dictation and may contain some misspelled or inaccurate words missed on review. Recording using [employer] entertainment software for draft documentation of the visit was discussed with the patient/authorized call center support representative; all questions welcomed and answered. Patient/authorized call center support representative agreed to proceed documented in this encounter [facility] 11-07-2024 Note HNO ID: [id number] Author: JAN PHAM APRN.MAHESH Service: ? Author Type: Nurse Practitioner Type: Progress Notes Filed: 11/07/2024 09:29 Note Text: Chief Complaint Patient presents with: Hospital F/U Ear Problem: Left ear-plugged HPI Kaylee Wong is a 64 year old female who presents here today for above reason. Sharmin Wong is a 64-year-old female with a history of CAD, presenting for follow-up after a recent stress test and subsequent stent placement. Sharmin underwent a stress test on 10/28, during which she experienced severe lightheadedness and dizziness. The test revealed sustained ventricular tachycardia, leading to an immediate cardiac catheterization. During the procedure, a 90-95% mild LAD coronary artery blockage was identified, and a drug-eluting stent was placed. She is currently under the care of [facility]. Since the procedure, Sharmin reports feeling slightly better but continues to experience fatigue. She notes a reduction in dyspnea compared to before the stent placement. She is currently taking Lipitor, aspirin, metoprolol, and Brilinta. She inquires about potential interactions between these medications and her current supplements, which include vitamin D, biotin, and magnesium. She also requests refills for Prevacid and Maxalt. Additionally, Sharmin reports a sensation of her left ear feeling plugged without associated otalgia. Past medical history, appointments, medications, allergies reviewed. EXAM: BP 112/71 Pulse 75 Resp 16 Wt 87 kg (191 lb 12.8 oz) LMP 03/01/2014 SpO2 95% BMI 34.52 kg/m? General Appearance: Well appearing, alert, in no acute distress, well-hydrated, well nourished.. Head: Normocephalic, no masses, lesions, tenderness or abnormalities. Eyes: Anicteric sclera. Pupils are equally round and reactive to light. Extraocular movements are intact. . Ears: External ears normal, canals clear. Lungs: Lungs clear to auscultation. No wheezing, rhonchi, rales.. Heart: RRR without murmur, gallop, or rubs. No ectopy. Assessment and Plan 1. Coronary artery disease involving [place] coronary artery of [place] heart with angina pectoris (I25.119) 2. History of heart artery stent (Z95.5) Recent stress test revealed sustained ventricular tachycardia and severe coronary artery stenosis (90-95%) requiring urgent cardiac catheterization and placement of a drug-eluting stent. Patient is under ongoing management with [facility] and is currently on Lipitor, aspirin, metoprolol, and Brilinta. - Continue current medications as prescribed by cardiology. - Educated patient on increased bleeding risk due to dual antiplatelet therapy (aspirin and Brilinta). - Advised patient to discuss any medication side effects or concerns with cardiology, including potential switch to Crestor if statin intolerance persists. - Follow-up with cardiology as scheduled. - Return to clinic in 6 months. 3. GERD without esophagitis (K21.9) Patient requests refill of Prevacid. - Refill Prevacid 90 tablets. 4. Migraine without aura, not intractable, with status migrainosus (G43.001) Patient requests refill of Maxalt. - Refill Maxalt 12 tablets. 5. Eustachian tube disorder, left (H69.92) Left ear fullness without pain or infection, likely due to Eustachian tube dysfunction. - Recommended 2 puffs of generic Flonase in each nostril daily to reduce inflammation and promote drainage. Jan Pham APRN.BINGO CLERK RTO in 6 months, sooner if needed. This note was partly generated using [employer] voice recognition dictation and may contain some misspelled or inaccurate words missed on review. Recording using [employer] entertainment software for draft documentation of the visit was discussed with the patient/authorized call center support representative; all questions welcomed and answered. Patient/authorized call center support representative agreed to proceed [facility] 10-29-2024 Discharge summary Note Date/Time October 29, 2024 9:57am [facility] Medical Records Department [address] [place] [address] Instructions for Home/Discharge Instructions 10/29/24 0950 MR#: [id number] Acct: [id number] Name: KAYLEE WONG Rep #:[id number] : 1960 64 From: Mathieu carr DO PCP: Dr. Erendira Chiang MD Status:AD M IN Discharge Instructions DC O2, CPAP, BIPAP needs Home O2 Discharge instructions: No Dressing / Incision Lifting Restrictions: Avoid lifting more than 5 to 10 pounds with your right armfor 5 to 7 days Follow Up Care Please Follow Up With: Donnie Hall MD Test Results: Test results from this visit will be discussed in further detail at your follow-up appointment, if applicable. Discharge Plan Admission Admit Date/Time: 10/28/24 14:34 Primary Reason for Your Visit: shortness of breath Attending Provider: Mathieu Santos Primary Care Provider: Erendira Chiang Consulting Providers: Jan Pham SPED TEACHER; Faustino Torres; Puma Morrison Instructions Additional Instructions / Restrictions: Start taking your 4 new medications as noted below. Please call the cardiology office on Thursday to schedule a follow-up appointment in the next 1 to 2 weeks. Discharge Orders/Prescriptions Prescriptions: New atorvastatin 40 mg Tablet 40 mg PO QHS 90 Days Qty: 90 0RF aspirin 81 mg Tablet,Delayed Release (Dr/Ec) 81 mg PO BREAKFAST 90 Days Qty: 90 0RF metoprolol succinate 25 mg Tablet Extended Release 24 Hr 12.5 mg PO DAILY 90 Days Qty: 45 0RF ticagrelor [Brilinta] 90 mg Tablet 90 mg PO BID 90 Days Qty: 180 0RF Continued rizatriptan 5 MG tablet 5 mg PO Q2H PRN (Reason: Headache) Rx Instructions: up to 3 tablets per day lansoprazole 30 mg capsule,delayed release(DR/EC) 30 mg PO DAILY Referrals / Follow Up: Faustino Torres MD [Med Staff - Active Staff] - Erendira Chiang MD [Primary Care Provider] - Disposition Disposition (needs filled in before D/C Order can be placed): Home, Self Care 10/29/24 0957<Electronically signed by Mathieu Santos DO>Mathieu Santos DO CC: BRUCE Pham; Dr. Faustino Torres MD; Dr. Erendira Chiang MD; Dr. Puma Morrison MD ~ Signed [facility] Work Phone: [phone]) 120-819808-30-2025 Discharge summary [facility] Medical Records Department [address] [place] [address] Instructions for Home/Discharge Instructions 10/29/24 0950 MR#: [id number] Acct: [id number] Name: KAYLEE WONG Rep #:[id number] : 1960 64 From: Mathieu carr DO PCP: Dr. Erendira Chiang MD Status:AD M IN Discharge Instructions DC O2, CPAP, BIPAP needs Home O2 Discharge instructions: No Dressing / Incision Lifting Restrictions: Avoid lifting more than 5 to 10 pounds with your right armfor 5 to 7 days Follow Up Care Please Follow Up With: Donnie Hall MD Test Results: Test results from this visit will be discussed in further detail at your follow- up appointment, if applicable. Discharge Plan Admission Admit Date/Time: 10/28/24 14:34 Primary Reason for Your Visit: shortness of breath Attending Provider: Mathieu Santos Primary Care Provider: Erendira Chiang Consulting Providers: Jan Pham NP; Faustino Torres; Puma Morrison Instructions Additional Instructions / Restrictions: Start taking your 4 new medications as noted below. Please call the cardiology office on Thursday to schedule a follow-up appointment in the next 1 to 2 weeks. Discharge Orders/Prescriptions Prescriptions: New atorvastatin 40 mg Tablet 40 mg PO QHS 90 Days Qty: 90 0RF aspirin 81 mg Tablet,Delayed Release (Dr/Ec) 81 mg PO BREAKFAST 90 Days Qty: 90 0RF metoprolol succinate 25 mg Tablet Extended Release 24 Hr 12.5 mg PO DAILY 90 Days Qty: 45 0RF ticagrelor [Brilinta] 90 mg Tablet 90 mg PO BID 90 Days Qty: 180 0RF Continued rizatriptan 5 MG tablet 5 mg PO Q2H PRN (Reason: Headache) Rx Instructions: up to 3 tablets per day lansoprazole 30 mg capsule,delayed release(DR/EC) 30 mg PO DAILY Referrals / Follow Up: Faustino Torres MD [Med Staff - Active Staff] - Erendira Chiang MD [Primary Care Provider] - Disposition Disposition (needs filled in before D/C Order can be placed): Home, Self Care 10/29/24 0957Alexakenny Santos DO CC: BRUCE Pham; Dr. Faustino Torres MD; Dr. Erendira Chiang MD; Dr. Puma Morrison MD ~ [facility]08-30-2025 [facility] Medical Records Department [address] [place] [address] Discharge Summary 10/29/24 0950 MR#: [id number] Acct: [id number] Name: KAYLEE WONG Rep #: [id number] : 1960 64 From: Mathieu Santos DO PCP: Dr. Erendira Chiang MD Status:DIS IN Location: [facility] [id number] Providers Date of Admission: 10/28/24 Date of Discharge: 10/29/24 Primary Care Physician: Dr. Erendira Chiang MD Consultations 10/28/24 14:28 Consult: Cardiology Routine Consulting Provider: Faustino Torres Reason for Consult: cardiac cath/stents EMERGENT Consult: No MD Notified: Yes Date Notified: 10/28/24 Time Notified: 14:28 Method of Notification: Verbal Reason For Visit: CHEST PAIN ABN STRESS Diagnosis Discharge Diagnosis (1) NSVT (nonsustained ventricular tachycardia): Status: Acute Code(s): I47.29 - Other ventricular tachycardia (2) Unstable angina: Status: Acute Code(s): I20.0 - Unstable angina Medications at Discharge Home Medications rizatriptan 5 mg tablet 5 mg PO Q2H PRN Headache 02/28/17 lansoprazole 30 mg capsule,delayed release 30 mg PO DAILY 02/25/24 aspirin 81 mg tablet,delayed release 81 mg PO BREAKFAST 90 days #90 tabs 10/29/24 atorvastatin 40 mg tablet 40 mg PO QHS 90 days #90 tabs 10/29/24 metoprolol succinate 25 mg tablet,extended release 24 hr 12.5 mg (1/2 x 25 mg) PO DAILY 90 days #45 tabs 10/29/24 ticagrelor 90 mg tablet (Brilinta) 90 mg PO BID 90 days #180 tabs 10/29/24 Hospital Course Operations None Procedures Cardiac catheterization, EKG and Transthoracic echo Summary of Care Provided Minutes Spent on Discharge: 35 Hospital Course: Patient is a 64-year-old female who presented to [facility] on 10/28/2024 per cardiology after an abnormal stress test. Short hospital course as noted below. Patient discharged home in stable condition on 10/29. 1. CAD s/p stenting, nonsustained SVT with frequent PVCs ??? Cardiology followed. Admitted after abnormal stress test on the morning of 10/28; had abnormal EKG with nonsustained VT and frequent PVCs. Left heart cath on afternoon of 10/28 showed 90% lesion in the mid LAD s/p drug-eluting stent placement x 1; left circumflex and RCA with no significant atherosclerosis noted. Telemetry post cath with no episodes of SVT and few PVCs noted. EKG on 10/29 with normal sinus rhythm and no PVCs noted. Lipid panel with total cholesterol 254, LDL 168, HDL 58. Per cardiology, stable for discharge home on 10/29. Will start aspirin, Brilinta, high intensity statin and low-dose Toprol on discharge. Will plan for close outpatient follow-up with cardiology. 2. GERD ??? Continue home PPI. 3. Chronic migraines ??? Continue rizatriptan as needed on discharge and continue outpatient follow- up with neurology. 4. Class I obesity ??? BMI 32 on admit. Complicated hospital course and care. *Patient notably was admitted under inpatient status but improved more quickly than anticipated and was able to be discharged home on hospital day 2. Total clinical time spent by myself addressing the patient's medical issues, reviewing all the data, and collaborating with patient's care team: 35 minutes. Physical Exam Const alert, oriented x3 and no apparent distress Constitutional Narrative: Pleasant upper middle-aged female, class I obesity, sitting back comfortably in bed, conversing normally, in no acute distress. General Appearance: cooperative and comfortable HEENT normocephalic, head/scalp atraumatic, hearing grossly normal bilaterally, nasal mucous membranes and turbinates normal and moist oral mucous membranes Eyes PERRL, EOMs intact bilaterally and conjunctivae normal Neck full ROM Chest inspection of chest normal Resp normal respiratory effort, normal air movement, no use of accessory muscles and clear to auscultation bilaterally Cardio regular rate, regular rhythm, no murmurs and peripheral pulses 2+ throughout GI normal to inspection, nondistended, normoactive bowel sounds, soft to palpation, non-tender and non- distended Back/Spine normal ROM Extremity normal to inspection, full ROM and no pedal edema Skin no rashes or lesions noted Psych mental status grossly normal Weight / BMI Weight Weight: 86.183 kg Body Mass Index (BMI) 32.5 ABG / Lab / Microbiology Data 10/29/24 05:33 10/29/24 05:33 Laboratory: Laboratory Results - last 24 hr 10/29/24 05:33: WBC 7.3, RBC 4.38, Hgb 13.3, Hct 39.1, MCV 89.3, MCH 30.4, MCHC 34.0, RDW Std Deviation 43.8, RDW Coeff of Wolf 13.3, Plt Count 243, MPV 10.2, Immature Gran % (Auto) 0.600, Neut % (Auto) 70.2 H, Lymph % (Auto) 14.3 L, Starke % (Auto) 10.3 H, Eos % (Auto) 3.6, Baso % (Auto) 1.0, Absolute Neuts (auto) 5.1, Absolute Lymphs (auto) 1.04, Nucleated RBC % 0, Sodium 139, Potassium 3.9, Chlo (more content not included)...[facility]08-30-2025 Hospital Discharge instructionsAdditional Instructions Start taking your 4 new medications as noted below. Please call the cardiology office on Thursday to schedule a follow-up appointment in the next 1 to 2 weeks.[facility] Work Phone: [phone]) [phone] History and physical note Author Puma Morrison [facility] Note Date/Time October 28, 2024 3: 50pm [facility] Medical Records Department [address] [place] [address] H&P Exam - Hospitalist 10/28/24 1531 MR#: [id number] Acct: [id number] Name: KAYLEE WONG Rep #:[id number] : 1960 64 From: Puma Jorgensen PCP: Dr. Erendira Chiang MD Status:AD M IN Location: [facility] CFG960- 1 HPI - General General Date of Admission: 10/28/24 Date of Service: 10/28/24 Chief Complaint: Abnormal stress test HPI Narrative KAYLEE WONG, is a 64 F with no cardiac history is directly admitted after abnormal stress diabetes and then subsequent cardiac cath which found high-grade90% stenosis of mid LAD which required PCI. Patient denies persistent cardiac symptoms prior to stress test but she had occasional about 2-3 times shortness of breath on mild activities/house chores. Denies chest pain/pressure. Resting EKG was NSR before the stress test. While undergoing stress test today, patient was mildly dizzy, shortness of breath lightheadedness. Stress EKG also shows NSVT with frequent PVCs and images demonstrated reversible myocardial ischemia involving the anterior and septal region therefore was taken for Hammerer Helper. Cardiac cath showed above findings as mentioned. Twelve-lead EKG after catheter showed NSR 76 bpm, QTc 425 ms, normal EKG. [facility] Medical History (Updated 10/28/24 @ 15:[address] Puma Morrison MD) Migraine Heartburn NSVT (nonsustained ventricular tachycardia) Home Medications ?Medication ?Instructions ?Recorded ?Last Taken ?Type rizatriptan 5 mg tablet 5 mg PO Q2H PRN Headache 10/24/24 History lansoprazole 30 mg capsule,delayed 30 mg PO DAILY 01/3110/27/24 History release Allergy/AdvReac Type Severity Reaction Status Date / Time topiramate (From Topamax) Allergy Intermediate Rash Verified 02/25/24 01:13 Family History (Updated 10/28/24 @ 13:31 by Ana Luisa Grimes) Grandmother Cancer Mother Cancer Aunt Cancer Aunt Cancer Surgical History (Updated 10/28/24 @ 15:43 by Geovanna ZULETA, PA) H/O heart artery stent History of tubal ligation [place] teeth extracted Social History Smoking Status: Never smoker ROS ROS Narrative Constitutional: Denies acute onset of fatigue and weakness. No fever. HEENT: Reports systems reviewed and no addt'l complaints, except as documented Respiratory/Chest: As described in HPI. No chronic lung disease CVS: As described in HPI Gastrointestinal: Mild heartburn on PPI. Denies coffee ground emesis, hematemesis or vomiting Genitourinary: Denies burning urination or new urinary tract symptoms Musculoskeletal: Denies acute joint pain or limited range of motion. No acute injury Neurologic: History of chronic migraine on Maxalt. Follows neurologist. Deniesseizure-like symptoms. skin: No ulcer. No rash Endocrinology: Reports systems reviewed and no addt'l complaints, except as documented Hematologic/Lymphatic: Reports systems reviewed and no addt'l complaints, exceptas documented Rest 14 ROS are negative except as mentioned in HPI Vital Signs Vital Signs Vital Signs: 10/28/24 13:13 Respiratory Effort Normal Non-Labored Respiratory Depth Normal Respiratory Pattern Normal Oxygen Delivery Method Room Air Weight Weight: 190 lb Body Mass Index (BMI) 32.5 Physical Exam Narrative General: Alert, Oriented x3, Cooperative. BMI 32.6 kg/m?, mild obesity grade 1. HEENT: Atraumatic, PERRLA, EOMI, Normocephalic. Oral: No Gingival or Mucosal Lesions/ Ulcerations Neck: Supple, No JVD, Negative Carotid Bruits Chest wall/Lungs: Air entry diminished in bilateral lung bases. No crepitation/rhonchi Cardiovascular: Regular rate and rhythm, Normal S1,S2, No M/G/R Abdomen: Bowel Sounds Present, Soft, Non Tender, Non-Distended : No dysuria. No renal angle tenderness. No suprapubic tenderness. Extremities: No edema, Capillary Refill Less than 3 Seconds Skin: Mild bruise over right radial artery wristband after cath. No appreciablehematoma. Musculoskeletal: No Tenderness to Palpation of Joints or Extremities. ROM full and intact Neurological: Cranial nerves II-XII grossly intact, DTR 2+/4. No acute focal neurological deficit. Psych/Mental Status: Normal Affect, Appropriate. Results Lab / Micro Data 10/28/24 10:54 10/28/24 10:54 Labs: Laboratory Results - last 24 hr 10/28/24 10:54: WBC 7.3, RBC 5.10, Hgb 15.0, Hct 45.6, MCV 89.4, MCH 29.4, MCHC 32.9, RDW Std Deviation 43.2, RDW Coeff of Wolf 13.1, Plt Count 285, MPV 10.1, Sodium 140, Potassium 4.3, Chloride 104, Carbon Dioxide 24.3, Anion Gap 11, BUN 10, Creatinine 0.63 L, Estim Creat Clear Calc 74.48, Est GFR (MDRD) Non-Af 98, BUN/Creatinine Ratio 15.3, Glucose 110 H, Calcium 9.5 10/28/24 11:22: Activated Clotting Time 262 H Assessment & Plan Assessment/Plan (1) NSVT (nonsustained ventricular tachycardia): (2) Unstable angina: PLAN: Plan This is a 64-year-old female had abnormal outpatient elective stress test and then found high-grade single-vessel disease 1. Abnormal stress test, high-grade 90% mid LAD, single CAD: Patient is being admitted in PCU. Repeat EKG NSR after PCI. Discussed with machine lay out worker and no indication of troponin as patient is symptomatic and already had cardiac cath. Cardiac cath showed high-grade 90% stenosis mid LAD, ANNIE and postprocedure LEILA- 3 flow. Patient on baby aspirin, Brilinta, low-dose metoprolol succinate, and high intensity statin. 2D echo is ordered. LEILA risk is not applicable as patient cardiac catheter abnormal stress test but calculated 1 (troponin, NA). Machine Bander And Cellophaner Helper consulted and discussed with him. Fasting profile and TSH tomorrowa.m. 2. Arrhythmia: Patient had NSVT and frequent PVCs during stress test: Most likely due to high-grade LAD lesion. 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 traffic monitor specialist. Metoprolol succinate 12.5 mg daily. 3. Mild GERD: On PPI continued 4. Chronic migraine: Patient follows outside neurologist in [place]. On Maxalt as needed. Tylenol as needed. 5. Obesity grade 1: Weight loss reduction advised. Automobile Mechanic consult. 6. DVT prophylaxis: Lovenox 40 mg subcu daily from tomorrow a.m. after 24 hours of cardiac cath Living will/advanced directive/end of life care: Patient does have living will or advanced directive. Her daughter is POA of her health. After discussion of benefits/risks procedures involved with full code, DNR CC arrest and DNR CC, the patient opted for full code. Patient does want artificial life support including intubation, tube feed, ventilator and/chest compression, central venous catheter, vasopressor and DC shock if needed Total time spent in [id number] encounter in discussion of advanced directive 17 minutes. Charges/Coding Visit Charges Inpatient E&M: 89932 Init Hosp L3 Procedures Hospitalists Procedures: 89031 Advncd Care Plan 30 Min LEILA Risk Score for UA/STEMI Assesmment (YES = 1) Age > or = 65: Yes > or = 3 CAD risk factors (HTN, Hypercholesterolemia, Diabetes, family hx, current smoker): No Known CAD (Stenosis > or = 50%): No ASA used in past 7 days: No Severe angina (> or = 2 episodes in 24 hrs): No EKG ST change > or = 0.5mm: No Positive cardiac markers: No Score LEILA Risk Score of mortality/ recurrent ischemic event over the next 14 days: 0- 1 = 4.7% - Low Risk 10/28/24 1550 <Electronically signed by Puam Morrison MD> Cosigner Signature (if applicable): CC: Dr. Faustino Torres MD; Dr. Erendira Chiang MD; Dr. Puma Morrison MD~ Signed [facility] Work Phone: 1(580) 474-295008-29-2025 Evaluation note* Diagnosis Onset Date Resolution Status Admit Date NSVT (nonsustained ventricul ar tachycardia) acute October 28 2:34pm Unstable angina acute October 282024 2:34pm [facility] Work Phone: 1(318) 336-961908-29-2025 Evaluation note* Diagnosis Onset Date Resolution Status Admit Date NSVT (nonsustained ventricular tachycardia) acute October 28, 2024 2:34pm Unstable angina resolved October 282024 2:34pm Elevated blood pressure reading in office without diagnosis of hypertension acute 2024 12:53pm H/O heart artery stent October 28, 2024 acute November 18, 2024 12:53pm Hyperlipidemia acute November 18, 2024 12:53pm NSVT (nonsustained ventricular tachycardia) acute Sept er 2024 12:53pm [facility] Work Phone: 1(331) 855-606408-29-2025 History and physical note [facility] Medical Records Department [address] [place] [address] H&P Exam - Hospitalist 10/28/24 1531 MR#: [id number] Acct: [id number] Name: KAYLEE WONG Rep #:[id number] : 1960 64 From: Puma Jorgensen PCP: Dr. Erendira Chiang MD Status:AD M IN [facility] HPI - General General Date of Admission: 10/28/24 Date of Service: 10/28/24 Chief Complaint: Abnormal stress test HPI Narrative KAYLEE WONG, is a 64 F with no cardiac history is directly admitted after abnormal stress diabetesand then subsequent cardiac cath which found high- grade90% stenosis of mid LAD which required PCI. Patient denies persistent cardiac symptoms prior to stress test but she had occasional about 2-3 times shortness of breath on mild activities/house chores. Denies chest pain/pressure. Resting EKG wasNSR before the stress test. While undergoing stress test today, patient was mildly dizzy, shortnessof breath lightheadedness. Stress EKG also shows NSVT with frequent PVCs and images demonstrated reversible myocardial ischemia involving the anterior and septal region therefore was taken for Hammerer Helper. Cardiac cath showed above findings as mentioned. Twelve-lead EKG after catheter showed NSR 76 bpm, QTc 425 ms, normal EKG. [facility] Medical History (Updated 10/28/24 @ 15:[address] Puma Morrison MD) Migraine Heartburn NSVT (nonsustained ventricular tachycardia) Home Medications ?Medication ?Instructions ?Recorded ?Last Taken ?Type rizatriptan 5 mg tablet 5 mg PO Q2H PRN Headache 10/24/24 History lansoprazole 30 mg capsule,delayed 30 mg PO DAILY 01/3110/27/24 History release Allergy/AdvReac Type Severity Reaction Status Date / Time topiramate (From Topamax) Allergy Intermediate Rash Verified 02/25/24 01:13 Family History (Updated 10/28/24 @ 13:31 by Ana Luisa Grimes) Grandmother Cancer Mother Cancer Aunt Cancer Aunt Cancer Surgical History (Updated 10/28/24 @ 15:43 by Geovanna Dial PA, PA) H/O heart artery stent History of tubal ligation [place] teeth extracted Social History Smoking Status: Never smoker ROS ROS Narrative Constitutional: Denies acute onset of fatigue and weakness. No fever. HEENT: Reports systems reviewed and no addt'l complaints, except as documented Respiratory/Chest: As described in HPI. No chronic lung disease CVS: As described in HPI Gastrointestinal: Mild heartburn on PPI. Denies coffee ground emesis, hematemesis or vomiting Genitourinary: Denies burning urination or new urinary tract symptoms Musculoskeletal: Denies acute joint pain or limited range of motion. No acute injury Neurologic: History of chronic migraine on Maxalt. Follows neurologist. Deniesseizure-like symptoms. skin: No ulcer. No rash Endocrinology: Reports systems reviewed and no addt'l complaints, except as documented Hematologic/Lymphatic: Reports systems reviewed and no addt'l complaints, exceptas documented Rest 14 ROS are negative except as mentioned in HPI Vital Signs Vital Signs Vital Signs: 10/28/24 13:13 Respiratory Effort Normal Non-Labored Respiratory Depth Normal Respiratory Pattern Normal Oxygen Delivery Method Room Air Weight Weight: 190 lb Body Mass Index (BMI) 32.5 Physical Exam Narrative General: Alert, Oriented x3, Cooperative. BMI 32.6 kg/m?, mild obesity grade 1. HEENT: Atraumatic, PERRLA, EOMI, Normocephalic. Oral: No Gingival or Mucosal Lesions/ Ulcerations Neck: Supple, No JVD, Negative Carotid Bruits Chest wall/Lungs: Air entry diminished in bilateral lung bases. No crepitation/rhonchi Cardiovascular: Regular rate and rhythm, Normal S1,S2, No M/G/R Abdomen: Bowel Sounds Present, Soft, Non Tender, Non-Distended : No dysuria. No renal angle tenderness. No suprapubic tenderness. Extremities: No edema, Capillary Refill Less than 3 Seconds Skin: Mild bruise over right radial artery wristband after cath. No appreciablehematoma. Musculoskeletal: No Tenderness to Palpation of Joints or Extremities. ROM full and intact Neurological: Cranial nerves II-XII grossly intact, DTR 2+/4. No acute focal neurological deficit. Psych/Mental Status: Normal Affect, Appropriate. Results Lab / Micro Data 10/28/24 10:54 10/28/24 10:54 Labs: Laboratory Results - last 24 hr 10/28/24 10:54: WBC 7.3, RBC 5.10, Hgb 15.0, Hct 45.6, MCV 89.4, MCH 29.4, MCHC 32.9, RDW Std Deviation 43.2, RDW Coeff of Wolf 13.1, Plt Count 285, MPV 10.1, Sodium 140, Potassium 4.3, Chloride 104, Carbon Dioxide 24.3, Anion Gap 11, BUN 10, Creatinine 0.63 L, Estim Creat Clear Calc 74.48, Est GFR (MDRD) Non-Af 98, BUN/Creatinine Ratio 15.3, Glucose 110 H, Calcium 9.5 10/28/24 11:22: Activated Clotting Time 262 H Assessment & Plan Assessment/Plan (1) NSVT (nonsustained ventricular tachycardia): (2) Unstable angina: PLAN: Plan This is a 64-year-old female had abnormal outpatient elective stress test and then found kgfm-xoxwbvxcnhi-zmadtf disease 1. Abnormal stress test, high-grade 90% mid LAD, single CAD: Patient is being admitted in PCU. Repeat EKG NSR after PCI. Discussed with machine lay out worker and no indication of troponin as patient is symptomatic and already had cardiac cath. Cardiac cath showed high-grade 90% stenosis mid LAD, ANNIE and postprocedure LEILA- 3 flow. Patient on baby aspirin, Brilinta, low-dose metoprolol succinate, and high intensity statin. 2D echo is ordered. LEILA risk is not applicable as patient cardiac catheter abnormal stress test but calculated 1 (troponin, NA). Machine Bander And Cellophaner Helper consulted and discussed with him. Fasting profile and TSH tomorrowa.m. 2. Arrhythmia: Patient had NSVT and frequent PVCs during stress test: Most likely due to high-gradeLAD lesion. 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 traffic monitor specialist. Metoprolol succinate 12.5 mg daily. 3. Mild GERD: On PPI continued 4. Chronic migraine: Patient follows outside neurologist in [place]. On Maxalt as needed. Tylenol asneeded. 5. Obesity grade 1: Weight loss reduction advised. Automobile Mechanic consult. 6. DVT prophylaxis: Lovenox 40 mg subcu daily from tomorrow a.m. after 24 hours of cardiac cath Living will/advanced directive/end of life care: Patient does have living will or advanced directive. Her daughter is POA of her health. After discussion of benefits/risks procedures involved with full code, DNR CC arrest and DNR CC, the patient opted for full code. Patient does want artificial life support including intubation, tube feed, ventilator and/chest compression, central venous catheter, vasopressor and DC shock if needed Total time spent in [id number] encounter in discussion of advanced directive 17 minutes. Charges/Coding Visit Charges Inpatient E&M: 50817 Init Hosp L3 Procedures Hospitalists Procedures: 07018 Advncd Care Plan 30 Min LEILA Risk Score for UA/STEMI Assesmment (YES = 1) Age > or = 65: Yes > or = 3 CAD risk factors (HTN, Hypercholesterolemia, Diabetes, family hx, current smoker): No Known CAD (Stenosis > or = 50%): No ASA used in past 7 days: No Severe angina (> or = 2 episodes in 24 hrs): No EKG ST change > or = 0.5mm: No Positive cardiac markers: No Score LEILA Risk Score of mortality/ recurrent ischemic event over the next 14 days: 0- 1 = 4.7% - Low Risk 10/28/24 1550 Cosigner Signature (if applicable): CC: Dr. Faustino Torres MD; Dr. Erendira Chiang MD; Dr. Puma Morrison MD~ Signed [facility]08-29-2025 History and physical note Author Geovanna Dial [facility] Note Date/Time October 28, 2024 11 :17am [facility] Medical Records Department [address] [place] [address] H&P Exam - Cardiology 10/28/24 1111 MR#: [id number] Acct: [id number] Name: KAYLEE WONG Rep #:[id number] : 1960 64 From: Geovanna ZULETA PA PCP: Dr. Erendira Chiang MD Status:RE G CLI Location: [facility] HPI - General HPI Narrative KAYLEE WONG, is a 64 F who presents here today for an abnormal stress test. Patient had a stress test due to occasionally having sudden feelings of shortness of breath. This would not be brought on by anything particular. It could be at rest or could be with activity. It would last a few seconds. She did not have any lightheadedness or dizziness. She did undergo a stress test today. EKG did demonstrate nonsustained ventricular tachycardia. She was symptomatic with this with shortness of breath and lightheadedness. At home shehas never had any syncopal episodes. She does not have any chest pain, tightness or heaviness. She does have issues with reflux in which she finds it is always attributed to food and is under control if she takes her Prevacid. [facility] Medical History (Updated 10/28/24 @ 11:13 by Geovanna ZULETA, PA) Migraine Heartburn NSVT (nonsustained ventricular tachycardia) Home Medications ?Medication ?Instructions ?Recorded ?Last Taken ?Type rizatriptan 5 mg tablet 5 mg PO PRN PRN Headache 02/27/17 History lansoprazole 30 mg capsule,delayed 30 mg PO DAILY 01/31 08/23 Unknown History release ondansetron 4 mg disintegrating 4 mg PO TID PRN nausea and 02/25/24 Unknown Rx tablet vomiting #21 tabs oxycodone-acetaminophen 5 mg-325 1 tab PO Q6H PRN pain 3 days #12 02/25/24 Unknown Rx mg tablet (Percocet) tabs Allergy/AdvReac Type Severity Reaction Status Date / Time topiramate (From Topamax) Allergy Intermediate Rash Verified 02/25/24 01:13 Family History (Updated 10/28/24 @ 11:13 by Geovanna ZULETA, PA) Other Cancer Social History Smoking Status: Never smoker ROS Constitutional Constitutional: Denies change in weight, chills, fatigue, frequent falls, headache(s) or lethargy Eyes Eyes: Denies acute decrease in peripheral vision, blurry vision or change in vision ENT HEENT: Denies dizziness, dry mouth, epistaxis, headache(s), tinnitus or vertigo Cardiovascular Cardiovascular: Denies chest pain at rest, chest pain with activity, claudication, dyspnea at rest, dyspnea on exertion, edema, irregular heart rhythm, lightheadedness, orthopnea, orthostatic symptoms, palpitations or pedal edema Respiratory/Chest Respiratory/Chest: Reports dyspnea on exertion; Denies cough, dyspnea, tachypneaor wheezing Gastrointestinal Gastrointestinal: Denies abdominal pain, bloating, coffee ground emesis, diarrhea, heartburn, hematemesis, hematochezia, melena or nausea Genitourinary Genitourinary: Denies hematuria Musculoskeletal Musculoskeletal: Denies myalgias, numbness or tingling Neurologic Neurologic: Denies abnormal gait, abnormal speech, memory loss, paresthesias or weakness Vital Signs Vital Signs Vital Signs: Weight Weight: 190 lb Body Mass Index (BMI) 32.4 Physical Exam Const alert, oriented x3, no apparent distress and healthy appearing HEENT normocephalic, head/scalp atraumatic, hearing grossly normal bilaterally, external ears normal, external nose normal and moist oral mucous membranes Eyes PERRL, EOMs intact bilaterally, conjunctivae normal and no scleral icterus Neck no lymphadenopathy, supple and no JVD Cardio regular rate, regular rhythm, S1 normal heart sound, S2 normal heart sound, no murmurs, no rub, no gallops, no clicks, no JVD and peripheral pulses 2+ throughout GI normal to inspection, nondistended, normoactive bowel sounds, soft to palpation,non-tender and non-distended Extremity normal to inspection, normal capillary refill, no clubbing, cyanosis or edema and no pedal edema Neuro oriented x3, CN's II-XII intact bilaterally, moves all extremities and no focal motor deficits Psych cooperative and affect normal Cardiology Labs/Tests Cardiology Labs/Tests: 10/28/24 10:54: WBC 7.3, RBC 5.10, Hgb 15.0, Hct 45.6, MCV 89.4, MCH 29.4, MCHC 32.9, Plt Count 285, MPV 10.1 Rhythm: EKG: ECHO: Stress Test: Cardiac Cath: PCI: CT Surgery: Holter monitor: EPS: PPM: CXR: Chest CT Scan: Assessment & Plan Assessment/Plan (1) NSVT (nonsustained ventricular tachycardia): PLAN: With patient's nonsustained ventricular tachycardia that was noted on her stress test she will undergo a diagnostic heart catheterization today. Follow-up will be based upon findings. 10/28/24 1117 <Electronically signed by Geovanna ZULETA> Cosigner Signature (if applicable): CC: Dr. Erendira Chiang MD; SONG Arnett~ Signed [facility] Work Phone: 1(360) 284-654008-29-2025 History and physical note [facility] Medical Records Department [address] [place] [id number] H&P Exam - Cardiology 10/28/24 1111 MR#: [id number] Acct: [id number] Name: KAYLEE WONG Rep #:[id number] : 1960 64 From: Geovanna ZULETA PCP: Dr. Erendira Chiang MD Status:RE G CLI Location: [facility] HPI - General HPI Narrative KAYLEE WONG, is a 64 F who presents here today for an abnormal stress test. Patient had a stress test due to occasionally having sudden feelings of shortness of breath. This would not be brought on by anything particular. It could be at rest or could be with activity. It would last a few seconds. She did not have any lightheadedness or dizziness. She did undergo a stress test today. EKG did demonstrate nonsustained ventricular tachycardia. She was symptomatic with this with shortness of breathand lightheadedness. At home shehas never had any syncopal episodes. She does not have any chest pain, tightness or heaviness. She does have issues with reflux in which she finds it is always attributed to food and is under control if she takes her Prevacid. [facility] Medical History (Updated 10/28/24 @ 11:13 by SONG Faustin) Migraine Heartburn NSVT (nonsustained ventricular tachycardia) Home Medications ?Medication ?Instructions ?Recorded ?Last Taken ?Type rizatriptan 5 mg tablet 5 mg PO PRN PRN Headache 02/27/17 History lansoprazole 30 mg capsule,delayed 30 mg PO DAILY 01/31 08/23 Unknown History release ondansetron 4 mg disintegrating 4 mg PO TID PRN nausea and 02/25/24 Unknown Rx tablet vomiting #21 tabs oxycodone-acetaminophen 5 mg-325 1 tab PO Q6H PRN pain 3 days #12 02/25/24 Unknown Rx mg tablet (Percocet) tabs Allergy/AdvReac Type Severity Reaction Status Date / Time topiramate (From Topamax) Allergy Intermediate Rash Verified 02/25/24 01:13 Family History (Updated 10/28/24 @ 11:13 by Geovanna ZULETA, PA) Other Cancer Social History Smoking Status: Never smoker ROS Constitutional Constitutional: Denies change in weight, chills, fatigue, frequent falls, headache(s) or lethargy Eyes Eyes: Denies acute decrease in peripheral vision, blurry vision or change in vision ENT HEENT: Denies dizziness, dry mouth, epistaxis, headache(s), tinnitus or vertigo Cardiovascular Cardiovascular: Denies chest pain at rest, chest pain with activity, claudication, dyspnea at rest,dyspnea on exertion, edema, irregular heart rhythm, lightheadedness, orthopnea, orthostatic symptoms, palpitations or pedal edema Respiratory/Chest Respiratory/Chest: Reports dyspnea on exertion; Denies cough, dyspnea, tachypneaor wheezing Gastrointestinal Gastrointestinal: Denies abdominal pain, bloating, coffee ground emesis, diarrhea, heartburn, hematemesis, hematochezia, melena or nausea Genitourinary Genitourinary: Denies hematuria Musculoskeletal Musculoskeletal: Denies myalgias, numbness or tingling Neurologic Neurologic: Denies abnormal gait, abnormal speech, memory loss, paresthesias or weakness Vital Signs Vital Signs Vital Signs: Weight Weight: 190 lb Body Mass Index (BMI) 32.4 Physical Exam Const alert, oriented x3, no apparent distress and healthy appearing HEENT normocephalic, head/scalp atraumatic, hearing grossly normal bilaterally, external ears normal, external nose normal and moist oral mucous membranes Eyes PERRL, EOMs intact bilaterally, conjunctivae normal and no scleral icterus Neck no lymphadenopathy, supple and no JVD Cardio regular rate, regular rhythm, S1 normal heart sound, S2 normal heart sound, no murmurs, no rub, no gallops, no clicks, no JVD and peripheral pulses 2+ throughout GI normal to inspection, nondistended, normoactive bowel sounds, soft to palpation,non-tender and non-distended Extremity normal to inspection, normal capillary refill, no clubbing, cyanosis or edema and no pedal edema Neuro oriented x3, CN's II-XII intact bilaterally, moves all extremities and no focal motor deficits Psych cooperative and affect normal Cardiology Labs/Tests Cardiology Labs/Tests: 10/28/24 10:54: WBC 7.3, RBC 5.10, Hgb 15.0, Hct 45.6, MCV 89.4, MCH 29.4, MCHC 32.9, Plt Count 285, MPV 10.1 Rhythm: EKG: ECHO: Stress Test: Cardiac Cath: PCI: CT Surgery: Holter monitor: EPS: PPM: CXR: Chest CT Scan: Assessment & Plan Assessment/Plan (1) NSVT (nonsustained ventricular tachycardia): PLAN: With patient's nonsustained ventricular tachycardia that was noted on her stress test she will undergo a diagnostic heart catheterization today. Follow-up will be based upon findings. 10/28/24 1117 Cosigner Signature (if applicable): CC: Dr. Erendira Chiang MD; SONG Arnett~ Signed [facility]08-29-2025 Telephone encounter Note* Telephone Encounter - Erendira Chiang MD - 10/28/2024 10:03 AM EDT Noted and agree Erendira Chiang MD [facility] Work Phone: [phone]) 342-785308-29-2025 Miscellaneous Notes* Telephone Encounter - Erendira Chiang MD - 10/28/2024 10:03 AM EDT Noted and agree Erendira Chiang MD * Telephone Encounter - Najma Morrell LPN - 10/28/2024 9:31 AM EDT Laverne phoned and notified of verbal order per . Holter monitor will be placed for 48 hours. Najma Morrell LPN * Telephone Encounter - Erendira Chiang MD - 10/28/2024 9:06 AM EDT OK for verbal order to place Holter Monitor as requested Erendira Chiang MD * Telephone Encounter - Weston Mckinley, RN - 10/28/2024 8:52 AM EDT Laverne- [facility]- reports pt just did a stress test that showed V-tach during the test. Pt also had severe lightheadedness and dizzy. Laverne would like to put a Holter Monitor on patient before sending her home. Cardiology is not available right now, so reaching out to pcp for verbal order to place Holter Monitor. Please phone Laverne with vo: [phone] Can also fax order to documented in this encounterUniversity [facility]als [facility]08-29-2025 Telephone encounter Note * Telephone Encounter - Najma Morrell LPN - 10/28/2024 9:31 AM EDT Laverne phoned and notified of verbal order per . Holter monitor will be placed for 48 hours. Najma Morrell LPN [facility]08-29-2025 Telephone encounter Note* Telephone Encounter - Erendira Chiang MD - 10/28/2024 9:06 AM EDT OK for verbal order to place Holter Monitor as requested Erendira Chiang MD [facility]08-29-2025 Telephone encounter Note* Telephone Encounter - Weston Mckinley RN - 10/28/2024 8:52 AM EDT Laverne- [facility]- reports pt just did a stress test that showed V-tach during the test. Pt also had severe lightheadedness and dizzy. Laverne would like to put a Holter Monitor on patient before sending her home. Cardiology is not available right now, so reaching out to pcp for verbal order to place Holter Monitor. Please phone Laverne with vo: [phone] Can also fax order to [facility]07-07-2025 Instructions* Patient Instructions* Jan Pham APRN.BINGO CLERK - 09/05/2024 10:06 AM EDT We discussed [...] prior episode of gallbladder-related pain in January, butyou have not had any significant symptoms since then. - At this time, I do not believe your current symptoms are related to your gallbladder. However, ifyou develop nausea, vomiting, changes in your stools [...] a copy of your medical power of gear and spline grinder, please bring it to your next visit [...] review all the medicines you take, even rvuc-hop-biwuull medicines. As you get older, the way medicines work in your body can change. Some medicines, or combinations of medicines, can make you sleepy or dizzy andcan cause you to fall. 3. Have your [...] have certain medical conditions. documented in this encounterUniversity Hospitals [facility]07-07-2025 NoteHNO ID: [id number] Author: JAN PHAM APRN.CNP Service: ? Author Type: Nurse Practitioner Type: Progress Notes Filed: 09/05/2024 10:57 Note Text: Kaylee Wong is a 64 year old [...] of gallstones, with a significant episode on [place] night that led to an ED visit. [...] well-controlled. She has a medical power of gear and spline grinder in place, designated to Syd Beal. PHYSICAL EXAM BP 124/72 Pulse 80 [...] Previous ER visi (more content not included)... [facility]07-07-2025 History of Present illness Narrative* Jan Pham APRN.BINGO CLERK - 09/05/2024 10:04 AM EDT Images from the original note were not [...] well-controlled. She has a medical power of gear and spline grinder in place, designated to Syd Beal. PHYSICAL EXAM BP 124/72 Pulse 80 [...] 68 bpm, no ectopy, No ST changes. NE interval normal. No ECG to compare - [...] results of testing. Stress testing sent to [facility]. Jan Pham APRN.CNP documented in this encounterUniversity Hospitals [facility]05-27-2025 Telephone encounter Note * Telephone Encounter - Jan Pham APRN.CNP - 07/26/2024 12:36 PM EDT Upcoming appt 09/05/24 The following approved medication requests have been transmitted electronically. Requested Prescriptions Pending Prescriptions Disp Refills lansoprazole (PREVACID) 30 mg capsule 30 capsule 2 Sig: Take 1 capsule by mouth once daily. Jan Pham APRN.CNP [facility]05-27-2025 Miscellaneous Notes* Telephone Encounter - Jan Pham APRN.CNP - 07/26/2024 12:36 PM EDT Upcoming appt 09/05/24 The following approved medication requests have been transmitted electronically. Requested Prescriptions Pending Prescriptions Disp Refills lansoprazole (PREVACID) 30 mg capsule 30 capsule 2 Sig: Take 1 capsule by mouth once daily. Jan Pham APRN.CNP * Telephone Encounter - Harleen Echevarria - 07/26/2024 12:16 PM EDT Prescription Refill Information The patient has been [...] 26, 2024 12:17 PM documented in this encounterUniversity Hospitals [facility] Center05-27-2025 Telephone encounter Note * Telephone Encounter - Harleen Echevarria - 07/26/2024 12:16 PM EDT Prescription Refill Information The patient has been [...] Harleen Echevarria July 26, 2024 12:17 PM [facility]02-26-2025 Telephone encounter Note* Telephone Encounter - Guzman Francis LPN - 04/27/2024 2:41 PM EST Prescription Refill Information The patient has been [...] Francis LPN April 27, 2024 2:41 PM [facility]02-26-2025 Miscellaneous Notes* Telephone Encounter - Guzman Francis LPN - 04/27/2024 2:41 PM EST Prescription Refill Information The patient has been [...] 27, 2024 2:41 PM documented in this encounterUniversity Hospitals [facility] Center02-26-2025 Telephone encounter Note * Telephone Encounter - Guzman Francis LPN - 04/27/2024 2:38 PM EST Prescription Refill Information The patient has been [...] this provider/department: No, pt is due for Annualappt. MC message to pt advising of the same. Requested Prescriptions Pending Prescriptions Disp Refills rizatriptan (MAXALT) 10 mg tablet 12 tablet 11 Sig: Take 1 tablet by mouth as needed. May repeat in 2 hours if needed Guzman Francis LPN April 27, 2024 2:38 PM [facility]02-26-2025 Miscellaneous Notes* Telephone Encounter - Guzman Francis LPN - 04/27/2024 2:38 PM EST Prescription Refill Information The patient has been [...] this provider/department: No, pt is due for Annualappt. message to pt advising of the same. Requested Prescriptions Pending Prescriptions Disp Refills rizatriptan (MAXALT) 10 mg tablet 12 tablet 11 Sig: Take 1 tablet by mouth as needed. May repeat in 2 hours if needed Guzman Francis LPN April 27, 2024 2:38 PM documented in this encounterUniversity Hospitals Conne[facility] Center02-18-2025 NoteIMPRESSION: The asymmetry in the left breast requires [...] Bette Kelly M.D. Electronically signed on: 04/19/2024 Cancer Researcher: GEORGETTE Transcribelem Date/Time: Apr 19 2024 8:10A Dictated by: BETTE KELLY MD This examination was interpreted and the report reviewed and electronically signed by: BETTE KELLY MD on Apr 19 2024 12:42PM EST DIVISION OF [id number] History of Present illness Narrative* Rosalina De Jesus, RT(R) - 04/19/2024 8:30 AM EST Radiology Service Progress Note PATIENT NAME: Kaylee Wong DATE OF SERVICE: April 19, 2024 TIME: 8:37 AM PATIENT IDENTITY VERIFICATION COMPLETED USING TWO (2) IDENTIFIERS: Name and Date of confirmedby patient verbally. FALL SCREENING: Has the patient had 2 falls in the last year or 1 fall with injury or currently using an Ambulatory Assistive Device (Walker, Cane, Wheelchair, Crutches, etc.)? No PATIENT GENDER DATA: Assigned female at . status: : No status:NO. PATIENT RELEVANT IMPLANT DATA REVIEWED: Not Applicable PATIENT PRESENTS WITH AN IMPLANTABLE OR ATTACHED TRIM OPERATOR: No RADIOLOGY DEPARTMENT: Mammography PERIPHERAL IV DATA: Not applicable SIGNED BY: RT Caterina(Raul) April 19, 2024 8:37 AM documented in this encounterUniversity Hospitals Conneaut [facility] Center02-18-2025 NoteHNO ID: [id number] Author: ROSALINA DE JESUS RT(R) Service: ? [...] PATIENT PRESENTS WITH AN IMPLANTABLE OR ATTACHED TRIM OPERATOR: No RADIOLOGY DEPARTMENT: Mammography PERIPHERAL IV DATA: Not applicable SIGNED BY: RT Caterina(Raul) April 19, 2024 8:37 [facility]02-18-2025 NoteHNO ID: [id number] Author: LEONOR SERVIN MD Service: ? Author [...] Living1 SAB0 IAB0 Ectopic0 Multiple0 Live Births0 Waterside Worker History LMP: 03/01/2014, Postmenopausal Age at Menarche: 12 Age at First : Age at Menopause: Waterside Worker History Comments: Sexual Activity: Not Currently; Male; TUBAL LIGATION Contraception: Tubal Ligation PAST MEDICAL HISTORY Diagnosis Date Benign neoplasm of stomach EGD 2008 Dysphagia 2019 Required esophageal dilation at [facility] Esophageal reflux Hernia of other specified sites of abdominal cavity without mention of obstruction or gangrene HIATAL Hyperlipidemia LDL goal < 100 02/20/2011 Impaired fasting glucose 02/20/2011 Obesity Obstructive sleep apnea on CPAP 04/16/2012 Has not used CPAP since about 2014 Other and unspecified hyperlipidemia Other forms of migraine Statin intolerance PAST SURGICAL HISTORY Procedure Laterality Date COLONOSCOPY SCREENING 1982 E[facility] [place] SPE[facility] VARICIES INJ 2019 ESOPHAGOGASTRODUODENOSCOPY TRANSORAL DIAGNOSTIC 05/12/2008 EGD LIG/TRNSXJ FLP TUBE ABDL/VAG APPR UNI/BI tubal ligation UNSPECIFIED ORAL SURGERY PROCEDURE, BY REPORT 05/12/2007 [place] teeth and cyst removed from jaw FAMILY [...] discussed with the Patient or Patient's Authorized Services Rep. As applicable, any other physician, advance practice provider, medical student, or other health professional student that will be observing or involved in the sensitive examination for educational or training purposes was discussed with the Patient or Authorized Services Rep. 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 LMP: 03/01/2014, Postmenopausal Age at Menarche: 12 Age at First : Age at Menopause: Waterside Worker History Comments: Sexual Activity: Not Currently; Male; TUBAL LIGATION Contraception: Tubal Ligation PAST MEDICAL HISTORY Diagnosis Date Benign neoplasm of stomach EGD 2008 Dysphagia 2019 Required esophageal dilation at [facility] Esophageal reflux Hernia of other specified sites of abdominal cavity without mention of obstruction or gangrene HIATAL Hyperlipidemia LDL goal < 100 02/20/2011 Impaired fasting glucose 02/20/2011 Obesity Obstructive sleep apnea on CPAP 04/16/2012 Has not used CPAP since about 2014 Other and unspecified hyperlipidemia Other forms of migraine Statin intolerance PAST SURGICAL HISTORY Procedure Laterality Date COLONOSCOPY SCREENING 1982 EGD W/O [facility] SPEC VARICIES INJ 2019 ESOPHAGOGASTRODUODENOSCOPY TRANSORAL DIAGNOSTIC 05/12/2008 EGD LIG/TRNSXJ FLP TUBE ABDL/VAG APPR UNI/BI tubal ligation UNSPECIFIED ORAL SURGERY PROCEDURE, BY REPORT 05/12/2007 [place] teeth and cyst removed from jaw FAMILY [...] discussed with the Patient or Patient's Authorized Services Rep. As applicable, any other physician, advance practice provider, medical student, or other health professional student that will be observing or involved in the sensitive examination for educational or training purposes was discussed with the Patient or Authorized Services Rep. The Patient or Authorized Services Rep has agreed to proceed with the sensitive [...] external genitalia normal, normal Bartholin's glands, urethra, Epworth's glands, no vulvar lesions, no cervical lesions, [...] needed Leonor Servin MD documented in this encounterUniversity Hospitals Conneaut [facility] Center06-25-2024 Telephone encounter Note * Telephone Encounter - Jan Pham APRN.[facility] - 08/25/2023 10:06 AM EDT The following approved medication requests have been transmitted electronically. Requested Prescriptions Pending Prescriptions Disp Refills lansoprazole (PREVACID) 30 mg capsule 90 capsule 3 Sig: Take 1 capsule by mouth once daily. Jan Pham APRN.CNP [facility]06-25-2024 Miscellaneous Notes* Telephone Encounter - Jan Pham APRN.CNP - 08/25/2023 10:06 AM EDT The following approved medication requests have been transmitted electronically. Requested Prescriptions Pending Prescriptions Disp Refills lansoprazole (PREVACID) 30 mg capsule 90 capsule 3 Sig: Take 1 capsule by mouth once daily. Jan Pham APRN.CNP * Telephone Encounter - Thelma Root - 08/25/2023 9:39 AM EDT Patient has been identified by name and date of : Patient phones for refill(s): Requested Prescriptions Pending Prescriptions Disp Refills lansoprazole (PREVACID) 30 mg capsule 90 capsule 1 Sig: Take 1 capsule by mouth once daily. Date of last office visit in primary care: 03/28/2023 Date of next office visit in primary care: Visit date not found Please advise. Thank you. Thelma Root. documented in this encounterUniversity Hospitals Conneaut Medical Center06-25-2024 Telephone encounter Note * Telephone Encounter - Thelma Root - 08/25/2023 9:39 AM EDT Patient has been identified by name and date of : Patient phones for refill(s): Requested Prescriptions Pending Prescriptions Disp Refills lansoprazole (PREVACID) 30 mg capsule 90 capsule 1 Sig: Take 1 capsule by mouth once daily. Date of last office visit in primary care: 03/28/2023 Date of next office visit in primary care: Visit date not found Please advise. Thank you. Thelma Root. [facility]02-19-2024 Miscellaneous Notes* Letter - Coordinator, Mammography - 04/20/2023 7:59 AM EST April 20, 2023 PID: [id number] Kaylee Wong [address] [place] [address] Dear Tony Wong, We are pleased to inform you [...] report will be [facility] on [facility] at [facility] as part of your permanent medical record and are available for your continuing care. Thank you for allowing us to help in meeting your health care needs. Sincerely, Dr. Galindo Interpreting Radiologist [facility] (Normal over 40) documented in this encounterUniversity Hospitals Conneaut Medical Center02-16-2024 History of Present illness Narrative* Leonor Servin MD - 04/17/2023 9:12 AM EST Assistant Account Executive offered: Patient declines. Sharmin is a 62 year old who presents for an annual gynecologic exam without complaints. Has been off estrogen. Postmenopausal: yes, no vaginal bleeding HRT use: No. 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 History LMP: 02/11/2010, Postmenopausal Age at Menarche: Age at First : Age at Menopause: Waterside Worker History Comments: Sexual Activity: Yes; Male; TUBAL LIGATION Contraception: Surgical PAST MEDICAL HISTORY Diagnosis Date Benign neoplasm of stomach EGD 2008 Dysphagia 2019 Required esophageal dilation at [facility] Esophageal reflux Hernia of other specified sites [...] UNSPECIFIED ORAL SURGERY PROCEDURE, BY REPORT 05/12/2007 [place] teeth and cyst removed from jaw FAMILY [...] external genitalia normal, normal Bartholin's glands, urethra, Epworth's glands, no vulvar lesions, no cervical lesions, [...] needed Leonor Servin MD documented in this encounterUniversity Hospitals Conneaut Medical Center02-16-2024 History of Present illness Narrative* Kelly Kevin Mammo Tech - 04/17/2023 8:30 AM EST Radiology Service Progress Note PATIENT NAME: Kaylee Wong DATE OF SERVICE: April 17, 2023 TIME: 10:10 AM PATIENT IDENTITY VERIFICATION COMPLETED USING TWO (2) IDENTIFIERS: Name and Date of confirmedby patient verbally. FALL SCREENING: Has the patient had 2 falls in the last year or 1 fall with injury or currently using an Ambulatory Assistive Device (Walker, Cane, Wheelchair, Crutches, etc.)? No PATIENT GENDER DATA: Female. status: : No status: NO. PATIENT RELEVANT IMPLANT DATA REVIEWED: Not Applicable PATIENT PRESENTS WITH AN IMPLANTABLE OR ATTACHED TRIM OPERATOR: No RADIOLOGY DEPARTMENT: Mammography PERIPHERAL IV DATA: Not applicable SIGNED BY: Wilber Rodgers April 17, 2023 10:10 AM documented in this encounterUniversity Hospitals Conneaut Medical Center07-18-2023 Miscellaneous Notes* Telephone Encounter - Lisette Verdugo APRN.CNP - 09/16/2022 12:31 PM EDT Due for six month follow-up. Please assist in scheduling. Lisette Verdugo APRN.CNP * Telephone Encounter - Rocio Colon MA - 09/16/2022 11:47 AM EDT NOV none scheduled Rocio Colon MA * Telephone Encounter - Melba Araya - 09/16/2022 10:48 AM EDT Patient has been identified by name and [...] and advise. Melba Araya documented in this encounterUniversity Hospitals Conneaut Medical Center11-01-2022 Miscellaneous Notes* Telephone Encounter - Lisette Verdugo APRN.CNP - 12/31/2021 9:02 AM EDT Patient is due for yearly follow-up in January, please assist is scheduling. Lisette Verdugo APRN.MAHESH * Telephone Encounter - Geovanna Leon LPN - 12/31/2021 8:52 AM EDT Patient phones requesting refills as follows: Requested Prescriptions Pending Prescriptions Disp Refills lansoprazole (PREVACID) 30 mg capsule 90 capsule 3 Sig: Take 1 capsule by mouth once daily. GERMAN 02/06/21 No upcoming appointment scheduled. Please review and advise. Geovanna Leon LPN * Telephone Encounter - Noemy Epstein - 12/31/2021 8:25 AM EDT Patient Sharmin called checking on status of prescriptions Lansoprazole 30 mg caps, she is completelyout since 12/27. Please advise when ready, . documented in this encounterUniversity Hospitals Conneaut Medical Center10-19-2022 Miscellaneous Notes* Telephone Encounter - DIMITRI Wilkerson - 12/18/2021 12:52 PM EDT Patient has been identified by name and date of : Yes Pharmacy phones for refill(s): Requested Prescriptions Pending Prescriptions Disp Refills rizatriptan (MAXALT) 10 mg tablet [Pharmacy Med Name: RIZATRIPTAN 10 MG TABLET] 12 tablet 5 Sig: TAKE 1 TABLET BY MOUTH NEEDED. MAY REPEAT IN 2 HOURS IF NEEDED Date of last office visit in primary care: [facility] 02/06/2021 No appointment scheduled Last 2 Encounter Wt Readings: Date: Wt: 02/06/2021 87.6 kg (193 lb 1.9 oz) 02/04/2020 90.3 kg (199 lb) Please advise. Thank you. DIMITRI Wilkerson documented in this encounterUniversity Hospitals Conneaut Medical Center12-08-2021 History of Present illness Narrative* Lisandro Marrero, RT(R) - 02/06/2021 6:10 PM EST Radiology Service Progress Note PATIENT NAME: Kaylee Wong DATE OF SERVICE: February 06, 2021 TIME: 6:21 PM PATIENT IDENTITY VERIFICATION COMPLETED USING TWO (2) IDENTIFIERS: Name and Date of confirmedby patient verbally. FALL SCREENING: Has the patient had 2 falls in the last year or 1 fall with injury or currently using an Ambulatory Assistive Device (Walker, Cane, Wheelchair, Crutches, etc.)? No PATIENT GENDER DATA: Female. status: : No status: NO. PATIENT RELEVANT IMPLANT DATA REVIEWED: Not Applicable RADIOLOGY DEPARTMENT: General X-ray: Exam(s) Completed: Upper Extremity X- Ray(s): Shoulder, AP / TRUE AP / AXILLARY left PERIPHERAL IV DATA: Not applicable SIGNED BY: Lisandro Marrero RT(R) February 06, 2021 6:21 PM documented in this encounterUniversity Hospitals Conneaut Medical Center12-22-2011 History of Past illness Narrative* Problem Noted Date Resolved Date Impaired fasting glucose 02/20/2011 018 Fatigue 05/27/2010 05/25/2017 Acute gastritis without mention of hemorrhage 05/20/2016 documented as of this encounter (statuses as of 12/18/2021) [facility]12[facility] History of Past illness Narrative* Problem Noted Date Resolved Date Impaired fasting glucose 02/20/2011 018 Fatigue 05/27/2010 05/25/2017 Acute gastritis without mention of hemorrhage 05/20/2016 documented as of this encounter (statuses as of 12/31/2021) [facility] [facility] History of Past illness Narrative* Problem Noted Date Resolved Date Impaired fasting glucose 02/20/2011 018 Fatigue 05/27/2010 05/25/2017 Acute gastritis without mention of hemorrhage 05/20/2016 documented as of this encounter (statuses as of 01/13/2022) [facility] History of Past illness Narrative* Problem Noted Date Diagnosed Date Resolved Date Impaired fasting glucose 02/20/2011 Fatigue 05/27/2010 05/25/2017 Acute gastritis without mention of hemorrhage 05/13/19 09 05/20/2016 documented as of this encounter (statuses as of 09/16/2022) [facility] History of Past illness Narrative* Problem Noted Date Diagnosed Date Resolved Date Impaired fasting glucose 02/20/2011 Fatigue 05/27/2010 05/25/2017 Acute gastritis without mention of hemorrhage 05/13/19 09 05/20/2016 documented as of this encounter (statuses as of 12/29/2022) [facility] History of Past illness Narrative* Problem Noted Date Diagnosed Date Resolved Date Impaired fasting glucose 02/20/2011 Fatigue 05/27/2010 05/25/2017 Acute gastritis without mention of hemorrhage 05/13/19 09 05/20/2016 documented as of this encounter (statuses as of 04/17/2023) [facility] History of Past illness Narrative* Problem Noted Date Diagnosed Date Resolved Date Impaired fasting glucose 02/20/2011 Fatigue 05/27/2010 05/25/2017 Acute gastritis without mention of hemorrhage 05/13/19 09 05/20/2016 documented as of this encounter (statuses as of 04/18/2023) [facility] History of Past illness Narrative* Problem Noted Date Diagnosed Date Resolved Date Impaired fasting glucose 02/20/2011 Fatigue 05/27/2010 05/25/2017 Acute gastritis without mention of hemorrhage 05/13/19 09 05/20/2016 documented as of this encounter (statuses as of 04/22/2023) [facility] Diagnosis Migraine without aura, not intractable, with status migrainosus [facility] Diagnosis GERD without esophagitis Esophageal reflux [facility] Diagnosis Encounter for screening mammogram for breast cancer [facility] Diagnosis GERD without esophagitis Esophageal reflux Migraine without aura, not intractable, with status migrainosus [facility] Diagnosis Encounter for screening mammogram for breast cancer [facility] Diagnosis Encounter for gynecological examination (general) [...] for breast cancer [facility] Diagnosis GERD without esophagitis Esophageal reflux [facility] Diagnosis Acute pain of left shoulder [facility] Diagnosis Encounter for gynecological examination (general) (routine) without abnormal findings- Primary Encounter for screening mammogram for breast cancer [facility] Diagnosis Encounter for screening mammogram for breast cancer Dense breast tissue [facility] Diagnosis GERD without esophagitis Esophageal reflux [facility] Diagnosis Migraine without aura, not intractable, with status migrainosus [facility] Diagnosis GERD without esophagitis Esophageal reflux [facility]* Diagnosis Medicare annual wellness visit, initial- [...] cholecystitis or obstruction [facility] Diagnosis Coronary artery disease involving [place] coronary artery of [place] heart with angina pectoris- Primary GERD without esophagitis Esophageal reflux Migraine without aura, not intractable, with status migrainosus History of heart artery stent Postsurgical percutaneous transluminal coronary angioplasty status Eustachian tube disorder, left documented in this encounter [facility] Discharge instructionsAmbulatory Orders* Phase II, Outpatient Cardiac Rehab Location: None Selected [facility] Work Phone: Progress note Author Geovanna Dial [facility] Note Date/Time November 18, 2024 1:42pm [facility] [address] [place], [place] [address] OFFICE VISIT Date of Service: 11/18/24 MR#: [id number] Acct: [id number] Name: KAYLEE WONG Rep #: [id number] : 1960 Provider: SONG Arnett Age/Sex: 64/F Location: [facility] Status: Signed HPI HPI History of Present Illness Details: KAYLEE WONG, is a 64 F who presented to [facility] for a stress test on 10/28/24. Stress test was abnormal. She had NSVT and images r demonstrated reversible myocardial ischemia in the LAD distribution/anterior and septal area. She did under a subsequent cardiac cath which found high-grade 90% stenosis of mid LAD which required PCI. She was d/c h ome on . Symptoms that lead to a stress test were: occasionally having sudden feelings of shortness of breath. This would not be brought on by anything particular. It could be at rest or could be with activity. It would last a few seconds. She did not have any lightheadedness or dizziness. During her stress test she was also shortness of breath and lightheadedness. At home she has never had any syncopal episodes. She does not have any chest pain, tightness or heaviness. She does have issues with reflux in which she finds it is always attributed to food and is under control if she takes her Prevacid. Pt has not had any symptoms since having her PCI. She is not interested in cardiac rehab. She is trying to work out more at home. 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 Prior to her stenting she did not have high BP. It was typically on the low side. In the past she has not tolerated some statins. Intake Vital Signs 10/28/24 13:23 11/18/24 12:58 11/18/24 13:00 Height 5 ft 4 in 5 ft 4 in 5 ft 4 in Weight: 190 lb BMI 32.5 BP 129/83 H Blood Pressure Location Lt brachial Position Sitting Respiration 18 Pulse 66 Pulse Source Monitor Pulse Oximetry (%) 94 Intake Visit Reasons: S/P [facility] 11/29 PER MMM Clothes Ironer Required: No Is patient in pain?: No Allergies topiramate (From Topamax) Allergy (Intermediate, Verified 11/18/24 12:57) Rash Medications ?Medication ?Instructions ?Recorded ?Confirmed ?Type rizatriptan 5 mg tablet 5 mg PO Q2H PRN Headache 11/18/24 History lansoprazole 30 mg capsule,delayed 30 mg PO DAILY 01/3111/18/24 History release aspirin 81 mg tablet,delayed 81 mg PO BREAKFAST #90 ta bs 11/18/24 11/18/24 Rx release metoprolol succinate 25 mg 12.5 mg (1/2 x 25 mg) PO DA JENI #45 11/18/24 11/18/24 Rx tablet,extended release 24 hr tabs rosuvastatin 10 mg tablet 10 mg PO QDAY #30 tabs 11/1811/18/24 Rx ticagrelor 90 mg tablet (Brilinta) 90 mg PO BID #180 t abs 11/18/24 11/18/24 Rx Have you fallen in the past year?: No PFSH Medical History (Updated 11/18/24 @ 13:28 by Geovanna Dial PA, PA) NSVT (nonsustained ventricular tachycardia) Hyperlipidemia Migraine Heartburn Surgical History (Updated 11/06/24 @ 00:01 by Cherelle Valladares) H/O heart artery stent (10/28/24) History of tubal ligation [place] teeth extracted Family History (Updated 10/28/24 @ 13:31 by Ana Luisa Grimes) Grandmother Cancer Mother Cancer Aunt Cancer Aunt Cancer Social History Smoking Status: Never smoker ROS Const Const: Positive for fatigue; Negative for weakness, headache(s) or frequent falls Eyes Eyes: Negative for blurry vision ENT ENT: Negative for headache(s), dizziness or Nosebleed/epistaxis Cardio Chest Pain: No Palpitations: No Edema: None Muscle aches with walking: None Resp Respiratory: Negative for SOB with activity, SOB at rest or SOB orthopnea\SOB lying down GI GI: Negative nausea, vomiting, heartburn, bright, red blood in stools or black,tarry stools : Negative for hematuria Neuro Neuro: Negative for dizziness, lightheadedness, near syncope, syncope, frequent falls, headache(s), weakness or blurry vision Endo Endo: Positive for fatigue Cardiology Exam Const Appearance: cooperative, no acute distress and well developed Orientation: alert, awake and oriented x3 Head Head: normocephalic and atraumatic Mouth: moist mucous membranes Eyes General: appearance normal, both eyes and all related structures Conjunctivae: conjunctivae normal Pupils: PERRL EOM: EOM intact bilaterally Neck Neck: normal visual inspection, no lymphadenopathy and no JVD Carotids: Negative bruit Neck Mass: Negative Neck mass Chest Chest inspection: normal inspection of the chest and symmetric chest movement Auscultation: Bilateral: Clear to Auscultation Cardio Palpation: normal PMI Rate: regular rate Rhythm: regular rhythm Heart sounds: S1 normal and S2 normal; Negative rub, gallop or murmur GI GI: normal to inspection, soft, no hepatosplenomegaly and bowel sounds present; Negative tender Neuro General: patient alert, patient awake, patient oriented x3, CN's II-XI intact bilaterally and moves all extremities Extremities Pulses: Normal: Right Posterior Tibial Pulse, Left Posterior Tibial Pulse, RightRadial Pulse and Left Radial Pulse Lower Extremity Edema: None: Bilateral Psych Psychological: normal affect Supplemental Info Supplemental Information Cardiac cath with PCI 09/2024: Coronary angiography; 1. Left main coronary arteries normal angiographically bifurcating into LAD andleft circumflex 2. Left anterior descending artery has a mid 90% stenosis Following the PCI we reduce the stenosis to 0% and achieve LEILA pre and post 3 3. The left circumflex artery is moderate to large in size and angiographicallyhad no significant atherosclerosis 4. RCA small nondominant. Successful PCI of high-grade 90% stenosis of mid LAD, with predilatation using 2x 12 mm balloon Echo Complete W/ Contrast 09/2024 Interpretation Summary The estimated ejection fraction is 55-60 %. Normal LV systolic function No previous echo to compare 09/2024 Abnormal Lexiscan sestamibi with reversible myocardial ischemia in the LAD distribution/anterior and septal Episodes of nonsustained ventricular tachycardia with frequent PVCs Labs: HDL Cholesterol, (40-) 58 mg/dL Cholesterol, (<=200) 254 mg/dL H Triglycerides, (-199) 139 mg/dL Diagnostics: Electrocardiogram Echocardiogram Stress Test Catheterization Lab Chest X-Ray Chest CTA Abdomen/Pelvis CT Past Visits: Cardiology Visit Today Assessment and Plan Assessment and Plan (1) H/O heart artery stent: Status: Acute Comment: Successful PCI of high-grade 90% stenosis of mid LAD 09/2024 usingOnyx [place] 3.5 X 80 mm ANNIE Plan: Pt has not had any angina. Symptoms prior have resolved. She can not attend cardiac rehab. Did discuss lifestyle changes. Will continue with her ASA, Brilinta and statin. She is aware she needs to continue with her Brilinta for at least one year. (2) Hyperlipidemia: Status: Acute Plan: Laboratory Tests 10/29/24 05:33 Cholesterol 254 H LDL Cholesterol, Calc 168 HDL Cholesterol 58 Will switch her over to rosuvastatin as atorvastatin caused myalgias in the past. Will repeat her lipids prior to her next office visit. (3) NSVT (nonsustained ventricular tachycardia): Status: Acute Plan: Suspect her nonsustained VT was related to ischemia that she had on her stress test. For now we will continue with current low-dose metoprolol. (4) Elevated blood pressure reading in office without diagnosis of hypertension: Status: Acute Plan: Patient does not have a diagnosis of hypertension. However blood pressure is elevated. For now we will continue to monitor. If it is elevated at her next office visit we will start medications for this. Medications: New rosuvastatin 10 mg PO QDAY 30 tabs 11RF Changed From ticagrelor (Brilinta) 90 mg PO BID 90 days 180 tabs 0RF To ticagrelor (Brilinta) 90 mg PO BID 180 tabs 3RF From metoprolol succinate ER 12.5 mg (1/2 x 25 mg) PO DAILY 90 days 45 tabs 0RF To metoprolol succinate ER 12.5 mg (1/2 x 25 mg) PO DAILY 45 tabs 3RF From aspirin 81 mg PO BREAKFAST 90 days 90 tabs 0RF To aspirin 81 mg PO BREAKFAST 90 tabs 3RF Discontinued atorvastatin Discontinued Reason: Order Changed 40 mg PO QHS 90 days 90 tabs 0RF Patient Instructions: If your blood pressure stays elevated let us know. For now I will just monitor this before starting a newer medication Stop your atorvastatin, I switched this to rosuvastatin, if you develop muscle aches let us know. Plan Details Follow Up: 3 Months (hall- seen belal in hospital) Coding Level of Care Code Off vis,est,level 4 Diagnoses H/O heart artery stent Z95.5 Hyperlipidemia E78.5 NSVT (nonsustained ventricular tachycardia) I47.29 Elevated blood pressure reading in office without diagnosis of hypertension R03.0 Coding Level of Care Code Off vis,est,level 4 Diagnoses H/O heart artery stent Z95.5 Hyperlipidemia E78.5 NSVT (nonsustained ventricular tachycardia) I47.29 Elevated blood pressure reading in office without diagnosis of hypertension R03.0 Clinical Quality Measures Falls Risk Screening/Assistive Devices Have you fallen in the past year?: No 11/18/24 1558 <Electronically signed by Geovanna West> Date _ Geovanna ZULETA Cosigner Signature: Date (if applicable) CC: ~ [employer] Work Phone: [facility] for referral (narrative)* Diagnostic Procedure Only (Routine) - Pending Review Specialty Diagnoses / Procedures Referred By Beni t Referred To Contact [facility] Diagnoses Encounter for screening mammogram for breast cancer Procedures ANGELI SCREENING SCREENING MAMMOGRAPHY BI 2-VIEW BREAST INC Tao Choi MD [facility] [place] [address] [facility] [address] [address] Referral ID Status Reason Start Date Expiration Date Visits Requested Visits Authorized [id number] Pending Review Auto-Generat ed Referral 01/08/2022 02/07/2023 1 1 [facility] for referral (narrative)* Diagnostic Procedure Only (Routine) - Pending Review Specialty Diagnoses / Procedures Referred By Beni blanca Referred To Contact [facility] Diagnoses Encounter for screening mammogram for breast cancer Procedures ANGELI SCREENING SCREENING MAMMOGRAPHY [place] [address] [place] [address] [facility] [address] [place] [address] Referral ID Status Reason Start Date Expiration Date Visits Requested Visits Authorized [id number] Pending Review Auto-Generat ed Referral 01/23/2024 1 1 [facility] for referral (narrative)* Diagnostic Procedure Only (Routine) - Authorized Specialty Diagnoses / Procedures Referred By Contac t Referred To Contact [facility] Diagnoses Encounter for screening mammogram for breast cancer Dense breast tissue Procedures ANGELI SCREENING W BOGDAN SCREENING DIGITAL BREAST TOMOSYNTHESIS BI SCREENING MAMMOGRAPHY BI 2-VIEW BREAST INC Leonor Ayala MD [address] [place] [address] [facility] [address] [place] [address] Referral ID Status Reason Start Date Expiration Date Visits Requested Visits Authorized [id number] Authorized Auto-Generat ed Referral 04/17/2024 05/16/2024 1 1 [facility] for referral (narrative)* Diagnostic Procedure Only (Routine) - Closed Specialty Diagnoses / Procedures Referred By Contac t Referred To Contact X[facility] IMAGING Diagnoses Acute pain of left shoulder Procedures XR SHOULDER GENERAL 3V OR MORE AP/TRUE AP/OTHER LEFT X-RAY SHOULDER COMPLET MIN 2 VIEWS Lisette Verdugo APRN.CNP [address] [place] [address] [place] [address] Referral ID Status Reason Start Date Expiration Date V isits Requested Visits Authorized [id number] Closed Auto-Generate d Referral 02/06/2021 03/01/2021 1 1 [facility] for referral (narrative)No reason for referral information availableWTuscarawas [facility] Work Phone: Reason for visit Narrative* Diagnostic Procedure Only (Routine) - Closed Specialty Diagnoses / Procedures Referred By Contac t Referred To Contact [facility] Diagnoses Encounter for screening mammogram for breast cancer Procedures ANGELI SCREENING SCREENING MAMMOGRAPHY BI 2-VIEW BREAST INC Tao Choi MD [address] [place] [address] [facility] [address] [place] [address] Referral ID Status Reason Start Date Expiration Date V isits Requested Visits Authorized [id number] Closed Auto-Generate d Referral 12/24/2022 01/23/2024 1 1 [facility] for visit Narrative* Diagnostic Procedure Only (Routine) - Closed Specialty Diagnoses / Procedures Referred By Contac t Referred To Contact XR IMAGING Diagnoses Acute pain of left shoulder Procedures XR SHOULDER GENERAL 3V OR MORE AP/TRUE AP/OTHER LEFT X-RAY SHOULDER COMPLET MIN 2 VIEWS Lisette Verdugo APRN.BINGO CLERK [address] [place] [address] [place] [address] Referral ID Status Reason Start Date Expiration Date V isits Requested Visits Authorized [id number] Closed Auto-Generate d Referral 02/06/2021 03/01/2021 1 1 [facility]* Diagnostic Procedure Only (Routine) - Closed Specialty Diagnoses / Procedures Referred By Migdaliaac t Referred To Contact [facility] Diagnoses Encounter for screening mammogram for breast cancer Dense breast tissue Procedures ANGELI SCREENING W BOGDAN SCREENING DIGITAL BREAST TOMOSYNTHESIS BI SCREENING MAMMOGRAPHY BI 2-VIEW BREAST INC CAD Leonor Servin MD [address] [place] [address] Phone: tel: fax: [facility] [address] [place] [address] Referral ID Status Reason Start Date Expiration Date V isits Requested Visits Authorized [id number] Closed Auto-Generate d Referral 04/17/2024 05/16/2024 1 1 [facility] Summary Purpose Family History Relationship Condition Age at Onset Recorded Date/T claritza grandmother Malignant neoplasm Unknown mother Malignant neoplasm Unknown aunt Malignant neoplasm Unknown Advance Directives Advance Directive Response Recorded Date/ Time Advance Directives on File No Augus t 2024 11:07am Living Will Yes October 28 11:07am Do you have a Healthcare Power of Life Specialist? Yes October 28, 2024 1:25pm Name of Medical Power of Life Specialist syd presley October 28, 2024 1:25pm Advance Directives Yes October 28, 2024 11:07am Chief Complaint and Reason for Visit Chief Complaint Admit Date CHEST PAIN ABN STRESS October 28, 2024 11:11am CHEST PAIN ABN STRESS October 28, 2024 2:34pm CHEST PAIN ABN STRESS October 28, 2024 3:31pm Reason for Visit Admit Date NSVT (nonsustained ventricular tachycard ia) October 28, 2024 2:34pm Unstable angina October 28, 2024 2: 34pm Chief Complaint Admit Date CHEST PAIN ABN STRESS October 28, 2024 11:11am CHEST PAIN ABN STRESS October 28, 2024 2:34pm CHEST PAIN ABN STRESS October 28, 2024 3:31pm CHEST PAIN ABN STRESS October 29, 2024 9:50am Referral Order November 02, 2024 7:14pm Chief Complaint Admit Date CHEST PAIN ABN STRESS October 28, 2024 11:11am CHEST PAIN ABN STRESS October 28, 2024 2:34pm CHEST PAIN ABN STRESS October 28, 2024 3:31pm AM EKG October 29, 2024 5: 43am CHEST PAIN ABN STRESS October 29, 2024 9:50am Referral Order November 02, 2024 7:14pm S/P [facility] 11/29 PER MMM November 18 12:53pm Reason for Visit Admit Date NSVT (nonsustained ventricular tachycard ia) October 28, 2024 2:34pm Unstable angina October 28, 2024 2: 34pm Elevated blood pressure read ing in office without diagnosis of hypertension November 18, 2024 12:53pm H/O heart artery stent November 18, 025 12:53pm Hyperlipidemia November 18, 2024 12:53pm NSVT (nonsustained ventricular tachycard ia) November 18, 2024 12:53pm Additional Source Comments INFORMATION SOURCE (unrecogn ized section and content) DATE CREATED AUTHOR 08/25/2017 [facility] DATE CREATED AUTHOR AUTHOR'S ORGANIZ ATION 08/25/2017 [facility] DATE CREATED AUTHOR AUTHOR'S ORGANIZ ATION 11/08/2024 [facility] DATE CREATED AUTHOR AUTHOR'S ORGANIZ ATION 11/19/2024 [facility] Source Comments (unrecognize d section and content) In the event this informatio n is protected by the Federal Confidentiality of Alcohol and Drug Abuse Patient Records regulations: The Federal rules restrict any use of the information to criminally investigate or prosecute any alcohol or drug abuse patient.[facility] the event this information is protected by the Federal Confidentiality of Alcohol and Drug Abuse Patient Records regulations: The Federal rules restrict any use of the information to criminally investigate or prosecute any alcohol or drug abuse patient.[facility] the event this information is protected by the Federal Confidentiality of Alcohol and Drug Abuse Patient Records regulations: The Federal rules restrict any use of the information to criminally investigate or prosecute any alcohol or drug abuse patient.[facility] the event this information is protected by the Federal Confidentiality of Alcohol and Drug Abuse Patient Records regulations: The Federal rules restrict any use of the information to criminally investigate or prosecute any alcohol or drug abuse patient.[facility] the event this information is protected by the Federal Confidentiality of Alcohol and Drug Abuse Patient Records regulations: The Federal rules restrict any use of the information to criminally investigate or prosecute any alcohol or drug abuse patient.[facility] the event this information is protected by the Federal Confidentiality of Alcohol and Drug Abuse Patient Records regulations: The Federal rules restrict any use of the information to criminally investigate or prosecute any alcohol or drug abuse patient.[facility] the event this information is protected by the Federal Confidentiality of Alcohol and Drug Abuse Patient Records regulations: The Federal rules restrict any use of the information to criminally investigate or prosecute any alcohol or drug abuse patient.[facility] the event this information is protected by the Federal Confidentiality of Alcohol and Drug Abuse Patient Records regulations: The Federal rules restrict any use of the information to criminally investigate or prosecute any alcohol or drug abuse patient.[facility] the event this information is protected by the Federal Confidentiality of Alcohol and Drug Abuse Patient Records regulations: The Federal rules restrict any use of the information to criminally investigate or prosecute any alcohol or drug abuse patient.[facility] the event this information is protected by the Federal Confidentiality of Alcohol and Drug Abuse Patient Records regulations: The Federal rules restrict any use of the information to criminally investigate or prosecute any alcohol or drug abuse patient.[facility] the event this information is protected by the Federal Confidentiality of Alcohol and Drug Abuse Patient Records regulations: The Federal rules restrict any use of the information to criminally investigate or prosecute any alcohol or drug abuse patient.[facility] Center[facility] the event this information is protected by the Federal Confidentiality of Alcohol and Drug Abuse Patient Records regulations: The Federal rules restrict any use of the information to criminally investigate or prosecute any alcohol or drug abuse patient.[facility] CenterIn the event this information is protected by the Federal Confidentiality of Alcohol and Drug Abuse Patient Records regulations: The Federal rules restrict any use of the information to criminally investigate or prosecute any alcohol or drug abuse patient.[facility] CenterIn the event this information is protected by the Federal Confidentiality of Alcohol and Drug Abuse Patient Records regulations: The Federal rules restrict any use of the information to criminally investigate or prosecute any alcohol or drug abuse patient.[facility] CenterIn the event this information is protected by the Federal Confidentiality of Alcohol and Drug Abuse Patient Records regulations: The Federal rules restrict any use of the information to criminally investigate or prosecute any alcohol or drug abuse patient.[facility] CenterIn the event this information is protected by the Federal Confidentiality of Alcohol and Drug Abuse Patient Records regulations: The Federal rules restrict any use of the information to criminally investigate or prosecute any alcohol or drug abuse patient.[facility] CenterIn the event this information is protected by the Federal Confidentiality of Alcohol and Drug Abuse Patient Records regulations: The Federal rules restrict any use of the information to criminally investigate or prosecute any alcohol or drug abuse patient.[facility] CenterIn the event this information is protected by the Federal Confidentiality of Alcohol and Drug Abuse Patient Records regulations: The Federal rules restrict any use of the information to criminally investigate or prosecute any alcohol or drug abuse patient.[facility] CenterIn the event this information is protected by the Federal Confidentiality of Alcohol and Drug Abuse Patient Records regulations: The Federal rules restrict any use of the information to criminally investigate or prosecute any alcohol or drug abuse patient.[facility] Reason for Visit (unrecogniz ed section and content) Reason Comments Refill Request Reason Onset Date Comments Refill Request 12/28/2021 Reason Onset Date Comments Refill Request 09/16/2022 Reason Comments Yearly Exam Reason Onset Date Comments Refill Request 08/25/2023 Reason Comments Yearly Exam With Mammogram Reason Onset Date Comments Refill Request 04/27/2024 Reason Onset Date Comments Refill Request 07/26/2024 Reason Comments Medicare Wellness Exam Reason Comments Verbal order needed for Holter Monitor Reason Comments Hospital F/U Ear Problem Left ear-plugged Care Teams (unrecognized sec tion and content) 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 Relationship Specialty Start Date End Date Tao Mahajan MD [address] [place], [place] [id number] PCP - General Family Medicine 10/25/21 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 Relationship Specialty Start Date End Date Tao Mahajan MD [address] [place] [address] PCP - General Family Medicine 10/25/21 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 Relationship Specialty Start Date End Date Tao Mahajan MD [address] [place] [address] PCP - General Family Medicine 10/25/21 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 Relationship Specialty Start Date End Date Tao Mahajan MD [address] [place] [address] PCP - General Family Medicine 10/25/21 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 Relationship Specialty Start Date End Date Tao Mahajan MD [address] [place] [address] PCP - General Family Medicine 10/25/21 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 Relationship Specialty Start Date End Date Erendira Chiang MD [address] [place] [address] PCP - General Family Medicine 03/28/23 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 Relationship Specialty Start Date End Date Erendira Chiang MD [address] [place] [address] PCP - General Family Medicine 03/28/23 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 Relationship Specialty Start Date End Date Erendira Chiang MD [address] [place] [address] PCP - General Family Medicine 03/28/23 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 Relationship Specialty Start Date End Date Erendira Chiang MD [address] [place] [address] PCP - General Family Medicine 03/28/23 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 Relationship Specialty Start Date End Date Erendira Chiang MD [address] [place] [address] PCP - General Family Medicine 01/19/21 10/24/21 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 Relationship Specialty Start Date End Date Erendira Chiang MD [address] [place] [address] PCP - General Family Medicine 03/28/23 Disha Estrella APRN.BINGO CLERK [address] [place] [address] Computer Repair Technician Family Medicine 02/07/24 Jan Pham APRN.BINGO CLERK [address] [place] [address] Computer Repair Technician Family Medicine 02/16/24 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 Relationship Specialty Start Date End Date Erendira Chiang MD [address] [place] [address] PCP - General Family Medicine 03/28/23 Disha Estrella APRN.BINGO CLERK [address] [place] [address] Computer Repair Technician Family Medicine 02/07/24 Jan Pham APRN.BINGO CLERK [address] [place] [address] Computer Repair Technician Family Medicine 02/16/24 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 Relationship Specialty Start Date End Date Erendira Chiang MD [address] [place] [address] PCP - General Family Medicine 03/28/23 Disha Estrella APRN.BINGO CLERK [address] [facility] [place] [address] Computer Repair Technician Family Medicine 02/07/24 Jan Pham APRN.BINGO CLERK [address] [place] [address] Computer Repair Technician Family Medicine 02/16/24 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 Relationship Specialty Start Date End Date Erendira Chiang MD [address] [place] [address] PCP - General Family Medicine 03/28/23 Disha Estrella APRN.BINGO CLERK [address] [place] [address] Computer Repair Technician Family Medicine 02/07/24 Jan Pham APRN.BINGO CLERK [address] [place] [address] Computer Repair Technician Family Medicine 02/16/24 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 Relationship Specialty Start Date End Date Erendira Chiang MD [address] [place] [address] PCP - General Family Medicine 03/28/23 Jan Pham APRN.BINGO CLERK [address] [place] [address] Computer Repair Technician Family Medicine 02/16/24 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 Relationship Specialty Start Date End Date Erendira Chiang MD [address] [place] [address] PCP - General Family Medicine 03/28/23 Jan Pham APRN.BINGO CLERK [address] [place], [place] [address] Computer Repair Technician Family Medicine 02/16/24 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 Relationship Specialty Start Date End Date Erendira Chiang MD [address] [place] [address] PCP - General Family Medicine 03/28/23 Jan Pham APRN.BINGO CLERK [address] [place] [address] [facility] 02/16/24 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 Relationship Specialty Start Date End Date Erendira Chiang MD [address] [place] [address] PCP - General Family Medicine 03/28/23 Jan Pham APRN.BINGO CLERK [address] [place] [address] Computer Repair Technician Family [facility] 02/16/24 Team Status: Active Member Role/Relationship Status Dates Dr. Erendira Chiang MD Primary Care Provider Active Team Status: Active Member Role/Relationship Status Dates Dr. Erendira Chiang MD Primary Care Provider Active Start: October 28, 2024 Jan Pham SPED TEACHER, SPED TEACHER-C Other Provider Active Start : October 28, 2024 Dr. Faustino Torres MD Referring Provider Active Start: October 28, 2024 Dr. Faustino Torrse MD Other Provider Active Star t: October 28, 2024 Geovanna Dial PA, PA Attending Provider Active Start: October 28, 2024 Team Status: Inactive Member Role/Relationship Status Dates Dr. Erendira Chiang MD Primary Care Provider Active Start: October 28, 2024 End: October 29, 2024 Jan Pham SPED TEACHER, SPED TEACHER-C Other Provider Active Start : October 28, 2024 End: October 29, 2024 Dr. Faustino Torres MD Referring Provider Active Start: October 28, 2024 End: October 29, 2024 Dr. Faustino Torres MD Other Provider Active Star t: October 28, 2024 End: October 29, 2024 Dr. Puma Morrison MD Admit Provider Active Sta rt: October 28, 2024 End: October 29, 2024 Dr. Puma Morrison MD Other Provider Active Sta rt: October 28, 2024 End: October 29, 2024 Dr. Mathieu Santos DO Attending Provider Active Start: October 28, 2024 End: October 29, 2024 Team Status: Active Member Role/Relationship Status Dates Dr. Erendira Chiang MD Primary Care Provider Active Start: October 28, 2024 Dr. Faustino Torres MD Attending Provider Active Start: October 28, 2024 Team Status: Active Member Role/Relationship Status Dates Dr. Erendira Chiang MD Primary Care Provider Active Start: October 28, 2024 Jan Pham NP, SPED TEACHER-C Other Provider Active Start : October 28, 2024 Dr. Faustino Torres MD Referring Provider Active Start: October 28, 2024 Dr. Faustino Torres MD Other Provider Active Star t: October 28, 2024 Dr. Puma Morrison MD Admit Provider Active Sta rt: October 28, 2024 Dr. Puma Morrison MD Attending Provider Active Start: October 28, 2024 Dr. Puma Morrison MD Other Provider Active Sta rt: October 28, 2024 Team Status: Active Member Role/Relationship Status Dates Dr. Erendira Chiang MD Primary Care Provider Active Start: October 29, 2024 Jan Pham NP, SPED TEACHER-C Other Provider Active Start : October 29, 2024 Dr. Faustino Torres MD Referring Provider Active Start: October 29, 2024 Dr. Faustino Torres MD Other Provider Active Star t: October 29, 2024 Dr. Puma Morrison MD Admit Provider Active Sta rt: October 29, 2024 Dr. Puma Morrison MD Other Provider Active Sta rt: October 29, 2024 Dr. Mathieu Santos DO Attending Provider Active Start: October 29, 2024 Dr. Mathieu Santos DO Other Provider Active Start: October 29, 2024 Team Status: Active Member Role/Relationship Status Dates Dr. Erendira Chiang MD Primary Care Provider Active Start: November 02, 2024 Dr. Faustino Torres MD Attending Provider Active Start: November 02, 2024 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 Relationship Specialty Start Date End Date Erendira Chiang MD [address] [place], [place] [id number] PCP - General Family Medicine 03/28/23 Jan Pham APRN.BINGO CLERK [address] [place], [place] [id number] Computer Repair Technician Family Medicine 02/16/24 Team Status: Active Member Role/Relationship Status Dates Dr. Erendira Chiang MD Primary care physician Active Team Status: Active Member Role/Relationship Status Dates Dr. Erendira Chiang MD Primary care physician Active Start: October 28, 2024 Jan Pham SPED TEACHER, SPED TEACHER-C Nurse Practitioner Active S tart: October 28, 2024 Dr. Faustino Torres MD Referring Provider Active Start: October 28, 2024 Dr. Faustino Torres MD Nurse Practitioner Active Start: October 28, 2024 Geovanna Dial PA, PA Attending physician Active Start: October 28, 2024 Team Status: Inactive Member Role/Relationship Status Dates Dr. Erendira Chiang MD Primary care physician Active Start: October 28, 2024 End: October 29, 2024 Jan Pham SPED TEACHER, SPED TEACHER-C Nurse Practitioner Active S tart: October 28, 2024 End: October 29, 2024 Dr. Faustino Torres MD Referring Provider Active Start: October 28, 2024 End: October 29, 2024 Dr. Faustino Torres MD Nurse Practitioner Active Start: October 28, 2024 End: October 29, 2024 Dr. Puma Morrison MD Admitting physician Active Start: October 28, 2024 End: October 29, 2024 Dr. Puma Morrison MD Nurse Practitioner Active Start: October 28, 2024 End: October 29, 2024 Dr. Mathieu Santos DO Attending physician Activ e Start: October 28, 2024 End: October 29, 2024 Team Status: Active Member Role/Relationship Status Dates Dr. Erendira Chiang MD Primary care physician Active Start: October 28, 2024 Dr. Faustino Torres MD Attending physician Active Start: October 28, 2024 Team Status: Active Member Role/Relationship Status Dates Dr. Erendira Chiang MD Primary care physician Active Start: October 28, 2024 Jan Pham NP, SPED TEACHER-C Nurse Practitioner Active S tart: October 28, 2024 Dr. Faustino Torres MD Referring Provider Active Start: October 28, 2024 Dr. Faustino Torres MD Nurse Practitioner Active Start: October 28, 2024 Dr. Puma Morrison MD Admitting physician Active Start: October 28, 2024 Dr. Puma Morrison MD Attending physician Active Start: October 28, 2024 Dr. Puma Morrison MD Nurse Practitioner Active Start: October 28, 2024 Team Status: Active Member Role/Relationship Status Dates Dr. Erendira Chiang MD Primary care physician Active Start: October 29, 2024 Dr. Donnie Hall MD Attending physician Active Start: October 29, 2024 Dr. Faustino Torres MD Referring Provider Active Start: October 29, 2024 Team Status: Active Member Role/Relationship Status Dates Dr. Erendira Chiang MD Primary care physician Active Start: October 29, 2024 Jan Pham NP, SPED TEACHER-C Nurse Practitioner Active S tart: October 29, 2024 Dr. Faustino Torres MD Nurse Practitioner Active Start: October 29, 2024 Dr. Puma Morrison MD Admitting physician Active Start: October 29, 2024 Dr. Puma Morrison MD Nurse Practitioner Active Start: October 29, 2024 Dr. Mathieu Santos DO Attending physician Activ e Start: October 29, 2024 Dr. Mathieu Santos DO Nurse Practitioner Active Start: October 29, 2024 Team Status: Active Member Role/Relationship Status Dates Dr. Erendira Chiang MD Primary care physician Active Start: November 02, 2024 Dr. Faustino Torres MD Attending physician Active Start: November 02, 2024 Team Status: Inactive Member Role/Relationship Status Dates Dr. Erendira Chiang MD Primary care physician Active Start: November 18, 2024 End: November 18, 2024 Dr. Erendira Chiang MD Referring Provider Active Start: November 18, 2024 End: November 18, 2024 Geovanna Dial PA, PA Attending physician Active Start: November 18, 2024 End: November 18, 2024 FOR RECORDS PERTAINING TO PATIENTS WHO ARE [...] BE BASED ON THE PRIMARY CLINICAL RECORDS. [facility] [employer] provides no warranty or guarantee of the accuracy or completeness of information in this document.
[2025-02-18 09:12] LABS: AST(SGOT) 36 U/L (<=31); Alanine Aminotransfer ALT/SGPT 35 U/L (<=34); Albumin, Serum 4.3 g/dL (3.4-4.8); Alkaline Phosphatase 138 U/L (35-104); Bilirubin, Direct 0.30 mg/dL (0.00-0.30); Cholesterol 164 mg/dL (<=200); Globulin 2.9 g/dL (2.2-4.2); Low Density Lipoprotein Calc. 80 mg/dL; Triglycerides 90 mg/dL; Very Low Density Lipoprotein 18 mg/dL (5-40); cholesterol:hdl ratio screen 2.44
== END | disposition home or self-care (01) ==
LOC: LAB 08:39
PROVIDERS: PCP Family Medicine; Referring Provider Internal Medicine Cardiovascular Disease; Visit Provider Internal Medicine Cardiovascular Disease
DX: E78.5 Hyperlipidemia, unspecified (principal); I25.10 Atherosclerotic heart disease of native coronary artery without angina pectoris
CPT/HCPCS: 36415; 80061; 80076